=== PATIENT | male | born 1995 | race African-American/Black ===

== ENCOUNTER 2020-12-13 03:09 | Inpatient (IN) ==
[2020-12-13] MEDS ORDERED: SODIUM CHLORIDE 0.9% 1000ML 1,000 ML IV ONE ×2 (03:22)
[2020-12-13] MEDS ORDERED: KETOROLAC 30 MG/ML VIAL IV STA (03:22)
[2020-12-13] MEDS ORDERED: PROMETHAZINE 25 MG/51 ML BAG IV STA (03:22)
--- NOTE | 2020-12-13 03:26 | Emergency Department Note ---
Impression & Plan Sepsis, Myocarditis, Leukocytosis, Acidosis, lactic, Acute renal insufficiency ED Provider Note Name: MIKE [id number] MARCIO Age: 25 Sex: M Arrives Via: Ambulance Informant: Patient, EMS ED Provider: Delbert Lou MD Chief Complaint: Diffuse body aches Impression: Sepsis Myocarditis Leukocytosis Lactic Acidosis Acute Renal Insufficiency Medical Decision Makin yr old prisoner with history depression arrives with diffuse body aches, nausea, vomiting and not feeling well. Dehydrated with tachy and some crackles right lungs thus IV fluids ordered along with phenergan and toradol for symptoms. Patient feeling vastly improved just with this and pending labs. CXR unremarkable. Lab initially returning with elevated WBC and Dohle bodies. At this time sepsis work-up initiated and cultures, lactate, ordered, as well as COVID as likely admission. Trop shortly afterwards elevated. Patient still feeling much better denying chest pain, sob, and just feeling tired. EKG reveals diffuse T wave inversions and some ST depressions consistent with my ocardial issue. Without chest pain nor ST elevation, sats good, and no overt heart failure on CXR felt that no indication for emergency echo at this time, no anticoagulation without further work-up. Hospitalist involved at this point and decision to get CT PE along with A/P. Lactate returned elevated and in setting of some tachy felt 30ml/kg IV fluids reasonable which he was ordered. Issue wit h COVID testing at lab, which resulted as negative. CT PE negative though does show small pericardial effusion. CT a/p consistent with enterocolitis no overt surgical findings. Prior Medical Record and Triage/Nursing Notes reviewed by Me Additional history obtained from [facility] records Differentials:Infection, dehydration, metabolic abnormality, hypo/hype rglycemia, electrolyte disturbance, anemia, hypoxia, cardiac sources, intracerebral event, toxicologic, neurologic, as well as other pathologies. Vital Signs: reviewed and remarkable for Tachy Interventions: saline lock, Toradol 30mg IV, Phenergan 25mg IV, nss bolus 2 L + 500mL IV, Zosyn IV, Vanco IV Labs:Reviewed and remarkable for elevated wbc, elevated lactate, elevated trop, amongst others Imaging:X ray results are stated below per my interpretation: Chest: 1 view: No infiltrate, no effusion, normal cardiac border. EKG:Per My Interpretation: Indication Body Aches: NSR 90 bpm, qtc 433. There are diffuse t wave inversions anteriorly as well as ST depression inferior. No Ectopy. No previous for comparison. Cardiac/Tele Monitoring: Cardiac Monitoring: An Order was placed for continuous cardiac monitoring. The monitor shows a rate of 100 with a normal sinus rhythm. Consults:Dr Woo DELANEY Hospitalist Plan: Disposition:Hospitalization. Condition: Fair History of Present Illness:25 yr old male prisoner arrives for evaluation of "covid" symptoms. Patient with 3 days of symptoms. Notes cough, shortness of breath, fatigue, fevers, chills, nausea, vomiting, diarrhea, abdominal cramping, back pain amongst other symptoms. Notes worsening this evening. Given Tylenol [employer] with improvement of fever. Exertion makes worse, rest makes better. No syncope, chest pain, leg swelling, bruising nor other symptoms. No recent antibiotics. Was tested 3 days ago for covid without results yet. Denies chronic disease history. Multiple sick contacts. ROS: See above HPI for pertinent positives & negatives. A total of 10 systems reviewed and were otherwise negative. Past Medical History:Depression Past Surgical History:None Family History:DMII Social History:Prisoner. Recently quit smoking, no etoh, no drugs. Home Medications:Remeron, Paxil Allergies:Trazodone Vitals:Blood Pressure: 100/77, Pulse 108, RR 20, T 37.1C, O2 98% on RA Physical Exam: GENERAL: Patient is tired appearing and in mild distress. EYES: No scleral icterus, unremarkable pupils. ENT: Mucous membranes moist, no nasal congestion. NECK: No masses appreciated, nomeningismus, trachea is midline. RESPIRATORY: Crackles right lower lungs otherwise no dyspnea. Clear to auscultation and equal bilaterally. No wheeze, no rhonchi. CARDIOVASCULAR: Regular rate and rhythm.No murmurs, rubs, gallops appreciated. GASTROINTESTINAL: Abdomen soft, non-tender, no peritonitis.Bowel sounds positive.No masses appreciated. BACK: No midline tenderness, no CVA tenderness EXTREMITIES: Normal motion all extremities, no cyanosis, no edema. NEUROLOGIC: Alert and oriented, no acute motor or sensory deficits, no focal weakness, cranial nerves grossly intact. SKIN: No rash, no jaundice, no diaphoresis. PSYCH: Appropriate GCS: 15 ED Course: Times/Reassessments: Patient with vast improvement in symptoms just with initial fluids and toradol/phenergan. Aware abnormal labs and OK with hospitalization. Breathing comfortably throughout. Mild increased HR though not overtly septic by exam. Hospitalist in to evaluate. Critical Care: I have personally spent 45 minutes of critical care time in the direct management of this patient. Myocarditis with sepsis requiring medical resus. This was a life/limb threatening event. This 45 minutes is in excess of all separately billable procedures. Delbert Lou MD Past Med/Surg History Social History Smoking Status: Current every day smoker Tobacco Type: Cigarettes Feels Safe at Home: Yes Allergies Allergies Allergy/AdvReac Type Severity Reaction Status Date / Time schmitt Allergy Unknown Verified 12/13/20 03:55 trazodone Allergy Unknown Verified 12/13/20 03:55 Home Meds Home Medications Medication Instructions Recorded Confirmed mirtazapine 45 mg PO HS 12/13/20 12/13/20 paroxetine HCl 10 mg PO HS 12/13/20 12/13/20 Results & Data (ED) Vital Signs Vital Signs - 24 hr 12/13/20 03:48 12/13/20 04:08 12/13/20 05:16 Temperature 37.1 C Temperature Source Oral Pulse Rate 108 H Pulse Rate [Bilateral Apical] 108 H 120 H Respiratory Rate 20 20 20 Blood Pressure 100/77 Blood Pressure [Right Arm] 119/71 118/70 Blood Pressure Mean 84 Blood Pressure Mean [Right Arm] 87 86 Pulse Oximetry 98 99 96 Oxygen Delivery Method Room Air Room Air Room Air Sepsis Recent Fever Within 48 Hours Yes Sepsis New/Unexplained Change in Mental Status N/A Sepsis Action Taken by Nursing No Action Required 12/13/20 05:42 12/13/20 05:49 Temperature Temperature Source Pulse Rate Pulse Rate [Bilateral Apical] 116 H 110 H Respiratory Rate 20 20 Blood Pressure Blood Pressure [Right Arm] 103/65 Blood Pressure Mean Blood Pressure Mean [Right Arm] 77 Pulse Oximetry 96 99 Oxygen Delivery Method Room Air Room Air Sepsis Recent Fever Within 48 Hours Sepsis New/Unexplained Change in Mental Status Sepsis Action Taken by Nursing Laboratory Data Result diagrams: 12/13/20 03:32 12/13/20 03:32 Lab Results 12/13/20 12/13/20 12/13/20 Range/Units 03:32 03:32 03:32 WBC 26.44 H (4.8-10.8) K/uL RBC 4.98 (4.7-6.1) M/uL Hgb 14.4 (14.0-18.0) g/dL Hct 39.0 L (42-52) % MCV 78.3 L (80-100) fL MCH 28.9 (25-34) pg MCHC 36.9 H (32-36) g/dL RDW Std Deviation 38.0 (36.4-46.3) fL RDW Coeff of Chavez 13.3 (11.5-14.5) % Plt Count 241 (130-400) K/uL MPV 12.6 H (7.4-10.4) fL Immature Gran % (Auto) 0.9 % Neut % (Auto) 89.7 % Lymph % (Auto) 6.4 % [place] % (Auto) 2.7 % Eos % (Auto) 0.2 % Baso % (Auto) 0.1 % Neut # (Auto) 23.74 H (1.4-6.5) K/uL Lymph # (Auto) 1.68 (1.2-3.4) K/uL [place] # (Auto) 0.72 H (0.11-0.59) K/uL Eos # (Auto) 0.04 (0-0.5) K/uL Baso # (Auto) 0.02 (0-0.2) K/uL Immature Gran # (Auto) 0.24 H (0.00-0.02) K/uL Toxic Vacuolation Occasional Dohle Bodies 1+ ESR 74 H (0-14) mm/hr Sodium 132 L (136-145) mmol/L Potassium 3.4 L (3.5-5.1) mmol/L Chloride 96 L (98-107) mmol/L Carbon Dioxide 23 (21-32) mmol/L Anion Gap 13.0 H (3-11) BUN 32 H (7-18) mg/dl Creatinine 1.53 H (0.6-1.4) mg/dl Est Cr Clr Drug Dosing 74.3 ml/min Est GFR ( Amer) 71.2 Est GFR (Non-Af Amer) 61.4 BUN/Creatinine Ratio 20.6 H (10-20) Glucose 138 H (70-99) mg/dl Lactate (0.4-2.0) mmol/L Calcium 9.1 (8.5-10.1) mg/dl Magnesium 2.4 (1.8-2.4) mg/dl Total Bilirubin 1.3 H (0.2-1) mg/dl Direct Bilirubin 0.6 H (0-0.2) mg/dl AST 46 H (15-37) U/L ALT 76 (12-78) U/L Alkaline Phosphatase 107 (45-117) U/L Troponin I 4.960 H* (0-0.045) ng/ml C-Reactive Protein 40.30 H (0-0.29) mg/dl Total Protein 8.4 H (6.4-8.2) gm/dl Albumin 2.7 L (3.4-5.0) gm/dl Lipase 61 L (73-393) U/L Procalcitonin (0-0.5) ng/ml COVID-19 Eval Order SARS-CoV-2 (PCR) (Negative) Influenza Type A (PCR) (Neg) Influenza Type B (PCR) (Neg) RSV (RT-PCR) (Neg) Blood Type Antibody Screen 12/13/20 12/13/20 12/13/20 Range/Units 03:32 03:38 04:05 WBC (4.8-10.8) K/uL RBC (4.7-6.1) M/uL Hgb (14.0-18.0) g/dL Hct (42-52) % MCV (80-100) fL MCH (25-34) pg MCHC (32-36) g/dL RDW Std Deviation (36.4-46.3) fL RDW Coeff of Chavez (11.5-14.5) % Plt Count (130-400) K/uL MPV (7.4-10.4) fL Immature Gran % (Auto) % Neut % (Auto) % Lymph % (Auto) % [place] % (Auto) % Eos % (Auto) % Baso % (Auto) % Neut # (Auto) (1.4-6.5) K/uL Lymph # (Auto) (1.2-3.4) K/uL [place] # (Auto) (0.11-0.59) K/uL Eos # (Auto) (0-0.5) K/uL Baso # (Auto) (0-0.2) K/uL Immature Gran # (Auto) (0.00-0.02) K/uL Toxic Vacuolation Dohle Bodies ESR (0-14) mm/hr Sodium (136-145) mmol/L Potassium (3.5-5.1) mmol/L Chloride (98-107) mmol/L Carbon Dioxide (21-32) mmol/L Anion Gap (3-11) BUN (7-18) mg/dl Creatinine (0.6-1.4) mg/dl Est Cr Clr Drug Dosing ml/min Est GFR ( Amer) Est GFR (Non-Af Amer) BUN/Creatinine Ratio (10-20) Glucose (70-99) mg/dl Lactate (0.4-2.0) mmol/L Calcium (8.5-10.1) mg/dl Magnesium (1.8-2.4) mg/dl Total Bilirubin (0.2-1) mg/dl Direct Bilirubin (0-0.2) mg/dl AST (15-37) U/L ALT (12-78) U/L Alkaline Phosphatase (45-117) U/L Troponin I (0-0.045) ng/ml C-Reactive Protein Cancelled (0-0.29) mg/dl Total Protein (6.4-8.2) gm/dl Albumin (3.4-5.0) gm/dl Lipase (73-393) U/L Procalcitonin 9.06 H (0-0.5) ng/ml COVID-19 Eval Order CovFluRsv at [facility] SARS-CoV-2 (PCR) (Negative) Influenza Type A (PCR) (Neg) Influenza Type B (PCR) (Neg) RSV (RT-PCR) (Neg) Blood Type Antibody Screen 12/13/20 12/13/20 12/13/20 Range/Units 04:05 04:39 04:39 WBC (4.8-10.8) K/uL RBC (4.7-6.1) M/uL Hgb (14.0-18.0) g/dL Hct (42-52) % MCV (80-100) fL MCH (25-34) pg MCHC (32-36) g/dL RDW Std Deviation (36.4-46.3) fL RDW Coeff of Chavez (11.5-14.5) % Plt Count (130-400) K/uL MPV (7.4-10.4) fL Immature Gran % (Auto) % Neut % (Auto) % Lymph % (Auto) % [place] % (Auto) % Eos % (Auto) % Baso % (Auto) % Neut # (Auto) (1.4-6.5) K/uL Lymph # (Auto) (1.2-3.4) K/uL [place] # (Auto) (0.11-0.59) K/uL Eos # (Auto) (0-0.5) K/uL Baso # (Auto) (0-0.2) K/uL Immature Gran # (Auto) (0.00-0.02) K/uL Toxic Vacuolation Dohle Bodies ESR (0-14) mm/hr Sodium (136-145) mmol/L Potassium (3.5-5.1) mmol/L Chloride (98-107) mmol/L Carbon Dioxide (21-32) mmol/L Anion Gap (3-11) BUN (7-18) mg/dl Creatinine (0.6-1.4) mg/dl Est Cr Clr Drug Dosing ml/min Est GFR ( Amer) Est GFR (Non-Af Amer) BUN/Creatinine Ratio (10-20) Glucose (70-99) mg/dl Lactate 3.3 H* (0.4-2.0) mmol/L Calcium (8.5-10.1) mg/dl Magnesium (1.8-2.4) mg/dl Total Bilirubin (0.2-1) mg/dl Direct Bilirubin (0-0.2) mg/dl AST (15-37) U/L ALT (12-78) U/L Alkaline Phosphatase (45-117) U/L Troponin I (0-0.045) ng/ml C-Reactive Protein (0-0.29) mg/dl Total Protein (6.4-8.2) gm/dl Albumin (3.4-5.0) gm/dl Lipase (73-393) U/L Procalcitonin (0-0.5) ng/ml COVID-19 Eval Order SARS-CoV-2 (PCR) NEGATIVE (Negative) Influenza Type A (PCR) Negative (Neg) Influenza Type B (PCR) Negative (Neg) RSV (RT-PCR) Negative (Neg) Blood Type O Positive Antibody Screen NEGATIVE Administered Medications Vancomycin HCl 1,750 mg/ (Sodium Chloride) 535 mls @ 200 mls/hr IV NOW ONE Stop: 12/13/20 06:59 Last Admin: 12/13/20 06:03 Dose: 200 mls/hr Documented by: [id number] Discontinued Medications Sodium Chloride (Nss 1000ml) 1,000 mls @ 999 mls/hr IV .Q1H1M ONE Stop: 12/13/20 04:22 Last Infusion: 12/13/20 05:13 Dose: 0 mls/hr Documented by: [id number] Infusion: 12/13/20 05:13 Dose: 0 mls/hr Documented by: [id number] Admin: 12/13/20 04:00 Dose: 999 mls/hr Documented by: [id number] Sodium Chloride (Nss 1000ml) 1,000 mls @ 999 mls/hr IV .Q1H1M ONE Stop: 12/13/20 04:22 Last Infusion: 12/13/20 05:13 Dose: 0 mls/hr Documented by: [id number] Admin: 12/13/20 04:00 Dose: 999 mls/hr Documented by: [id number] Promethazine HCl (Phenergan) 25 mg in 51 mls @ 204 mls/hr IV NOW STA Stop: 12/13/20 03:36 Last Infusion: 12/13/20 04:15 Dose: 0 mls/hr Documented by: [id number] Admin: 12/13/20 04:00 Dose: 204 mls/hr Documented by: [id number] Piperacillin Sod/Tazobactam Sod (Zosyn) 4.5 gm in 120 mls @ 240 mls/hr IV NOW ONE Stop: 12/13/20 04:48 Last Infusion: 12/13/20 06:03 Dose: 0 mls/hr Documented by: [id number] Admin: 12/13/20 05:12 Dose: 240 mls/hr Documented by: [id number] Sodium Chloride (Nss 1000ml) 500 mls @ 999 mls/hr IV .Q31M ONE Stop: 12/13/20 06:03 Last Infusion: 12/13/20 06:16 Dose: 0 mls/hr Documented by: [id number] Admin: 12/13/20 05:41 Dose: 999 mls/hr Documented by: [id number] Ioversol (Optiray 320 125ml) 125 ml IV ONCE ONE Stop: 12/13/20 05:41 Last Admin: 12/13/20 05:40 Dose: 117 ml Documented by: [id number] Ketorolac Tromethamine (Ketorolac 30 Mg/Ml Vial) 30 mg IV NOW STA Stop: 12/13/20 03:23 Last Admin: 12/13/20 04:00 Dose: 30 mg Documented by: [id number] Discharge Plan Visit Data Chief Complaint: Diarrhea Stated Complaint: COVID PENDING/N/V/D ED Provider: Delbert Lou Discharge Problem: Sepsis, Myocarditis, Leukocytosis, Acidosis, lactic, Acute renal insufficiency Forms Stand Alone Forms: [employer] - Eye Tracking Prescriptions Prescriptions: No Action paroxetine HCl 10 mg Tablet 10 mg PO HS RF: 0 mirtazapine 45 mg Tablet 45 mg PO HS RF: 0 Discharge Problem: Sepsis Qualifiers: Sepsis type: sepsis due to unspecified organism Sepsis acute organ dysfunction status: with acute organ dysfunction Severe sepsis acute organ dysfunction type: unspecified Severe sepsis shock status: without septic shock Qualified Code(s): A41.9 - Sepsis, unspecified organism Myocarditis Qualifiers: Myocarditis type: infective Infective myocarditis organism: other organism Chronicity: acute Qualified Code(s): I41 - Myocarditis in diseases classified elsewhere Leukocytosis Qualifiers: Leukocytosis type: bandemia Qualified Code(s): D72.825 - Bandemia
[2020-12-13 03:47] LABS: Hemoglobin 14.4 g/dL (14.0-18.0); Mean Corpuscular Hemoglobin 28.9 pg (25-34); Mean Corpuscular Hgb Conc 36.9 g/dL (32-36); Mean Corpuscular Volume 78.3 fL (80-100); Mean Platelet Volume 12.6 fL (7.4-10.4); Platelet Count 241 K/uL (130-400); RDW Coefficient of Variation 13.3 % (11.5-14.5); Red Blood Count 4.98 M/uL (4.7-6.1); White Blood Count 26.44 K/uL (4.8-10.8)
[2020-12-13 04:03] LABS: Albumin Level 2.7 gm/dl (3.4-5.0); BUN Creatinine Ratio 20.6 (10-20); Bilirubin Direct 0.6 mg/dl (0-0.2); Calcium 9.1 mg/dl (8.5-10.1); Creatinine Clr Calc Pharmacy 74.3 ml/min; Est GFR (African American) 71.2; Est GFR (Non-African American) 61.4; Magnesium 2.4 mg/dl (1.8-2.4); Potassium 3.4 mmol/L (3.5-5.1)
[2020-12-13 04:15] LABS: Basophils # (auto) 0.02 K/uL (0-0.2); Basophils % (auto) 0.1 %; Dohle Bodies 1+; Eosinophils # (auto) 0.04 K/uL (0-0.5); Eosinophils % (auto) 0.2 %; Immature Granulocytes # (auto) 0.24 K/uL (0.00-0.02); Immature Granulocytes % (auto) 0.9 %; Lymphocytes # (auto) 1.68 K/uL (1.2-3.4); Lymphocytes % (auto) 6.4 %; Monocytes # (auto) 0.72 K/uL (0.11-0.59); Monocytes % (auto) 2.7 %; Neutrophils # (auto) 23.74 K/uL (1.4-6.5); Neutrophils % (auto) 89.7 %; Toxic Vacuolation Occasional
[2020-12-13 04:16] LABS: Bilirubin,Total 1.3 mg/dl (0.2-1); Total Protein 8.4 gm/dl (6.4-8.2); Troponin I 4.96 ng/ml (0-0.045)
[2020-12-13] MEDS ORDERED: PIPERACILLIN/TAZOBACTAM 4.5 GM/120 ML BAG IV ONE (04:19)
[2020-12-13] MEDS ORDERED: VANCOMYCIN HCL 1,750 MG in SODIUM CHLORIDE 0.9% 500 ML IV ONE (04:19)
[2020-12-13] MEDS ORDERED: PIPERACILL/TAZOBAC CONSULT ACTIVE PRN (04:19)
[2020-12-13] MEDS ORDERED: VANCOMYCIN CONSULT ACTIVE PRN (04:19)
[2020-12-13] MEDS ORDERED: SODIUM CHLORIDE 0.9% 1000ML 500 ML IV ONE (05:33)
[2020-12-13] MEDS ORDERED: OPTIRAY 320 125ml IV ONE (05:40)
[2020-12-13 05:45] LABS: Influenza A virus by PCR Negative (Neg); Influenza B virus by PCR Negative (Neg); RSV by PCR Negative (Neg); SARS CoV2 RNA(COVID-19) InHosp NEGATIVE (Negative)
[2020-12-13 05:48] LABS: C Reactive Protein 40.3 mg/dl (0-0.29)
--- NOTE | 2020-12-13 06:29 | History & Physical Report ---
Date of Service December 13, 2020 Assessment & Plan (1) Elevated troponin I level: Elevated troponin I level- The patient will be admitted to telemetry for serial cardiac enzymes, serial EKG's, cardiac rhythm monitoring and a 2-D echocardiogram with Dopplers. Patient does not have any specific chest symptoms as far as pain, shortness of breath or dyspnea on exertion. Differential includes but not limited to non-STEMI, myocarditis, pericarditis. Consult cardiology Present on Admission?: Yes (2) Enterocolitis: Enterocolitis/mesenteric adenitis/lactic acidosis- Primary symptoms of nausea vomiting, without diarrhea NPO except ice chips and essential medications. Zofran 4 mg IV every 6 hours as needed Famotidine 20 mg IV every 12 hours He did receive vancomycin IV and Zosyn IV from the ED. Hold on any additional antibiotics for now. NSS at 100 mils per hour. Follow serial CBC with differential, Renal panel, magnesium levels Present on Admission?: Yes (3) Mesenteric adenitis: See above Present on Admission?: Yes (4) Acute kidney injury: Creatinine 1.53 upon admission, with no baseline for comparison. NSS@100 mils per hour. Follow laboratory serially in a.m. Present on Admission?: Yes History of Present Illness Chief Complaint: Patient presents to the emergency department with the acute onset of generalized body aches, nausea, vomiting and fatigue. Primary Care Provider: KARIN Krishnamurthy The patient is a 25-year-old prisoner of [employer], with a past medical history including depression, who presents with the above symptoms. Work-up in the emergency department included the following abnormal laboratories: Sodium 132, potassium 3.4, creatinine 1.53, glucose 138, WBC 26.44, total bilirubin 1.3, direct bilirubin 0.6, troponin IV 0.960, albumin 2.7, lactate 3.3, procalcitonin 9.06, and COVID-19 testing was negative. EKG Showed ischemic changes in leads III, aVF, V3-V6. Chest x-ray showed no acute findings CT of abdomen and pelvis showed findings consistent with enterocolitis and mesenteric adenitis. CT angiography of the chest was negative for PE. Allergies Allergy/AdvReac Type Severity Reaction Status Date / Time schmitt Allergy Unknown Verified 12/13/20 03:55 trazodone Allergy Unknown Verified 12/13/20 03:55 Home Medications Medication Instructions Recorded Confirmed Type mirtazapine 45 mg PO HS 12/13/20 12/13/20 History paroxetine HCl 10 mg PO HS 12/13/20 12/13/20 History Past Med/Surg History Social History Smoking Status: Current every day smoker Tobacco Type: Cigarettes Feels Safe at Home: Yes Review of Systems Review of Systems: The patient denies chest pain, palpitations, shortness of breath, dyspnea on exertion, cough, lower extremity swelling, sore throat, fevers, chills, sweats, diarrhea, constipation, blood in urine or stool, dysuria, urinary frequency or urgency, lightheadedness, dizziness, headache, memory loss, loss of consciousness, rash, abnormal bruising or bleeding, imbalance, focal or generalized weakness, numbness or tingling in arms or legs, back or neck pain, or night sweats. The review of systems is otherwise negative other than for that already noted above, and at least 10 systems have been reviewed. Physical Exam Physical Exam: The patient is awake, alert and oriented 3, well developed and well nourished, normocephalic and atraumatic, lying in bed and in no acute distress. HEENT--PERRL, EOMI, mucous membranes and oropharynx dry. Neck--supple. No JVD. No bruits. Thyroid normal, trachea midline, no adenopathy. Heart--normal S1 and S2. No murmurs, rubs or gallops. Lungs--clear bilaterally, no respiratory distress, no accessory muscle use. Abdomen--normal bowel sounds and soft. Generalized mild tenderness. Nondistended Extremities--no cyanosis or clubbing. No edema. Dermatologic--normal skin turgor, normal color, no abnormal lymph nodes, no rash. Neurologic--cranial nerves II through XII grossly intact. Rheumatologic--normal range of motion. Psychiatric--normal affect. Results & Data Results & Data ([facility]) Vital Signs (Past 12 Hours) Vital Signs Temp Pulse Pulse Resp BP BP Pulse Ox 12/13/20 05:49 110 H 20 103/65 99 12/13/20 05:42 116 H 20 96 12/13/20 05:16 120 H 20 118/70 96 12/13/20 04:08 108 H 20 119/71 99 12/13/20 03:48 98.8 F 108 H 20 100/77 98 Laboratory Results Laboratory Results WBC 26.44 K/uL (4.8-10.8) H 12/13/20 03:32 RBC 4.98 M/uL (4.7-6.1) 12/13/20 03:32 Hgb 14.4 g/dL (14.0-18.0) 12/13/20 03:32 Hct 39.0 % (42-52) L 12/13/20 03:32 MCV 78.3 fL (80-100) L 12/13/20 03:32 MCH 28.9 pg (25-34) 12/13/20 03:32 MCHC 36.9 g/dL (32-36) H 12/13/20 03:32 RDW Std Deviation 38.0 fL (36.4-46.3) 12/13/20 03:32 RDW Coeff of Chavez 13.3 % (11.5-14.5) 12/13/20 03:32 Plt Count 241 K/uL (130-400) 12/13/20 03:32 MPV 12.6 fL (7.4-10.4) H 12/13/20 03:32 Immature Gran % (Auto) 0.9 % 12/13/20 03:32 Neut % (Auto) 89.7 % 12/13/20 03:32 Lymph % (Auto) 6.4 % 12/13/20 03:32 [place] % (Auto) 2.7 % 12/13/20 03:32 Eos % (Auto) 0.2 % 12/13/20 03:32 Baso % (Auto) 0.1 % 12/13/20 03:32 Neut # (Auto) 23.74 K/uL (1.4-6.5) H 12/13/20 03:32 Lymph # (Auto) 1.68 K/uL (1.2-3.4) 12/13/20 03:32 [place] # (Auto) 0.72 K/uL (0.11-0.59) H 12/13/20 03:32 Eos # (Auto) 0.04 K/uL (0-0.5) 12/13/20 03:32 Baso # (Auto) 0.02 K/uL (0-0.2) 12/13/20 03:32 Immature Gran # (Auto) 0.24 K/uL (0.00-0.02) H 12/13/20 03:32 Toxic Vacuolation Occasional 12/13/20 03:32 Dohle Bodies 1+ 12/13/20 03:32 ESR 74 mm/hr (0-14) H 12/13/20 03:32 Sodium 132 mmol/L (136-145) L 12/13/20 03:32 Potassium 3.4 mmol/L (3.5-5.1) L 12/13/20 03:32 Chloride 96 mmol/L (98-107) L 12/13/20 03:32 Carbon Dioxide 23 mmol/L (21-32) 12/13/20 03:32 Anion Gap 13.0 (3-11) H 12/13/20 03:32 BUN 32 mg/dl (7-18) H 12/13/20 03:32 Creatinine 1.53 mg/dl (0.6-1.4) H 12/13/20 03:32 Est Cr Clr Drug Dosing 74.3 ml/min 12/13/20 03:32 Est GFR ( Amer) 71.2 12/13/20 03:32 Est GFR (Non-Af Amer) 61.4 12/13/20 03:32 BUN/Creatinine Ratio 20.6 (10-20) H 12/13/20 03:32 Glucose 138 mg/dl (70-99) H 12/13/20 03:32 Lactate 3.3 mmol/L (0.4-2.0) H* 12/13/20 04:39 Calcium 9.1 mg/dl (8.5-10.1) 12/13/20 03:32 Magnesium 2.4 mg/dl (1.8-2.4) 12/13/20 03:32 Total Bilirubin 1.3 mg/dl (0.2-1) H 12/13/20 03:32 Direct Bilirubin 0.6 mg/dl (0-0.2) H 12/13/20 03:32 AST 46 U/L (15-37) H 12/13/20 03:32 ALT 76 U/L (12-78) 12/13/20 03:32 Alkaline Phosphatase 107 U/L (45-117) 12/13/20 03:32 Troponin I 4.960 ng/ml (0-0.045) H* 12/13/20 03:32 C-Reactive Protein 40.30 mg/dl (0-0.29) H 12/13/20 03:32 C-Reactive Protein Cancelled 12/13/20 03:32 Total Protein 8.4 gm/dl (6.4-8.2) H 12/13/20 03:32 Albumin 2.7 gm/dl (3.4-5.0) L 12/13/20 03:32 Lipase 61 U/L (73-393) L 12/13/20 03:32 Procalcitonin 9.06 ng/ml (0-0.5) H 12/13/20 03:38 COVID-19 Eval Order CovFluRsv at [facility] 12/13/20 04:05 SARS-CoV-2 (PCR) NEGATIVE (Negative) 12/13/20 04:05 Influenza Type A (PCR) Negative (Neg) 12/13/20 04:05 Influenza Type B (PCR) Negative (Neg) 12/13/20 04:05 RSV (RT-PCR) Negative (Neg) 12/13/20 04:05 Blood Type O Positive 12/13/20 04:39 Antibody Screen NEGATIVE 12/13/20 04:39 Diagnostic Findings [facility] Patient: MIKE BUCKLEY [id number] (Male) : 89 Status: ER Date: 12/13/20 05:38 Room #: History: ELEVATED TROP, R/O PE AND MYOCARDITIS Slices: [phone] Priors: Tech: Marc Mckeon @ [phone] Exams: CTA CHEST Contrast: IV Amt: 117 ML OPTIRAY 320 Accession Numbers: [id number] Preliminary Findings Only See Final Report For Complete Findings CTA CHEST: No evidence of PE. Cardiomegaly. Trace pericardial fluid. Mild nonspecific ground glass densities, possible atelectasis. Correlate clinically to exclude inflammatory/infectious process. Radiologist: Karen Marie M.D. Study ready at 05:39 and initial results transmitted at 05:57 *This report constitutes a preliminary interpretation only. Non-acute findings felt to be unrelated to the clinical presentation may not be discussed in this report. The study will be interpreted and a final report will be generated by the local Radiologist the following shift. To reach the hospital radiology department call [phone]. If a discrepancy is found between the preliminary and final interpretations of this study, please notify us via our Client Portal at [email or web address].You can also fax this report with a description of the discrepancy, or include the final report, to our daytime fax number [phone].If faxing, please indicate the severity of discrepancy using one of the following categories: [ ] 1 - Agree/Informational [ ] 2 - Unlikely to Affect Management [ ] 3 - Possible Eventual Change of Management [ ] 4 - Probable Immediate Change of Management For all other patient related information, please fax us at [phone]. [id number] [facility] Patient: MIKE BUCKLEY [id number] (Male) : [birth year] Status: ER Date: 12/13/20 05:42 Room #: History: SEPSIS, UNKNOWN ETIOLOGY Slices: [phone] Priors: Tech: Marc Mckoen @ [phone] Exams: CT ABDOMEN & PELVIS With Contrast Contrast: IV Amt: 117 ML OPTIRAY 320 Accession Numbers: [id number] Preliminary Findings Only See Final Report For Complete Findings CT ABDOMEN & PELVIS With Contrast: Areas of small and large bowel wall thickening raising possibility of enterocolitis. Nonspecific mesenteric stranding with enlarged lymph nodes, can be seen with mesenteric adenitis/panniculitis or other etiologies. Cholelithiasis. Small fat-containing umbilical and inguinal hernias. Unremarkable appendix. Radiologist: Karen Marie M.D. Study ready at 05:46 and initial results transmitted at 06:03 *This report constitutes a preliminary interpretation only. Non-acute findings felt to be unrelated to the clinical presentation may not be discussed in this report. The study will be interpreted and a final report will be generated by the local Radiologist the following shift. To reach the hospital radiology department call [phone]. If a discrepancy is found between the preliminary and final interpretations of this study, please notify us via our Client Portal at [email or web address] Exams.You can also fax this report with a description of the discrepancy, or include the final report, to our daytime fax number [phone].If faxing, please indicate the severity of discrepancy using one of the following categories: [ ] 1 - Agree/Informational [ ] 2 - Unlikely to Affect Management [ ] 3 - Possible Eventual Change of Management [ ] 4 - Probable Immediate Change of Management For all other patient related information, please fax us at [phone]. [id number] Code Status & VTE Plan Code Status Full code VTE Prophylaxis Plan VTE Prophylaxis will be ordered: Yes PG Care Time/CCT Total # of Minutes Spent Total Time Spent with Patient: Total time spent is greater than 50% in coordination of care (as documented) at patient's floor/unit and/or counseling patient: Coding Level of Care Code 89967 Initial Inpt Care Lvl 3 Diagnoses Elevated troponin I level R77.8 Enterocolitis K52.9 Mesenteric adenitis I88.0 Acute kidney injury N17.9
--- NOTE | 2020-12-13 06:41 | XRay Report ---
XR chest 1V portable HISTORY: 25 years-old Male cough, shortness of breath, possible covid acute cough with shortness of breath COMPARISON: CTA chest of same day TECHNIQUE: Portable AP view of the chest FINDINGS: Cardiomediastinal and hilar silhouettes are within normal limits. No pneumothorax, pleural effusion, airspace consolidation or overt pulmonary edema. Bones of the chest appear normal. IMPRESSION: No acute process. ACT 112: Negative or not required by law. The above report was generated using voice recognition software. It may contain grammatical, syntax o r spelling errors. Electronically signed by: Valeriano Hammond M.D. 12/13/2020 6:40 AM
[2020-12-13 07:07] LABS: Appearance Urine Clear (Clear); Bacteria Urine Automated Negative (Negative); Bilirubin Urine Negative (Negative); Blood Urine Trace (Negative); Color Urine Yellow; Epithelial Cell Urine Auto >30 /lpf (0-5); Glucose Urine UA Negative (Negative); Ketones Urine 1+ (Negative); Leukocyte Esterase Urine Negative (Negative); Nitrite Urine Negative (Negative); Protein Urine 1+ (Negative); RBC Urine Automated 0-4 /hpf (0-4); Specific Gravity Urine > 1.045 (1.000-1.030); Urobilinogen Urine Negative (Negative)
[2020-12-13] MEDS ORDERED: SODIUM CHLORIDE 0.9% 1000ML 1,000 ML IV SCH (07:40)
[2020-12-13] MEDS ORDERED: NITROGLYCERIN SL 0.4 MG/TAB TAB SL PRN (07:40)
[2020-12-13] MEDS ORDERED: ONDANSETRON INJ 2 MG/ML 2 ML VIAL IV PRN (07:40)
--- NOTE | 2020-12-13 07:46 | CT Scan Report ---
CT angio chest PE protocol HISTORY: 25 years-old Male with PE rule out, elevated Trop, possible myocarditis. Acute chest pain with shortness of breath. Clinical concern for myocarditis. TECHNIQUE: Multiple CTA images of the chest were obtained after the intravenous administration of 117 ml Optiray 320. Coronal and sagittal MIPS were obtained from the axial data set and were submitted for review. All measurements were obtained according to NASCET criteria. A dose lowering technique w as utilized adhering to the principles of ALARA. COMPARISON: CT abdomen and pelvis of same day FINDINGS: CTA: The heart appears mildly enlarged. Trace physiologic amount of pericardial fluid. No thoracic aortic aneurysm or dissection. Patency of the imaged great vessels. The pulmonary arterial tree is opacified to the level of the proximal subsegmental branches and demonstrates no filling defects to suggest th romboembolic disease. CT CHEST: Unremarkable thyroid. Residual thymic tissue of the anterior mediastinum. Prominent bilateral axillar y chain lymph nodes measure up to 9 mm. No pathologically enlarged mediastinal lymph nodes. No pneumothorax or pleural effusion. No overt pulmonary edema or lobar airspace consolidation. Mild g roundglass opacities are noted within the left greater than right lung bases. Central airways are pat ent. Mild nonspecific distal esophageal wall thickening. Cholelithiasis. Unremarkable soft tissues. No acu te fracture. IMPRESSION: 1. No pulmonary emboli. 2. Mild left greater than right bibasilar groundglass densities suggest probable atelectasis. A mild pneumonitis is considered less likely. 3. Mildly prominent bilateral axillary chain lymph nodes are likely reactive. 4. Cholelithiasis. ACT 112: Negative or not required by law. The above report was generated using voice recognition software. It may contain grammatical, syntax o r spelling errors. Electronically signed by: Valeriano Hammond M.D. 12/13/2020 7:44 AM
--- NOTE | 2020-12-13 08:10 | CT Scan Report ---
ABDOMEN AND PELVIS CT WITH IV CONTRAST CT DOSE: 819.14 mGy.cm HISTORY: sepsis, unknown etiology TECHNIQUE: Multiaxial CT images of the abdomen and pelvis were performed following the use of intrave nous contrast. A dose lowering technique was utilized adhering to the principles of ALARA. COMPARISON STUDY: None. FINDINGS: A few bibasilar linear densities which favor atelectasis. No pneumoperitoneum. No pneumatos is. No fractures within the visualized osseous structures. The liver, spleen, adrenal glands, pancrea s, and kidneys are within normal limits. No ureteral stones. No hydronephrosis. The bladder is unrema rkable. No retroperitoneal lymphadenopathy. The main portal vein is patent. Cholelithiasis. No gallbl adder wall thickening. Normal caliber abdominal aorta. There are a few enlarged central mesenteric ly mph nodes. Dominant mesenteric lymph node on image 253 measures 1.9 x 1.3 cm. Normal appendix. There are questionable areas of scattered small and large bowel wall thickening. This raises the possibilit y of a nonspecific enterocolitis and could be due to an infectious or inflammatory process. However, this could also be due to underdistention of the bowel. IMPRESSION: 1. There are questionable areas of scattered small and large bowel wall thickening. This raises the p ossibility of a nonspecific enterocolitis and could be due to an infectious or inflammatory process. However, this could also be due to underdistention of the bowel. 2. Nonspecific central mesenteric lymphadenopathy. This could be due to a mesenteric adenitis/pannicu litis or reactive to the questionable bowel thickening. Follow-up recommended to ensure resolution. 3. Normal appendix. ACT 112: Positive. There are findings on this exam that require communication between the performing entity and the patient following Patient Test Result Information Act ([place] Act 112) guidelines. Electronically signed by: Dedrick Prasad M.D. 12/13/2020 8:09 AM
[2020-12-13] MEDS: FAMOTIDINE 20 MG in SYRINGE 3 ML IV SCH ×2 (09:58→20:50)
[2020-12-13] MEDS ORDERED: CIPROFLOXACIN / D5W 400 MG/200 ML BAG IV SCH (11:00)
[2020-12-13] MEDS ORDERED: metroNIDAZOLE 500 MG/100 ML BAG IV SCH (12:00)
[2020-12-13] MEDS: PIPERACILLIN/TAZOBACTAM 3.375 GM in DEXTROSE 5% 100 ML IV SCH ×2 (12:02→18:41)
[2020-12-13 15:01] LABS: Hematocrit (blood only) 34.5 % (42-52); Hemoglobin 12.7 g/dL (14.0-18.0); Mean Corpuscular Hemoglobin 29.1 pg (25-34); Mean Corpuscular Hgb Conc 36.8 g/dL (32-36); Mean Corpuscular Volume 78.9 fL (80-100); Mean Platelet Volume 12.5 fL (7.4-10.4); Nucleated RBC # (auto) 0.04 K/uL (0-0); Nucleated RBC % (auto) 0.2 %; Platelet Count 254 K/uL (130-400); RDW Coefficient of Variation 13.5 % (11.5-14.5); RDW Standard Deviation 38.9 fL (36.4-46.3); Red Blood Count 4.37 M/uL (4.7-6.1); White Blood Count 23.95 K/uL (4.8-10.8)
[2020-12-13 15:22] LABS: Albumin Level 2.2 gm/dl (3.4-5.0); BUN Creatinine Ratio 18.7 (10-20); Calcium 8.6 mg/dl (8.5-10.1); Creatinine Clr Calc Pharmacy 83.1 ml/min; Est GFR (African American) 81.3; Est GFR (Non-African American) 70.2; Potassium 3.3 mmol/L (3.5-5.1)
[2020-12-13 15:25] LABS: Basophils # (auto) 0.02 K/uL (0-0.2); Basophils % (auto) 0.1 %; Echinocytes 1+; Eosinophils # (auto) 0.07 K/uL (0-0.5); Eosinophils % (auto) 0.3 %; Immature Granulocytes # (auto) 0.25 K/uL (0.00-0.02); Lymphocytes # (auto) 1.63 K/uL (1.2-3.4); Lymphocytes % (auto) 6.8 %; Monocytes # (auto) 0.56 K/uL (0.11-0.59); Monocytes % (auto) 2.3 %; Neutrophils # (auto) 21.42 K/uL (1.4-6.5); Neutrophils % (auto) 89.5 %; Toxic Vacuolation 1+
[2020-12-13] MEDS: ACETAMINOPHEN 325 MG TAB PO PRN (15:53)
--- NOTE | 2020-12-13 16:11 | XCELERA ---
[id number]
[2020-12-13 16:15] LABS: Albumin Globulin Ratio 0.5 (0.9-2); Bilirubin,Total 1.4 mg/dl (0.2-1); Globulin 4.6 gm/dl (2.5-4.0); Total Protein 6.8 gm/dl (6.4-8.2); Troponin I 8.84 ng/ml (0-0.045)
--- NOTE | 2020-12-13 16:30 | XRay Report ---
SINGLE VIEW CHEST CLINICAL HISTORY: Tachypnea. FINDINGS: 2 AP, portable, upright chest radiographs are compared to chest x-ray and chest CT performe d earlier the same day 12/13/2020. The examination is degraded by portable technique and apical lordot ic positioning. The cardiomediastinal silhouette is unremarkable. There are low lung volumes with mil d elevation of right hemidiaphragm. No airspace consolidation or large pleural effusion is seen. Ther e is no pneumothorax. The bony thorax is grossly intact. IMPRESSION: No active disease in the chest. ACT 112: Negative or not required by law. Electronically signed by: Vick Peterson M.D. 12/13/2020 4:29 PM
--- NOTE | 2020-12-13 16:31 | Cardiology Consultation ---
Date of Consultation December 13, 2020 Assessment & Plan (1) Acute myocarditis: (2) Cardiomyopathy: (3) Enterocolitis: (4) Acute kidney injury: (5) Mitral regurgitation: ASSESSMENT/PLAN: 1. Acute myocarditis: Overall presentation appears to be consistent with acute myocarditis. Had intermittent chest pain which may or may not be component of pericardial inflammation as symptoms were also occurring well vomiting and could be related to the vomiting itself. Reduced biventricular systolic function on echo. He does not appear hypervolemic despite fluid boluses. Monitor volume status carefully. If become significantly hypotensive, would consider inotropic support however not necessary at this time. Will consider initiating appropriate beta-doroteo and SIENNA-inhibitor therapy later this hospitalization once further stabilized she. 2. Cardiomyopathy: Likely due to myocarditis as above. Very unlikely to be ischemic in origin given few cardiac risk factors and young age. He did not present with acute coronary syndrome but rather symptoms consistent with infectious etiology such as gastroenteritis. Will reassess tomorrow and consider beta-doroteo therapy and at some point SIENNA-inhibitor therapy. Diagnosis was discussed with him. 3. Enterocolitis: As per primary service. 4. Acute kidney injury: Renal function has improved with fluid boluses. He was likely hypovolemic on presentation given diarrhea and vomiting. 5. Mitral regurgitation: Non severe. This will be re-evaluated at some point in the future. 6. Disposition: Cardiology will continue to follow along. Patient care discussed with Dr. Howe of the primary hospitalist service. Highly highly complex medical issues. Thank you for allowing me to participate in the care of your patient. Please call for any other questions or concerns. Sincerely, Artis Covington M.D. History of Present Illness Reason for Consultation: elevated troponin Requesting Physician: Dr. Berkowitz Attending Physician: Terrence Howe, History of Present Illness Mr. Sawyer is a pleasant 25-year-old gentleman with a history significant for depression and anxiety who resides at [facility]. He reports having COVID-19 infection confirmed in September of 2020 while incarcerated at [facility]. He has since recovered from that infection and has been running, 3 days per week without exertional symptoms such as chest pain or shortness of breath. In the last 5 days, he developed headache, myalgias, loss of appetite, shortness of breath, nausea, vomiting, fatigue, and uncontrollable diarrhea. He does not recall being near any other sick contact. He denies fevers or chills at his co rrectional facility but has been febrile here with T-max 38.4C this afternoon. He has had some substernal chest discomfort worse with vomiting and sometimes laying supine but denies any chest pain currently. While here, he underwent CT imaging of his abdomen and pelvis as well as CTA of the chest. CTA of the chest demonstrated mild nonspecific ground-glass densities, while the CT of the abdomen pelvis reported signs concerning for enterocolitis. While here, he has received at least 3 L of normal saline boluses and has been started on antibiotics by primary service. Troponin level was ordered on presentation, initially elevated at 4.96 and has trended upward to 8.84. Review of systems: As above. Review of systems otherwise negative/unremarkable. Family history: No known premature CAD or sudden cardiac . Social history: Has smoked tobacco since age of 13 up to a pack per day, but mostly E cigarette. No significant alcohol. No children. Originally from [place]. Incarcerated in 2014 for a life sentence. guard immigration was at the bedside. Allergies Allergy/AdvReac Type Severity Reaction Status Date / Time schmitt Allergy Unknown Verified 12/13/20 03:55 trazodone Allergy Unknown Verified 12/13/20 03:55 Home Medications Medication Instructions Recorded Confirmed Type mirtazapine 45 mg PO HS 12/13/20 12/13/20 History paroxetine HCl 10 mg PO HS 12/13/20 12/13/20 History Patient History Medical History (Updated 12/13/20 @ 16:26 by Yordan Covington MD) Anxiety and depression COVID-19 virus infection Social History Smoking Status: Current every day smoker Tobacco Type: Cigarettes Hx Alcohol Use: No Hx Substance Use: No Preferred Language: French Communication Ability: Effective Rn Imcu Required: No Beliefs That Will Affect Care: None Current Living Situation Comment: [facility] Feels Safe at Home: Yes Physical Exam Physical Exam: Gen.: No acute distress. Alert and oriented. HEENT: Anicteric sclera. Neck: No JVD. No bruits. Normal carotid upstrokes bilaterally. Cardiac: PMI was nondisplaced. No ventricular heave. Tachycardic but regular. Normal S1-S2. No murmurs, rubs, or gallops. Pulmonary: Clear to auscultation bilaterally without wheezes, rales, or rhonchi. Abdomen: Soft, nontender, nondistended, with normoactive bowel sounds. No bruits noted. Extremities: 2+ radial pulses bilaterally. 2+ posterior tibialis pulses bilaterally. No edema or cyanosis. No palpable cords. Psychiatric: Affect appears appropriate. Results & Data ([facility]) Vital Signs (Past 12 Hours) Vital Signs Temp Pulse Pulse Resp BP BP Pulse Ox 12/13/20 15:53 38.4 C H 105 H 32 H 94/61 L 98 12/13/20 08:00 101 H 12/13/20 07:50 103 H 27 H 100 12/13/20 07:41 100 H 23 105/55 L 100 12/13/20 07:40 99 H 30 H 99 12/13/20 07:36 101 H 29 H 105/55 L 100 12/13/20 07:35 37.7 C H 99 H 30 H 99 12/13/20 06:58 92 H 20 98/64 L 100 12/13/20 05:49 110 H 20 103/65 99 12/13/20 05:42 116 H 20 96 12/13/20 05:16 120 H 20 118/70 96 Intake & Output 12/11/20 12/12/20 12/13/20 12/14/20 06:59 06:59 06:59 06:59 Intake Total 2671 / 2671 750 / 750 Output Total 350 / 350 Balance 2671 / 2671 400 / 400 Weight 180 lb 12.465 oz 181 lb 3.52 oz Laboratory Results Laboratory Results - last 24 hr 12/13/20 12/13/20 12/13/20 03:32 03:32 03:32 WBC 26.44 H RBC 4.98 Hgb 14.4 Hct 39.0 L MCV 78.3 L MCH 28.9 MCHC 36.9 H RDW Std Deviation 38.0 RDW Coeff of Chavez 13.3 Plt Count 241 MPV 12.6 H Immature Gran % (Auto) 0.9 Neut % (Auto) 89.7 Lymph % (Auto) 6.4 [place] % (Auto) 2.7 Eos % (Auto) 0.2 Baso % (Auto) 0.1 Neut # (Auto) 23.74 H Lymph # (Auto) 1.68 [place] # (Auto) 0.72 H Eos # (Auto) 0.04 Baso # (Auto) 0.02 Immature Gran # (Auto) 0.24 H Absolute Nucleated RBC Nucleated RBC % (auto) Toxic Vacuolation Occasional Dohle Bodies 1+ Echinocytes ESR 74 H Sodium 132 L Potassium 3.4 L Chloride 96 L Carbon Dioxide 23 Anion Gap 13.0 H BUN 32 H Creatinine 1.53 H Est Cr Clr Drug Dosing 74.3 Est GFR ( Amer) 71.2 Est GFR (Non-Af Amer) 61.4 BUN/Creatinine Ratio 20.6 H Glucose 138 H Lactate Calcium 9.1 Magnesium 2.4 Total Bilirubin 1.3 H Direct Bilirubin 0.6 H AST 46 H ALT 76 Alkaline Phosphatase 107 Troponin I 4.960 H* C-Reactive Protein 40.30 H Total Protein 8.4 H Albumin 2.7 L Globulin Albumin/Globulin Ratio Lipase 61 L Procalcitonin Urine Color Urine Appearance Urine pH Ur Specific [place] Urine Protein Urine Glucose (UA) Urine Ketones Urine Blood Urine Nitrite Urine Bilirubin Urine Urobilinogen Ur Leukocyte Esterase Urine WBC (Auto) Urine RBC (Auto) U Hyaline Cast (Auto) U Epithel Cells (Auto) Urine Bacteria (Auto) COVID-19 Eval Order SARS-CoV-2 (PCR) Influenza Type A (PCR) Influenza Type B (PCR) RSV (RT-PCR) Blood Type Antibody Screen 12/13/20 12/13/20 12/13/20 03:32 03:38 04:05 WBC RBC Hgb Hct MCV MCH MCHC RDW Std Deviation RDW Coeff of Chavez Plt Count MPV Immature Gran % (Auto) Neut % (Auto) Lymph % (Auto) [place] % (Auto) Eos % (Auto) Baso % (Auto) Neut # (Auto) Lymph # (Auto) [place] # (Auto) Eos # (Auto) Baso # (Auto) Immature Gran # (Auto) Absolute Nucleated RBC Nucleated RBC % (auto) Toxic Vacuolation Dohle Bodies Echinocytes ESR Sodium Potassium Chloride Carbon Dioxide Anion Gap BUN Creatinine Est Cr Clr Drug Dosing Est GFR ( Amer) Est GFR (Non-Af Amer) BUN/Creatinine Ratio Glucose Lactate Calcium Magnesium Total Bilirubin Direct Bilirubin AST ALT Alkaline Phosphatase Troponin I C-Reactive Protein Cancelled Total Protein Albumin Globulin Albumin/Globulin Ratio Lipase Procalcitonin 9.06 H Urine Color Urine Appearance Urine pH Ur Specific [place] Urine Protein Urine Glucose (UA) Urine Ketones Urine Blood Urine Nitrite Urine Bilirubin Urine Urobilinogen Ur Leukocyte Esterase Urine WBC (Auto) Urine RBC (Auto) U Hyaline Cast (Auto) U Epithel Cells (Auto) Urine Bacteria (Auto) COVID-19 Eval Order CovFluRsv at [facility] SARS-CoV-2 (PCR) Influenza Type A (PCR) Influenza Type B (PCR) RSV (RT-PCR) Blood Type Antibody Screen 12/13/20 12/13/20 12/13/20 04:05 04:39 04:39 WBC RBC Hgb Hct MCV MCH MCHC RDW Std Deviation RDW Coeff of Chavez Plt Count MPV Immature Gran % (Auto) Neut % (Auto) Lymph % (Auto) [place] % (Auto) Eos % (Auto) Baso % (Auto) Neut # (Auto) Lymph # (Auto) [place] # (Auto) Eos # (Auto) Baso # (Auto) Immature Gran # (Auto) Absolute Nucleated RBC Nucleated RBC % (auto) Toxic Vacuolation Dohle Bodies Echinocytes ESR Sodium Potassium Chloride Carbon Dioxide Anion Gap BUN Creatinine Est Cr Clr Drug Dosing Est GFR ( Amer) Est GFR (Non-Af Amer) BUN/Creatinine Ratio Glucose Lactate 3.3 H* Calcium Magnesium Total Bilirubin Direct Bilirubin AST ALT Alkaline Phosphatase Troponin I C-Reactive Protein Total Protein Albumin Globulin Albumin/Globulin Ratio Lipase Procalcitonin Urine Color Urine Appearance Urine pH Ur Specific [place] Urine Protein Urine Glucose (UA) Urine Ketones Urine Blood Urine Nitrite Urine Bilirubin Urine Urobilinogen Ur Leukocyte Esterase Urine WBC (Auto) Urine RBC (Auto) U Hyaline Cast (Auto) U Epithel Cells (Auto) Urine Bacteria (Auto) COVID-19 Eval Order SARS-CoV-2 (PCR) NEGATIVE Influenza Type A (PCR) Negative Influenza Type B (PCR) Negative RSV (RT-PCR) Negative Blood Type O Positive Antibody Screen NEGATIVE 12/13/20 12/13/20 12/13/20 07:01 09:25 14:54 WBC 23.95 H RBC 4.37 L Hgb 12.7 L Hct 34.5 L MCV 78.9 L MCH 29.1 MCHC 36.8 H RDW Std Deviation 38.9 RDW Coeff of Chavez 13.5 Plt Count 254 MPV 12.5 H Immature Gran % (Auto) 1.0 Neut % (Auto) 89.5 Lymph % (Auto) 6.8 [place] % (Auto) 2.3 Eos % (Auto) 0.3 Baso % (Auto) 0.1 Neut # (Auto) 21.42 H Lymph # (Auto) 1.63 [place] # (Auto) 0.56 Eos # (Auto) 0.07 Baso # (Auto) 0.02 Immature Gran # (Auto) 0.25 H Absolute Nucleated RBC 0.04 H Nucleated RBC % (auto) 0.2 Toxic Vacuolation 1+ Dohle Bodies Echinocytes 1+ ESR Sodium Potassium Chloride Carbon Dioxide Anion Gap BUN Creatinine Est Cr Clr Drug Dosing Est GFR ( Amer) Est GFR (Non-Af Amer) BUN/Creatinine Ratio Glucose Lactate 1.6 Calcium Magnesium Total Bilirubin Direct Bilirubin AST ALT Alkaline Phosphatase Troponin I 5.100 H* C-Reactive Protein Total Protein Albumin Globulin Albumin/Globulin Ratio Lipase Procalcitonin Urine Color Urine Appearance Urine pH Ur Specific [place] Urine Protein Urine Glucose (UA) Urine Ketones Urine Blood Urine Nitrite Urine Bilirubin Urine Urobilinogen Ur Leukocyte Esterase Urine WBC (Auto) Urine RBC (Auto) U Hyaline Cast (Auto) U Epithel Cells (Auto) Urine Bacteria (Auto) COVID-19 Eval Order SARS-CoV-2 (PCR) Influenza Type A (PCR) Influenza Type B (PCR) RSV (RT-PCR) Blood Type Antibody Screen 12/13/20 12/13/20 12/13/20 14:54 14:54 Unknown WBC RBC Hgb Hct MCV MCH MCHC RDW Std Deviation RDW Coeff of Chavez Plt Count MPV Immature Gran % (Auto) Neut % (Auto) Lymph % (Auto) [place] % (Auto) Eos % (Auto) Baso % (Auto) Neut # (Auto) Lymph # (Auto) [place] # (Auto) Eos # (Auto) Baso # (Auto) Immature Gran # (Auto) Absolute Nucleated RBC Nucleated RBC % (auto) Toxic Vacuolation Dohle Bodies Echinocytes ESR Sodium 134 L Potassium 3.3 L Chloride 104 Carbon Dioxide 19 L Anion Gap 11.0 BUN 26 H Creatinine 1.37 Est Cr Clr Drug Dosing 83.1 Est GFR ( Amer) 81.3 Est GFR (Non-Af Amer) 70.2 BUN/Creatinine Ratio 18.7 Glucose 116 H Lactate 3.7 H* Calcium 8.6 Magnesium Total Bilirubin 1.4 H Direct Bilirubin AST 57 H ALT 61 Alkaline Phosphatase 90 Troponin I 8.840 H* C-Reactive Protein Total Protein 6.8 Albumin 2.2 L Globulin 4.6 H Albumin/Globulin Ratio 0.5 L Lipase Procalcitonin Urine Color Yellow Urine Appearance Clear Urine pH 6.0 Ur Specific [place] > 1.045 H Urine Protein 1+ H Urine Glucose (UA) Negative Urine Ketones 1+ H Urine Blood Trace H Urine Nitrite Negative Urine Bilirubin Negative Urine Urobilinogen Negative Ur Leukocyte Esterase Negative Urine WBC (Auto) 1-5 Urine RBC (Auto) 0-4 U Hyaline Cast (Auto) 1-5 U Epithel Cells (Auto) >30 H Urine Bacteria (Auto) Negative COVID-19 Eval Order SARS-CoV-2 (PCR) Influenza Type A (PCR) Influenza Type B (PCR) RSV (RT-PCR) Blood Type Antibody Screen Diagnostic Findings Telemetry personally reviewed: Sinus tachycardia. No arrhythmia. Echo 12/13/2020: Normal LV size with moderately reduced systolic function. EF 30-35%. Global hypokinesis. Mild LVH. Severely reduced RV systolic function. Mild to moderate MR. RVSP 21. CTA of the chest and CT abdomen/pelvis reports reviewed as documented in HPI. ECG personally reviewed: ECG 12/13/2020: Sinus rhythm with first-degree AV block. Anterior and inferior ST/T-wave abnormalities. Medications Administered Current Inpatient Medications Acetaminophen (Acetaminophen 325 Mg Tab) 650 mg PO Q4H PRN PRN Reason: Pain or Fever Stop: 01/12/21 07:39 Last Admin: 12/13/20 15:53 Dose: 650 mg Documented by: Famotidine 20 mg/ Syringe 5 mls @ 2.5 mls/min IV Q12H [facility] Stop: 01/12/21 08:59 Last Admin: 12/13/20 09:58 Dose: 2.5 mls/min Documented by: Piperacillin Sod/Tazobactam (Sod 3.375 gm/ Dextrose) 115 mls @ 28.75 mls/hr IV Q8H [facility]; Protocol Stop: 12/20/20 10:59 Last Infusion: 12/13/20 16:06 Dose: Infused Documented by: Potassium Chloride 40 meq/ (Sodium Chloride) 1,020 mls @ 100 mls/hr IV .[id number] [facility] Stop: 01/12/21 16:29 Influenza Virus Vaccine Quadrival (Influenza Virus Quad Vaccine 0.5 Ml Syr) 0.5 ml IM .ONCE ONE Stop: 12/14/20 08:01 Mirtazapine (Mirtazapine Soltab 15 Mg) 45 mg PO HS CAROLYN Stop: 01/12/21 20:59 Miscellaneous Information (Piperacill/Tazobac Consult Active) 1 ea N/A UD PRN PRN Reason: Consult Stop: 01/12/21 04:18 Nitroglycerin (Nitroglycerin Sl 0.4 Mg/Tab Tab) 0.4 mg SL UD PRN PRN Reason: Chest Pain Stop: 01/12/21 07:39 Ondansetron HCl (Ondansetron Inj 2 Mg/Ml 2 Ml Vial) 4 mg IV Q6H PRN PRN Reason: Nausea Stop: 01/12/21 07:39 Paroxetine HCl (Paroxetine Hcl 10 Mg Tab) 10 mg PO HS CAROLYN Stop: 01/12/21 20:59 PG Care Time/CCT Total # of Minutes Spent Total Time Spent with Patient: Total time spent is greater than 50% in coordination of care (as documented) at patient's floor/unit and/or counseling patient: Coding Level of Care Code 52671 Inpt Consult Level 5 Diagnoses Acute myocarditis I40.9 Cardiomyopathy I42.9 Enterocolitis K52.9 Acute kidney injury N17.9 Mitral regurgitation I34.0
--- NOTE | 2020-12-13 16:44 | History & Physical Bridge Note ---
Date of Service December 13, 2020 History & Physical Bridge Note I have examined the patient, reviewed the History & Physical and in the interval since the performance of the History & Physical I have noted the following changes of clinical significance: patient with tachycardia and fevers, he is tachypneic but on examination he is not in distress, talking in complete sentences repeated labs, WBC down slightly at 23k, Hb 12.7, plts 254 ESR very high at 74, CRP really high at 40, procalcitonin 9.0 K low at 3.3, Cr improved to 1.37 and BUN improved to 26, CO2 is 19 lactic acid up at 3.7 troponin rising to 8.8, no chest pain d/w Dr. Covington, echo has reduced EF, he still needs to read it officially if he becomes hypotensive then we could give Dobutamine or Milrinone no growth thus far on blood cultures, urine was clean no headache, no neck pain to suggest meningitis main symptoms were vomiting and diarrhea for [address] abdomen/pelvis with some thickening of small and large bowel, nothing else major except some lymphadenopathy Plan: continue Zosyn to cover suspected GI source repeat labs in the AM including ESR, CRP, procalcitonin continue NSS + 40mEq of K at 100cc/hr if hypotensive then start on Dobutamine consult [facility] infectious disease for input on cause of cardiomyopathy he had COVID in September, now negative as well as Flu and RSV, certainly it could be another viral etiology would not explain why procalcitonin is elevated follow up blood cultures
[2020-12-13] MEDS: POTASSIUM CHLORIDE 40 MEQ in SODIUM CHLORIDE 0.9% 1000ML 1,000 ML IV SCH (17:19)
[2020-12-13 20:25] LABS: Base Excess ABG -4.5 mEq/L (-9-1.8); HCO3 ABG 19 mmol/L (19-24); Oxygen Saturation ABG 95.7 % (90-95); PCO2 ABG 28 mmHg (35-46); PO2 ABG 78 mmHg (80-95); pH ABG 7.44 (7.35-7.45)
[2020-12-13 20:26] LABS: Allen Test Pos (Pos)
[2020-12-13] MEDS: PARoxetine HCL 10 MG TAB PO SCH (20:50)
[2020-12-13] MEDS: MIRTAZAPINE SOLTAB 15 MG PO SCH (20:51)
[2020-12-14] MEDS: CALCIUM CARBONATE 500 MG CHEWABLE TAB PO PRN ×2 (01:15→04:59)
[2020-12-14] MEDS: PIPERACILLIN/TAZOBACTAM 3.375 GM in DEXTROSE 5% 100 ML IV SCH ×2 (03:22→12:38)
[2020-12-14] MEDS: POTASSIUM CHLORIDE 40 MEQ in SODIUM CHLORIDE 0.9% 1000ML 1,000 ML IV SCH ×2 (03:23→16:52)
[2020-12-14 04:53] LABS: Basophils # (auto) 0.02 K/uL (0-0.2); Basophils % (auto) 0.1 %; Eosinophils # (auto) 0.16 K/uL (0-0.5); Eosinophils % (auto) 0.7 %; Hematocrit (blood only) 29.9 % (42-52); Hemoglobin 10.5 g/dL (14.0-18.0); Immature Granulocytes % (auto) 0.9 %; Lymphocytes % (auto) 9.8 %; Mean Corpuscular Hemoglobin 27.9 pg (25-34); Mean Corpuscular Hgb Conc 35.1 g/dL (32-36); Mean Corpuscular Volume 79.5 fL (80-100); Mean Platelet Volume 12.2 fL (7.4-10.4); Monocytes # (auto) 0.83 K/uL (0.11-0.59); Monocytes % (auto) 3.6 %; Neutrophils # (auto) 19.86 K/uL (1.4-6.5); Neutrophils % (auto) 84.9 %; Nucleated RBC # (auto) 0.02 K/uL (0-0); Nucleated RBC % (auto) 0.1 %; Platelet Count 229 K/uL (130-400); RDW Coefficient of Variation 13.7 % (11.5-14.5); RDW Standard Deviation 39.5 fL (36.4-46.3); Red Blood Count 3.76 M/uL (4.7-6.1); White Blood Count 23.37 K/uL (4.8-10.8)
[2020-12-14 05:12] LABS: Albumin Level 1.9 gm/dl (3.4-5.0); BUN Creatinine Ratio 17.3 (10-20); Calcium 7.8 mg/dl (8.5-10.1); Creatinine Clr Calc Pharmacy 87.6 ml/min; Est GFR (African American) 86.7; Est GFR (Non-African American) 74.8; Magnesium 2.5 mg/dl (1.8-2.4); Potassium 3.5 mmol/L (3.5-5.1)
[2020-12-14 05:27] LABS: Albumin Globulin Ratio 0.5 (0.9-2); Bilirubin,Total 1.6 mg/dl (0.2-1); C Reactive Protein 29.4 mg/dl (0-0.29); Globulin 4.2 gm/dl (2.5-4.0); Phosphorus 2.6 mg/dl (2.5-4.9); Total Protein 6.1 gm/dl (6.4-8.2); Troponin I 8.75 ng/ml (0-0.045)
--- NOTE | 2020-12-14 06:27 | Electrocardiogram Report ---
Test Reason : Blood Pressure : / mmHG Vent. Rate : 090 BPM Atrial Rate : 090 BPM P-R Int : 290 ms QRS Dur : 092 ms QT Int : 354 ms P-R-T Axes : 058 -04 -17 degrees QTc Int : 433 ms Sinus rhythm with sinus arrhythmia with 1st degree A-V block T wave abnormality, consider anterior ischemia Abnormal ECG No previous ECGs available Confirmed by Yordan Covington ([id number]) on 12/14/2020 6:27:08 AM Referred By: Yessy FRAZIER Confirmed By:Yordan Covington
[2020-12-14] MEDS: FAMOTIDINE 20 MG in SYRINGE 3 ML IV SCH ×2 (07:40→21:15)
[2020-12-14] MEDS ORDERED: INFLUENZA VIRUS QUAD VACCINE 0.5 ML SYR IM ONE (08:00)
[2020-12-14] MEDS ORDERED: INFLUENZA ADMINISTRATION CHARGE ONE (08:00)
[2020-12-14] MEDS ORDERED: VANCOMYCIN CONSULT ACTIVE PRN (09:48)
--- NOTE | 2020-12-14 09:49 | Hospitalist Progress Note ---
Date of Service December 14, 2020 Assessment & Plan (1) Sepsis: severe sepsis with VON which is now resolved maintaining his BP currently, no signs of shock except his lactic acid is 3.1 no encephalopathy, making urine low grade temperatures, his WBC is elevated at 23k with left shift, ESR is >90, CRP 29, procalcitonin 11 overall he feels better today, no GI symptoms CT abdomen/pelvis with some possible enteritis and lymphadenitis, no major findings on CT chest urine was clean blood cultures with no growth so far continue Zosyn, add Vanco for DATA TECHNICIAN coverage will get LP today due to neck pain and unclear source of infection he had COVID in September, certainly with acute cardiomyopathy a viral infection would be suspected but lab findings suggest bacterial infection with left shift and high procalcitonin consult infectious disease with Suly for further guidance, recommendations consult GI for their impression of GI symptoms and CT findings with ESR > 90 would keep vasculitis on differential, might consider rheumatology consult if nothing is found on infectious work up (2) Cardiomyopathy: EF is down at 30-35%, this is new finding he is maintaining BP in the 90's systolic, if he would get hypotensive would start dobutamine keep in ICU in case we would need to transition to ICU status Dr. Covington following, for now we can hold on starting beta doroteo and SIENNA due to acute illness, low BP (3) Acute myocarditis: troponin up to 8 this morning, no chest pain coupled with reduced EF of 30-35% would suspect acute viral infection he had COVID in September 2020, never had serious symptoms he was negative for RSV, influenza and COVID on admission consult ID for their input (4) Elevated troponin I level: due to myocarditis, up to 8 today no need to follow further, no suspicion for CAD (5) Enterocolitis: Enterocolitis/mesenteric adenitis/lactic acidosis- Primary symptoms of nausea vomiting and diarrhea for 5 days prior to admission symptoms largely resolved, tolerating liquids, had a semi formed stool this morning consult GI for their input, is this a primary GI issue? (6) Mesenteric adenitis: seen on CT (7) Acute kidney injury: Creatinine 1.53 upon admission, with no baseline for comparison. improved to 1.3 with aggressive IV fluids electrolytes stable, making urine (8) Hypoalbuminemia: dropped from 2.7 to 1.9 due to acute illness? there was only 1+ protein in urine so doubt nephrotic issues, especially with improvement in Cr give albumin today Admission and Anticipated Discharge Date Admission Date: December 13, 2020 Subjective patient doing okay, denies any abdominal pain or vomiting, drinking some ice water this morning had a semi formed BM this morning, no true diarrhea he admits to neck pain and headache, said he had that prior to admission, now a little worse no dyspnea, no cough, no chest pain, denies fever/chills/sweats he is alert and oriented, no concerns at all about encephalopathy discussed getting an LP, he is agreeable, will resume Vancomycin reviewed labs, WBC is 23k with > 80% PMN, Hb is down slightly, microcytic ESR is markedly elevated at 90, CRP is 29, procalcitonin is 11 troponin 8.7, albumin really low at 1.9, was 2.7 on admission, bili is 1.6, lactic acid 3.1 he is maintaining his BP reviewed echo report, EF is low at 30-35% and RV is dilated with poor systolic function Review of Systems Review of Systems: All systems reviewed & are unremarkable except as noted in Subjective Physical Exam Constitutional: well developed, well nourished, + ill appearing and comfortable; no acute distress Eyes: PERRL, conjunctivae normal, anicteric sclerae ENMT: external ear and nose normal, oropharynx normal Neck: normal visual inspection, trachea midline and + nuchal rigidity (mild) Respiratory: + tachypneic; no respiratory distress Auscultation: lungs clear to auscultation bilaterally Cardiovascular: RRR, no murmur, no edema Gastrointestinal (Abdomen): normal bowel sounds, soft, nontender, no hepatosplenomegaly Musculoskeletal: no cyanosis or clubbing, extremities motor strength 5/5 Skin: no rashes, warm and dry Neurologic: patellar DTR's 2+ bilat, sensation intact and PERRL, EOMI, accommodation nl, no face palsy, no dysarthria Psychiatric: A+Ox3, euthymic affect Lymphatic: no cervical or axillary lymphadenopathy Results & Data Results & Data ([facility]) Vital Signs (Past 12 Hours) Vital Signs Temp Pulse Pulse Resp BP Pulse Ox 12/14/20 03:27 37.7 C H 99 H 34 H 97/48 L 99 12/14/20 00:00 37.4 C 94 H 28 H 94/59 L 94 12/13/20 23:53 106 H Laboratory Results Laboratory Results - last 24 hr 12/13/20 12/13/20 12/13/20 09:25 14:54 14:54 WBC 23.95 H RBC 4.37 L Hgb 12.7 L Hct 34.5 L MCV 78.9 L MCH 29.1 MCHC 36.8 H RDW Std Deviation 38.9 RDW Coeff of Chavez 13.5 Plt Count 254 MPV 12.5 H Immature Gran % (Auto) 1.0 Neut % (Auto) 89.5 Lymph % (Auto) 6.8 [place] % (Auto) 2.3 Eos % (Auto) 0.3 Baso % (Auto) 0.1 Neut # (Auto) 21.42 H Lymph # (Auto) 1.63 [place] # (Auto) 0.56 Eos # (Auto) 0.07 Baso # (Auto) 0.02 Immature Gran # (Auto) 0.25 H Absolute Nucleated RBC 0.04 H Nucleated RBC % (auto) 0.2 Toxic Vacuolation 1+ Echinocytes 1+ ESR ABG pH ABG pCO2 ABG pO2 ABG HCO3 ABG O2 Saturation ABG Base Excess Tadeo Test Barometric Pressure Oxygen Given Sodium 134 L Potassium 3.3 L Chloride 104 Carbon Dioxide 19 L Anion Gap 11.0 BUN 26 H Creatinine 1.37 Est Cr Clr Drug Dosing 83.1 Est GFR ( Amer) 81.3 Est GFR (Non-Af Amer) 70.2 BUN/Creatinine Ratio 18.7 Glucose 116 H Lactate Calcium 8.6 Phosphorus Magnesium Total Bilirubin 1.4 H AST 57 H ALT 61 Alkaline Phosphatase 90 Troponin I 5.100 H* 8.840 H* C-Reactive Protein Total Protein 6.8 Albumin 2.2 L Globulin 4.6 H Albumin/Globulin Ratio 0.5 L Procalcitonin 12/13/20 12/13/20 12/14/20 14:54 20:14 04:39 WBC 23.37 H RBC 3.76 L Hgb 10.5 L Hct 29.9 L MCV 79.5 L MCH 27.9 MCHC 35.1 RDW Std Deviation 39.5 RDW Coeff of Chavez 13.7 Plt Count 229 MPV 12.2 H Immature Gran % (Auto) 0.9 Neut % (Auto) 84.9 Lymph % (Auto) 9.8 [place] % (Auto) 3.6 Eos % (Auto) 0.7 Baso % (Auto) 0.1 Neut # (Auto) 19.86 H Lymph # (Auto) 2.30 [place] # (Auto) 0.83 H Eos # (Auto) 0.16 Baso # (Auto) 0.02 Immature Gran # (Auto) 0.20 H Absolute Nucleated RBC 0.02 H Nucleated RBC % (auto) 0.1 Toxic Vacuolation Echinocytes ESR ABG pH 7.44 ABG pCO2 28 L ABG pO2 78 L ABG HCO3 19 ABG O2 Saturation 95.7 H ABG Base Excess -4.5 Tadeo Test Pos Barometric Pressure 736.0 Oxygen Given ROOM AIR Sodium Potassium Chloride Carbon Dioxide Anion Gap BUN Creatinine Est Cr Clr Drug Dosing Est GFR ( Amer) Est GFR (Non-Af Amer) BUN/Creatinine Ratio Glucose Lactate 3.7 H* Calcium Phosphorus Magnesium Total Bilirubin AST ALT Alkaline Phosphatase Troponin I C-Reactive Protein Total Protein Albumin Globulin Albumin/Globulin Ratio Procalcitonin 12/14/20 12/14/20 12/14/20 04:39 04:39 04:39 WBC RBC Hgb Hct MCV MCH MCHC RDW Std Deviation RDW Coeff of Chavez Plt Count MPV Immature Gran % (Auto) Neut % (Auto) Lymph % (Auto) [place] % (Auto) Eos % (Auto) Baso % (Auto) Neut # (Auto) Lymph # (Auto) [place] # (Auto) Eos # (Auto) Baso # (Auto) Immature Gran # (Auto) Absolute Nucleated RBC Nucleated RBC % (auto) Toxic Vacuolation Echinocytes ESR > 90 H ABG pH ABG pCO2 ABG pO2 ABG HCO3 ABG O2 Saturation ABG Base Excess Tadeo Test Barometric Pressure Oxygen Given Sodium 134 L Potassium 3.5 Chloride 106 Carbon Dioxide 21 Anion Gap 7.0 BUN 22 H Creatinine 1.30 Est Cr Clr Drug Dosing 87.6 Est GFR ( Amer) 86.7 Est GFR (Non-Af Amer) 74.8 BUN/Creatinine Ratio 17.3 Glucose 125 H Lactate 3.1 H* Calcium 7.8 L Phosphorus 2.6 Magnesium 2.5 H Total Bilirubin 1.6 H AST 94 H ALT 68 Alkaline Phosphatase 81 Troponin I 8.750 H* C-Reactive Protein 29.40 H Total Protein 6.1 L Albumin 1.9 L Globulin 4.2 H Albumin/Globulin Ratio 0.5 L Procalcitonin 12/14/20 04:39 WBC RBC Hgb Hct MCV MCH MCHC RDW Std Deviation RDW Coeff of Chavez Plt Count MPV Immature Gran % (Auto) Neut % (Auto) Lymph % (Auto) [place] % (Auto) Eos % (Auto) Baso % (Auto) Neut # (Auto) Lymph # (Auto) [place] # (Auto) Eos # (Auto) Baso # (Auto) Immature Gran # (Auto) Absolute Nucleated RBC Nucleated RBC % (auto) Toxic Vacuolation Echinocytes ESR ABG pH ABG pCO2 ABG pO2 ABG HCO3 ABG O2 Saturation ABG Base Excess Tadeo Test Barometric Pressure Oxygen Given Sodium Potassium Chloride Carbon Dioxide Anion Gap BUN Creatinine Est Cr Clr Drug Dosing Est GFR ( Amer) Est GFR (Non-Af Amer) BUN/Creatinine Ratio Glucose Lactate Calcium Phosphorus Magnesium Total Bilirubin AST ALT Alkaline Phosphatase Troponin I C-Reactive Protein Total Protein Albumin Globulin Albumin/Globulin Ratio Procalcitonin 11.05 H Medications Administered Current Inpatient Medications Acetaminophen (Acetaminophen 325 Mg Tab) 650 mg PO Q4H PRN PRN Reason: Pain or Fever Stop: 01/12/21 07:39 Last Admin: 12/13/20 15:53 Dose: 650 mg Documented by: Calcium Carbonate (Calcium Carbonate 500 Mg Chewable Tab) 500 mg PO Q4 PRN PRN Reason: Indigestion Stop: 01/13/21 00:45 Last Admin: 12/14/20 04:59 Dose: 500 mg Documented by: Famotidine 20 mg/ Syringe 5 mls @ 2.5 mls/min IV Q12H [facility] Stop: 01/12/21 08:59 Last Admin: 12/14/20 07:40 Dose: 2.5 mls/min Documented by: Piperacillin Sod/Tazobactam (Sod 3.375 gm/ Dextrose) 115 mls @ 28.75 mls/hr IV Q8H [facility]; Protocol Stop: 12/20/20 10:59 Last Infusion: 12/14/20 07:40 Dose: Infused Documented by: Potassium Chloride 40 meq/ (Sodium Chloride) 1,020 mls @ 100 mls/hr IV .[id number] [facility] Stop: 01/12/21 16:29 Last Admin: 12/14/20 03:23 Dose: 100 mls/hr Documented by: Mirtazapine (Mirtazapine Soltab 15 Mg) 45 mg PO HS CAROLYN Stop: 01/12/21 20:59 Last Admin: 12/13/20 20:51 Dose: 45 mg Documented by: Miscellaneous Information (Piperacill/Tazobac Consult Active) 1 ea N/A UD PRN PRN Reason: Consult Stop: 01/12/21 04:18 Nitroglycerin (Nitroglycerin Sl 0.4 Mg/Tab Tab) 0.4 mg SL UD PRN PRN Reason: Chest Pain Stop: 01/12/21 07:39 Ondansetron HCl (Ondansetron Inj 2 Mg/Ml 2 Ml Vial) 4 mg IV Q6H PRN PRN Reason: Nausea Stop: 01/12/21 07:39 Paroxetine HCl (Paroxetine Hcl 10 Mg Tab) 10 mg PO HS CAROLYN Stop: 01/12/21 20:59 Last Admin: 12/13/20 20:50 Dose: 10 mg Documented by: PG Care Time/CCT Total # of Minutes Spent Total Time Spent: 30 Total Time Spent with Patient: Total time spent is greater than 50% in coordination of care (as documented) at patient's floor/unit and/or counseling patient: Critical Care Time: Yes Total Critical Care Time: 30 This case had a high probability of a clinically significant, sudden, or life threatening deterioration of this patient's condition which required my full and direct attention, intervention and personal management. Coding Level of Care Code 08264 Subseq Hosp Care Lvl 3 Diagnoses Sepsis A41.9; R65.20 Sepsis acute organ dysfunction status: with acute organ dysfunction Sepsis type: sepsis due to unspecified organism Severe sepsis acute organ dysfunction type: unspecified Severe sepsis shock status: without septic shock Cardiomyopathy I42.9 Acute myocarditis I40.9 Elevated troponin I level R77.8 Enterocolitis K52.9 Mesenteric adenitis I88.0 Acute kidney injury N17.9 Hypoalbuminemia E88.09 Additional Codes Critical Care Time - Critical Care Time: Yes ([id number]) (1) Sepsis Sepsis acute organ dysfunction status: with acute organ dysfunction Sepsis type: sepsis due to unspecified organism Severe sepsis acute organ dysfunction type: unspecified Severe sepsis shock status: without septic shock Qualified Code(s): A41.9 - Sepsis, unspecified organism; R65.20 - Severe sepsis without septic shock
[2020-12-14] MEDS ORDERED: VANCOMYCIN HCL 2,000 MG in SODIUM CHLORIDE 0.9% 500 ML IV ONE (10:00)
--- NOTE | 2020-12-14 11:44 | Gastrointestinal Consultation ---
Date of Consultation December 14, 2020 Assessment & Plan (1) Abnormal CT of the abdomen: (2) Enterocolitis: DDx: likely self-limited infectious etiology viral vs bacterial given history of suspicious food ingestion prior to onset of symptoms, less likely IBD. Given current cardiac medical comorbidities, would recommend conservative GI management at this time as follows: 1. Stool studies for further evaluation. 2. Continue IV antibiotics as prescribed. 3. Continued supportive care per primary team. 4. Can consider outpatient GI work up if needed once acute cardiac issues have resolved. Thank you for allowing us to participate in the care of this patient. If you have any questions or concerns, please do not hesitate to contact us. Supervising Physician Co-Signing Physician Notes I personally evaluated the patient and agree with the findings as documented by BRANDI Barton Exam: abd: soft, nt, nd History of Present Illness Reason for Consultation: Abnormal CT imaging Requesting Physician: Dr. Howe Attending Physician: Terrence Howe, History of Present Illness Patient is a 25 y.o male with a history of COVID-19 diagnosed in September of 2020. He states that he did have a fever, body aches, nausea, vomiting, abdominal pain and loss of taste/smell at that time but symptoms did fully resolve and he was doing well until last week. He reports having a suspicious fo od consumption on Saturday or Saturday of last week describing taking a few bites of a pastrami sandwich that did not taste or smell "right". States he threw the sandwich out after a animal chiropractor confirmed that the sandwich did had an abnormal smell and seemed to be spoiled. Patient then describes several days of feeling ill with intermittent diarrhea, abdominal pain, body aches and weakness. Eventually, he requested a sick call and stated "I need to go to the hospital". On arrival, he was noted to be febrile, leukocytosis with a left shift, microcytic anemia and abnormal imaging suggestive of pericardial fluid, areas of small bowel and colon with wall thickening and mesenteric adenitis c/w nonspecific enterocolitis. He is also noted to have a profoundly elevated troponin and has since been seen by cardiology and diagnosed with acute WI. ID is being consulted as well. Patient states he did have some mild chest pain on arrival which has since resolved. Denies any current abdominal pain or diarrhea. Nausea only after administration of Zosyn. No bloody or black stools. No family history of GI malignancy or IBD. Allergies Allergy/AdvReac Type Severity Reaction Status Date / Time schmitt Allergy Unknown Verified 12/13/20 03:55 trazodone Allergy Unknown Verified 12/13/20 03:55 Home Medications Medication Instructions Recorded Confirmed Type mirtazapine 45 mg PO HS 12/13/20 12/13/20 History paroxetine HCl 10 mg PO HS 12/13/20 12/13/20 History Patient History Medical History Anxiety and depression COVID-19 virus infection Social History Smoking Status: Current every day smoker Tobacco Type: Cigarettes Hx Alcohol Use: No Hx Substance Use: No Preferred Language: Zambian Communication Ability: Effective Delivery Of Shopping News Required: No Beliefs That Will Affect Care: None Current Living Situation Comment: [facility] Feels Safe at Home: Yes Review of Systems Review of Systems: All systems reviewed & are unremarkable except as noted in HPI & below Physical Exam Constitutional: WD/WN, vitals as above well developed and well nourished Eyes: EOM intact bilaterally Neck: normal visual inspection Respiratory: normal respiratory effort, lungs clear to auscultation Cardiovascular: Rate/Rhythm: regular rate and regular rhythm Gastrointestinal (Abdomen): Inspection/Auscultation: + abdomen distended and normal bowel sounds Percussion/Palpation: abdomen soft; abdomen nontender Psychiatric: A+Ox3, euthymic affect Results & Data ([place]) Vital Signs (Past 12 Hours) Vital Signs Temp Pulse Pulse Resp BP BP Pulse Ox 12/14/20 09:30 96 H 51 H 12/14/20 09:00 93 H 46 H 12/14/20 08:30 93 H 33 H 12/14/20 08:03 97 H 41 H 12/14/20 07:48 97 H 45 H 95/61 L 12/14/20 07:30 94 H 44 H 99 12/14/20 07:00 99 H 38 H 98 12/14/20 06:45 98 H 39 H 98 12/14/20 03:27 37.7 C H 99 H 34 H 97/48 L 99 12/14/20 00:00 37.4 C 94 H 28 H 94/59 L 94 12/13/20 23:53 106 H Laboratory Results Abnormal lab results 12/13/20 12/13/20 12/13/20 Range/Units 14:54 14:54 14:54 WBC 23.95 H (4.8-10.8) K/uL RBC 4.37 L (4.7-6.1) M/uL Hgb 12.7 L (14.0-18.0) g/dL Hct 34.5 L (42-52) % MCV 78.9 L (80-100) fL MCHC 36.8 H (32-36) g/dL MPV 12.5 H (7.4-10.4) fL Neut # (Auto) 21.42 H (1.4-6.5) K/uL [place] # (Auto) (0.11-0.59) K/uL Immature Gran # (Auto) 0.25 H (0.00-0.02) K/uL Absolute Nucleated RBC 0.04 H (0-0) K/uL ESR (0-14) mm/hr ABG pCO2 (35-46) mmHg ABG pO2 (80-95) mmHg ABG O2 Saturation (90-95) % Sodium 134 L (136-145) mmol/L Potassium 3.3 L (3.5-5.1) mmol/L Carbon Dioxide 19 L (21-32) mmol/L BUN 26 H (7-18) mg/dl Glucose 116 H (70-99) mg/dl Lactate 3.7 H* (0.4-2.0) mmol/L Calcium (8.5-10.1) mg/dl Magnesium (1.8-2.4) mg/dl Total Bilirubin 1.4 H (0.2-1) mg/dl AST 57 H (15-37) U/L Troponin I 8.840 H* (0-0.045) ng/ml C-Reactive Protein (0-0.29) mg/dl Total Protein (6.4-8.2) gm/dl Albumin 2.2 L (3.4-5.0) gm/dl Globulin 4.6 H (2.5-4.0) gm/dl Albumin/Globulin Ratio 0.5 L (0.9-2) Procalcitonin (0-0.5) ng/ml 12/13/20 12/14/20 12/14/20 Range/Units 20:14 04:39 04:39 WBC 23.37 H (4.8-10.8) K/uL RBC 3.76 L (4.7-6.1) M/uL Hgb 10.5 L (14.0-18.0) g/dL Hct 29.9 L (42-52) % MCV 79.5 L (80-100) fL MCHC (32-36) g/dL MPV 12.2 H (7.4-10.4) fL Neut # (Auto) 19.86 H (1.4-6.5) K/uL [place] # (Auto) 0.83 H (0.11-0.59) K/uL Immature Gran # (Auto) 0.20 H (0.00-0.02) K/uL Absolute Nucleated RBC 0.02 H (0-0) K/uL ESR (0-14) mm/hr ABG pCO2 28 L (35-46) mmHg ABG pO2 78 L (80-95) mmHg ABG O2 Saturation 95.7 H (90-95) % Sodium 134 L (136-145) mmol/L Potassium (3.5-5.1) mmol/L Carbon Dioxide (21-32) mmol/L BUN 22 H (7-18) mg/dl Glucose 125 H (70-99) mg/dl Lactate (0.4-2.0) mmol/L Calcium 7.8 L (8.5-10.1) mg/dl Magnesium 2.5 H (1.8-2.4) mg/dl Total Bilirubin 1.6 H (0.2-1) mg/dl AST 94 H (15-37) U/L Troponin I 8.750 H* (0-0.045) ng/ml C-Reactive Protein 29.40 H (0-0.29) mg/dl Total Protein 6.1 L (6.4-8.2) gm/dl Albumin 1.9 L (3.4-5.0) gm/dl Globulin 4.2 H (2.5-4.0) gm/dl Albumin/Globulin Ratio 0.5 L (0.9-2) Procalcitonin (0-0.5) ng/ml 12/14/20 12/14/20 12/14/20 Range/Units 04:39 04:39 04:39 WBC (4.8-10.8) K/uL RBC (4.7-6.1) M/uL Hgb (14.0-18.0) g/dL Hct (42-52) % MCV (80-100) fL MCHC (32-36) g/dL MPV (7.4-10.4) fL Neut # (Auto) (1.4-6.5) K/uL Stevens # (Auto) (0.11-0.59) K/uL Immature Gran # (Auto) (0.00-0.02) K/uL Absolute Nucleated RBC (0-0) K/uL ESR > 90 H (0-14) mm/hr ABG pCO2 (35-46) mmHg ABG pO2 (80-95) mmHg ABG O2 Saturation (90-95) % Sodium (136-145) mmol/L Potassium (3.5-5.1) mmol/L Carbon Dioxide (21-32) mmol/L BUN (7-18) mg/dl Glucose (70-99) mg/dl Lactate 3.1 H* (0.4-2.0) mmol/L Calcium (8.5-10.1) mg/dl Magnesium (1.8-2.4) mg/dl Total Bilirubin (0.2-1) mg/dl AST (15-37) U/L Troponin I (0-0.045) ng/ml C-Reactive Protein (0-0.29) mg/dl Total Protein (6.4-8.2) gm/dl Albumin (3.4-5.0) gm/dl Globulin (2.5-4.0) gm/dl Albumin/Globulin Ratio (0.9-2) Procalcitonin 11.05 H (0-0.5) ng/ml PG Care Time/CCT Total # of Minutes Spent Total Time Spent with Patient: Total time spent is greater than 50% in coordination of care (as documented) at patient's floor/unit and/or counseling patient: Coding Level of Care Code 65085 Inpt Consult Level [address] of the abdomen R93.5 Enterocolitis K52.9
--- NOTE | 2020-12-14 11:59 | Fluoroscopy Report ---
FL lumbar puncture diagnostic CLINICAL HISTORY: Fever, sepsis, neck/head pain COMPARISON STUDY: None FLUOROSCOPY TIME: 17 seconds. NUMBER OF FLUOROSCOPIC IMAGES: 1 FINDINGS: A timeout was performed. The risks the procedure were explained the patient and informed consent was obtained. The patient was prepped and draped in sterile fashion. The skin was anesthetized 1% lidocaine. Under fluoroscopic guidance, a 20-gauge spinal needle was introduced into the thecal sac at the L3-4 level. 8 cc of clear CSF was removed via gravity drip, and into 4 tubes. The fluid was sent for la boratory analysis as specified by the referring clinician. There were no immediate complications IMPRESSION: 1. Successful fluoroscopically guided diagnostic lumbar puncture. 8 cc of clear CSF was removed and s ent for laboratory analysis ACT 112: Negative or not required by law. Electronically signed by: Epi Granda M.D. 12/14/2020 11:57 AM
[2020-12-14 12:03] LABS: Appearance CSF Clear; CSF Count Tube # 3; CSF Xanthrochromic No xanthochromia; Color CSF Colorless; Red Blood Cell CSF (A) 0 /uL (0-); Red Blood Cell CSF (B) 0 /uL (0-); White Blood Cell CSF (A) 3 /uL (0-5); White Blood Cell CSF (B) 3 /uL (0-5)
[2020-12-14 12:11] LABS: Total Protein CSF 31.1 mg/dl (15-45)
[2020-12-14 12:18] LABS: Lactate CSF 2.8 mmol/L (0.6-2.2)
--- NOTE | 2020-12-14 13:07 | Cardiology Progress Note ---
Date of Service December 14, 2020 Assessment & Plan (1) Acute myocarditis: (2) Cardiomyopathy: (3) Enterocolitis: (4) Acute kidney injury: (5) Mitral regurgitation: ASSESSMENT/PLAN: 1. Acute myocarditis: Overall presentation appears to be consistent with acute myocarditis. Overall, he feels somewhat improved compared to yesterday. Acute illness appears to be gastrointestinal. Inflammatory markers quite elevated. ID consultation pending. Will consider initiating appropriate beta-doroteo and SIENNA-inhibitor therapy later this hospitalization, but will hold off today. It may be likely that his blood pressure remains mildly reduced given his reduced LV systolic function. Despite fluid resuscitation, he does not appear to be hypervolemic. 2. Cardiomyopathy: Likely due to myocarditis as above. Very unlikely to be ischemic in origin given few cardiac risk factors and young age. He did not present with acute coronary syndrome but rather symptoms consistent with infectious etiology such as gastroenteritis. Beta-doroteo and SIENNA-inhibitor therapy considered, but will hold off today given hypotension. 3. Enterocolitis: As per primary service. 4. Acute kidney injury: Renal function has improved with fluid boluses. He was likely hypovolemic on presentation given diarrhea and vomiting. 5. Mitral regurgitation: Non severe. This will be re-evaluated at some point in the future. 6. Disposition: Cardiology will continue to follow along. Patient care discussed with Dr. Howe of the primary hospitalist service. Admission and Anticipated Discharge Date Admission Date: December 13, 2020 Subjective Overall, he feels better today. He denies shortness of breath, chest pain, syncope, near-syncope, palpitations. His nausea has improved. Abdominal pain has improved. He has been seen by GI who suspects gastro intestinal infection, viral versus bacterial. ID consultation is pending. Review of systems: As above. Physical Exam Physical Exam: Gen.: No acute distress. Alert and oriented. HEENT: Anicteric sclera. Neck: No JVD. Cardiac: PMI was nondisplaced. No ventricular heave. Regular in the 90s. Normal S1-S2. No murmurs, rubs, or gallops. Pulmonary: Clear to auscultation bilaterally without wheezes, rales, or rhonchi. Abdomen: Soft, nontender, nondistended, with normoactive bowel sounds. No bruits noted. Extremities: 2+ radial pulses bilaterally. 2+ posterior tibialis pulses bilaterally. No edema or cyanosis. Psychiatric: Affect appears appropriate. Results & Data ([facility]) Vital Signs (Past 12 Hours) Vital Signs Temp Pulse Pulse Resp BP BP Pulse Ox 12/14/20 12:45 94 H 44 H 12/14/20 12:43 92 H 44 H 98/57 L 12/14/20 12:30 86 39 H 12/14/20 12:15 91 H 39 H 12/14/20 12:05 97 H 40 H 12/14/20 10:45 93 H 46 H 12/14/20 10:30 96 H 23 12/14/20 10:15 92 H 46 H 12/14/20 10:00 94 H 47 H 12/14/20 09:45 97 H 21 12/14/20 09:30 96 H 51 H 12/14/20 09:00 93 H 46 H 12/14/20 08:30 93 H 33 H 12/14/20 08:03 97 H 41 H 12/14/20 07:48 97 H 45 H 95/61 L 12/14/20 07:30 94 H 44 H 99 12/14/20 07:00 99 H 38 H 98 12/14/20 06:45 98 H 39 H 98 12/14/20 03:27 37.7 C H 99 H 34 H 97/48 L 99 Intake & Output 12/12/20 12/13/20 12/14/20 12/15/20 06:59 06:59 06:59 06:59 Intake Total 2671 / 2671 3066.667 / 3066.667 1581.667 / 1581.667 Output Total 871 / 871 Balance 2671 / 2671 2195.667 / 2195.667 1581.667 / 1581.667 Weight 180 lb 12.465 oz 181 lb 3.52 oz Laboratory Results Laboratory Results - last 24 hr 12/13/20 12/13/20 12/13/20 14:54 14:54 14:54 WBC 23.95 H RBC 4.37 L Hgb 12.7 L Hct 34.5 L MCV 78.9 L MCH 29.1 MCHC 36.8 H RDW Std Deviation 38.9 RDW Coeff of Chavez 13.5 Plt Count 254 MPV 12.5 H Immature Gran % (Auto) 1.0 Neut % (Auto) 89.5 Lymph % (Auto) 6.8 [place] % (Auto) 2.3 Eos % (Auto) 0.3 Baso % (Auto) 0.1 Neut # (Auto) 21.42 H Lymph # (Auto) 1.63 [place] # (Auto) 0.56 Eos # (Auto) 0.07 Baso # (Auto) 0.02 Immature Gran # (Auto) 0.25 H Absolute Nucleated RBC 0.04 H Nucleated RBC % (auto) 0.2 Toxic Vacuolation 1+ Echinocytes 1+ ESR ABG pH ABG pCO2 ABG pO2 ABG HCO3 ABG O2 Saturation ABG Base Excess Tadeo Test Barometric Pressure Oxygen Given Sodium 134 L Potassium 3.3 L Chloride 104 Carbon Dioxide 19 L Anion Gap 11.0 BUN 26 H Creatinine 1.37 Est Cr Clr Drug Dosing 83.1 Est GFR ( Amer) 81.3 Est GFR (Non-Af Amer) 70.2 BUN/Creatinine Ratio 18.7 Glucose 116 H Lactate 3.7 H* Calcium 8.6 Phosphorus Magnesium Total Bilirubin 1.4 H AST 57 H ALT 61 Alkaline Phosphatase 90 Troponin I 8.840 H* C-Reactive Protein Total Protein 6.8 Albumin 2.2 L Globulin 4.6 H Albumin/Globulin Ratio 0.5 L Procalcitonin CSF Appearance CSF Color Xanthrochromic CSF WBC CSF RBC CSF Cell Count Tube # CSF Chemistry Tube # CSF Glucose CSF Lactate CSF Total Protein 12/13/20 12/14/20 12/14/20 20:14 04:39 04:39 WBC 23.37 H RBC 3.76 L Hgb 10.5 L Hct 29.9 L MCV 79.5 L MCH 27.9 MCHC 35.1 RDW Std Deviation 39.5 RDW Coeff of Chavez 13.7 Plt Count 229 MPV 12.2 H Immature Gran % (Auto) 0.9 Neut % (Auto) 84.9 Lymph % (Auto) 9.8 [place] % (Auto) 3.6 Eos % (Auto) 0.7 Baso % (Auto) 0.1 Neut # (Auto) 19.86 H Lymph # (Auto) 2.30 [place] # (Auto) 0.83 H Eos # (Auto) 0.16 Baso # (Auto) 0.02 Immature Gran # (Auto) 0.20 H Absolute Nucleated RBC 0.02 H Nucleated RBC % (auto) 0.1 Toxic Vacuolation Echinocytes ESR ABG pH 7.44 ABG pCO2 28 L ABG pO2 78 L ABG HCO3 19 ABG O2 Saturation 95.7 H ABG Base Excess -4.5 Tadeo Test Pos Barometric Pressure 736.0 Oxygen Given ROOM AIR Sodium 134 L Potassium 3.5 Chloride 106 Carbon Dioxide 21 Anion Gap 7.0 BUN 22 H Creatinine 1.30 Est Cr Clr Drug Dosing 87.6 Est GFR ( Amer) 86.7 Est GFR (Non-Af Amer) 74.8 BUN/Creatinine Ratio 17.3 Glucose 125 H Lactate Calcium 7.8 L Phosphorus 2.6 Magnesium 2.5 H Total Bilirubin 1.6 H AST 94 H ALT 68 Alkaline Phosphatase 81 Troponin I 8.750 H* C-Reactive Protein 29.40 H Total Protein 6.1 L Albumin 1.9 L Globulin 4.2 H Albumin/Globulin Ratio 0.5 L Procalcitonin CSF Appearance CSF Color Xanthrochromic CSF WBC CSF RBC CSF Cell Count Tube # CSF Chemistry Tube # CSF Glucose CSF Lactate CSF Total Protein 12/14/20 12/14/20 12/14/20 04:39 04:39 04:39 WBC RBC Hgb Hct MCV MCH MCHC RDW Std Deviation RDW Coeff of Chavez Plt Count MPV Immature Gran % (Auto) Neut % (Auto) Lymph % (Auto) [place] % (Auto) Eos % (Auto) Baso % (Auto) Neut # (Auto) Lymph # (Auto) [place] # (Auto) Eos # (Auto) Baso # (Auto) Immature Gran # (Auto) Absolute Nucleated RBC Nucleated RBC % (auto) Toxic Vacuolation Echinocytes ESR > 90 H ABG pH ABG pCO2 ABG pO2 ABG HCO3 ABG O2 Saturation ABG Base Excess Tadeo Test Barometric Pressure Oxygen Given Sodium Potassium Chloride Carbon Dioxide Anion Gap BUN Creatinine Est Cr Clr Drug Dosing Est GFR ( Amer) Est GFR (Non-Af Amer) BUN/Creatinine Ratio Glucose Lactate 3.1 H* Calcium Phosphorus Magnesium Total Bilirubin AST ALT Alkaline Phosphatase Troponin I C-Reactive Protein Total Protein Albumin Globulin Albumin/Globulin Ratio Procalcitonin 11.05 H CSF Appearance CSF Color Xanthrochromic CSF WBC CSF RBC CSF Cell Count Tube # CSF Chemistry Tube # CSF Glucose CSF Lactate CSF Total Protein 12/14/20 12/14/20 11:30 11:30 WBC RBC Hgb Hct MCV MCH MCHC RDW Std Deviation RDW Coeff of Chavez Plt Count MPV Immature Gran % (Auto) Neut % (Auto) Lymph % (Auto) [place] % (Auto) Eos % (Auto) Baso % (Auto) Neut # (Auto) Lymph # (Auto) [place] # (Auto) Eos # (Auto) Baso # (Auto) Immature Gran # (Auto) Absolute Nucleated RBC Nucleated RBC % (auto) Toxic Vacuolation Echinocytes ESR ABG pH ABG pCO2 ABG pO2 ABG HCO3 ABG O2 Saturation ABG Base Excess Tadeo Test Barometric Pressure Oxygen Given Sodium Potassium Chloride Carbon Dioxide Anion Gap BUN Creatinine Est Cr Clr Drug Dosing Est GFR ( Amer) Est GFR (Non-Af Amer) BUN/Creatinine Ratio Glucose Lactate Calcium Phosphorus Magnesium Total Bilirubin AST ALT Alkaline Phosphatase Troponin I C-Reactive Protein Total Protein Albumin Globulin Albumin/Globulin Ratio Procalcitonin CSF Appearance Clear CSF Color Colorless Xanthrochromic No xanthochromia CSF WBC 3 CSF RBC 0 CSF Cell Count Tube # 3 CSF Chemistry Tube # 1 CSF Glucose 70 CSF Lactate 2.8 H CSF Total Protein 31.1 Diagnostic Findings Telemetry personally reviewed: Sinus rhythm. No arrhythmia. ECG personally reviewed: ECG 12/14/2020: Sinus rhythm with first-degree AV block at 95 beats per minute. Inferior ST/T-wave abnormality. Anterior T-wave abnormality. Medications Administered Current Inpatient Medications Acetaminophen (Acetaminophen 325 Mg Tab) 650 mg PO Q4H PRN PRN Reason: Pain or Fever Stop: 01/12/21 07:39 Last Admin: 12/13/20 15:53 Dose: 650 mg Documented by: Calcium Carbonate (Calcium Carbonate 500 Mg Chewable Tab) 500 mg PO Q4 PRN PRN Reason: Indigestion Stop: 01/13/21 00:45 Last Admin: 12/14/20 04:59 Dose: 500 mg Documented by: Famotidine 20 mg/ Syringe 5 mls @ 2.5 mls/min IV Q12H CAROLYN Stop: 01/12/21 08:59 Last Admin: 12/14/20 07:40 Dose: 2.5 mls/min Documented by: Piperacillin Sod/Tazobactam (Sod 3.375 gm/ Dextrose) 115 mls @ 28.75 mls/hr IV Q8H CAROLYN; Protocol Stop: 12/20/20 10:59 Last Admin: 12/14/20 12:38 Dose: 28.8 mls/hr Documented by: Potassium Chloride 40 meq/ (Sodium Chloride) 1,020 mls @ 100 mls/hr IV .[id number] CAROLYN Stop: 01/12/21 16:29 Last Infusion: 12/14/20 12:39 Dose: 0 mls/hr Documented by: Mirtazapine (Mirtazapine Soltab 15 Mg) 45 mg PO HS CAROLYN Stop: 01/12/21 20:59 Last Admin: 12/13/20 20:51 Dose: 45 mg Documented by: Miscellaneous Information (Piperacill/Tazobac Consult Active) 1 ea N/A UD PRN PRN Reason: Consult Stop: 01/12/21 04:18 Miscellaneous Information (Vancomycin Consult Active) 1 ea N/A UD PRN PRN Reason: Consult Stop: 01/13/21 09:47 Nitroglycerin (Nitroglycerin Sl 0.4 Mg/Tab Tab) 0.4 mg SL UD PRN PRN Reason: Chest Pain Stop: 01/12/21 07:39 Ondansetron HCl (Ondansetron Inj 2 Mg/Ml 2 Ml Vial) 4 mg IV Q6H PRN PRN Reason: Nausea Stop: 01/12/21 07:39 Paroxetine HCl (Paroxetine Hcl 10 Mg Tab) 10 mg PO HS CAROLYN Stop: 01/12/21 20:59 Last Admin: 12/13/20 20:50 Dose: 10 mg Documented by: PG Care Time/CCT Total # of Minutes Spent Total Time Spent with Patient: Total time spent is greater than 50% in coordination of care (as documented) at patient's floor/unit and/or counseling patient: Coding Level of Care Code 91427 Subseq Hosp Care Lvl 3 Diagnoses Acute myocarditis I40.9 Cardiomyopathy I42.9 Enterocolitis K52.9 Acute kidney injury N17.9 Mitral regurgitation I34.0
--- NOTE | 2020-12-14 13:30 | Pharmacy Report ---
Pharmacy Abx Initial Consult - Date of Service December 14, 2020 - Pharmacy Dosing Scope Date of Consult: 12/14/20 Consultation requested by: Dr. Howe Pharmacy is consulted to initiate Vancomycin IV/PO dosing therapy, order appropriate labs and adjust drug dose/frequency. - Subjective The patient is a 25 year old M admitted on 12/13/20 06:15. - Objective Height: 5 ft 7 in Weight: 82.2 kg Vital Signs (Past 12hrs): Vital Signs Temp Pulse Pulse Resp BP BP Pulse Ox 12/14/20 12:45 94 H 44 H 12/14/20 12:43 92 H 44 H 98/57 L 12/14/20 12:30 86 39 H 12/14/20 12:15 91 H 39 H 12/14/20 12:05 97 H 40 H 12/14/20 10:45 93 H 46 H 12/14/20 10:30 96 H 23 12/14/20 10:15 92 H 46 H 12/14/20 10:00 94 H 47 H 12/14/20 09:45 97 H 21 12/14/20 09:30 96 H 51 H 12/14/20 09:00 93 H 46 H 12/14/20 08:30 93 H 33 H 12/14/20 08:03 97 H 41 H 12/14/20 07:48 97 H 45 H 95/61 L 12/14/20 07:30 94 H 44 H 99 12/14/20 07:00 99 H 38 H 98 12/14/20 06:45 98 H 39 H 98 12/14/20 03:27 37.7 C H 99 H 34 H 97/48 L 99 Lab Results (24hrs): Laboratory Tests (24 Hours) 12/14/20 12/14/20 12/14/20 04:39 04:39 04:39 WBC Neut # (Auto) ESR > 90 H Creatinine 1.30 Est Cr Clr Drug Dosing 87.6 C-Reactive Protein 29.40 H Procalcitonin 11.05 H 12/14/20 12/13/20 12/13/20 04:39 14:54 14:54 WBC 23.37 H 23.95 H Neut # (Auto) 19.86 H 21.42 H ESR Creatinine 1.37 Est Cr Clr Drug Dosing 83.1 C-Reactive Protein Procalcitonin Micro Results: 12/14/20 11:30 Cryptococcal Antigen Test - Final Cerebral Spinal Fluid 12/14/20 11:30 Gram Stain - Pending Cerebral Spinal Fluid CSF Culture - Pending 12/14/20 11:30 Fungal Culture - Pending Cerebral Spinal Fluid 12/14/20 11:30 Acid Fast Bacilli Smear - Pending Cerebral Spinal Fluid Acid Fast Bacilli Culture - Pending - Risk Factors for Resistance * Incarcerated - Assessment & Plan Assessment 25 year old M admitted on 12/13/20 for elevated troponin and enterocolitis. VON on admission. Plan Vancomycin for treatment of sepsis/possible meningitis. * Pt admitted with VON with Scr trending down 1.53-->1.37-->1.3 today. Unsure of baseline Scr. * Started on zosyn for enterocolitis. Changed to cefepime 2gm q8h today for [employer] coverage. * pt was COVID positive in September 2020. * Blood cultures pending. * CSF cultures pending. Vancomycin IV * Estimated PK Parameters: Vd 0.7 L/kg, Mario 0.076 hr-1, t1/2 9 hr * Loading dose: 2000 mg (24 mg/kg) * Maintenance dose: 1250 mg IV (15 mg/kg) every 12 hours * Goal trough level : 15 to 20 mcg/mL * Trough level ordered for 12/16/20 @0530. Pharmacy will continue to follow and will adjust dose/frequency as necessary. Thank you.
[2020-12-14] MEDS: CEFEPIME 2,000 MG in SYRINGE 0 ML IV SCH ×2 (13:35→21:15)
[2020-12-14] MEDS: VANCOMYCIN HCL 1,250 MG in SODIUM CHLORIDE 0.9% 250 ML IV SCH (16:52)
[2020-12-14] MEDS: MIRTAZAPINE SOLTAB 15 MG PO SCH ×2 (21:15→21:20)
[2020-12-14] MEDS: PARoxetine HCL 10 MG TAB PO SCH ×2 (21:15→21:20)
[2020-12-15] MEDS: POTASSIUM CHLORIDE 40 MEQ in SODIUM CHLORIDE 0.9% 1000ML 1,000 ML IV SCH ×2 (00:47→03:37)
[2020-12-15 04:56] LABS: Hematocrit (blood only) 27.6 % (42-52); Mean Corpuscular Hemoglobin 28.8 pg (25-34); Mean Corpuscular Hgb Conc 36.2 g/dL (32-36); Mean Corpuscular Volume 79.5 fL (80-100); Mean Platelet Volume 12.8 fL (7.4-10.4); Nucleated RBC # (auto) 0.06 K/uL (0-0); Nucleated RBC % (auto) 0.2 %; Platelet Count 232 K/uL (130-400); RDW Coefficient of Variation 14.1 % (11.5-14.5); RDW Standard Deviation 40.3 fL (36.4-46.3); Red Blood Count 3.47 M/uL (4.7-6.1); White Blood Count 26.08 K/uL (4.8-10.8)
[2020-12-15 05:07] LABS: BUN Creatinine Ratio 16.7 (10-20); Creatinine Clr Calc Pharmacy 45.7 ml/min; Est GFR (African American) 39.5; Est GFR (Non-African American) 34.1; Magnesium 2.2 mg/dl (1.8-2.4); Phosphorus 2.7 mg/dl (2.5-4.9); Potassium 4.1 mmol/L (3.5-5.1)
[2020-12-15 05:13] LABS: Basophils # (auto) 0.02 K/uL (0-0.2); Basophils % (auto) 0.1 %; Dohle Bodies 1+; Echinocytes 1+; Eosinophils # (auto) 0.14 K/uL (0-0.5); Eosinophils % (auto) 0.5 %; Immature Granulocytes # (auto) 0.37 K/uL (0.00-0.02); Immature Granulocytes % (auto) 1.4 %; Monocytes # (auto) 1.09 K/uL (0.11-0.59); Monocytes % (auto) 4.2 %; Neutrophils # (auto) 21.86 K/uL (1.4-6.5); Neutrophils % (auto) 83.8 %
[2020-12-15] MEDS: CEFEPIME 2,000 MG in SYRINGE 0 ML IV SCH (05:44)
[2020-12-15] MEDS: VANCOMYCIN HCL 1,250 MG in SODIUM CHLORIDE 0.9% 250 ML IV SCH (05:44)
--- NOTE | 2020-12-15 05:49 | Electrocardiogram Report ---
Test Reason : Blood Pressure : / mmHG Vent. Rate : 095 BPM Atrial Rate : 095 BPM P-R Int : 254 ms QRS Dur : 100 ms QT Int : 342 ms P-R-T Axes : 052 -14 -41 degrees QTc Int : 429 ms Sinus rhythm with 1st degree A-V block Abnormal ECG When compared with ECG of 13-DEC-2020 04:33, No significant change was found Confirmed by Yordan Covington ([id number]) on 12/15/2020 5:48:46 AM Referred By: Yessy FRAZIER Confirmed By:Yordan Covington
[2020-12-15] MEDS ORDERED: STAT IV Infusion **Titration per Protocol STA (07:24)
[2020-12-15 08:19] LABS: Base Excess VBG -8.9 mEq/L; HCO3 VBG 17 mmol/L; PCO2 VBG 34 mmHg (38-50); PO2 VBG 20 mmHg
[2020-12-15] MEDS: DOBUTamine / D5W 500mg/250mL Premixed Bag IV PRN (08:19)
[2020-12-15 08:20] LABS: Oxygen Saturation VBG < 60.0 %
[2020-12-15] MEDS: FAMOTIDINE 20 MG in SYRINGE 3 ML IV SCH ×2 (08:22→21:08)
--- NOTE | 2020-12-15 08:33 | XRay Report ---
SINGLE VIEW CHEST CLINICAL HISTORY: Tachypnea. Cardiomyopathy. FINDINGS: An AP, portable, upright chest radiograph is compared to chest x-ray and chest CT dated 11/25. The examination is degraded by portable technique and apical lordotic positioning. The heart is enlarged. The pulmonary vasculature is noncongested. Atelectasis is noted at the left lung base. T he lungs and pleural spaces are otherwise clear. No pneumothorax is seen. The bony thorax is grossly intact. IMPRESSION: Mild cardiac enlargement with no acute cardiopulmonary abnormality. ACT 112: Negative or not required by law. Electronically signed by: Vick Peterson M.D. 12/15/2020 8:32 AM
[2020-12-15] MEDS ORDERED: SODIUM BICARB 8.4% INJ 50 MEQ/50 ML SYR IV ONE (09:00)
--- NOTE | 2020-12-15 09:16 | Hospitalist Progress Note ---
Date of Service December 15, 2020 Assessment & Plan (1) Sepsis: severe sepsis with VON, Cr is up to 2.49 this morning no signs of shock, lactic acid is 2.3 today no encephalopathy, making urine low grade temperatures, his WBC is elevated at 26k with left shift overall he feels better today, has some nausea and one loose BM CT abdomen/pelvis with some possible enteritis and lymphadenitis, no major findings on CT chest urine was clean blood cultures with no growth so far continue Cefepime and Vanco for [employer] coverage and GI coverage LP performed 12/14, low WBC, protein 30's, no growth on cultures, fluid appeared very clean, doubt meningitis he had COVID in September, certainly with acute cardiomyopathy a viral infection would be suspected but lab findings suggest bacterial infection with left shift and high procalcitonin consult infectious disease with Suyl for further guidance, recommendations GI consult: checked C diff which was negative, recommend supportive care and antibiotics with ESR > 90 would keep vasculitis on differential, might consider rheumatology consult if nothing is found on infectious work up will check HIV today, he says he was checked 2 months ago and was negative, this was done in nursing home system (2) Acute kidney injury: Creatinine 1.53 upon admission, with no baseline for comparison. improved to 1.3 with aggressive IV fluids today Cr is up to 2.49, BUN up to 42 stop IV fluids as he is more than adequately hydrated start on Dobutamine 2.5mcg for better renal perfusion, BP immediately up to 137/[address] Smith for her recommendations order urinalysis, urine sodium, urine Cr repeat BMP at noon metabolic acidosis, non gapped, likely combination of lactic acidosis (mild) and diarrheal illness give sodium bicarb amp this morning he is demonstrating respiratory compensation, breathing 30-40, denies that he is in distress (3) Cardiomyopathy: EF is down at 30-35%, this is new finding he is maintaining BP in the 90's systolic and MAP > 65 keep in ICU in case we would need to transition to ICU status Dr. Covington following, for now we can hold on starting beta doroteo and SIENNA due to acute illness, low BP with his Cr rising to 2.49 and lower UO, feel this is due to poor contractility and poor renal perfusion started Dobutamine 2.5mcg, tolerating well, BP 137/79 keep him on 2.5mcg and monitor on tele (4) Acute myocarditis: troponin up to 8 on 12/14, no chest pain coupled with reduced EF of 30-35% would suspect acute viral infection he had COVID in September 2020, never had serious symptoms he was negative for RSV, influenza and COVID on admission consult ID for their input add dobutamine for improved contractility (5) Elevated troponin I level: due to myocarditis, up to 8 12/14 no need to follow further, no suspicion for CAD (6) Enterocolitis: Enterocolitis/mesenteric adenitis/lactic acidosis- Primary symptoms of nausea vomiting and diarrhea for 5 days prior to admission symptoms largely resolved, tolerating liquids, had a semi formed stool on 12/14, then loose stools again on 12/15 consult GI for their input checked C diff, NEGATIVE recommend supportive care (7) Mesenteric adenitis: seen on CT (8) Hypoalbuminemia: dropped from 2.7 to 1.9, now it is 2.0 due to acute illness? there was only 1+ protein in urine so doubt nephrotic issues, especially with improvement in Cr give albumin today Admission and Anticipated Discharge Date Admission Date: December 13, 2020 Subjective patient says he feels "a little better this morning" tolerating some liquids, no abdominal pain, + nausea but no vomiting, had a loose BM this morning no chest pain, no dyspnea, no cough, no fever/chills/sweats, he does feel weak in general reviewed labs, WBC still high at 26k, Hb down slightly at 10, platelets normal Cr jumped to 2.49 from 1.3, less urine output VBG pH 7.3 and CO2 34 CO2 16, K 4.1, corrected calcium 9.6, lactic acid 2.3 BP 90's systolic and MAP > 65 but with the worsening renal function, decided to start Dobutamine 2.5mcg/min immediately BP went up to 130's systolic, 70-80 diastolic, hopeful that increased contractility will help perfuse kidneys Review of Systems Review of Systems: All systems reviewed & are unremarkable except as noted in Subjective Gastrointestinal: + bloating, + nausea and + diarrhea/loose stools; no abdominal pain, no vomiting and no constipation Physical Exam Constitutional: well developed, well nourished, + ill appearing and comfortable; no acute distress Eyes: PERRL, conjunctivae normal, anicteric sclerae ENMT: external ear and nose normal, oropharynx normal Neck: normal visual inspection, trachea midline and + nuchal rigidity (mild) Respiratory: + tachypneic; no respiratory distress Auscultation: lungs clear to auscultation bilaterally Cardiovascular: RRR, no murmur, no edema Gastrointestinal (Abdomen): normal bowel sounds, soft, nontender, no hepatosplenomegaly Musculoskeletal: no cyanosis or clubbing, extremities motor strength 5/5 Skin: no rashes, warm and dry Neurologic: patellar DTR's 2+ bilat, sensation intact and PERRL, EOMI, accommodation nl, no face palsy, no dysarthria Psychiatric: A+Ox3, euthymic affect Lymphatic: no cervical or axillary lymphadenopathy Results & Data Results & Data ([facility]) Vital Signs (Past 12 Hours) Vital Signs Temp Pulse Pulse Resp BP Pulse Ox 12/15/20 07:46 37.5 C 87 16 106/56 L 99 12/15/20 03:44 37.3 C 85 35 H 98/68 L 94 12/15/20 00:00 37.8 C H 88 87 47 H 102/61 94 Laboratory Results Laboratory Results - last 24 hr 12/14/20 12/14/20 12/14/20 11:30 11:30 16:45 WBC RBC Hgb Hct MCV MCH MCHC RDW Std Deviation RDW Coeff of Chavez Plt Count MPV Immature Gran % (Auto) Neut % (Auto) Lymph % (Auto) Nobles % (Auto) Eos % (Auto) Baso % (Auto) Neut # (Auto) Lymph # (Auto) Nobles # (Auto) Eos # (Auto) Baso # (Auto) Immature Gran # (Auto) Absolute Nucleated RBC Nucleated RBC % (auto) Dohle Bodies Echinocytes VBG pH VBG pCO2 VBG pO2 VBG HCO3 VBG O2 Saturation VBG Base Excess Barometric Pressure Sodium Potassium Chloride Carbon Dioxide Anion Gap BUN Creatinine Est Cr Clr Drug Dosing Est GFR ( Amer) Est GFR (Non-Af Amer) BUN/Creatinine Ratio Glucose Lactate Calcium Phosphorus Magnesium Total Bilirubin Direct Bilirubin AST ALT Alkaline Phosphatase Troponin I Total Protein Albumin CSF Appearance Clear CSF Color Colorless Xanthrochromic No xanthochromia CSF WBC 3 CSF RBC 0 CSF Cell Count Tube # 3 CSF Chemistry Tube # 1 CSF Glucose 70 CSF Lactate 2.8 H CSF Total Protein 31.1 Stl C. diff Tox B Gene Negative Cdiff Gene 12/15/20 12/15/20 12/15/20 04:31 04:31 08:07 WBC 26.08 H RBC 3.47 L Hgb 10.0 L Hct 27.6 L MCV 79.5 L MCH 28.8 MCHC 36.2 H RDW Std Deviation 40.3 RDW Coeff of Chavez 14.1 Plt Count 232 MPV 12.8 H Immature Gran % (Auto) 1.4 Neut % (Auto) 83.8 Lymph % (Auto) 10.0 Nobles % (Auto) 4.2 Eos % (Auto) 0.5 Baso % (Auto) 0.1 Neut # (Auto) 21.86 H Lymph # (Auto) 2.60 Nobles # (Auto) 1.09 H Eos # (Auto) 0.14 Baso # (Auto) 0.02 Immature Gran # (Auto) 0.37 H Absolute Nucleated RBC 0.06 H Nucleated RBC % (auto) 0.2 Dohle Bodies 1+ Echinocytes 1+ VBG pH VBG pCO2 VBG pO2 VBG HCO3 VBG O2 Saturation VBG Base Excess Barometric Pressure Sodium 133 L Potassium 4.1 D Chloride 106 Carbon Dioxide 16 L Anion Gap 11.0 BUN 42 H D Creatinine 2.49 H D Est Cr Clr Drug Dosing 45.7 Est GFR ( Amer) 39.5 Est GFR (Non-Af Amer) 34.1 BUN/Creatinine Ratio 16.7 Glucose 105 H Lactate Calcium 8.0 L Phosphorus 2.7 Magnesium 2.2 Total Bilirubin Pending Direct Bilirubin Pending AST Pending ALT Pending Alkaline Phosphatase Pending Troponin I Pending Total Protein Pending Albumin 2.0 L Pending CSF Appearance CSF Color Xanthrochromic CSF WBC CSF RBC CSF Cell Count Tube # CSF Chemistry Tube # CSF Glucose CSF Lactate CSF Total Protein Stl C. diff Tox B Gene 12/15/20 12/15/20 08:07 08:07 WBC RBC Hgb Hct MCV MCH MCHC RDW Std Deviation RDW Coeff of Chavez Plt Count MPV Immature Gran % (Auto) Neut % (Auto) Lymph % (Auto) Nobles % (Auto) Eos % (Auto) Baso % (Auto) Neut # (Auto) Lymph # (Auto) Nobles # (Auto) Eos # (Auto) Baso # (Auto) Immature Gran # (Auto) Absolute Nucleated RBC Nucleated RBC % (auto) Dohle Bodies Echinocytes VBG pH 7.30 L VBG pCO2 34 L VBG pO2 20 VBG HCO3 17 VBG O2 Saturation < 60.0 VBG Base Excess -8.9 Barometric Pressure 726.0 Sodium Potassium Chloride Carbon Dioxide Anion Gap BUN Creatinine Est Cr Clr Drug Dosing Est GFR ( Amer) Est GFR (Non-Af Amer) BUN/Creatinine Ratio Glucose Lactate 2.3 H* Calcium Phosphorus Magnesium Total Bilirubin Direct Bilirubin AST ALT Alkaline Phosphatase Troponin I Total Protein Albumin CSF Appearance CSF Color Xanthrochromic CSF WBC CSF RBC CSF Cell Count Tube # CSF Chemistry Tube # CSF Glucose CSF Lactate CSF Total Protein Stl C. diff Tox B Gene Medications Administered Current Inpatient Medications Acetaminophen (Acetaminophen 325 Mg Tab) 650 mg PO Q4H PRN PRN Reason: Pain or Fever Stop: 01/12/21 07:39 Last Admin: 12/13/20 15:53 Dose: 650 mg Documented by: Calcium Carbonate (Calcium Carbonate 500 Mg Chewable Tab) 500 mg PO Q4 PRN PRN Reason: Indigestion Stop: 01/13/21 00:45 Last Admin: 12/14/20 04:59 Dose: 500 mg Documented by: Famotidine 20 mg/ Syringe 5 mls @ 2.5 mls/min IV Q12H [facility] Stop: 01/12/21 08:59 Last Admin: 12/15/20 08:22 Dose: 2.5 mls/min Documented by: Cefepime HCl 2,000 mg/ Syringe 20 mls @ 5 mls/min IV Q8H [facility] Stop: 12/24/20 13:59 Last Admin: 12/15/20 05:44 Dose: 5 mls/min Documented by: Vancomycin HCl 1,250 mg/ (Sodium Chloride) 275 mls @ 200 mls/hr IV Q12H [facility] Stop: 12/24/20 17:59 Last Infusion: 12/15/20 07:10 Dose: Infused Documented by: Dobutamine HCl/Dextrose (Dobutamine / D5w) 500 mg in 250 mls @ 6.165 mls/hr IV .Q24H PRN; Protocol PRN Reason: Titration Stop: 01/14/21 07:39 Last Admin: 12/15/20 08:19 Dose: 2.5 mcg/kg/min, 6.2 mls/hr Documented by: Mirtazapine (Mirtazapine Soltab 15 Mg) 45 mg PO HS [facility] Stop: 01/12/21 20:59 Last Admin: 12/14/20 21:20 Dose: Not Given Documented by: Miscellaneous Information (Vancomycin Consult Active) 1 ea N/A UD PRN PRN Reason: Consult Stop: 01/13/21 09:47 Nitroglycerin (Nitroglycerin Sl 0.4 Mg/Tab Tab) 0.4 mg SL UD PRN PRN Reason: Chest Pain Stop: 01/12/21 07:39 Ondansetron HCl (Ondansetron Inj 2 Mg/Ml 2 Ml Vial) 4 mg IV Q6H PRN PRN Reason: Nausea Stop: 01/12/21 07:39 Paroxetine HCl (Paroxetine Hcl 10 Mg Tab) 10 mg PO HS [facility] Stop: 01/12/21 20:59 Last Admin: 12/14/20 21:20 Dose: Not Given Documented by: PG Care Time/CCT Total # of Minutes Spent Total Time Spent: 36 Total Time Spent with Patient: Total time spent is greater than 50% in coordination of care (as documented) at patient's floor/unit and/or counseling patient: Critical Care Time: Yes Total Critical Care Time: 36 This case had a high probability of a clinically significant, sudden, or life threatening deterioration of this patient's condition which required my full and direct attention, intervention and personal management. Coding Level of Care Code 60647 Subseq Hosp Care Lvl 3 Diagnoses Sepsis A41.9; R65.20 Sepsis acute organ dysfunction status: with acute organ dysfunction Sepsis type: sepsis due to unspecified organism Severe sepsis acute organ dysfunction type: unspecified Severe sepsis shock status: without septic shock Acute kidney injury N17.9 Cardiomyopathy I42.9 Acute myocarditis I40.9 Elevated troponin I level R77.8 Enterocolitis K52.9 Mesenteric adenitis I88.0 Hypoalbuminemia E88.09 Additional Codes Critical Care Time - Critical Care Time: Yes ([id number]) (1) Sepsis Sepsis acute organ dysfunction status: with acute organ dysfunction Sepsis type: sepsis due to unspecified organism Severe sepsis acute organ dysfunction type: unspecified Severe sepsis shock status: without septic shock Qualified Code(s): A41.9 - Sepsis, unspecified organism; R65.20 - Severe sepsis without septic shock
[2020-12-15 09:34] LABS: Albumin Level 2.2 gm/dl (3.4-5.0); Bilirubin Direct 0.5 mg/dl (0-0.2); Bilirubin,Total 1.2 mg/dl (0.2-1); Total Protein 7.3 gm/dl (6.4-8.2); Troponin I 1.76 ng/ml (0-0.045)
--- NOTE | 2020-12-15 10:30 | Gastroenterology Progress Note ---
Date of Service December 15, 2020 Assessment & Plan (1) Abnormal CT of the abdomen: (2) Enterocolitis: DDx: likely self-limited infectious etiology viral vs bacterial given history of suspicious food ingestion prior to onset of symptoms, less likely IBD. Given current cardiac medical comorbidities, would recommend conservative GI management at this time as follows: 1. Await culture results. 2. Continue IV antibiotics as prescribed. 3. Stat KUB due to worsened abdominal distention and intractable hiccoughs. 4. If no SBO, will attempt a GI cocktail to see if symptoms improve. 5. Continue Famotidine 20 mg IV BID. 6. Further recommendations pending results of testing. Thank you for allowing us to participate in the care of this patient. If you have any questions or concerns, please do not hesitate to contact us. Admission and Anticipated Discharge Date Admission Date: December 13, 2020 Subjective Patient reports he is distressed with ongoing and intractable hiccoughs. No abdominal pain but he verbalizes that he is bloated. +nausea without vomiting. Loose stools passed this morning without melena or hematochezia. Afebrile this morning. He remains tachypneic and slightly hypertensive. CXR without any acute cardiopulmonary findings. C Diff neg as well no fecal leukocytes. CX pending. H&H stable. Review of Systems Constitutional: as per Subjective / HPI Genitourinary: + as per Subjective / HPI Physical Exam Constitutional: mild distress Respiratory: + tachypneic Auscultation: lungs clear to auscultation bilaterally Cardiovascular: Rate/Rhythm: regular rate and regular rhythm Gastrointestinal (Abdomen): Inspection/Auscultation: + abdomen distended and + hypoactive bowel sounds Percussion/Palpation: abdomen nontender Results & Data Results & Data ([facility]) Vital Signs (Past 12 Hours) Vital Signs Temp Pulse Pulse Resp BP BP Pulse Ox 12/15/20 09:00 89 48 H 12/15/20 08:58 94 H 39 H 137/79 12/15/20 08:45 88 47 H 12/15/20 08:30 46 H 12/15/20 08:15 49 H 12/15/20 08:05 86 37 H 12/15/20 07:46 37.5 C 87 16 106/56 L 99 12/15/20 07:31 86 44 H 12/15/20 07:30 86 49 H 106/58 L 12/15/20 07:15 85 41 H 12/15/20 07:00 87 44 H 12/15/20 06:45 85 27 H 12/15/20 03:44 37.3 C 85 35 H 98/68 L 94 12/15/20 00:00 37.8 C H 88 87 47 H 102/61 94 GI Lab Results Results GI Lab Results: RBC 3.47 M/uL (4.7-6.1) L 12/15/20 WBC 26.08 K/uL (4.8-10.8) H 12/15/20 Hgb 10.0 g/dL (14.0-18.0) L 12/15/20 Hct 27.6 % (42-52) L 12/15/20 Plt Count 232 K/uL (130-400) 12/15/20 Na 133 mmol/L (136-145) L 12/15/20 Potassium Level 4.1 mmol/L (3.5-5.1) 12/15/20 Cl 106 mmol/L (98-107) 12/15/20 Anion Gap 11.0 (3-11) 12/15/20 BUN 42 mg/dl (7-18) H 12/15/20 Creatinine 2.49 mg/dl (0.6-1.4) H 12/15/20 BUN/Creatinine Ratio 16.7 (10-20) 12/15/20 Glu 105 mg/dl (70-99) H 12/15/20 Ca 8.0 mg/dl (8.5-10.1) L 12/15/20 Phosphorus Level 2.7 mg/dl (2.5-4.9) 12/15/20 Total Bilirubin 1.2 mg/dl (0.2-1) H 12/15/20 Direct Bilirubin 0.5 mg/dl (0-0.2) H 12/15/20 AST 153 U/L (15-37) H 12/15/20 ALT 104 U/L (12-78) H 12/15/20 Alk Phos 100 U/L (45-117) 12/15/20 TP 7.3 gm/dl (6.4-8.2) 12/15/20 Albumin 2.2 gm/dl (3.4-5.0) L 12/15/20 Globulin 4.2 gm/dl (2.5-4.0) H 12/14/20 Albumin/Globulin Ratio 0.5 (0.9-2) L 12/14/20 CRP 29.40 mg/dl (0-0.29) H 12/14/20 PG Care Time/CCT Total # of Minutes Spent Total Time Spent with Patient: Total time spent is greater than 50% in coordination of care (as documented) at patient's floor/unit and/or counseling patient: Coding Level of Care Code 78736 Subseq Hosp Care Lvl [address] of the abdomen R93.5 Enterocolitis K52.9
--- NOTE | 2020-12-15 10:43 | XRay Report ---
XR KUB/Abdomen 1 view CLINICAL HISTORY: Worsening abdominal pain. Enteritis. COMPARISON STUDY: No previous studies for comparison. FINDINGS: There is gas within nondilated colon. There is gas within left mid abdominal small bowel lo ops which are the upper limits of normal in size. There are no transition zones to indicate bowel obs truction. IMPRESSION: Nonobstructive bowel gas pattern. ACT 112: Negative or not required by law. Electronically signed by: Epi Granda M.D. 12/15/2020 10:42 AM
--- NOTE | 2020-12-15 12:13 | Nephrology Consultation ---
Date of Consultation December 15, 2020 Assessment & Plan (1) Acute kidney injury: 25 y o m admitted to this sepsis of unknown etiology, myocarditis, after presented to the hospital with 3 days history of nausea, vomiting, diarrhea, fever, chills, cough and abdominal pain. Troponin was mildly elevated secondary to acute myocarditis with low ejection fraction. Developed VON with no prior baseline available. VON most likely hemodynamically mediated with nausea vomiting, poor p.o. intake. low EF as well as IV contrast exposure with 2 contrast study back to back. Urinalysis unremarkable, imaging was negative for postrenal obstruction. NAG metabolic acidosis with VON and diarrhea. --continue hemodynamics support, monitor urine output, volume status and electrolytes --with on going diarrhea and poor po intake, would start on IV fluid with close monitoring of intake and output, aim for net even to slightly positive balance --renal function may continue to worsen slowly but expect to see improvement in next few days. Will follow Thank you for allowing me to participate in your patient's care. It was a pleasure to see Bobby (2) Metabolic acidosis: (3) Hypoalbuminemia: (4) Acute myocarditis: History of Present Illness Reason for Consultation: Acute kidney injury. Attending Physician: Terrence Howe, DO History of Present Illness Bobby Sawyer is a 25-year-old gentleman with no known history of chronic kidney disease, admitted to the hospital with sepsis of unknown etiology, acute myocarditis and VON. Nephrology consult was requested for management of acute kidney injury. EMR records are reviewed in detail during patient's visit. Bobby presented with 3 days history of nausea, vomiting, diarrhea cough, fever, chills, fatigue and overall feeling poorly. He had COVID-19 pneumonia in September 2020 which she recovered. Did not have any chest pain. No NSAID use prior to hospital admission. On admission CT abdomen pelvis was done without contrast showing possible enterocolitis. CTA chest was negative for pulmonary emboli. On admission is febrile and hypotensive, troponin was mildly elevated. Echo showed acute drop in EF to around 30 to 35%. Repeat COVID test was negative. Lumbar puncture was unremarkable. Culture so far negative. No known history of chronic kidney disease, no baseline creatinine available. On admission creatinine was 1.5 with hide duration creatinine slightly improved to 1.3 the following day. However, this morning he was found to have a sharp rise in creatinine to 2.5 associated with metabolic acidosis. Urinalysis with trace proteinuria but no significant hematuria pyuria, imaging was negative for postrenal obstruction. Has been voiding normally. He is on vancomycin and Cefepime empirically for sepsis. His grandmother had end-stage renal disease, was on dialysis and eventually she received a kidney transplant and has been doing well, unknown etiology for end-stage renal disease. Active smoker until hospitalization. As EF was found to be low, dobutamine was started this morning. Was on IV fluid which was discontinued this morning as well. Overall started to feel slightly better this morning. Has been tachycardic but denied any shortness of breath or chest pain. Continues to have diarrhea. Allergies Allergy/AdvReac Type Severity Reaction Status Date / Time schmitt Allergy Unknown Verified 12/13/20 03:55 trazodone Allergy Unknown Verified 12/13/20 03:55 Home Medications Medication Instructions Recorded Confirmed Type mirtazapine 45 mg PO HS 12/13/20 12/13/20 History paroxetine HCl 10 mg PO HS 12/13/20 12/13/20 History Patient History Medical History Anxiety and depression COVID-19 virus infection Social History Smoking Status: Current every day smoker Tobacco Type: Cigarettes Hx Alcohol Use: No Hx Substance Use: No Preferred Language: Kyrgyz Communication Ability: Effective Manhole Builder Required: No Beliefs That Will Affect Care: None Current Living Situation Comment: Yessy Feels Safe at Home: Yes Review of Systems Review of Systems: All systems reviewed & are unremarkable except as noted in Subjective Physical Exam Constitutional: WD/WN, vitals as above + ill appearing; no acute distress Eyes: PERRL, conjunctivae normal, anicteric sclerae ENMT: external ear and nose normal, oropharynx normal Ears: no hearing impairment Neck: trachea midline Respiratory: normal respiratory effort, lungs clear to auscultation no cough Auscultation: no crackles, no rales and no wheezes Cardiovascular: RRR, no murmur, no edema Gastrointestinal (Abdomen): normal bowel sounds, soft, nontender, no h epatosplenomegaly Inspection/Auscultation: + abdomen distended and normal bowel sounds Percussion/Palpation: abdomen soft; abdomen nontender, no g uarding and abdomen not rigid Musculoskeletal: Extremities: extremities normal to inspection Gait: normal gait Skin: no rashes, warm and dry Neurologic: moves all extremities and awake; no focal motor deficits and not confused Psychiatric: A+Ox3, euthymic affect Results & Data ([facility]) Vital Signs (Past 12 Hours) Vital Signs Temp Pulse Pulse Resp BP BP Pulse Ox 12/15/20 11:41 37.3 C 18 L 18 118/68 93 12/15/20 09:00 89 48 H 12/15/20 08:58 94 H 39 H 137/79 12/15/20 08:45 88 47 H 12/15/20 08:30 46 H 12/15/20 08:15 49 H 12/15/20 08:05 86 37 H 12/15/20 07:46 37.5 C 87 16 106/56 L 99 12/15/20 07:31 86 44 H 12/15/20 07:30 86 49 H 106/58 L 12/15/20 07:15 85 41 H 12/15/20 07:00 87 44 H 12/15/20 06:45 85 27 H 12/15/20 03:44 37.3 C 85 35 H 98/68 L 94 PG Care Time/CCT Total # of Minutes Spent Total Time Spent with Patient: Total time spent is greater than 50% in coordination of care (as documented) at patient's floor/unit and/or counseling patient: Coding Level of Care Code 75289 Inpt Consult Level 5 Diagnoses Acute kidney injury N17.9 Metabolic acidosis E87.2 Hypoalbuminemia E88.09 Acute myocarditis I40.9
[2020-12-15 12:54] LABS: BUN Creatinine Ratio 16.7 (10-20); Calcium 8.3 mg/dl (8.5-10.1); Creatinine Clr Calc Pharmacy 42.2 ml/min; Est GFR (African American) 34.4; Est GFR (Non-African American) 29.7; Potassium 3.8 mmol/L (3.5-5.1)
--- NOTE | 2020-12-15 13:15 | Cardiology Progress Note ---
Date of Service December 15, 2020 Assessment & Plan (1) Acute myocarditis: (2) Cardiomyopathy: (3) Enterocolitis: (4) Acute kidney injury: (5) Mitral regurgitation: ASSESSMENT/PLAN: 1. Acute myocarditis: Overall presentation appears to be consistent with acute myocarditis. Fortunately, troponins have trended downward but continues to have issues with abdominal distention, nausea, vomiting, worsening transaminase levels, and worsening renal function with continued leukocytosis. Acute illness appears to be gastrointestinal. He is now on low-dose dobutamine as per primary service. He has perfusing pressures. Re-evaluate tomorrow. 2. Cardiomyopathy: Likely due to myocarditis as above. Very unlikely to be ischemic in origin given few cardiac risk factors and young age. He did not present with acute coronary syndrome but rather symptoms consistent with infectious etiology such as gastroenteritis. Beta-doroteo and SIENNA-inhibitor therapy in the future if possible, but now on inotropic support after worsening renal and hepatic function while a bit more hypotensive overnight transiently. Repeat limited echo to investigate LV systolic function. Hopefully there has been some recovery. ECG has improved. He does not appear to be significantly hypervolemic. 3. Enterocolitis: As per primary service. 4. Acute kidney injury: Renal function initially improved with fluid resuscitation. Nephrology now following. 5. Mitral regurgitation: Non severe. Can be re-evaluated in the future. 6. Disposition: Cardiology will continue to follow along. Patient care discussed with Dr. Howe of the primary hospitalist service. Admission and Anticipated Discharge Date Admission Date: December 13, 2020 Subjective He denies shortness of breath at rest but has been tachypneic today. He admits dyspnea while walking a short distance to use the commode. He denies chest pain or abdominal pain but feels bloated. He continues to have diarrhea. He also has nausea and had about of emesis earlier today. His renal function and transaminase levels worsened today. He was placed on low-dose dobutamine by Dr. Howe today. His blood pressure had been mildly hypotensive through most of this hospitalization but he did have an episode of more profound hypotension overnight with systolic blood pressure in the 80s, transiently. He had an ID consultation per nursing staff however the written consultation is not yet available. Nephrology was also consulted. Review of systems: As above. Physical Exam Physical Exam: Gen.: Tachypneic. Alert and oriented. HEENT: Anicteric sclera. Neck: No appreciable JVD. Cardiac: No ventricular heave. Regular in the 90s. Normal S1-S2. No murmurs, rubs, or gallops. Pulmonary: Clear to auscultation bilaterally without wheezes, rales, or rhonchi. Abdomen: Distended. Nontender with hypo active bowel sounds. No bruits noted. Extremities: 2+ radial pulses bilaterally. 2+ posterior tibialis pulses bilaterally. No edema or cyanosis. Psychiatric: Affect appears appropriate. Results & Data ([facility]) Vital Signs (Past 12 Hours) Vital Signs Temp Pulse Pulse Resp BP BP Pulse Ox 12/15/20 11:41 37.3 C 18 L 18 118/68 93 12/15/20 09:00 89 48 H 12/15/20 08:58 94 H 39 H 137/79 12/15/20 08:45 88 47 H 12/15/20 08:30 46 H 12/15/20 08:15 49 H 12/15/20 08:05 86 37 H 12/15/20 07:46 37.5 C 87 16 106/56 L 99 12/15/20 07:31 86 44 H 12/15/20 07:30 86 49 H 106/58 L 12/15/20 07:15 85 41 H 12/15/20 07:00 87 44 H 12/15/20 06:45 85 27 H 12/15/20 03:44 37.3 C 85 35 H 98/68 L 94 Laboratory Results Laboratory Results - last 24 hr 12/14/20 12/15/20 12/15/20 16:45 04:31 04:31 WBC 26.08 H RBC 3.47 L Hgb 10.0 L Hct 27.6 L MCV 79.5 L MCH 28.8 MCHC 36.2 H RDW Std Deviation 40.3 RDW Coeff of Chavez 14.1 Plt Count 232 MPV 12.8 H Immature Gran % (Auto) 1.4 Neut % (Auto) 83.8 Lymph % (Auto) 10.0 Cache % (Auto) 4.2 Eos % (Auto) 0.5 Baso % (Auto) 0.1 Neut # (Auto) 21.86 H Lymph # (Auto) 2.60 Cache # (Auto) 1.09 H Eos # (Auto) 0.14 Baso # (Auto) 0.02 Immature Gran # (Auto) 0.37 H Absolute Nucleated RBC 0.06 H Nucleated RBC % (auto) 0.2 Dohle Bodies 1+ Echinocytes 1+ VBG pH VBG pCO2 VBG pO2 VBG HCO3 VBG O2 Saturation VBG Base Excess Barometric Pressure Sodium 133 L Potassium 4.1 D Chloride 106 Carbon Dioxide 16 L Anion Gap 11.0 BUN 42 H D Creatinine 2.49 H D Est Cr Clr Drug Dosing 45.7 Est GFR ( Amer) 39.5 Est GFR (Non-Af Amer) 34.1 BUN/Creatinine Ratio 16.7 Glucose 105 H Lactate Calcium 8.0 L Phosphorus 2.7 Magnesium 2.2 Total Bilirubin Direct Bilirubin AST ALT Alkaline Phosphatase Troponin I Total Protein Albumin 2.0 L Stl C. diff Tox B Gene Negative Cdiff Gene HIV 1&2 Ab/P24 Ag 4thGn 12/15/20 12/15/20 12/15/20 08:07 08:07 08:07 WBC RBC Hgb Hct MCV MCH MCHC RDW Std Deviation RDW Coeff of Chavez Plt Count MPV Immature Gran % (Auto) Neut % (Auto) Lymph % (Auto) Cache % (Auto) Eos % (Auto) Baso % (Auto) Neut # (Auto) Lymph # (Auto) Cache # (Auto) Eos # (Auto) Baso # (Auto) Immature Gran # (Auto) Absolute Nucleated RBC Nucleated RBC % (auto) Dohle Bodies Echinocytes VBG pH 7.30 L VBG pCO2 34 L VBG pO2 20 VBG HCO3 17 VBG O2 Saturation < 60.0 VBG Base Excess -8.9 Barometric Pressure 726.0 Sodium Potassium Chloride Carbon Dioxide Anion Gap BUN Creatinine Est Cr Clr Drug Dosing Est GFR ( Amer) Est GFR (Non-Af Amer) BUN/Creatinine Ratio Glucose Lactate 2.3 H* Calcium Phosphorus Magnesium Total Bilirubin 1.2 H Direct Bilirubin 0.5 H AST 153 H ALT 104 H Alkaline Phosphatase 100 Troponin I 1.760 H* Total Protein 7.3 Albumin 2.2 L Stl C. diff Tox B Gene HIV 1&2 Ab/P24 Ag 4thGn 12/15/20 12/15/20 12:11 12:16 WBC RBC Hgb Hct MCV MCH MCHC RDW Std Deviation RDW Coeff of Chavez Plt Count MPV Immature Gran % (Auto) Neut % (Auto) Lymph % (Auto) Cache % (Auto) Eos % (Auto) Baso % (Auto) Neut # (Auto) Lymph # (Auto) Cache # (Auto) Eos # (Auto) Baso # (Auto) Immature Gran # (Auto) Absolute Nucleated RBC Nucleated RBC % (auto) Dohle Bodies Echinocytes VBG pH VBG pCO2 VBG pO2 VBG HCO3 VBG O2 Saturation VBG Base Excess Barometric Pressure Sodium 135 L Potassium 3.8 Chloride 106 Carbon Dioxide 19 L Anion Gap 10.0 BUN 47 H Creatinine 2.79 H D Est Cr Clr Drug Dosing 42.2 Est GFR ( Amer) 34.4 Est GFR (Non-Af Amer) 29.7 BUN/Creatinine Ratio 16.7 Glucose 108 H Lactate Calcium 8.3 L Phosphorus Magnesium Total Bilirubin Direct Bilirubin AST ALT Alkaline Phosphatase Troponin I Total Protein Albumin Stl C. diff Tox B Gene HIV 1&2 Ab/P24 Ag 4thGn Pending Diagnostic Findings Telemetry personally reviewed: No arrhythmia. Sinus rhythm. ECG personally reviewed: ECG 12/15/2020: Sinus rhythm with first-degree AV block. Inferior ST/T-wave abnormality. Anterior T-wave inversion has improved. Medications Administered Current Inpatient Medications Acetaminophen (Acetaminophen 325 Mg Tab) 650 mg PO Q4H PRN PRN Reason: Pain or Fever Stop: 01/12/21 07:39 Last Admin: 12/13/20 15:53 Dose: 650 mg Documented by: Calcium Carbonate (Calcium Carbonate 500 Mg Chewable Tab) 500 mg PO Q4 PRN PRN Reason: Indigestion Stop: 01/13/21 00:45 Last Admin: 12/14/20 04:59 Dose: 500 mg Documented by: Famotidine 20 mg/ Syringe 5 mls @ 2.5 mls/min IV Q12H CAROLYN Stop: 01/12/21 08:59 Last Admin: 12/15/20 08:22 Dose: 2.5 mls/min Documented by: Dobutamine HCl/Dextrose (Dobutamine / D5w) 500 mg in 250 mls @ 6.165 mls/hr IV .Q24H PRN; Protocol PRN Reason: Titration Stop: 01/14/21 07:39 Last Admin: 12/15/20 08:19 Dose: 2.5 mcg/kg/min, 6.2 mls/hr Documented by: Cefepime HCl 2,000 mg/ Syringe 20 mls @ 5 mls/min IV Q12H CAROLYN; Protocol Stop: 12/25/20 16:59 Mirtazapine (Mirtazapine Soltab 15 Mg) 45 mg PO HS CAROLYN Stop: 01/12/21 20:59 Last Admin: 12/14/20 21:20 Dose: Not Given Documented by: Miscellaneous Information (Vancomycin Consult Active) 1 ea N/A UD PRN PRN Reason: Consult Stop: 01/13/21 09:47 Nitroglycerin (Nitroglycerin Sl 0.4 Mg/Tab Tab) 0.4 mg SL UD PRN PRN Reason: Chest Pain Stop: 01/12/21 07:39 Ondansetron HCl (Ondansetron Inj 2 Mg/Ml 2 Ml Vial) 4 mg IV Q6H PRN PRN Reason: Nausea Stop: 01/12/21 07:39 Paroxetine HCl (Paroxetine Hcl 10 Mg Tab) 10 mg PO HS CAROLYN Stop: 01/12/21 20:59 Last Admin: 12/14/20 21:20 Dose: Not Given Documented by: PG Care Time/CCT Total # of Minutes Spent Total Time Spent with Patient: Total time spent is greater than 50% in coord ination of care (as documented) at patient's floor/unit and/or counseling patient: Coding Level of Care Code 20614 Subseq Hosp Care Lvl 3 Diagnoses Acute myocarditis I40.9 Cardiomyopathy I42.9 Enterocolitis K52.9 Acute kidney injury N17.9 Mitral regurgitation I34.0
--- NOTE | 2020-12-15 13:19 | CT Scan Report ---
CT SCAN OF THE ABDOMEN AND PELVIS WITHOUT IV CONTRAST CLINICAL HISTORY: Sepsis. Abdominal distention. Vomiting. COMPARISON STUDY: Abdominal CT dated 12/13/2020. TECHNIQUE: CT scan of the abdomen and pelvis is performed from the lung bases to the proximal femora. Images are reviewed in the axial, sagittal, and coronal planes. IV contrast was not administered for this examination. Note that the examination is suboptimal without oral and IV contrast. A dose lower ing technique was utilized adhering to the principles of ALARA. The Examination is significantly comp romised by motion artifact. CT DOSE: 870.44 mGy.cm FINDINGS: Lung bases: The heart is mildly enlarged noting a small pericardial effusion. There are right larger than left pleural effusions with bibasilar consolidation. Liver: The unenhanced liver is normal in size, contour, and attenuation. There is no intrahepatic gemma iary ductal dilatation. Gallbladder: There are calcified gallstones. The gallbladder is decompressed. The wall appears mildly thickened and edematous. Spleen: Normal in size and attenuation. Pancreas: The unenhanced pancreas is grossly unremarkable. Adrenal glands: Unremarkable. Kidneys: The unenhanced kidneys are normal in size and without hydronephrosis. There are no renal denis culi identified. There is no evidence of contour deforming renal mass lesion. There is nonspecific bi lateral perinephric stranding. Abdominal vasculature: The abdominal aorta is normal in course and caliber. Bowel: The small bowel and colon are normal in course and caliber. The appendix is normal as visuali zed. Peritoneum: There is a small volume of pelvic ascites. No intraperitoneal free air is seen. There is a fat-containing umbilical hernia. Lymphadenopathy: None. Pelvic viscera: The bladder, prostate, and seminal vesicles are normal as imaged. Skeletal structures: No lytic or blastic lesions are seen. IMPRESSION: 1. Significantly motion compromised examination. Examination is also suboptimal without oral and IV c ontrast. 2. Cardiomegaly and small pericardial effusion. 3. There are right larger than left pleural effusions with bibasilar consolidation. This likely repre sents atelectasis and clinical correlation will be required. The effusions are new from 12/13/2020. 4. There is a small volume of pelvic ascites which is new from 12/13/2020. 5. Cholelithiasis. The gallbladder wall appears mildly thickened and edematous, and this is likely re lated to volume status. If there is clinical concern for acute cholecystitis a right upper quadrant u ltrasound should be considered. 6. There is mild nonspecific bilateral perinephric stranding. ACT 112: Negative or not required by law. Electronically signed by: Vick Peterson M.D. 12/15/2020 1:18 PM
--- NOTE | 2020-12-15 13:55 | Pharmacy Report ---
Pharmacy Abx Dose Short Note - Date of Service December 15, 2020 - Assessment & Plan Assessment 25 year old M receiving vancomycin/cefepime for treatment of possible meningitis. Scr significantly increased today 1.3->2.49->2.79. Will discontinue scheduled dosing and dose by levels given changing renal function. Day # 3 of antimicrobial therapy. Plan Vancomycin * Last dose 1250mg @0600 this morning * Random level ordered for: 12/15/20 @ 1800 (12 hours after last dose) Cefepime * Dose changed to 2g IV q12 for CrCl ~45.7 mL/min Pharmacy will continue to follow and will adjust dose/frequency as necessary. Thank you.
--- NOTE | 2020-12-15 14:48 | Ultrasound Report ---
ABDOMINAL ULTRASOUND, RIGHT UPPER QUADRANT HISTORY: Sepsis. Vomiting. evaluate gall bladder, CBD. COMPARISON: Abdomen and pelvis CT 12/15/2019. FINDINGS: Pancreas: The pancreatic head and tail are obscured by overlying bowel gas. The remaining portions of the pancreas are within normal limits. Liver: Unremarkable. Gallbladder: Diffuse gallbladder wall thickening/edema measuring up to 7 mm. Trace pericholecystic fl uid. There is a 5 mm gallstone at the neck of the gallbladder. This could be impacted. However, there is a negative sonographic Bennett sign. CBD: 5 mm. Right kidney: No hydronephrosis. Miscellaneous: Small right pleural effusion. IMPRESSION: Redemonstration of the diffuse gallbladder wall thickening, trace pericholecystic fluid, and a 5 mm g allstone at the neck of the gallbladder. This could represent an impacted gallstone. Findings could r epresent a developing acute cholecystitis or could be secondary to the patient's diffuse edematous st ate. Of note, there is a negative sonographic Bennett sign. If clinical concern for acute cholecystiti s then consider nuclear medicine HIDA scan. ACT 112: Negative or not required by law. Electronically signed by: Dedrick Prasad M.D. 12/15/2020 2:47 PM
[2020-12-15] MEDS ORDERED: chlorproMAZINE HCL 25 MG/ML AMP IM ONE (16:16)
[2020-12-15] MEDS ORDERED: CEFEPIME 2,000 MG in SYRINGE 0 ML IV SCH (17:00)
--- NOTE | 2020-12-15 17:12 | Surgery Consultation ---
Date of Consultation December 15, 2020 Assessment & Plan (1) Cholelithiasis: 25-year-old male with multiple current issues including possible sepsis, myocarditis, acute renal injury, bloating with vomiting, and cholelithiasis with possible cholecystitis. Given the findings on his CT scan 2 days ago I do not feel that this likely represents an acute cholecystitis, but rather reflects his volume overload and inflammatory response. We will obtain a HIDA scan to evaluate for acute cholecystitis as well as an MRCP given his elevated bilirubin and transaminitis. I believe the findings are secondary to the overall illness he is experiencing and do not reflect an acute cholecystitis as the cause. Given his current status, if he were to have an acute cholecystitis, we would treat with antibiotics and wait till he stabilizes. If we felt it was more urgent, we may transfer him for for cholecystostomy tube. I discussed this with Dr. Howe, we will continue to follow patient until his evaluation is complete. No surgical intervention at this time HIDA and MRCP Continue antibiotics, n.p.o. Surgery will follow, call with questions or concerns (2) Sepsis: (3) Mesenteric adenitis: (4) Acute myocarditis: (5) Acute kidney injury: (6) Metabolic acidosis: History of Present Illness Attending Physician: Terrence Howe, DO History of Present Illness 25-year-old incarcerated -[place] male admitted for what appeared to be an enterocolitis with myocarditis, surgery consulted for possible cholecystitis. The patient is otherwise healthy and believes he ate a bad meal the other day. He started getting bloated and having repeated episodes of vomiting along with some hiccups. He also had some loose stools. He felt weak and dizzy was brought to the emergency department. Initial CT scan on the revealed question of enteric colitis with some mesenteric inflammation. His troponins were elevated at the time and he was admitted for observation. His symptoms continue to worsen. Throughout this is he has denied any significant abdominal pain except after vomiting. His troponins peaked 24 hours ago around 8 but are now downtrending. Cardiology is following. They do not feel this is currently ischemic in nature. He also has acute kidney injury and nephrology is following, current creatinine is 2.6. He had a repeat CT scan performed earlier today that showed bilateral pleural effusions along with anasarca. He also was noted to have a thickened gallbladder wall with some pericholecystic fluid, though this may have been secondary to his fluid status. An ultrasound was performed and showed a 5 mm gallstone in the gallbladder with thickened gallbladder wall up to 6 mm and some pericholecystic fluid. Again this was somewhat nonspecific. The patient denies any postprandial right upper quadrant pain in the past. He denies any prior abdominal surgeries, or any significant medical problems in the past. Allergies Allergy/AdvReac Type Severity Reaction Status Date / Time schmitt Allergy Unknown Verified 12/13/20 03:55 trazodone Allergy Unknown Verified 12/13/20 03:55 Home Medications Medication Instructions Recorded Confirmed Type mirtazapine 45 mg PO HS 12/13/20 12/13/20 History paroxetine HCl 10 mg PO HS 12/13/20 12/13/20 History Patient History Medical History (Updated 12/15/20 @ 17:09 by Rajeev Tejeda DO, FACS) Anxiety and depression Cholelithiasis COVID-19 virus infection Metabolic acidosis Social History Smoking Status: Current every day smoker Tobacco Type: Cigarettes Hx Alcohol Use: No Hx Substance Use: No Preferred Language: Cuban Communication Ability: Effective Ship Manager Required: No Beliefs That Will Affect Care: None Current Living Situation Comment: [facility]y Feels Safe at Home: Yes Review of Systems Review of Systems: All systems reviewed & are unremarkable except as noted in HPI & below Physical Exam Constitutional: WD/WN, vitals as above + acute distress Eyes: PERRL, conjunctivae normal, anicteric sclerae ENMT: external ear and nose normal, oropharynx normal Neck: trachea midline, no thyromegaly Respiratory: normal respiratory effort, lungs clear to auscultation Cardiovascular: RRR, no murmur, no edema Gastrointestinal (Abdomen): Inspection/Auscultation: + abdomen distended and + abdominal edema Percussion/Palpation: abdomen soft and + hernia (Reducible umbilical hernia); abdomen nontender, no guarding and abdomen not rigid Musculoskeletal: no cyanosis or clubbing, extremities motor strength 5/5 Skin: no rashes, warm and dry Neurologic: PERRL, EOMI, accommodation nl, no face palsy, no dysarthria Psychiatric: A+Ox3, euthymic affect Lymphatic: no cervical or axillary lymphadenopathy Results & Data ([facility]) Vital Signs (Past 12 Hours) Vital Signs Temp Pulse Pulse Resp BP BP Pulse Ox 12/15/20 15:20 101 H 40 H 12/15/20 15:10 100 H 43 H 12/15/20 15:00 101 H 54 H 12/15/20 14:50 100 H 31 H 12/15/20 14:40 102 H 51 H 12/15/20 14:30 107 H 57 H 12/15/20 14:20 100 H 43 H 12/15/20 14:10 100 H 32 H 12/15/20 14:00 104 H 28 H 12/15/20 13:50 98 H 41 H 12/15/20 13:40 99 H 32 H 12/15/20 13:30 97 H 38 H 12/15/20 13:20 101 H 30 H 99 12/15/20 13:13 105 H 41 H 96 12/15/20 12:50 102 H 46 H 12/15/20 12:44 100 H 54 H 124/79 12/15/20 12:40 100 H 50 H 12/15/20 12:30 99 H 55 H 12/15/20 12:20 100 H 47 H 12/15/20 12:17 97 H 51 H 121/85 12/15/20 12:10 96 H 55 H 12/15/20 12:00 103 H 36 H 12/15/20 11:50 97 H 54 H 12/15/20 11:41 37.3 C 18 L 18 118/68 93 12/15/20 11:40 97 H 52 H 12/15/20 11:30 96 H 40 H 12/15/20 11:20 100 H 42 H 12/15/20 11:15 100 H 36 H 118/68 12/15/20 11:10 103 H 36 H 12/15/20 11:00 104 H 34 H 12/15/20 10:50 99 H 39 H 12/15/20 10:40 96 H 47 H 12/15/20 10:30 99 H 55 H 12/15/20 10:20 97 H 39 H 12/15/20 10:10 98 H 34 H 12/15/20 10:00 97 H 51 H 12/15/20 09:50 92 H 47 H 12/15/20 09:40 93 H 51 H 12/15/20 09:30 96 H 54 H 12/15/20 09:20 93 H 44 H 12/15/20 09:10 92 H 54 H 12/15/20 09:00 89 48 H 12/15/20 08:58 94 H 39 H 137/79 12/15/20 08:45 88 47 H 12/15/20 08:30 46 H 12/15/20 08:15 49 H 12/15/20 08:05 86 37 H 12/15/20 07:46 37.5 C 87 16 106/56 L 99 12/15/20 07:31 86 44 H 12/15/20 07:30 86 49 H 106/58 L 12/15/20 07:15 85 41 H 12/15/20 07:00 87 44 H 12/15/20 06:45 [address] SCAN OF THE ABDOMEN AND PELVIS WITHOUT IV CONTRAST CLINICAL HISTORY: Sepsis. Abdominal distention. Vomiting. COMPARISON STUDY: Abdominal CT dated 12/13/2020. TECHNIQUE: CT scan of the abdomen and pelvis is performed from the lung bases to the proximal femora. Images are reviewed in the axial, sagittal, and coronal planes. IV contrast was not administered for this examination. Note that the examination is suboptimal without oral and IV contrast. A dose lowering technique was utilized adhering to the principles of ALARA. The Examination is significantly compromised by motion artifact. CT DOSE: 870.44 mGy.cm FINDINGS: Lung bases: The heart is mildly enlarged noting a small pericardial effusion. There are right larger than left pleural effusions with bibasilar consolidation. Liver: The unenhanced liver is normal in size, contour, and attenuation. There is no intrahepatic biliary ductal dilatation. Gallbladder: There are calcified gallstones. The gallbladder is decompressed. The wall appears mildly thickened and edematous. Spleen: Normal in size and attenuation. Pancreas: The unenhanced pancreas is grossly unremarkable. Adrenal glands: Unremarkable. Kidneys: The unenhanced kidneys are normal in size and without hydronephrosis. There are no renal calculi identified. There is no evidence of contour deforming renal mass lesion. There is nonspecific bilateral perinephric stranding. Abdominal vasculature: The abdominal aorta is normal in course and caliber. Bowel: The small bowel and colon are normal in course and caliber. The appendix is normal as visualized. Peritoneum: There is a small volume of pelvic ascites. No intraperitoneal free air is seen. There is a fat-containing umbilical hernia. Lymphadenopathy: None. Pelvic viscera: The bladder, prostate, and seminal vesicles are normal as imaged. Skeletal structures: No lytic or blastic lesions are seen. IMPRESSION: 1. Significantly motion compromised examination. Examination is also suboptimal without oral and IV contrast. 2. Cardiomegaly and small pericardial effusion. 3. There are right larger than left pleural effusions with bibasilar consolidation. This likely represents atelectasis and clinical correlation will be required. The effusions are new from 12/13/2020. 4. There is a small volume of pelvic ascites which is new from 12/13/2020. 5. Cholelithiasis. The gallbladder wall appears mildly thickened and edematous, and this is likely related to volume status. If there is clinical concern for acute cholecystitis a right upper quadrant ultrasound should be considered. 6. There is mild nonspecific bilateral perinephric stranding. ABDOMINAL ULTRASOUND, RIGHT UPPER QUADRANT HISTORY: Sepsis. Vomiting. evaluate gall bladder, CBD. COMPARISON: Abdomen and pelvis CT 12/15/2019. FINDINGS: Pancreas: The pancreatic head and tail are obscured by overlying bowel gas. The remaining portions of the pancreas are within normal limits. Liver: Unremarkable. Gallbladder: Diffuse gallbladder wall thickening/edema measuring up to 7 mm. Trace pericholecystic fluid. There is a 5 mm gallstone at the neck of the gallbladder. This could be impacted. However, there is a negative sonographic Bennett sign. CBD: 5 mm. Right kidney: No hydronephrosis. Miscellaneous: Small right pleural effusion. IMPRESSION: Redemonstration of the diffuse gallbladder wall thickening, trace pericholecystic fluid, and a 5 mm gallstone at the neck of the gallbladder. This could represent an impacted gallstone. Findings could represent a developing acute cholecystitis or could be secondary to the patient's diffuse edematous state. Of note, there is a negative sonographic Bennett sign. If clinical concern for acute cholecystitis then consider nuclear medicine HIDA scan. PG Care Time/CCT Total # of Minutes Spent Total Time Spent with Patient: Total time spent is greater than 50% in coordination of care (as documented) at patient's floor/unit and/or counseling patient: Coding Level of Care Code 29170 Office/OBS Consult Lvl 5 Diagnoses Cholelithiasis K80.20 Sepsis A41.9; R65.20 Sepsis acute organ dysfunction status: with acute organ dysfunction Sepsis type: sepsis due to unspecified organism Severe sepsis acute organ dysfunction type: unspecified Severe sepsis shock status: without septic shock Mesenteric adenitis I88.0 Acute myocarditis I40.9 Acute kidney injury N17.9 Metabolic acidosis E87.2 (1) Sepsis Sepsis acute organ dysfunction status: with acute organ dysfunction Sepsis type: sepsis due to unspecified organism Severe sepsis acute organ dysfunction type: unspecified Severe sepsis shock status: without septic shock Qualified Code(s): A41.9 - Sepsis, unspecified organism; R65.20 - Severe sepsis without septic shock
[2020-12-15] MEDS ORDERED: MoRPHine SULFATE 2 MG/ML CARP IV PRN (18:28)
--- NOTE | 2020-12-15 19:45 | Nuclear Medicine Report ---
NM hepatobiliary CLINICAL HISTORY: 25 years-old Male with possible cholecystitis. Acute right upper quadrant abdomina l pain TECHNIQUE: Sequential anterior abdominal images were obtained through 60 minutes following the intra venous administration of 5.4 mCi of technetium-99m Choletec. COMPARISON: CT abdomen and pelvis 12/15/2020 FINDINGS: There is prompt, uniform accumulation of the tracer by the liver. There is normal filling of the int rahepatic ducts, common bile duct and normal excretion of the tracer into the duodenum. The gallblad azra fills normally. Moderate enterogastric reflux. IMPRESSION: 1. No scintigraphic evidence for acute cholecystitis or common bile duct obstruction. 2. Enterogastric reflux. ACT 112: Negative or not required by law. The above report was generated using voice recognition software. It may contain grammatical, syntax o r spelling errors. Electronically signed by: Valeriano Hammond M.D. 12/15/2020 7:43 PM
--- NOTE | 2020-12-15 21:06 | Magnetic Resonance Report ---
MR MRCP HISTORY: 25 years-old Male Sepsis, evaluate for cholangitis sepsis with nausea and vomiting COMPARISON: CT abdomen and pelvis of same day TECHNIQUE: MRCP was obtained without the use of IV contrast. FINDINGS: Sewing Machine Attachment Tester localizer images demonstrate no gross abnormality. Motion degraded exam. Cardiomegaly with smal l pericardial effusion. Small pleural effusions are also noted. Moderate generalized body wall edema. Trace abdominal pelvic ascites. Unremarkable spleen, pancreas and adrenal glands. No pancreatic duct al dilation identified. Kidneys also appear unremarkable. Liver is within normal limits. Mildly contr acted gallbladder with cholelithiasis and gallbladder wall thickening. Pericholecystic edema/trace pe richolecystic fluid. The MRCP images are markedly limited secondary to the aforementioned artifact. N o biliary ductal dilation or filling defects identified to suggest choledocholithiasis. IMPRESSION: 1. Limited exam secondary to motion artifact. The MRCP images are markedly degraded. 2. Cholelithiasis with gallbladder wall thickening redemonstrated, likely secondary to fluid overload . 3. No biliary ductal dilation or choledocholithiasis identified. 4. Cardiomegaly with trace pericardial effusion, small pleural effusions, trace abdominal pelvic asci wojciech and anasarca. ACT 112: Negative or not required by law. The above report was generated using voice recognition software. It may contain grammatical, syntax o r spelling errors. Electronically signed by: Valeriano Hammond M.D. 12/15/2020 9:05 PM
[2020-12-15] MEDS: MIRTAZAPINE SOLTAB 15 MG PO SCH (21:08)
[2020-12-15] MEDS: PARoxetine HCL 10 MG TAB PO SCH (21:08)
[2020-12-16] MEDS: ACETAMINOPHEN 325 MG TAB PO PRN ×2 (01:49→10:26)
[2020-12-16 04:54] LABS: Hematocrit (blood only) 26.8 % (42-52); Hemoglobin 9.5 g/dL (14.0-18.0); Mean Corpuscular Hemoglobin 28.2 pg (25-34); Mean Corpuscular Hgb Conc 35.4 g/dL (32-36); Mean Corpuscular Volume 79.5 fL (80-100); Mean Platelet Volume 11.9 fL (7.4-10.4); Nucleated RBC # (auto) 0.08 K/uL (0-0); Nucleated RBC % (auto) 0.3 %; Platelet Count 250 K/uL (130-400); RDW Coefficient of Variation 14.2 % (11.5-14.5); RDW Standard Deviation 40.9 fL (36.4-46.3); Red Blood Count 3.37 M/uL (4.7-6.1); White Blood Count 29.92 K/uL (4.8-10.8)
[2020-12-16 05:14] LABS: Albumin Level 1.9 gm/dl (3.4-5.0); BUN Creatinine Ratio 15.4 (10-20); Creatinine Clr Calc Pharmacy 39.5 ml/min; Est GFR (African American) 32.1; Est GFR (Non-African American) 27.7; INR 1.3 (0.9-1.1); Magnesium 2.6 mg/dl (1.8-2.4); Partial Thromboplastin Time 27.6 Seconds (21.0-31.0); Potassium 3.6 mmol/L (3.5-5.1); Prothrombin Time 13.4 Seconds (9.0-12.0)
[2020-12-16] MEDS ORDERED: VANCOMYCIN TROUGH ONE (05:30)
[2020-12-16 05:33] LABS: Bilirubin,Total 0.9 mg/dl (0.2-1); C Reactive Protein 23.3 mg/dl (0-0.29); Total Protein 6.5 gm/dl (6.4-8.2)
[2020-12-16 05:55] LABS: Basophils # (auto) 0.03 K/uL (0-0.2); Basophils % (auto) 0.1 %; Eosinophils # (auto) 0.28 K/uL (0-0.5); Eosinophils % (auto) 0.9 %; Immature Granulocytes # (auto) 1.03 K/uL (0.00-0.02); Immature Granulocytes % (auto) 3.4 %; Lymphocytes # (auto) 2.21 K/uL (1.2-3.4); Lymphocytes % (auto) 7.4 %; Monocytes # (auto) 0.98 K/uL (0.11-0.59); Monocytes % (auto) 3.3 %; Neutrophils # (auto) 25.39 K/uL (1.4-6.5); Neutrophils % (auto) 84.9 %; RBC Morphology Unremarkable
--- NOTE | 2020-12-16 06:04 | Electrocardiogram Report ---
Test Reason : Blood Pressure : / mmHG Vent. Rate : 086 BPM Atrial Rate : 086 BPM P-R Int : 262 ms QRS Dur : 102 ms QT Int : 378 ms P-R-T Axes : 072 -02 -37 degrees QTc Int : 452 ms Sinus rhythm with 1st degree A-V block Abnormal ECG When compared with ECG of 14-DEC-2020 08:56, T wave inversion less evident in Anterior leads Confirmed by Yordan Covington ([id number]) on 12/16/2020 6:04:09 AM Referred By: Yessy FRAZIER Confirmed By:Yordan Covington
[2020-12-16] MEDS: AMPICILLIN/SULBACTAM SOD 3,000 MG in 0.9 % SODIUM CHLORIDE 100 ML IV SCH ×3 (06:17→18:45)
[2020-12-16] MEDS ORDERED: STAT IV STA (07:26)
[2020-12-16] MEDS ORDERED: SODIUM BICARBONATE 8.4% 75 MEQ in SODIUM CHLORIDE 0.45 % 1,000 ML IV SCH (07:45)
[2020-12-16] MEDS: POTASSIUM CHLORIDE / WTR 10 MEQ/100 ML PLCT IV SCH ×2 (08:13→09:45)
[2020-12-16] MEDS: ALBUMIN 25% 12.5 GM/50 ML VIAL IV SCH ×2 (08:13→08:41)
[2020-12-16] MEDS: FAMOTIDINE 20 MG in SYRINGE 3 ML IV SCH ×2 (08:14→21:10)
--- NOTE | 2020-12-16 08:54 | Hospitalist Progress Note ---
Date of Service December 16, 2020 Assessment & Plan (1) Sepsis: severe sepsis with VON, Cr is up to 2.96 this morning no signs of shock, lactic acid is down to 1.1 today no encephalopathy, making a lot of urine with initiation of Dobutamine yesterday low grade temperatures but no fever, his WBC is elevated at 29k with left shift overall he feels better and looks more comfortable, breathing slower IMAGING CT abdomen/pelvis with some possible enteritis and lymphadenitis, no major findings on CT chest multiple chest x-ray's without pneumonia or pulmonary edema repeat CT abd/pelvis with pleural effusions, ascites, possible distended gall bladder, likely third spacing fluid with low albumin GB US: distended gall bladder, pericystic fluid, 5mm gall stone at neck of GB MRCP: no cholangitis, no ductal obstruction HIDA scan: no evidence of acute cholecystitis urine was clean blood cultures with no growth at 3 days CSF cultures with no growth stool cultures with no growth, specifically no Campylobacter, Salmonella, E coli, Shigella LP performed 12/14, low WBC, protein 30's, no growth on cultures, fluid appeared very clean, doubt meningitis HIV negative he had COVID in September, certainly with acute cardiomyopathy a viral infection would be suspected but lab findings suggest bacterial infection with left shift and high procalcitonin at 40 on admission consult infectious diseaseAndre suspect source of infection is contaminated sandwich he ate a few days prior to onset of diarrhea and vomiting need to cover anaerobes and Listeria changed antibiotics to Unasyn IV, complete 7 days, today is only day 2, had been on Cefepime/Vanco prior again, he looks better today, hopefully will turn the corner in a few days (2) Acute kidney injury: Creatinine 1.53 upon admission, with no baseline for comparison. improved to 1.3 for two days with aggressive IV fluids Cr started to rise on 12/15, up to 2.4 then 2.7 and this morning it is 2.9 12/15: started on Dobutamine 2.5mcg for better renal perfusion, BP immediately up to 110-130 systolic he is making a lot more urine ever since Dobutamine started, try to maintain even fluid balance metabolic acidosis, non gapped, likely combination of lactic acidosis (mild) and diarrheal illness he is demonstrating respiratory compensation, breathing 20-30 per minute HCO3 is 19, K is a little low, Mag and phos normal will give sodium bicarb 75mEq 1/2 NSS at 80cc/hr, KCl 20meq IV total repeat BMP this afternoon (3) Cardiomyopathy: EF is down at 30-35%, this is new finding he was maintaining BP in the 90's systolic and MAP > 65 Dr. Covington following, for now we can hold on starting beta doroteo and SIENNA due to acute illness, low BP with his Cr rising to 2.49 on 12/15 and lower UO, feel this is due to poor contractility and poor renal perfusion started Dobutamine 2.5mcg, tolerating well, SBP up to 110-130 continue on 2.5mcg and monitor on tele (4) Acute myocarditis: troponin up to 8 on 12/14, no chest pain coupled with reduced EF of 30-35% would suspect acute myocarditis he had COVID in September 2020, never had serious symptoms he was negative for RSV, influenza and COVID on admission consult ID for their input add dobutamine for improved contractility, responding really well (5) Elevated troponin I level: due to myocarditis peaked at 8, down to 1.7 on 12/15 (6) Enterocolitis: Enterocolitis/mesenteric adenitis/lactic acidosis- Primary symptoms of nausea vomiting and diarrhea for 5 days prior to admission due to eating contaminated, spoiled sandwich, Pastrami treat with Unasyn to cover anaerobes and Listeria, appreciate ID consultation still having some loose stools, no vomiting, abdomen is distended from fluid sequestration checked C diff, NEGATIVE stool cultures are also negative (7) Mesenteric adenitis: seen on CT (8) Hypoalbuminemia: dropped from 2.7 to 1.9 due to acute illness? there was only 1+ protein in urine so doubt nephrotic issues, especially with improvement in Cr give 25gm albumin this morning not eating very well, monitor albumin daily (9) Metabolic acidosis: non gapped acidosis, likely from GI losses with diarrhea for several days LA is now normal at 1.1 give sodium bicarb 75mEq in 1/2 NSS at 80cc/hr repeat BMP later today secondary respiratory compensation, he can tolerate this as he is 25 and healthy otherwise (10) Anemia: Hb slowly dropping, down to 9.5 heme occult stool today, could have subtle bleeding from enteritis? ask for peripheral smear to look for MAHA in setting of sepsis, noted that platelets are normal monitor daily, no need for transfusion no known history of sickle cell disease Admission and Anticipated Discharge Date Admission Date: December 13, 2020 Subjective patient appears more comfortable today, breathing easier he c/o abdomen feeling tense but otherwise no complaints, he had a loose stool this morning, no vomiting, no abdominal pain hiccups resolved with thorazine reviewed imaging, MRCP negative for cholangitis, obstructing gall stone in CBD HIDA negative for cholecystitis discussed with him that blood, CSF, stool cultures all negative no fever today, BP 120's on the dobutamine, still making a lot of urine K is low, albumin 1.9, HCO3 19, Cr 2.96 WBC up to 29k, Hb down to 9.5 from 10, ESR still > 90, procalcitonin down to 6, CRP down to 23 from 40 HIV negative AST 233 and ALT 135 appreciate ID consult, most likely cause of illness is sandwich, cover for anaerobes and Listeria, continue Unasyn will follow up with specialists today Review of Systems Review of Systems: All systems reviewed & are unremarkable except as noted in Subjective Constitutional: + fatigue and + weakness; no fever, no chills and no sweats Respiratory: no cough and no dyspnea Cardiovascular: no chest pain and no edema Gastrointestinal: + bloating and + diarrhea/loose stools; no abdominal pain, no nausea, no vomiting, no constipation, no blood in stools and no melena Physical Exam Constitutional: well developed, well nourished, + ill appearing and comfortable; no acute distress Eyes: PERRL, conjunctivae normal, anicteric sclerae ENMT: external ear and nose normal, oropharynx normal Neck: trachea midline, no thyromegaly Respiratory: + tachypneic; no respiratory distress Auscultation: lungs clear to auscultation bilaterally Cardiovascular: RRR, no murmur, no edema Gastrointestinal (Abdomen): Inspection/Auscultation: + abdomen distended, normal bowel sounds and + abdominal edema Percussion/Palpation: normal to percussion and + abdomen firm; abdomen nontender, no guarding and abdomen not rigid Musculoskeletal: no cyanosis or clubbing, extremities motor strength 5/5 Skin: no rashes, warm and dry Neurologic: patellar DTR's 2+ bilat, sensation intact and PERRL, EOMI, accommodation nl, no face palsy, no dysarthria Psychiatric: A+Ox3, euthymic affect Lymphatic: no cervical or axillary lymphadenopathy Results & Data Results & Data ([facility]) Vital Signs (Past 12 Hours) Vital Signs Temp Pulse Pulse Resp BP Pulse Ox 12/16/20 05:12 84 30 H 118/78 12/16/20 04:00 37.6 C H 93 H 22 96 12/16/20 03:12 96 H 31 H 113/73 12/16/20 01:12 93 H 36 H 111/70 12/16/20 00:09 38 C H 95 H 24 98 12/16/20 00:00 96 H 12/15/20 23:12 99 H 40 H 107/67 12/15/20 21:12 105 H 30 H 114/73 96 12/15/20 20:54 107 H 45 H 110/59 L Laboratory Results Laboratory Results - last 24 hr 12/15/20 12/15/20 12/15/20 08:07 08:07 12:11 WBC RBC Hgb Hct MCV MCH MCHC RDW Std Deviation RDW Coeff of Chavez Plt Count MPV Immature Gran % (Auto) Neut % (Auto) Lymph % (Auto) [place] % (Auto) Eos % (Auto) Baso % (Auto) Neut # (Auto) Lymph # (Auto) [place] # (Auto) Eos # (Auto) Baso # (Auto) Immature Gran # (Auto) Absolute Nucleated RBC Nucleated RBC % (auto) RBC Morphology Peripher Smr Path Cons ESR PT INR APTT PTT Ratio Sodium Potassium Chloride Carbon Dioxide Anion Gap BUN Creatinine Est Cr Clr Drug Dosing Est GFR ( Amer) Est GFR (Non-Af Amer) BUN/Creatinine Ratio Glucose Lactate 2.3 H* Calcium Phosphorus Magnesium Total Bilirubin 1.2 H Direct Bilirubin 0.5 H AST 153 H ALT 104 H Alkaline Phosphatase 100 Troponin I 1.760 H* C-Reactive Protein Total Protein 7.3 Albumin 2.2 L Procalcitonin Specimen Hemolysis Random Vancomycin HIV 1&2 Ab/P24 Ag 4thGn Neg 12/15/20 12/15/20 12/16/20 12:16 17:52 04:47 WBC RBC Hgb Hct MCV MCH MCHC RDW Std Deviation RDW Coeff of Chavez Plt Count MPV Immature Gran % (Auto) Neut % (Auto) Lymph % (Auto) [place] % (Auto) Eos % (Auto) Baso % (Auto) Neut # (Auto) Lymph # (Auto) [place] # (Auto) Eos # (Auto) Baso # (Auto) Immature Gran # (Auto) Absolute Nucleated RBC Nucleated RBC % (auto) RBC Morphology Peripher Smr Path Cons ESR > 90 H PT INR APTT PTT Ratio Sodium 135 L Potassium 3.8 Chloride 106 Carbon Dioxide 19 L Anion Gap 10.0 BUN 47 H Creatinine 2.79 H D Est Cr Clr Drug Dosing 42.2 Est GFR ( Amer) 34.4 Est GFR (Non-Af Amer) 29.7 BUN/Creatinine Ratio 16.7 Glucose 108 H Lactate Calcium 8.3 L Phosphorus Magnesium Total Bilirubin Direct Bilirubin AST ALT Alkaline Phosphatase Troponin I C-Reactive Protein Total Protein Albumin Procalcitonin Specimen Hemolysis Random Vancomycin 32.2 HIV 1&2 Ab/P24 Ag 4thGn 12/16/20 12/16/20 12/16/20 04:47 04:47 04:47 WBC RBC Hgb Hct MCV MCH MCHC RDW Std Deviation RDW Coeff of Chavez Plt Count MPV Immature Gran % (Auto) Neut % (Auto) Lymph % (Auto) [place] % (Auto) Eos % (Auto) Baso % (Auto) Neut # (Auto) Lymph # (Auto) [place] # (Auto) Eos # (Auto) Baso # (Auto) Immature Gran # (Auto) Absolute Nucleated RBC Nucleated RBC % (auto) RBC Morphology Peripher Smr Path Cons ESR PT 13.4 H INR 1.3 H APTT 27.6 PTT Ratio 1.0 Sodium 136 Potassium 3.6 Chloride 110 H Carbon Dioxide 19 L Anion Gap 7.0 BUN 46 H Creatinine 2.96 H Est Cr Clr Drug Dosing 39.5 Est GFR ( Amer) 32.1 Est GFR (Non-Af Amer) 27.7 BUN/Creatinine Ratio 15.4 Glucose 113 H Lactate 1.1 Calcium 8.0 L Phosphorus 3.0 Magnesium 2.6 H Total Bilirubin 0.9 Direct Bilirubin AST 233 H ALT 135 H Alkaline Phosphatase 87 Troponin I C-Reactive Protein 23.30 H Total Protein 6.5 Albumin 1.9 L Procalcitonin Specimen Hemolysis Random Vancomycin HIV 1&2 Ab/P24 Ag 4thGn 12/16/20 12/16/20 12/16/20 04:47 04:47 04:47 WBC 29.92 H RBC 3.37 L Hgb 9.5 L Hct 26.8 L MCV 79.5 L MCH 28.2 MCHC 35.4 RDW Std Deviation 40.9 RDW Coeff of Chavez 14.2 Plt Count 250 MPV 11.9 H Immature Gran % (Auto) 3.4 Neut % (Auto) 84.9 Lymph % (Auto) 7.4 [place] % (Auto) 3.3 Eos % (Auto) 0.9 Baso % (Auto) 0.1 Neut # (Auto) 25.39 H Lymph # (Auto) 2.21 [place] # (Auto) 0.98 H Eos # (Auto) 0.28 Baso # (Auto) 0.03 Immature Gran # (Auto) 1.03 H Absolute Nucleated RBC 0.08 H Nucleated RBC % (auto) 0.3 RBC Morphology Unremarkable Peripher Smr Path Cons Pending Cancelled ESR PT INR APTT PTT Ratio Sodium Potassium Chloride Carbon Dioxide Anion Gap BUN Creatinine Est Cr Clr Drug Dosing Est GFR ( Amer) Est GFR (Non-Af Amer) BUN/Creatinine Ratio Glucose Lactate Calcium Phosphorus Magnesium Total Bilirubin Direct Bilirubin AST ALT Alkaline Phosphatase Troponin I C-Reactive Protein Total Protein Albumin Procalcitonin 6.62 H Specimen Hemolysis Random Vancomycin HIV 1&2 Ab/P24 Ag 4thGn 12/16/20 06:07 WBC RBC Hgb Hct MCV MCH MCHC RDW Std Deviation RDW Coeff of Chavez Plt Count MPV Immature Gran % (Auto) Neut % (Auto) Lymph % (Auto) [place] % (Auto) Eos % (Auto) Baso % (Auto) Neut # (Auto) Lymph # (Auto) [place] # (Auto) Eos # (Auto) Baso # (Auto) Immature Gran # (Auto) Absolute Nucleated RBC Nucleated RBC % (auto) RBC Morphology Peripher Smr Path Cons ESR PT INR APTT PTT Ratio Sodium Potassium Chloride Carbon Dioxide Anion Gap BUN Creatinine Est Cr Clr Drug Dosing Est GFR ( Amer) Est GFR (Non-Af Amer) BUN/Creatinine Ratio Glucose Lactate Calcium Phosphorus Magnesium Total Bilirubin Direct Bilirubin 0.4 H AST ALT Alkaline Phosphatase Troponin I C-Reactive Protein Total Protein Albumin Procalcitonin Specimen Hemolysis Random Vancomycin HIV 1&2 Ab/P24 Ag 4thGn Microbiology 12/14/20 11:30 Cerebral Spinal Fluid Gram Stain - Final 12/14/20 11:30 Cerebral Spinal Fluid CSF Culture - Final No growth 12/14/20 16:45 Stool Escherichia coli Shiga Toxins Test - Preliminary 12/14/20 16:45 Stool Stool Culture - Preliminary No Salmonella isolated to date, No Shigella isolated to date, No Campylobacter jejuni isolated to date. 12/14/20 11:30 Cerebral Spinal Fluid Acid Fast Bacilli Smear - Final 12/14/20 16:45 Stool WBC Smear - Final 12/13/20 05:08 Blood Aerobic Blood Culture - Preliminary No growth in Aerobic bottle after 48 hours. 12/13/20 05:08 Blood Anaerobic Blood Culture - Preliminary No growth in Anaerobic bottle after 48 hours. 12/13/20 04:39 Blood Aerobic Blood Culture - Preliminary No growth in Aerobic bottle after 48 hours. 12/13/20 04:39 Blood Anaerobic Blood Culture - Preliminary No growth in Anaerobic bottle after 48 hours. 12/14/20 11:30 Cerebral Spinal Fluid Cryptococcal Antigen Test - Final PG Care Time/CCT Total # of Minutes Spent Total Time Spent: 38 Total Time Spent with Patient: Total time spent is greater than 50% in coordination of care (as documented) at patient's floor/unit and/or counseling patient: Prolonged Care Time Prolonged Care Time: No Critical Care Time: Yes Total Critical Care Time: 38 This case had a high probability of a clinically significant, sudden, or life threatening deterioration of this patient's condition which required my full and direct attention, intervention and personal management. Coding Level of Care Code 73870 Subseq Hosp Care Lvl 3 Diagnoses Sepsis A41.9; R65.20 Sepsis acute organ dysfunction status: with acute organ dysfunction Sepsis type: sepsis due to unspecified organism Severe sepsis acute organ dysfunction type: unspecified Severe sepsis shock status: without septic shock Acute kidney injury N17.9 Cardiomyopathy I42.9 Acute myocarditis I40.9 Elevated troponin I level R77.8 Enterocolitis K52.9 Mesenteric adenitis I88.0 Hypoalbuminemia E88.09 Metabolic acidosis E87.2 Anemia D64.9 Additional Codes Critical Care Time - Critical Care Time: Yes ([id number]) (1) Sepsis Sepsis acute organ dysfunction status: with acute organ dysfunction Sepsis type: sepsis due to unspecified organism Severe sepsis acute organ dysfunction type: unspecified Severe sepsis shock status: without septic shock Qualified Code(s): A41.9 - Sepsis, unspecified organism; R65.20 - Severe sepsis without septic shock
--- NOTE | 2020-12-16 10:35 | Nephrology Progress Note ---
Date of Service December 16, 2020 Assessment & Plan (1) Acute kidney injury: 25 y o m admitted to this sepsis of unknown etiology, myocarditis, after presented to the hospital with 3 days history of nausea, vomiting, diarrhea, fever, chills, cough and abdominal pain. Troponin was mildly elevated secondary to acute myocarditis with low ejection fraction. Developed VON with no prior baseline available. Also found to have cholelithiasis with no sign of acute cholecystitis. VON most likely hemodynamically mediated with nausea vomiting, poor p.o. intake. low EF as well as IV contrast exposure with 2 contrast study back to back. Urinalysis unremarkable, imaging was negative for postrenal obstruction. NAG metabolic acidosis with VON and diarrhea. Has been on vancomycin, received total 4 doses, vanc trough level yesterday was 32, last dose of vanc was on the morning of 12/15/2020 Renal function continues to slowly worsen. Has been diuresing with net negative 2 L overall 6L positive since admission --DC IV fluid, close monitoring of intake and output --continue hemodynamics support, monitor urine output, volume status and electrolytes --renal function may continue to worsen slowly but expect to see improvement in next few days. Will follow (2) Metabolic acidosis: (3) Hypoalbuminemia: (4) Acute myocarditis: Admission and Anticipated Discharge Date Admission Date: December 13, 2020 Subjective Mr. Sawyer was seen and examined in ICU. He has been having slight difficulty breathing this morning. Denies chest pain. Has been voiding normally with net negative more than 2 L last 24 hours although overall his almost 6 L positive. Renal function continues to worsen, creatinine up to 3, electrolyte relatively acceptable. Blood pressure acceptable. Review of Systems Review of Systems: All systems reviewed & are unremarkable except as noted in Subjective Physical Exam Constitutional: WD/WN, vitals as above + ill appearing; no acute distress Eyes: + anicteric sclerae Neck: trachea midline Respiratory: normal respiratory effort; no respiratory distress Auscultation: + crackles Cardiovascular: RRR, no murmur, no edema Gastrointestinal (Abdomen): Inspection/Auscultation: + abdomen distended and normal bowel sounds Percussion/Palpation: abdomen soft; abdomen nontender, no guarding and abdomen not rigid Skin: no rashes, warm and dry Neurologic: moves all extremities and awake; no focal motor deficits and not confused Psychiatric: A+Ox3, euthymic affect Results & Data ([facility]) Vital Signs (Past 12 Hours) Vital Signs Temp Pulse Pulse Resp BP BP Pulse Ox 12/16/20 10:10 37 C 88 18 119/77 97 12/16/20 05:12 84 30 H 118/78 12/16/20 04:00 37.6 C H 93 H 22 96 12/16/20 03:12 96 H 31 H 113/73 12/16/20 01:12 93 H 36 H 111/70 12/16/20 00:09 38 C H 95 H 24 98 12/16/20 00:00 96 H 12/15/20 23:12 99 H 40 H 107/67 PG Care Time/CCT Total # of Minutes Spent Total Time Spent with Patient: Total time spent is greater than 50% in coordination of care (as documented) at patient's floor/unit and/or counseling patient: Coding Level of Care Code 91150 Subseq Hosp Care Lvl 3 Diagnoses Acute kidney injury N17.9 Metabolic acidosis E87.2 Hypoalbuminemia E88.09 Acute myocarditis I40.9
--- NOTE | 2020-12-16 10:51 | Gastroenterology Progress Note ---
Date of Service December 16, 2020 Assessment & Plan (1) Abnormal CT of the abdomen: (2) Enterocolitis: DDx: likely self-limited infectious etiology viral vs bacterial given history of suspicious food ingestion prior to onset of symptoms, less likely IBD. Given current cardiac medical comorbidities, would recommend conservative GI management at this time as follows: 1. Start Pantoprazole 40 mg daily. 2. Antibiotic management per ID. 3. Continue Famotidine 20 mg IV BID. 4. Rest per cardiology and primary team. Will sign off at this time. May contact GI food and nutrition professor if needed for any emergencies. Admission and Anticipated Discharge Date Admission Date: December 13, 2020 Subjective Patient has had resolution of hiccoughs. He reports ongoing bloating. MCRP and HIDA yesterday. No convincing evidence of acute cholecystitis. Seen by general surgery and gall bladder findings felt reflective of fluid overload. Patient reports a loose stool this morning which was not bloody, black or mucoid. Imaging with gastric reflux noted. Review of Systems Review of Systems: All systems reviewed & are unremarkable except as noted in HPI & below Physical Exam Constitutional: WD/WN, vitals as above well developed and well nourished Respiratory: normal respiratory effort, lungs clear to auscultation Cardiovascular: Rate/Rhythm: regular rate and regular rhythm Gastrointestinal (Abdomen): Inspection/Auscultation: + abdomen distended and normal bowel sounds Percussion/Palpation: abdomen soft and + hernia; abdomen nontender Psychiatric: A+Ox3, euthymic affect Results & Data Results & Data ([facility]) Vital Signs (Past 12 Hours) Vital Signs Temp Pulse Pulse Resp BP BP Pulse Ox 12/16/20 10:10 37 C 88 18 119/77 97 12/16/20 05:12 84 30 H 118/78 12/16/20 04:00 37.6 C H 93 H 22 96 12/16/20 03:12 96 H 31 H 113/73 12/16/20 01:12 93 H 36 H 111/70 12/16/20 00:09 38 C H 95 H 24 98 12/16/20 00:00 96 H 12/15/20 23:12 99 H 40 H 107/67 Laboratory Results Abnormal lab results 12/15/20 12/16/20 12/16/20 Range/Units 12:16 04:47 04:47 WBC (4.8-10.8) K/uL RBC (4.7-6.1) M/uL Hgb (14.0-18.0) g/dL Hct (42-52) % MCV (80-100) fL MPV (7.4-10.4) fL Neut # (Auto) (1.4-6.5) K/uL [place] # (Auto) (0.11-0.59) K/uL Immature Gran # (Auto) (0.00-0.02) K/uL Absolute Nucleated RBC (0-0) K/uL ESR > 90 H (0-14) mm/hr PT 13.4 H (9.0-12.0) Seconds INR 1.3 H (0.9-1.1) Sodium 135 L (136-145) mmol/L Chloride (98-107) mmol/L Carbon Dioxide 19 L (21-32) mmol/L BUN 47 H (7-18) mg/dl Creatinine 2.79 H D (0.6-1.4) mg/dl Glucose 108 H (70-99) mg/dl Calcium 8.3 L (8.5-10.1) mg/dl Magnesium (1.8-2.4) mg/dl Direct Bilirubin (0-0.2) mg/dl AST (15-37) U/L ALT (12-78) U/L C-Reactive Protein (0-0.29) mg/dl Albumin (3.4-5.0) gm/dl Procalcitonin (0-0.5) ng/ml 12/16/20 12/16/20 12/16/20 Range/Units 04:47 04:47 04:47 WBC 29.92 H (4.8-10.8) K/uL RBC 3.37 L (4.7-6.1) M/uL Hgb 9.5 L (14.0-18.0) g/dL Hct 26.8 L (42-52) % MCV 79.5 L (80-100) fL MPV 11.9 H (7.4-10.4) fL Neut # (Auto) 25.39 H (1.4-6.5) K/uL [place] # (Auto) 0.98 H (0.11-0.59) K/uL Immature Gran # (Auto) 1.03 H (0.00-0.02) K/uL Absolute Nucleated RBC 0.08 H (0-0) K/uL ESR (0-14) mm/hr PT (9.0-12.0) Seconds INR (0.9-1.1) Sodium (136-145) mmol/L Chloride 110 H (98-107) mmol/L Carbon Dioxide 19 L (21-32) mmol/L BUN 46 H (7-18) mg/dl Creatinine 2.96 H (0.6-1.4) mg/dl Glucose 113 H (70-99) mg/dl Calcium 8.0 L (8.5-10.1) mg/dl Magnesium 2.6 H (1.8-2.4) mg/dl Direct Bilirubin (0-0.2) mg/dl AST 233 H (15-37) U/L ALT 135 H (12-78) U/L C-Reactive Protein 23.30 H (0-0.29) mg/dl Albumin 1.9 L (3.4-5.0) gm/dl Procalcitonin 6.62 H (0-0.5) ng/ml 12/16/20 Range/Units 06:07 WBC (4.8-10.8) K/uL RBC (4.7-6.1) M/uL Hgb (14.0-18.0) g/dL Hct (42-52) % MCV (80-100) fL MPV (7.4-10.4) fL Neut # (Auto) (1.4-6.5) K/uL [place] # (Auto) (0.11-0.59) K/uL Immature Gran # (Auto) (0.00-0.02) K/uL Absolute Nucleated RBC (0-0) K/uL ESR (0-14) mm/hr PT (9.0-12.0) Seconds INR (0.9-1.1) Sodium (136-145) mmol/L Chloride (98-107) mmol/L Carbon Dioxide (21-32) mmol/L BUN (7-18) mg/dl Creatinine (0.6-1.4) mg/dl Glucose (70-99) mg/dl Calcium (8.5-10.1) mg/dl Magnesium (1.8-2.4) mg/dl Direct Bilirubin 0.4 H (0-0.2) mg/dl AST (15-37) U/L ALT (12-78) U/L C-Reactive Protein (0-0.29) mg/dl Albumin (3.4-5.0) gm/dl Procalcitonin (0-0.5) ng/ml PG Care Time/CCT Total # of Minutes Spent Total Time Spent with Patient: Total time spent is greater than 50% in coordination of care (as documented) at patient's floor/unit and/or counseling patient: Coding Level of Care Code 83919 Subseq Hosp Care Lvl [address] of the abdomen R93.5 Enterocolitis K52.9
--- NOTE | 2020-12-16 11:11 | Surgery Progress Note ---
Date of Service December 16, 2020 Assessment & Plan (1) Cholelithiasis: 25-year-old male with vomiting with myocarditis, transaminitis, acute renal injury and cholelithiasis. HIDA scan and MRCP reviewed, no cholecystitis and no choledocholithiasis. No evidence that his gallbladder is the source of his symptoms. Likely related to food related toxin. No surgical issues at this time. Surgery will sign off, Dr. Sorto covering over the weekend, call with questions or concerns. Admission and Anticipated Discharge Date Admission Date: December 13, 2020 Subjective 25-year-old male admitted with severe nausea and vomiting with myocarditis, acute renal injury, transaminitis. His HIDA scan was negative for acute cholecystitis and his MRCP was negative for choledocholithiasis. He states he feels slightly better today but the nausea comes in waves. Physical Exam Constitutional: WD/WN, vitals as above no acute distress Gastrointestinal (Abdomen): normal bowel sounds, soft, nontender, no hepatosplenomegaly Results & Data ([facility]) Vital Signs (Past 12 Hours) Vital Signs Temp Pulse Pulse Resp BP BP Pulse Ox 12/16/20 10:10 37 C 88 18 119/77 97 12/16/20 05:12 84 30 H 118/78 12/16/20 04:00 37.6 C H 93 H 22 96 12/16/20 03:12 96 H 31 H 113/73 12/16/20 01:12 93 H 36 H 111/70 12/16/20 00:09 38 C H 95 H 24 98 12/16/20 00:00 96 H 12/15/20 23:12 99 H 40 H 107/67 PG Care Time/CCT Total # of Minutes Spent Total Time Spent with Patient: Total time spent is greater than 50% in coordination of care (as documented) at patient's floor/unit and/or counseling patient: Coding Level of Care Code 27597 Inpt Consult Level 2 Diagnoses Cholelithiasis K80.20
[2020-12-16] MEDS: PANTOprazole 40 MG TAB PO SCH (12:30)
--- NOTE | 2020-12-16 12:30 | XCELERA ---
[id number]
--- NOTE | 2020-12-16 15:12 | Cardiology Progress Note ---
Date of Service December 16, 2020 Assessment & Plan (1) Acute myocarditis: (2) Cardiomyopathy: (3) Enterocolitis: (4) Acute kidney injury: (5) Mitral regurgitation: ASSESSMENT/PLAN: 1. Acute myocarditis: Overall presentation appears to be consistent with acute myocarditis. Fortunately, troponins have trended downward but continues to have issues with abdominal distention, nausea, vomiting, worsening transaminase levels, and worsening renal function with continued leukocytosis. Acute illness appears to be gastrointestinal. He is now on low-dose dobutamine as per primary service. He has perfusing pressures. Consider discontinuing dobutamine. 2. Cardiomyopathy: Likely due to myocarditis as above. Very unlikely to be ischemic in origin given few cardiac risk factors and young age. He did not present with acute coronary syndrome but rather symptoms consistent with inf ectious etiology such as gastroenteritis. He does not appear to be intravascularly hypervolemic. No SIENNA-inhibitor at this time given worsening renal function. No beta-doroteo at this time as he has on inotropics support. Consider discontinuing dobutamine. 3. Enterocolitis: As per primary service. Has been evaluated by surgery and GI. Transaminase levels worsening. 4. Acute kidney injury: Renal function initially improved with fluid resuscitation. Renal function has since worsened. Nephrology now following. 5. Mitral regurgitation: Non severe. 6. Disposition: I will be away from the hospital for the next few days. Dr. Torres will be covering and received sign-out. Call with questions or concerns. Patient care discussed with Dr. Howe of the primary hospitalist service. Admission and Anticipated Discharge Date Admission Date: December 13, 2020 Subjective He denies shortness of breath, chest pain, syncope, near-syncope, palpitations. He has intermittent nausea but denies vomiting today. Nursing staff reported rigors earlier. He is thirsty and asked for a glass of water which was obtained for him. Review of systems: As above. Physical Exam Physical Exam: Gen.: Less Tachypneic today. Alert. HEENT: Anicteric sclera. Neck: No appreciable JVD. Cardiac: No ventricular heave. Regular. Normal rate. Normal S1-S2. No murmurs, rubs, or gallops. Pulmonary: Clear to auscultation bilaterally without wheezes, rales, or rhonchi. Abdomen: Mildly distended, but improved from yesterday. Nontender with hypo active bowel sounds. No bruits noted. Extremities: 2+ radial pulses bilaterally. 2+ posterior tibialis pulses bilaterally. No edema or cyanosis. Psychiatric: Affect appears appropriate. Results & Data ([facility]) Vital Signs (Past 12 Hours) Vital Signs Temp Pulse Pulse Resp BP BP Pulse Ox 12/16/20 11:54 37 C 87 18 118/80 99 12/16/20 10:10 37 C 88 18 119/77 97 12/16/20 05:12 84 30 H 118/78 12/16/20 04:00 37.6 C H 93 H 22 96 12/16/20 03:12 96 H 31 H 113/73 Intake & Output 12/14/20 12/15/20 12/16/20 12/17/20 06:59 06:59 06:59 06:59 Intake Total 3066.667 / 3066.667 3283.547 / 3283.547 1972 / 1972 1108.000 / 1108.000 Output Total 871 / 871 551 / 551 3851 / 3851 975 / 975 Balance 2195.667 / 2195.667 2732.547 / 2732.547 -1878 / -1878 133.000 / 133.000 Weight 181 lb 3.52 oz 194 lb 10.691 oz 192 lb 0.362 oz 192 lb 0.362 oz Laboratory Results Laboratory Results - last 24 hr 12/15/20 12/16/20 12/16/20 17:52 04:47 04:47 WBC RBC Hgb Hct MCV MCH MCHC RDW Std Deviation RDW Coeff of Chavez Plt Count MPV Immature Gran % (Auto) Neut % (Auto) Lymph % (Auto) [place] % (Auto) Eos % (Auto) Baso % (Auto) Neut # (Auto) Lymph # (Auto) [place] # (Auto) Eos # (Auto) Baso # (Auto) Immature Gran # (Auto) Absolute Nucleated RBC Nucleated RBC % (auto) RBC Morphology Peripher Smr Path Cons ESR > 90 H PT 13.4 H INR 1.3 H APTT 27.6 PTT Ratio 1.0 Sodium Potassium Chloride Carbon Dioxide Anion Gap BUN Creatinine Est Cr Clr Drug Dosing Est GFR ( Amer) Est GFR (Non-Af Amer) BUN/Creatinine Ratio Glucose Lactate Calcium Phosphorus Magnesium Total Bilirubin Direct Bilirubin AST ALT Alkaline Phosphatase C-Reactive Protein Total Protein Albumin Procalcitonin Specimen Hemolysis Random Vancomycin 32.2 12/16/20 12/16/20 12/16/20 04:47 04:47 04:47 WBC RBC Hgb Hct MCV MCH MCHC RDW Std Deviation RDW Coeff of Chavez Plt Count MPV Immature Gran % (Auto) Neut % (Auto) Lymph % (Auto) [place] % (Auto) Eos % (Auto) Baso % (Auto) Neut # (Auto) Lymph # (Auto) [place] # (Auto) Eos # (Auto) Baso # (Auto) Immature Gran # (Auto) Absolute Nucleated RBC Nucleated RBC % (auto) RBC Morphology Peripher Smr Path Cons ESR PT INR APTT PTT Ratio Sodium 136 Potassium 3.6 Chloride 110 H Carbon Dioxide 19 L Anion Gap 7.0 BUN 46 H Creatinine 2.96 H Est Cr Clr Drug Dosing 39.5 Est GFR ( Amer) 32.1 Est GFR (Non-Af Amer) 27.7 BUN/Creatinine Ratio 15.4 Glucose 113 H Lactate 1.1 Calcium 8.0 L Phosphorus 3.0 Magnesium 2.6 H Total Bilirubin 0.9 Direct Bilirubin AST 233 H ALT 135 H Alkaline Phosphatase 87 C-Reactive Protein 23.30 H Total Protein 6.5 Albumin 1.9 L Procalcitonin 6.62 H Specimen Hemolysis Random Vancomycin 12/16/20 12/16/20 12/16/20 04:47 04:47 06:07 WBC 29.92 H RBC 3.37 L Hgb 9.5 L Hct 26.8 L MCV 79.5 L MCH 28.2 MCHC 35.4 RDW Std Deviation 40.9 RDW Coeff of Chavez 14.2 Plt Count 250 MPV 11.9 H Immature Gran % (Auto) 3.4 Neut % (Auto) 84.9 Lymph % (Auto) 7.4 [place] % (Auto) 3.3 Eos % (Auto) 0.9 Baso % (Auto) 0.1 Neut # (Auto) 25.39 H Lymph # (Auto) 2.21 [place] # (Auto) 0.98 H Eos # (Auto) 0.28 Baso # (Auto) 0.03 Immature Gran # (Auto) 1.03 H Absolute Nucleated RBC 0.08 H Nucleated RBC % (auto) 0.3 RBC Morphology Unremarkable Peripher Smr Path Cons Cancelled ESR PT INR APTT PTT Ratio Sodium Potassium Chloride Carbon Dioxide Anion Gap BUN Creatinine Est Cr Clr Drug Dosing Est GFR ( Amer) Est GFR (Non-Af Amer) BUN/Creatinine Ratio Glucose Lactate Calcium Phosphorus Magnesium Total Bilirubin Direct Bilirubin 0.4 H AST ALT Alkaline Phosphatase C-Reactive Protein Total Protein Albumin Procalcitonin Specimen Hemolysis Random Vancomycin Diagnostic Findings Telemetry personally reviewed: Sinus rhythm. Echo 12/16/2020: Normal LV size with mildly to moderately reduced systolic function. EF 40-45%. Global hypokinesis. Mild LVH. Dilated RV with reduced systolic function. Mild MR. Normal RVSP. Pleural effusion. Medications Administered Current Inpatient Medications Acetaminophen (Acetaminophen 325 Mg Tab) 650 mg PO Q4H PRN PRN Reason: Pain or Fever Stop: 01/12/21 07:39 Last Admin: 12/16/20 10:26 Dose: 650 mg Documented by: Calcium Carbonate (Calcium Carbonate 500 Mg Chewable Tab) 500 mg PO Q4 PRN PRN Reason: Indigestion Stop: 01/13/21 00:45 Last Admin: 12/14/20 04:59 Dose: 500 mg Documented by: Famotidine 20 mg/ Syringe 5 mls @ 2.5 mls/min IV Q12H CAROLYN Stop: 01/12/21 08:59 Last Admin: 12/16/20 08:14 Dose: 2.5 mls/min Documented by: Dobutamine HCl/Dextrose (Dobutamine / D5w) 500 mg in 250 mls @ 6.165 mls/hr IV .Q24H PRN; Protocol PRN Reason: Titration Stop: 01/14/21 07:39 Last Admin: 12/15/20 08:19 Dose: 2.5 mcg/kg/min, 6.2 mls/hr Documented by: Ampicillin Sodium/Sulbactam Sodium 3,000 mg/ Sodium Chloride 108 mls @ 200 mls/hr IV Q6H CAROLYN; Protocol Stop: 12/26/20 05:59 Last Infusion: 12/16/20 13:29 Dose: Infused Documented by: Mirtazapine (Mirtazapine Soltab 15 Mg) 45 mg PO HS CAROLYN Stop: 01/12/21 20:59 Last Admin: 12/15/20 21:08 Dose: Not Given Documented by: Morphine Sulfate (Morphine Sulfate 2 Mg/Ml Carp) 2 mg IV ONE PRN PRN Reason: Hida scan Stop: 12/29/20 18:27 Nitroglycerin (Nitroglycerin Sl 0.4 Mg/Tab Tab) 0.4 mg SL UD PRN PRN Reason: Chest Pain Stop: 01/12/21 07:39 Ondansetron HCl (Ondansetron Inj 2 Mg/Ml 2 Ml Vial) 4 mg IV Q6H PRN PRN Reason: Nausea Stop: 01/12/21 07:39 Pantoprazole Sodium (Pantoprazole 40 Mg Tab) [facility]: 01/15/21 10:59 Last Admin: 12/16/20 12:30 Dose: 40 mg Documented by: Paroxetine HCl (Paroxetine Hcl 10 Mg Tab) 10 mg PO HS [facility] Stop: 01/12/21 20:59 Last Admin: 12/15/20 21:08 Dose: Not Given Documented by: PG Care Time/CCT Total # of Minutes Spent Total Time Spent with Patient: Total time spent is greater than 50% in coordination of care (as documented) at patient's floor/unit and/or counseling patient: Coding Level of Care Code 52497 Subseq Hosp Care Lvl 3 Diagnoses Acute myocarditis I40.9 Cardiomyopathy I42.9 Enterocolitis K52.9 Acute kidney injury N17.9 Mitral regurgitation I34.0
[2020-12-16 15:44] LABS: BUN Creatinine Ratio 14.5 (10-20); Creatinine Clr Calc Pharmacy 40.6 ml/min; Est GFR (African American) 33.1; Est GFR (Non-African American) 28.6; Potassium 4.6 mmol/L (3.5-5.1)
[2020-12-16] MEDS: DOBUTamine / D5W 500mg/250mL Premixed Bag IV PRN (16:40)
[2020-12-16] MEDS: PARoxetine HCL 10 MG TAB PO SCH ×2 (20:53→21:14)
[2020-12-16] MEDS: MIRTAZAPINE SOLTAB 15 MG PO SCH ×2 (20:53→21:14)
[2020-12-17] MEDS: AMPICILLIN/SULBACTAM SOD 3,000 MG in 0.9 % SODIUM CHLORIDE 100 ML IV SCH ×5 (00:33→23:57)
[2020-12-17 06:39] LABS: Hematocrit (blood only) 27.7 % (42-52); Hemoglobin 9.9 g/dL (14.0-18.0); Mean Corpuscular Hemoglobin 28.4 pg (25-34); Mean Corpuscular Hgb Conc 35.7 g/dL (32-36); Mean Corpuscular Volume 79.6 fL (80-100); Mean Platelet Volume 11.7 fL (7.4-10.4); Nucleated RBC # (auto) 0.04 K/uL (0-0); Nucleated RBC % (auto) 0.1 %; Platelet Count 305 K/uL (130-400); RDW Coefficient of Variation 14.5 % (11.5-14.5); RDW Standard Deviation 41.2 fL (36.4-46.3); Red Blood Count 3.48 M/uL (4.7-6.1); White Blood Count 27.75 K/uL (4.8-10.8)
[2020-12-17 07:13] LABS: Basophils # (auto) 0.03 K/uL (0-0.2); Basophils % (auto) 0.1 %; Eosinophils # (auto) 0.41 K/uL (0-0.5); Eosinophils % (auto) 1.5 %; Immature Granulocytes # (auto) 0.82 K/uL (0.00-0.02); Lymphocytes # (auto) 1.84 K/uL (1.2-3.4); Lymphocytes % (auto) 6.6 %; Monocytes # (auto) 1.15 K/uL (0.11-0.59); Monocytes % (auto) 4.1 %; Neutrophils % (auto) 84.7 %
[2020-12-17 08:02] LABS: Albumin Globulin Ratio 0.5 (0.9-2); Albumin Level 2.1 gm/dl (3.4-5.0); BUN Creatinine Ratio 13.5 (10-20); C Reactive Protein 18.6 mg/dl (0-0.29); Calcium 8.4 mg/dl (8.5-10.1); Creatinine Clr Calc Pharmacy 38.4 ml/min; Est GFR (African American) 32.4; Globulin 4.6 gm/dl (2.5-4.0); Magnesium 2.3 mg/dl (1.8-2.4); Phosphorus 3.5 mg/dl (2.5-4.9); Potassium 3.2 mmol/L (3.5-5.1); Total Protein 6.7 gm/dl (6.4-8.2)
[2020-12-17] MEDS: PANTOprazole 40 MG TAB PO SCH (08:51)
[2020-12-17] MEDS: FAMOTIDINE 20 MG in SYRINGE 3 ML IV SCH ×2 (08:52→20:12)
--- NOTE | 2020-12-17 10:36 | Cardiology Progress Note ---
Date of Service December 17, 2020 Assessment & Plan Admission and Anticipated Discharge Date Admission Date: December 13, 2020 Subjective Assessment & Plan (1) Acute myocarditis: (2) Cardiomyopathy:Mild to moderate while on dobutamine (3) Enterocolitis: (4) Acute kidney injury: (5) Mitral regurgitation: ASSESSMENT/PLAN: 1. Acute myocarditis: He was significantly negative with increased perfusion Over the last 24 hours. Clinically does not sound like he is in heart failure. He has been drinking lots of liquids and his urine output has been very adequate. His dobutamine was stopped this morning. If there is a concern for decreased forward flow and a decrease in his urine output low-dose dobutamine can be restarted. 2. Cardiomyopathy: There are no arrhythmias noted on his telemetry. At this point there is no room for SIENNA inhibitor's given his acute kidney injury. If there is room depending on his blood pressure and urine output we can start beta-blockers tomorrow. 3. Enterocolitis: As per primary service. Has been evaluated by surgery and GI. Transaminase levels worsening. White count remains elevated along with his sed rate and CRP 4. Acute kidney injury: Renal function initially improved with fluid resuscitation. Renal function has since worsened. Nephrology now following. 5. Mitral regurgitation: Mild Subjective He denies shortness of breath, chest pain, syncope, near-syncope, palpitations. He denied any rigors fevers or chills. He still has some mild abdominal discomfort and describes some scapular discomfort.He denies any central chest tightness or chest pressure he did not appear short of breath talking in sentences. He denied shortness of breath. He denies any palpitations or fluttering. He has no lower extremity edema. He is sleepy but alert HEENT: Anicteric sclera. Neck: No appreciable JVD. Cardiac: Regular. Normal rate. Normal S1-S2. No murmurs, rubs, or gallops. Pulmonary: Clear to auscultation bilaterally without wheezes, rales, or rhonchi. Abdomen: Mildly distended, but improved from yesterday. Nontender with hypo active bowel sounds. No bruits noted. Extremities: No edema or cyanosis. Psychiatric: Affect appears appropriate. Results & Data ([facility]) Vital Signs (Past 12 Hours) Vital Signs Temp Pulse Pulse Resp BP Pulse Ox 12/17/20 08:00 83 12/17/20 07:29 37.2 C 87 18 122/75 98 12/17/20 03:34 36.9 C 88 18 116/71 98 12/17/20 00:00 96 H 12/16/20 23:46 37.7 C H 98 H 20 115/73 97
[2020-12-17] MEDS ORDERED: POTASSIUM CHLORIDE CRTAB 20 MEQ TABCR PO STA (12:24)
--- NOTE | 2020-12-17 12:24 | Hospitalist Progress Note ---
Date of Service December 17, 2020 Assessment & Plan (1) Sepsis: severe sepsis with VON, Cr remains elevated at 2.9 but making a lot of urine no signs of shock, lactic acid is down to 1.1 on 12/16 no encephalopathy, making a lot of urine with initiation of Dobutamine on 12/15 no fever, his WBC is down a little at 27k overall he feels better and looks more comfortable, breathing slower tolerating full liquid diet procalcitonin and CRP going down two days in a row IMAGING CT abdomen/pelvis with some possible enteritis and lymphadenitis, no major findings on CT chest multiple chest x-ray's without pneumonia or pulmonary edema repeat CT abd/pelvis with pleural effusions, ascites, possible distended gall bladder, likely third spacing fluid with low albumin GB US: distended gall bladder, pericystic fluid, 5mm gall stone at neck of GB MRCP: no cholangitis, no ductal obstruction HIDA scan: no evidence of acute cholecystitis urine was clean blood cultures with no growth at 4 days CSF cultures with no growth stool cultures with no growth, specifically no Campylobacter, Salmonella, E coli, Shigella LP performed 12/14, low WBC, protein 30's, no growth on cultures, fluid appeared very clean, doubt meningitis HIV negative he had COVID in September, certainly with acute cardiomyopathy a viral infection would be suspected but lab findings suggest bacterial infection with left shift and high procalcitonin at 40 on admission consult infectious diseaseAndre suspect source of infection is contaminated sandwich he ate a few days prior to onset of diarrhea and vomiting need to cover anaerobes and Listeria changed antibiotics to Unasyn IV, complete 7 days, today is day 3, had been on Cefepime/Vanco prior (2) Acute kidney injury: Creatinine 1.53 upon admission, with no baseline for comparison. improved to 1.3 for two days with aggressive IV fluids Cr started to rise on 12/15, up to 2.4 then 2.7 Cr 2.9 again today but making a lot of urine, no need for diuretics 12/15: started on Dobutamine 2.5mcg for better renal perfusion, BP immediately up to 110-130 systolic he is making a lot more urine ever since Dobutamine started, try to maintain even fluid balance stop Dobutamine today, still making a lot of urine metabolic acidosis, non gapped, likely combination of lactic acidosis (mild) and diarrheal illness he is demonstrating respiratory compensation, breathing a lot less today HCO3 is 20, K is a little low, Mag and phos normal replace potassium today (3) Cardiomyopathy: EF is down at 30-35%, this is new finding he was maintaining BP in the 90's systolic and MAP > 65 Dr. Covington following, for now we can hold on starting beta doroteo and SIENNA due to acute illness, low BP Dobutamine 2.5mcg drip started 12/15, tolerated really well, improved BP, lowered HR and increased UO repeat echo on 12/16 with EF 40-45% but he was on Dobutamine at that time d/w Dr. Covington, will stop Dobutamine today, see how he does might repeat echo this week after being off the Dobutamine (4) Acute myocarditis: troponin up to 8 on 12/14, no chest pain coupled with reduced EF of 30-35% would suspect acute myocarditis he had COVID in September 2020, never had serious symptoms he was negative for RSV, influenza and COVID on admission consult ID for their input add dobutamine for improved contractility, responding really well now off the Dobutamine (5) Elevated troponin I level: due to myocarditis peaked at 8, down to 1.7 on 12/15 (6) Enterocolitis: Enterocolitis/mesenteric adenitis/lactic acidosis- Primary symptoms of nausea vomiting and diarrhea for 5 days prior to admission due to eating contaminated, spoiled sandwich, Pastrami treat with Unasyn to cover anaerobes and Listeria, appreciate ID consultation still having some loose stools, no vomiting, abdomen is less distended checked C diff, NEGATIVE stool cultures are also negative advanced to full liquid diet, he is tolerating well will try low residue diet tomorrow (7) Mesenteric adenitis: seen on CT (8) Hypoalbuminemia: dropped from 2.7 to 1.9 due to acute illness? there was only 1+ protein in urine so doubt nephrotic issues, especially with improvement in Cr gave 25gm of albumin on 12/16 albumin 2.1 today, improved PO intake, no further albumin infusion needed, encourage oral nutrition (9) Metabolic acidosis: non gapped acidosis, likely from GI losses with diarrhea for several days LA is now normal at 1.1 HCO3 up to 20 today secondary respiratory compensation, he can tolerate this as he is 25 and healthy otherwise (10) Anemia: Hb slowly dropping, down to 9.5 on 12/16 but up to 9.9 today ask for peripheral smear to look for MAHA in setting of sepsis -- no evidence of MAHA monitor daily, no need for transfusion no known history of sickle cell disease Admission and Anticipated Discharge Date Admission Date: December 13, 2020 Subjective patient feeling better today, less abdominal pain, no nausea, had a small BM this morning tolerating full liquid diet, wants to stay on liquids today, might try food tomorrow no fever, vitals stable, stopped Dobutamine this morning, HR in 70-80's, BP stable reviewed labs, WBC 27k, Hb 9.9, plts 305 K 3.2, CO2 20, Cr 2.9, AST 164, ALT 160 CRP and procalcitonin both going down breathing well, no cough, no chest pain this is the best he has felt in several days Review of Systems Review of Systems: All systems reviewed & are unremarkable except as noted in Subjective Physical Exam Constitutional: well developed, well nourished and comfortable; no acute distress Neck: trachea midline, no thyromegaly normal visual inspection, trachea midline and + nuchal rigidity (mild) Respiratory: normal respiratory effort, lungs clear to auscultation Cardiovascular: RRR, no murmur, no edema Gastrointestinal (Abdomen): Inspection/Auscultation: + abdomen distended and normal bowel sounds Percussion/Palpation: normal to percussion; abdomen nontender, no guarding and abdomen not rigid Musculoskeletal: no cyanosis or clubbing, extremities motor strength 5/5 Skin: no rashes, warm and dry Neurologic: patellar DTR's 2+ bilat, sensation intact and PERRL, EOMI, accommodation nl, no face palsy, no dysarthria Psychiatric: A+Ox3, euthymic affect Lymphatic: no cervical or axillary lymphadenopathy Results & Data Results & Data ([facility]) Vital Signs (Past 12 Hours) Vital Signs Temp Pulse Pulse Resp BP Pulse Ox 12/17/20 08:00 83 12/17/20 07:29 37.2 C 87 18 122/75 98 12/17/20 03:34 36.9 C 88 18 116/71 98 Laboratory Results Laboratory Results - last 24 hr 12/16/20 12/17/20 12/17/20 15:00 06:18 06:18 WBC 27.75 H RBC 3.48 L Hgb 9.9 L Hct 27.7 L MCV 79.6 L MCH 28.4 MCHC 35.7 RDW Std Deviation 41.2 RDW Coeff of Chavez 14.5 Plt Count 305 MPV 11.7 H Immature Gran % (Auto) 3.0 Neut % (Auto) 84.7 Lymph % (Auto) 6.6 [place] % (Auto) 4.1 Eos % (Auto) 1.5 Baso % (Auto) 0.1 Neut # (Auto) 23.50 H Lymph # (Auto) 1.84 [place] # (Auto) 1.15 H Eos # (Auto) 0.41 Baso # (Auto) 0.03 Immature Gran # (Auto) 0.82 H Absolute Nucleated RBC 0.04 H Nucleated RBC % (auto) 0.1 Sodium 139 138 Potassium 4.6 D 3.2 L D Chloride 112 H 109 H Carbon Dioxide 17 L 20 L Anion Gap 10.0 9.0 BUN 42 H 40 H Creatinine 2.88 H 2.93 H Est Cr Clr Drug Dosing 40.6 38.4 Est GFR ( Amer) 33.1 32.4 Est GFR (Non-Af Amer) 28.6 28.0 BUN/Creatinine Ratio 14.5 13.5 Glucose 89 96 Calcium 8.0 L 8.4 L Phosphorus 3.5 Magnesium 2.3 Total Bilirubin 1.0 AST 164 H ALT 160 H Alkaline Phosphatase 92 C-Reactive Protein 18.60 H Total Protein 6.7 Albumin 2.1 L Globulin 4.6 H Albumin/Globulin Ratio 0.5 L Procalcitonin Specimen Hemolysis 12/17/20 06:18 WBC RBC Hgb Hct MCV MCH MCHC RDW Std Deviation RDW Coeff of Chavez Plt Count MPV Immature Gran % (Auto) Neut % (Auto) Lymph % (Auto) [place] % (Auto) Eos % (Auto) Baso % (Auto) Neut # (Auto) Lymph # (Auto) [place] # (Auto) Eos # (Auto) Baso # (Auto) Immature Gran # (Auto) Absolute Nucleated RBC Nucleated RBC % (auto) Sodium Potassium Chloride Carbon Dioxide Anion Gap BUN Creatinine Est Cr Clr Drug Dosing Est GFR ( Amer) Est GFR (Non-Af Amer) BUN/Creatinine Ratio Glucose Calcium Phosphorus Magnesium Total Bilirubin AST ALT Alkaline Phosphatase C-Reactive Protein Total Protein Albumin Globulin Albumin/Globulin Ratio Procalcitonin 4.00 H Specimen Hemolysis Medications Administered Current Inpatient Medications Acetaminophen (Acetaminophen 325 Mg Tab) 650 mg PO Q4H PRN PRN Reason: Pain or Fever Stop: 01/12/21 07:39 Last Admin: 12/16/20 10:26 Dose: 650 mg Documented by: Calcium Carbonate (Calcium Carbonate 500 Mg Chewable Tab) 500 mg PO Q4 PRN PRN Reason: Indigestion Stop: 01/13/21 00:45 Last Admin: 12/14/20 04:59 Dose: 500 mg Documented by: Famotidine 20 mg/ Syringe 5 mls @ 2.5 mls/min IV Q12H CAROLYN Stop: 01/12/21 08:59 Last Admin: 12/17/20 08:52 Dose: 2.5 mls/min Documented by: Ampicillin Sodium/Sulbactam Sodium 3,000 mg/ Sodium Chloride 108 mls @ 200 mls/hr IV Q6H CAROLYN; Protocol Stop: 12/26/20 05:59 Last Infusion: 12/17/20 05:56 Dose: Infused Documented by: Mirtazapine (Mirtazapine Soltab 15 Mg) 45 mg PO HS [facility] Stop: 01/12/21 20:59 Last Admin: 12/16/20 21:14 Dose: Not Given Documented by: Morphine Sulfate (Morphine Sulfate 2 Mg/Ml Carp) 2 mg IV ONE PRN PRN Reason: Hida scan Stop: 12/29/20 18:27 Nitroglycerin (Nitroglycerin Sl 0.4 Mg/Tab Tab) 0.4 mg SL UD PRN PRN Reason: Chest Pain Stop: 01/12/21 07:39 Ondansetron HCl (Ondansetron Inj 2 Mg/Ml 2 Ml Vial) 4 mg IV Q6H PRN PRN Reason: Nausea Stop: 01/12/21 07:39 Pantoprazole Sodium (Pantoprazole 40 Mg Tab) 40 mg PO QAM [facility] Stop: 01/15/21 10:59 Last Admin: 12/17/20 08:51 Dose: 40 mg Documented by: Paroxetine HCl (Paroxetine Hcl 10 Mg Tab) 10 mg PO HS CAROLYN Stop: 01/12/21 20:59 Last Admin: 12/16/20 21:14 Dose: Not Given Documented by: PG Care Time/CCT Total # of Minutes Spent Total Time Spent with Patient: Total time spent is greater than 50% in coordination of care (as documented) at patient's floor/unit and/or counseling patient: Coding Level of Care Code 82879 Subseq Hosp Care Lvl 3 Diagnoses Sepsis A41.9; R65.20 Sepsis acute organ dysfunction status: with acute organ dysfunction Sepsis type: sepsis due to unspecified organism Severe sepsis acute organ dysfunction type: unspecified Severe sepsis shock status: without septic shock Acute kidney injury N17.9 Cardiomyopathy I42.9 Acute myocarditis I40.9 Elevated troponin I level R77.8 Enterocolitis K52.9 Mesenteric adenitis I88.0 Hypoalbuminemia E88.09 Metabolic acidosis E87.2 Anemia D64.9 (1) Sepsis Sepsis acute organ dysfunction status: with acute organ dysfunction Sepsis type: sepsis due to unspecified organism Severe sepsis acute organ dysfunction type: unspecified Severe sepsis shock status: without septic shock Qualified Code(s): A41.9 - Sepsis, unspecified organism; R65.20 - Severe sepsis without septic shock
--- NOTE | 2020-12-17 12:43 | Nephrology Progress Note ---
Date of Service December 17, 2020 Assessment & Plan (1) Acute kidney injury: -- Non-oliguric. -- Negative fluid balance related to auto diuresis. -- Volume status acceptable. -- VON clinically consistent with ATN (hemodynamic, vanco, iodinated contrast exposure) -- Urine microscopy acellular. -- Renal US did not demonstrate obstruction. -- Electrolytes acceptable. KCl 40 mEq to be provided for hypokalemia. -- Oral HCO3 replacement for metabolic acidosis in renal insufficiency and diarrhea (NaHCO3 650 TID). -- Document strict I/O's. -- Repeat metabolic profile in the AM. -- No current indication for [employer]. (2) Metabolic acidosis: -- NaHCO3 650 TID. (3) Hypoalbuminemia: -- Encourage nutrition. (4) Acute myocarditis: -- Cardiology following. Admission and Anticipated Discharge Date Admission Date: December 13, 2020 Subjective No acute events overnight. No fevers or chills. Denies shortness of breath. Denies chest pain. Dobutamine to be stopped. GI symptoms improving. Tolerating clears. Voiding urine without issue. Review of Systems Review of Systems: All systems reviewed & are unremarkable except as noted in HPI & below Physical Exam Constitutional: well developed; no acute distress Eyes: no scleral abnormality and no corneal abnormality ENMT: Mouth: no oral mucosal abnormality and oral mucous membranes not dry Neck: normal visual inspection and trachea midline Respiratory: normal respiratory effort Auscultation: lungs clear to auscultation bilaterally Cardiovascular: Rate/Rhythm: regular rate Heart Sounds: normal S1 and normal S2 Extremities: no edema Musculoskeletal: Extremities: no cyanosis and no clubbing Skin: normal turgor; no lesions Neurologic: Motor/Sensory: no tremor and no asterixis Psychiatric: Orientation: alert and oriented x 3 Results & Data ([facility]) Vital Signs (Past 12 Hours) Vital Signs Temp Pulse Pulse Pulse Resp BP Pulse Ox 12/17/20 12:00 36.8 C 85 20 105/72 99 12/17/20 08:00 83 12/17/20 07:29 37.2 C 87 18 122/75 98 12/17/20 03:34 36.9 C 88 18 116/71 98 Laboratory Results Laboratory Results - last 24 hr 12/16/20 12/17/20 12/17/20 15:00 06:18 06:18 WBC 27.75 H RBC 3.48 L Hgb 9.9 L Hct 27.7 L MCV 79.6 L MCH 28.4 MCHC 35.7 RDW Std Deviation 41.2 RDW Coeff of Chavez 14.5 Plt Count 305 MPV 11.7 H Immature Gran % (Auto) 3.0 Neut % (Auto) 84.7 Lymph % (Auto) 6.6 [place] % (Auto) 4.1 Eos % (Auto) 1.5 Baso % (Auto) 0.1 Neut # (Auto) 23.50 H Lymph # (Auto) 1.84 [place] # (Auto) 1.15 H Eos # (Auto) 0.41 Baso # (Auto) 0.03 Immature Gran # (Auto) 0.82 H Absolute Nucleated RBC 0.04 H Nucleated RBC % (auto) 0.1 Sodium 139 138 Potassium 4.6 D 3.2 L D Chloride 112 H 109 H Carbon Dioxide 17 L 20 L Anion Gap 10.0 9.0 BUN 42 H 40 H Creatinine 2.88 H 2.93 H Est Cr Clr Drug Dosing 40.6 38.4 Est GFR ( Amer) 33.1 32.4 Est GFR (Non-Af Amer) 28.6 28.0 BUN/Creatinine Ratio 14.5 13.5 Glucose 89 96 Calcium 8.0 L 8.4 L Phosphorus 3.5 Magnesium 2.3 Total Bilirubin 1.0 AST 164 H ALT 160 H Alkaline Phosphatase 92 C-Reactive Protein 18.60 H Total Protein 6.7 Albumin 2.1 L Globulin 4.6 H Albumin/Globulin Ratio 0.5 L Procalcitonin Specimen Hemolysis 12/17/20 06:18 WBC RBC Hgb Hct MCV MCH MCHC RDW Std Deviation RDW Coeff of Chavez Plt Count MPV Immature Gran % (Auto) Neut % (Auto) Lymph % (Auto) [place] % (Auto) Eos % (Auto) Baso % (Auto) Neut # (Auto) Lymph # (Auto) [place] # (Auto) Eos # (Auto) Baso # (Auto) Immature Gran # (Auto) Absolute Nucleated RBC Nucleated RBC % (auto) Sodium Potassium Chloride Carbon Dioxide Anion Gap BUN Creatinine Est Cr Clr Drug Dosing Est GFR ( Amer) Est GFR (Non-Af Amer) BUN/Creatinine Ratio Glucose Calcium Phosphorus Magnesium Total Bilirubin AST ALT Alkaline Phosphatase C-Reactive Protein Total Protein Albumin Globulin Albumin/Globulin Ratio Procalcitonin 4.00 H Specimen Hemolysis PG Care Time/CCT Total # of Minutes Spent Total Time Spent with Patient: Total time spent is greater than 50% in coordination of care (as documented) at patient's floor/unit and/or counseling patient: Coding Level of Care Code 49827 Subseq Hosp Care Lvl 3 Diagnoses Acute kidney injury N17.9 Metabolic acidosis E87.2 Hypoalbuminemia E88.09 Acute myocarditis I40.9
[2020-12-17] MEDS ORDERED: SODIUM BICARBONATE 650 MG TAB PO SCH (14:00)
[2020-12-17] MEDS: SODIUM BICARBONATE 650 MG TAB PO SCH ×2 (14:26→21:17)
[2020-12-17] MEDS: MIRTAZAPINE SOLTAB 15 MG PO SCH (21:17)
[2020-12-17] MEDS: PARoxetine HCL 10 MG TAB PO SCH (21:18)
[2020-12-17] MEDS: ACETAMINOPHEN 325 MG TAB PO PRN (23:58)
[2020-12-18] MEDS: AMPICILLIN/SULBACTAM SOD 3,000 MG in 0.9 % SODIUM CHLORIDE 100 ML IV SCH ×3 (06:09→17:14)
[2020-12-18 07:10] LABS: Basophils # (auto) 0.06 K/uL (0-0.2); Basophils % (auto) 0.3 %; Eosinophils # (auto) 0.46 K/uL (0-0.5); Eosinophils % (auto) 2.1 %; Hematocrit (blood only) 29.7 % (42-52); Hemoglobin 10.4 g/dL (14.0-18.0); Immature Granulocytes # (auto) 0.66 K/uL (0.00-0.02); Lymphocytes # (auto) 2.35 K/uL (1.2-3.4); Lymphocytes % (auto) 10.6 %; Mean Corpuscular Hemoglobin 28.4 pg (25-34); Mean Corpuscular Volume 81.1 fL (80-100); Mean Platelet Volume 11.9 fL (7.4-10.4); Monocytes # (auto) 1.06 K/uL (0.11-0.59); Monocytes % (auto) 4.8 %; Neutrophils # (auto) 17.63 K/uL (1.4-6.5); Neutrophils % (auto) 79.2 %; Platelet Count 348 K/uL (130-400); RDW Coefficient of Variation 14.9 % (11.5-14.5); RDW Standard Deviation 42.9 fL (36.4-46.3); Red Blood Count 3.66 M/uL (4.7-6.1); White Blood Count 22.22 K/uL (4.8-10.8)
[2020-12-18 07:51] LABS: BUN Creatinine Ratio 12.2 (10-20); Calcium 8.7 mg/dl (8.5-10.1); Creatinine Clr Calc Pharmacy 39.1 ml/min; Est GFR (African American) 32.6; Est GFR (Non-African American) 28.1; Magnesium 2.4 mg/dl (1.8-2.4); Potassium 3.7 mmol/L (3.5-5.1)
[2020-12-18 07:53] LABS: Albumin Globulin Ratio 0.4 (0.9-2); Bilirubin,Total 0.8 mg/dl (0.2-1); Globulin 4.7 gm/dl (2.5-4.0); Phosphorus 4.3 mg/dl (2.5-4.9); Total Protein 6.7 gm/dl (6.4-8.2)
[2020-12-18] MEDS: FAMOTIDINE 20 MG in SYRINGE 3 ML IV SCH ×2 (08:45→20:45)
[2020-12-18] MEDS: PANTOprazole 40 MG TAB PO SCH (08:46)
[2020-12-18] MEDS: SODIUM BICARBONATE 650 MG TAB PO SCH ×2 (08:46→20:46)
--- NOTE | 2020-12-18 10:46 | Nephrology Progress Note ---
Date of Service December 18, 2020 Assessment & Plan (1) Acute kidney injury: -- Remains in a negative fluid balance related to auto diuresis. -- Volume status acceptable. -- Encourage oral fluid intake. -- VON clinically consistent with ATN (hemodynamic, vanco, iodinated contrast exposure). -- Creatinine stable consistent with early stages of renal recovery. -- Urine microscopy acellular. -- Renal US did not demonstrate obstruction. -- Electrolytes acceptable. -- Oral HCO3 replacement for metabolic acidosis in renal insufficiency switched from TID to BID today. -- Document strict I/O's. -- Repeat metabolic profile in the AM. -- No current indication for [employer]ATOR. (2) Metabolic acidosis: -- NaHCO3 650 BID. (3) Hypoalbuminemia: -- Encourage nutrition. (4) Acute myocarditis: -- Cardiology following. Admission and Anticipated Discharge Date Admission Date: December 13, 2020 Subjective No acute events overnight. Bobby feels well. He denies any complaints this AM. Appetite good. Breathing comfortably. Review of Systems Review of Systems: All systems reviewed & are unremarkable except as noted in HPI & below Physical Exam Constitutional: well developed; no acute distress Eyes: no scleral abnormality and no corneal abnormality ENMT: Mouth: no oral mucosal abnormality and oral mucous membranes not dry Neck: normal visual inspection and trachea midline Respiratory: normal respiratory effort Auscultation: lungs clear to auscultation bilaterally Cardiovascular: Rate/Rhythm: regular rate Heart Sounds: normal S1 and normal S2 Extremities: no edema Musculoskeletal: Extremities: no cyanosis and no clubbing Skin: normal turgor; no lesions Neurologic: Motor/Sensory: no tremor and no asterixis Psychiatric: Orientation: alert and oriented x 3 Results & Data ([facility]) Vital Signs (Past 12 Hours) Vital Signs Temp Pulse Pulse Resp BP Pulse Ox 12/18/20 08:00 73 12/18/20 07:18 36.9 C 73 20 123/80 99 12/18/20 04:23 36.8 C 75 20 120/69 98 12/18/20 00:00 83 12/17/20 23:41 37.6 C H 87 20 118/71 98 Laboratory Results Laboratory Results - last 24 hr 12/18/20 12/18/20 06:18 06:18 WBC 22.22 H RBC 3.66 L Hgb 10.4 L Hct 29.7 L MCV 81.1 MCH 28.4 MCHC 35.0 RDW Std Deviation 42.9 RDW Coeff of Chavez 14.9 H Plt Count 348 MPV 11.9 H Immature Gran % (Auto) 3.0 Neut % (Auto) 79.2 Lymph % (Auto) 10.6 [place] % (Auto) 4.8 Eos % (Auto) 2.1 Baso % (Auto) 0.3 Neut # (Auto) 17.63 H Lymph # (Auto) 2.35 [place] # (Auto) 1.06 H Eos # (Auto) 0.46 Baso # (Auto) 0.06 Immature Gran # (Auto) 0.66 H Sodium 143 Potassium 3.7 D Chloride 109 H Carbon Dioxide 21 Anion Gap 12.0 H BUN 36 H Creatinine 2.92 H Est Cr Clr Drug Dosing 39.1 Est GFR ( Amer) 32.6 Est GFR (Non-Af Amer) 28.1 BUN/Creatinine Ratio 12.2 Glucose 87 Calcium 8.7 Phosphorus 4.3 Magnesium 2.4 Total Bilirubin 0.8 AST 126 H ALT 174 H Alkaline Phosphatase 89 Total Protein 6.7 Albumin 2.0 L Globulin 4.7 H Albumin/Globulin Ratio 0.4 L PG Care Time/CCT Total # of Minutes Spent Total Time Spent with Patient: Total time spent is greater than 50% in coordination of care (as documented) at patient's floor/unit and/or counseling patient: Coding Level of Care Code 94393 Subseq Hosp Care Lvl 3 Diagnoses Acute kidney injury N17.9 Metabolic acidosis E87.2 Hypoalbuminemia E88.09 Acute myocarditis I40.9
--- NOTE | 2020-12-18 11:13 | Hospitalist Progress Note ---
Date of Service December 18, 2020 Assessment & Plan (1) Sepsis: severe sepsis with VON, Cr remains elevated at 2.9 but making a lot of urine no signs of shock, lactic acid is down to 1.1 on 12/16 no encephalopathy, making a lot of urine with initiation of Dobutamine on 12/15 no fever, his WBC is down to 22k overall he feels better and looks a lot more comfortable, breathing slower tolerating low fiber diet, ate eggs this morning IMAGING CT abdomen/pelvis with some possible enteritis and lymphadenitis, no major findings on CT chest multiple chest x-ray's without pneumonia or pulmonary edema repeat CT abd/pelvis with pleural effusions, ascites, possible distended gall bladder, likely third spacing fluid with low albumin GB US: distended gall bladder, pericystic fluid, 5mm gall stone at neck of GB MRCP: no cholangitis, no ductal obstruction HIDA scan: no evidence of acute cholecystitis urine was clean blood cultures with no growth at 5 days CSF cultures with no growth stool cultures with no growth, specifically no Campylobacter, Salmonella, E coli, Shigella LP performed 12/14, low WBC, protein 30's, no growth on cultures, fluid appeared very clean, doubt meningitis HIV negative he had COVID in September, certainly with acute cardiomyopathy a viral infection would be suspected but lab findings suggest bacterial infection with left shift and high procalcitonin at 40 on admission consult infectious diseaseAndre suspect source of infection is contaminated sandwich he ate a few days prior to onset of diarrhea and vomiting need to cover anaerobes and Listeria changed antibiotics to Unasyn IV, complete 7 days, today is day 4, had been on Cefepime/Vanco prior responding great to Unasyn therapy, WBC down, no fever, eating well, no GI symptoms except occasional loose stool I would keep patient here until he has completed the full 7 days, so keep him through Saturday and then discharge back to [facility] on (2) Acute kidney injury: Creatinine 1.53 upon admission, with no baseline for comparison. improved to 1.3 for two days with aggressive IV fluids Cr started to rise on 12/15, up to 2.4 then 2.7 Cr 2.9 three days in a row today but making a lot of urine, no need for diuretics 12/15: started on Dobutamine 2.5mcg for better renal perfusion, BP immediately up to 110-130 systolic he made a lot more urine ever since Dobutamine started, try to maintain even fluid balance stopped Dobutamine 12/17, still making a lot of urine metabolic acidosis, non gapped, likely combination of lactic acidosis (mild) and diarrheal illness he is demonstrating respiratory compensation, breathing a lot less today HCO3 is 21, sodium bicarb 650mg BID K is 3.7 today, no need for oral replacement nephrology consult: likely ATN from hypoperfusion, Vancomycin, two IV contrast studies on admission reached plateau phase with Cr steady at 2.9 and making a lot of urine expect Cr to slowly improve over next few days (3) Cardiomyopathy: EF was down at 30-35% on admission, this is new finding he was maintaining BP in the 90's systolic and MAP > 65 Dobutamine 2.5mcg drip started 12/15, tolerated really well, improved BP, lowered HR and increased UO repeat echo on 12/16 with EF 40-45% but he was on Dobutamine at that time Dobutamine stopped 12/17, his BP has been 120 systolic off of it, suspect heart is recovering from acute insult defer to cardiology on timing of repeat echocardiogram and initiation of cardiomyopathy medications (4) Acute myocarditis: troponin up to 8 on 12/14, no chest pain coupled with reduced EF of 30-35% would suspect acute myocarditis he had COVID in September 2020, never had serious symptoms he was negative for RSV, influenza and COVID on admission consult ID for their input add dobutamine for improved contractility, responding really well now off the Dobutamine (5) Elevated troponin I level: due to myocarditis peaked at 8, down to 1.7 on 12/15 (6) Enterocolitis: Enterocolitis/mesenteric adenitis/lactic acidosis- Primary symptoms of nausea vomiting and diarrhea for 5 days prior to admission due to eating contaminated, spoiled sandwich, Pastrami treat with Unasyn to cover anaerobes and Listeria, appreciate ID consultation complete 7 days, today is day 4 one loose stool today, no vomiting, abdomen is less distended tolerating low fiber diet checked C diff, NEGATIVE stool cultures are also negative (7) Mesenteric adenitis: seen on CT (8) Hypoalbuminemia: dropped from 2.7 to 1.9 due to acute illness? there was only 1+ protein in urine so doubt nephrotic issues, especially with improvement in Cr gave 25gm of albumin on 12/16 albumin coming up, improved PO intake, no further albumin infusion needed, encourage oral nutrition (9) Metabolic acidosis: non gapped acidosis, likely from GI losses with diarrhea for several days HCO3 up to 21 today secondary respiratory compensation at the beginning of admission continue sodium bicarb BID per nephrology (10) Anemia: Hb slowly dropping, down to 9.5 on 12/16 but up to 10 today ask for peripheral smear to look for MAHA in setting of sepsis -- no evidence of MAHA monitor daily, no need for transfusion no known history of sickle cell disease likely from acute infection which is improving Admission and Anticipated Discharge Date Admission Date: December 13, 2020 Subjective patient is feeling a lot better, eating some food this morning, no nausea, no abdominal pain he had one loose stool this morning no fever/chills, BP is improved at 123 systolic off of Dobutamine for 24 hours now defer to cardiology about repeating echo reviewed labs, WBC down to 22k, Hb up to 10, Cr is still 2.9 but electrolytes stable, HCO3 up to 21 he denies chest pain, dyspnea, cough, diaphoresis he continues to make a lot of urine, auto-diuresing d/w nephrology, appreciate her input Review of Systems Review of Systems: All systems reviewed & are unremarkable except as noted in Subjective Physical Exam Constitutional: well developed, well nourished and comfortable; no acute distress Neck: trachea midline, no thyromegaly Respiratory: normal respiratory effort, lungs clear to auscultation Cardiovascular: RRR, no murmur, no edema Gastrointestinal (Abdomen): Inspection/Auscultation: + abdomen distended and normal bowel sounds Percussion/Palpation: normal to percussion; abdomen nontender, no guarding and abdomen not rigid Musculoskeletal: no cyanosis or clubbing, extremities motor strength 5/5 Skin: no rashes, warm and dry Neurologic: patellar DTR's 2+ bilat, sensation intact and PERRL, EOMI, accommodation nl, no face palsy, no dysarthria Psychiatric: A+Ox3, euthymic affect Lymphatic: no cervical or axillary lymphadenopathy Results & Data Results & Data ([facility]) Vital Signs (Past 12 Hours) Vital Signs Temp Pulse Pulse Resp BP Pulse Ox 12/18/20 08:00 73 12/18/20 07:18 36.9 C 73 20 123/80 99 12/18/20 04:23 36.8 C 75 20 120/69 98 12/18/20 00:00 83 12/17/20 23:41 37.6 C H 87 20 118/71 98 Laboratory Results Laboratory Results - last 24 hr 12/18/20 12/18/20 06:18 06:18 WBC 22.22 H RBC 3.66 L Hgb 10.4 L Hct 29.7 L MCV 81.1 MCH 28.4 MCHC 35.0 RDW Std Deviation 42.9 RDW Coeff of Chavez 14.9 H Plt Count 348 MPV 11.9 H Immature Gran % (Auto) 3.0 Neut % (Auto) 79.2 Lymph % (Auto) 10.6 [place] % (Auto) 4.8 Eos % (Auto) 2.1 Baso % (Auto) 0.3 Neut # (Auto) 17.63 H Lymph # (Auto) 2.35 [place] # (Auto) 1.06 H Eos # (Auto) 0.46 Baso # (Auto) 0.06 Immature Gran # (Auto) 0.66 H Sodium 143 Potassium 3.7 D Chloride 109 H Carbon Dioxide 21 Anion Gap 12.0 H BUN 36 H Creatinine 2.92 H Est Cr Clr Drug Dosing 39.1 Est GFR ( Amer) 32.6 Est GFR (Non-Af Amer) 28.1 BUN/Creatinine Ratio 12.2 Glucose 87 Calcium 8.7 Phosphorus 4.3 Magnesium 2.4 Total Bilirubin 0.8 AST 126 H ALT 174 H Alkaline Phosphatase 89 Total Protein 6.7 Albumin 2.0 L Globulin 4.7 H Albumin/Globulin Ratio 0.4 L Medications Administered Current Inpatient Medications Acetaminophen (Acetaminophen 325 Mg Tab) 650 mg PO Q4H PRN PRN Reason: Pain or Fever Stop: 01/12/21 07:39 Last Admin: 12/17/20 23:58 Dose: 650 mg Documented by: Calcium Carbonate (Calcium Carbonate 500 Mg Chewable Tab) 500 mg PO Q4 PRN PRN Reason: Indigestion Stop: 01/13/21 00:45 Last Admin: 12/14/20 04:59 Dose: 500 mg Documented by: Famotidine 20 mg/ Syringe 5 mls @ 2.5 mls/min IV Q12H CAROLYN Stop: 01/12/21 08:59 Last Admin: 12/18/20 08:45 Dose: 2.5 mls/min Documented by: Ampicillin Sodium/Sulbactam Sodium 3,000 mg/ Sodium Chloride 108 mls @ 200 mls/hr IV Q6H [facility]; Protocol Stop: 12/26/20 05:59 Last Infusion: 12/18/20 07:05 Dose: Infused Documented by: Mirtazapine (Mirtazapine Soltab 15 Mg) 45 mg PO HS [facility] Stop: 01/12/21 20:59 Last Admin: 12/17/20 21:17 Dose: 45 mg Documented by: Morphine Sulfate (Morphine Sulfate 2 Mg/Ml Carp) 2 mg IV ONE PRN PRN Reason: Hida scan Stop: 12/29/20 18:27 Nitroglycerin (Nitroglycerin Sl 0.4 Mg/Tab Tab) 0.4 mg SL UD PRN PRN Reason: Chest Pain Stop: 01/12/21 07:39 Ondansetron HCl (Ondansetron Inj 2 Mg/Ml 2 Ml Vial) 4 mg IV Q6H PRN PRN Reason: Nausea Stop: 01/12/21 07:39 Last Admin: 12/17/20 20:05 Dose: 4 mg Documented by: Pantoprazole Sodium (Pantoprazole 40 Mg Tab) 40 mg PO QAM [facility] Stop: 01/15/21 10:59 Last Admin: 12/18/20 08:46 Dose: 40 mg Documented by: Paroxetine HCl (Paroxetine Hcl 10 Mg Tab) 10 mg PO HS [facility] Stop: 01/12/21 20:59 Last Admin: 12/17/20 21:18 Dose: 10 mg Documented by: Sodium Bicarbonate (Sodium Bicarbonate 650 Mg Tab) 650 mg PO BID [facility] Stop: 01/17/21 20:59 PG Care Time/CCT Total # of Minutes Spent Total Time Spent with Patient: Total time spent is greater than 50% in coordina tion of care (as documented) at patient's floor/unit and/or counseling patient: Coding Level of Care Code 67038 Subseq Hosp Care Lvl 3 Diagnoses Sepsis A41.9; R65.20 Sepsis acute organ dysfunction status: with acute organ dysfunction Sepsis type: sepsis due to unspecified organism Severe sepsis acute organ dysfunction type: unspecified Severe sepsis shock status: without septic shock Acute kidney injury N17.9 Cardiomyopathy I42.9 Acute myocarditis I40.9 Elevated troponin I level R77.8 Enterocolitis K52.9 Mesenteric adenitis I88.0 Hypoalbuminemia E88.09 Metabolic acidosis E87.2 Anemia D64.9 (1) Sepsis Sepsis acute organ dysfunction status: with acute organ dysfunction Sepsis type: sepsis due to unspecified organism Severe sepsis acute organ dysfunction type: unspecified Severe sepsis shock status: without septic shock Qualified Code(s): A41.9 - Sepsis, unspecified organism; R65.20 - Severe sepsis without septic shock
--- NOTE | 2020-12-18 13:04 | Cardiology Progress Note ---
Date of Service December 18, 2020 Assessment & Plan Admission and Anticipated Discharge Date Admission Date: December 13, 2020 Subjective (1) Acute myocarditis: (2) Cardiomyopathy:Mild to moderate while on dobutamine (3) Enterocolitis: (4) Acute kidney injury: (5) Mitral regurgitation: ASSESSMENT/PLAN: 1. Acute myocarditis: His carotid upstroke now feels normal. His blood pressure is also increased without any medication suggesting his LV function has improved. In addition he has markedly improved renal output likely in the post diuresis phase of ATN. If his blood pressure stable tomorrow and his creatinine starts to improve one could consider low-dose beta-blockers. 2. Cardiomyopathy: There are no arrhythmias noted on his telemetry. At this point there is no room for SIENNA inhibitor's given his acute kidney injury. If there is room depending on his blood pressure and urine output we can start beta-blockers tomorrow. 3. Enterocolitis: Improving. White count remains elevated along with his sed rate and CRP 4. Acute kidney injury: Renal function initially improved with fluid resuscitation. Renal function has stabilized with very good urine output likely in the post diuresis phase of ATN. Nephrology now following. 5. Mitral regurgitation: Mild Subjective He denies shortness of breath, chest pain, syncope, near-syncope, palpitations. He denied any rigors fevers or chills. He denies any central chest tightness or chest pressure he did not appear short of breath talking in sentences. He denied shortness of breath. He denies any palpitations or fluttering. He has no lower extremity edema. He is alert HEENT: Anicteric sclera. Neck: Carotid upstrokes felt normal Cardiac: Regular. Normal rate. Normal S1-S2. No murmurs, rubs, or gallops. Pulmonary: Clear to auscultation bilaterally without wheezes, rales, or rhonchi. Abdomen: Soft nontender nondistended positive bowel sounds Extremities: No edema or cyanosis. Psychiatric: Affect appears appropriate. Results & Data ([facility]) Vital Signs (Past 12 Hours) Vital Signs Temp Pulse Pulse Resp BP Pulse Ox 12/18/20 11:44 37.0 C 75 20 128/80 99 12/18/20 08:00 73 12/18/20 07:18 36.9 C 73 20 123/80 99 12/18/20 04:23 36.8 C 75 20 120/69 98
[2020-12-18] MEDS: PARoxetine HCL 10 MG TAB PO SCH (20:46)
[2020-12-18] MEDS: MIRTAZAPINE SOLTAB 15 MG PO SCH (20:47)
[2020-12-19] MEDS: AMPICILLIN/SULBACTAM SOD 3,000 MG in 0.9 % SODIUM CHLORIDE 100 ML IV SCH ×4 (00:02→17:44)
--- NOTE | 2020-12-19 07:54 | Hospitalist Progress Note ---
Date of Service December 19, 2020 Assessment & Plan (1) Sepsis: severe sepsis with VON, Cr remains elevated at 2.9 but making a lot of urine no signs of shock, lactic acid is down to 1.1 on 12/16 no encephalopathy, making a lot of urine with initiation of Dobutamine on 12/15 no fever, his WBC is down to 22k overall he feels better and looks a lot more comfortable, breathing slower tolerating low fiber diet, ate eggs this morning IMAGING CT abdomen/pelvis with some possible enteritis and lymphadenitis, no major findings on CT chest multiple chest x-ray's without pneumonia or pulmonary edema repeat CT abd/pelvis with pleural effusions, ascites, possible distended gall bladder, likely third spacing fluid with low albumin GB US: distended gall bladder, pericystic fluid, 5mm gall stone at neck of GB MRCP: no cholangitis, no ductal obstruction HIDA scan: no evidence of acute cholecystitis urine was clean blood cultures with no growth at 5 days CSF cultures with no growth stool cultures with no growth, specifically no Campylobacter, Salmonella, E coli, Shigella LP performed 12/14, low WBC, protein 30's, no growth on cultures, fluid appeared very clean, doubt meningitis HIV negative he had COVID in September, certainly with acute cardiomyopathy a viral infection would be suspected but lab findings suggest bacterial infection with left shift and high procalcitonin at 40 on admission consulted infectious disease, Andre * suspect source of infection is contaminated sandwich he ate a few days prior to onset of diarrhea and vomiting * need to cover anaerobes and Listeria * changed antibiotics to Unasyn IV, complete 7 days, today is day 5, had been on Cefepime/Vanco prior * responding great to Unasyn therapy, WBC down, no fever, eating well, no GI symptoms except occasional loose stool I would keep patient here until he has completed the full 7 days, so keep him through Saturday and then discharge back to [facility] on *Will add iron studies, as MCV <80 on admission and not previously done -- monitor. Replacement if needed based on labs (2) Acute kidney injury: Creatinine 1.53 upon admission, with no baseline for comparison. improved to 1.3 for two days with aggressive IV fluids Cr started to rise on 12/15, up to 2.4 then 2.7 Cr 2.9 three days in a row today but making a lot of urine, no need for diuretics 12/15: started on Dobutamine 2.5mcg for better renal perfusion, BP immediately up to 110-130 systolic he made a lot more urine ever since Dobutamine started, try to maintain even fluid balance stopped Dobutamine 12/17, still making a lot of urine metabolic acidosis, non gapped, likely combination of lactic acidosis (mild) and diarrheal illness he is demonstrating respiratory compensation, breathing a lot less today HCO3 is 21, sodium bicarb 650mg BID K is 3.7 today, no need for oral replacement nephrology consult: likely ATN from hypoperfusion, Vancomycin, two IV contrast studies on admission reached plateau phase with Cr steady at 2.9 and making a lot of urine Cr improved to 2.79 -- expect Cr to slowly improve over next few days (3) Cardiomyopathy: EF was down at 30-35% on admission, this is new finding he was maintaining BP in the 90's systolic and MAP > 65 Dobutamine 2.5mcg drip started 12/15, tolerated really well, improved BP, lowered HR and increased UO repeat echo on 12/16 with EF 40-45% but he was on Dobutamine at that time Dobutamine stopped 12/17, his BP has been 120 systolic off of it, suspect heart is recovering from acute insult Initiated metoprolol succinated 25mg daily now that BP 130/79 and able to tolerate * defer to cardiology on timing of repeat echocardiogram (4) Acute myocarditis: troponin up to 8 on 12/14, no chest pain coupled with reduced EF of 30-35% would suspect acute myocarditis he had COVID in September 2020, never had serious symptoms he was negative for RSV, influenza and COVID on admission consulted ID for their input add dobutamine for improved contractility, responding really well now off the Dobutamine (5) Elevated troponin I level: due to myocarditis peaked at 8, down to 1.7 on 12/15 (6) Enterocolitis: Enterocolitis/mesenteric adenitis/lactic acidosis- Primary symptoms of nausea vomiting and diarrhea for 5 days prior to admission due to eating contaminated, spoiled sandwich, Pastrami treat with Unasyn to cover anaerobes and Listeria, appreciate ID consultation complete 7 days, today is day 5 one loose stool today, no vomiting, abdomen is less distended tolerating low fiber diet checked C diff, NEGATIVE stool cultures are also negative (7) Mesenteric adenitis: seen on CT (8) Hypoalbuminemia: dropped from 2.7 to 1.9 due to acute illness? there was only 1+ protein in urine so doubt nephrotic issues, especially with improvement in Cr gave 25gm of albumin on 12/16 albumin coming up, improved PO intake, no further albumin infusion needed, encourage oral nutrition (9) Metabolic acidosis: non gapped acidosis, likely from GI losses with diarrhea for several days HCO3 up to 21 today secondary respiratory compensation at the beginning of admission continue sodium bicarb BID per nephrology (10) Anemia: Hb slowly dropping, down to 9.5 on 12/16 but up to 10 today ask for peripheral smear to look for MAHA in setting of sepsis -- no evidence of MAHA monitor daily, no need for transfusion no known history of sickle cell disease h/h 10.3/30.3 (hgb was 9.5 on 12/16) MCV was <80 on admission and iron studies not completed --> added to AM blood. likely from acute infection which is improving but suspect some degree of iron def. anemia DVT Prophylaxis Will utilize Heparin SQ given kidney function (not previously on DVT proph) Dispo: to remain inpatient until abx completed on Saturday Likely d/c on Admission and Anticipated Discharge Date Admission Date: December 13, 2020 Supervising Physician Co-Signing Physician Notes PA Supervision Note: I did not personally see or examine the patient today, but I verified all bailey points of MEL Emanuel's assessment and plan with the following exceptions/additions: None Subjective Patient evaluated this morning. Tired but feeling better. Pain controlled but still has some lower back pain. No radiation. CK not added to AM labs but will add to see if some component of rhabdo given elevated LFTs and myocarditis. Had COVID back in September and had some respiratory symptoms and shortness of breath but never required supplemental oxygen. Denies fever, chills, chest pain, shortness of breath, abdominal pain, nausea or vomiting. Continues to eat/drink without difficulty. Plans on remaining inpatient until abx are completed. Has not been seen by cardiology but will start metoprolol to help strengthen the heart and await input regarding when to repeat ECHO. Will avoid SIENNA/ARB given elevated Cr still, but is now finally improving. Review of Systems Review of Systems: All systems reviewed & are unremarkable except as noted in HPI & below Physical Exam Constitutional: well developed, well nourished and comfortable; no acute distress Eyes: + anicteric sclerae and PERRL ENMT: mmm Neck: trachea midline, no thyromegaly Respiratory: normal respiratory effort, lungs clear to auscultation Cardiovascular: RRR, no murmur, no edema Gastrointestinal (Abdomen): Inspection/Auscultation: + abdomen distended and normal bowel sounds Percussion/Palpation: normal to percussion; abdomen nontender, no guarding and abdomen not rigid Musculoskeletal: no cyanosis or clubbing, extremities motor strength 5/5 Skin: no rashes, warm and dry Neurologic: patellar DTR's 2+ bilat, sensation intact and PERRL, EOMI, accommodation nl, no face palsy, no dysarthria Psychiatric: A+Ox3, euthymic affect Lymphatic: no cervical or axillary lymphadenopathy Results & Data Results & Data ([facility]) Vital Signs (Past 12 Hours) Vital Signs Temp Pulse Pulse Resp BP Pulse Ox 12/19/20 07:39 36.6 C 67 20 130/79 96 12/19/20 04:18 36.9 C 78 16 122/69 96 12/19/20 00:10 37.3 C 75 14 124/75 96 12/19/20 00:00 82 Laboratory Results 12/19/20 12/19/20 Range/Units 07:02 07:02 WBC 17.79 H (4.8-10.8) K/uL RBC 3.69 L (4.7-6.1) M/uL Hgb 10.3 L (14.0-18.0) g/dL Hct 30.3 L (42-52) % MCV 82.1 (80-100) fL MCH 27.9 (25-34) pg MCHC 34.0 (32-36) g/dL RDW Std Deviation 44.9 (36.4-46.3) fL RDW Coeff of Chavez 15.6 H (11.5-14.5) % Plt Count 410 H (130-400) K/uL MPV 11.7 H (7.4-10.4) fL Immature Gran % (Auto) 1.7 % Neut % (Auto) 79.5 % Lymph % (Auto) 10.8 % [place] % (Auto) 5.9 % Eos % (Auto) 1.9 % Baso % (Auto) 0.2 % Neut # (Auto) 14.14 H (1.4-6.5) K/uL Lymph # (Auto) 1.92 (1.2-3.4) K/uL [place] # (Auto) 1.05 H (0.11-0.59) K/uL Eos # (Auto) 0.33 (0-0.5) K/uL Baso # (Auto) 0.04 (0-0.2) K/uL Immature Gran # (Auto) 0.31 H (0.00-0.02) K/uL Polychromasia 1+ Target Cells 1+ Sodium 142 (136-145) mmol/L Potassium 3.5 (3.5-5.1) mmol/L Chloride 111 H (98-107) mmol/L Carbon Dioxide 21 (21-32) mmol/L Anion Gap 10.0 (3-11) BUN 36 H (7-18) mg/dl Creatinine 2.79 H (0.6-1.4) mg/dl Est Cr Clr Drug Dosing 40.6 ml/min Est GFR ( Amer) 34.4 Est GFR (Non-Af Amer) 29.7 BUN/Creatinine Ratio 12.9 (10-20) Glucose 115 H (70-99) mg/dl Calcium 8.2 L (8.5-10.1) mg/dl Phosphorus 4.2 (2.5-4.9) mg/dl Magnesium 2.0 (1.8-2.4) mg/dl Total Bilirubin 0.7 (0.2-1) mg/dl AST 78 H (15-37) U/L ALT 149 H (12-78) U/L Alkaline Phosphatase 83 (45-117) U/L Total Protein 6.6 (6.4-8.2) gm/dl Albumin 2.0 L (3.4-5.0) gm/dl Globulin 4.6 H (2.5-4.0) gm/dl Albumin/Globulin Ratio 0.4 L (0.9-2) PG Care Time/CCT Total # of Minutes Spent Total Time Spent with Patient: Total time spent is greater than 50% in coordination of care (as documented) at patient's floor/unit and/or counseling patient: Coding Level of Care Code 56900 Subseq Hosp Care Lvl 3 Diagnoses Sepsis A41.9; R65.20 Sepsis acute organ dysfunction status: with acute organ dysfunction Sepsis type: sepsis due to unspecified organism Severe sepsis acute organ dysfunction type: unspecified Severe sepsis shock status: without septic shock Acute kidney injury N17.9 Cardiomyopathy I42.9 Acute myocarditis I40.9 Elevated troponin I level R77.8 Enterocolitis K52.9 Mesenteric adenitis I88.0 Hypoalbuminemia E88.09 Metabolic acidosis E87.2 Anemia D64.9 (1) Sepsis Sepsis acute organ dysfunction status: with acute organ dysfunction Sepsis type: sepsis due to unspecified organism Severe sepsis acute organ dysfunction type: unspecified Severe sepsis shock status: without septic shock Qualified Code(s): A41.9 - Sepsis, unspecified organism; R65.20 - Severe sepsis without septic shock
[2020-12-19 07:55] LABS: Hematocrit (blood only) 30.3 % (42-52); Hemoglobin 10.3 g/dL (14.0-18.0); Mean Corpuscular Hemoglobin 27.9 pg (25-34); Mean Corpuscular Volume 82.1 fL (80-100); Mean Platelet Volume 11.7 fL (7.4-10.4); Platelet Count 410 K/uL (130-400); RDW Coefficient of Variation 15.6 % (11.5-14.5); RDW Standard Deviation 44.9 fL (36.4-46.3); Red Blood Count 3.69 M/uL (4.7-6.1); White Blood Count 17.79 K/uL (4.8-10.8)
[2020-12-19] MEDS: SODIUM BICARBONATE 650 MG TAB PO SCH (08:17)
[2020-12-19] MEDS: PANTOprazole 40 MG TAB PO SCH (08:17)
[2020-12-19] MEDS: FAMOTIDINE 20 MG in SYRINGE 3 ML IV SCH ×2 (08:20→20:16)
[2020-12-19 08:41] LABS: Basophils # (auto) 0.04 K/uL (0-0.2); Basophils % (auto) 0.2 %; Eosinophils # (auto) 0.33 K/uL (0-0.5); Eosinophils % (auto) 1.9 %; Immature Granulocytes # (auto) 0.31 K/uL (0.00-0.02); Immature Granulocytes % (auto) 1.7 %; Lymphocytes # (auto) 1.92 K/uL (1.2-3.4); Lymphocytes % (auto) 10.8 %; Monocytes # (auto) 1.05 K/uL (0.11-0.59); Monocytes % (auto) 5.9 %; Neutrophils # (auto) 14.14 K/uL (1.4-6.5); Neutrophils % (auto) 79.5 %; Polychromasia 1+; Target Cells 1+
[2020-12-19 08:46] LABS: BUN Creatinine Ratio 12.9 (10-20); Calcium 8.2 mg/dl (8.5-10.1); Creatinine Clr Calc Pharmacy 40.6 ml/min; Est GFR (African American) 34.4; Est GFR (Non-African American) 29.7; Potassium 3.5 mmol/L (3.5-5.1)
[2020-12-19 08:49] LABS: Albumin Globulin Ratio 0.4 (0.9-2); Bilirubin,Total 0.7 mg/dl (0.2-1); Globulin 4.6 gm/dl (2.5-4.0); Phosphorus 4.2 mg/dl (2.5-4.9); Total Protein 6.6 gm/dl (6.4-8.2)
--- NOTE | 2020-12-19 10:19 | Nephrology Progress Note ---
Date of Service December 19, 2020 Assessment & Plan (1) Acute kidney injury: -- Remains in a negative fluid balance related to auto diuresis. -- Volume status acceptable. -- Encourage oral fluid intake. -- VON clinically consistent with ATN (hemodynamic, vanco, iodinated contrast exposure). -- Creatinine stable consistent with early stages of renal recovery. -- Electrolytes acceptable. -- Oral HCO3 will be stopped today. -- Document strict I/O's. -- Repeat metabolic profile in the AM. (2) Metabolic acidosis: -- Will stop oral replacement today. (3) Hypoalbuminemia: -- Taking nutritional supplements. (4) Acute myocarditis: -- Cardiology following. Admission and Anticipated Discharge Date Admission Date: December 13, 2020 Subjective No acute events overnight. Bobby reports some lower back pain this AM. His back feels tight from lying in bed. Symptoms better when out of bed to the bathroom. He hasn't experienced any similar symptoms in the past. No radicular symptoms. No injury/trauma. He denies any urinary symptoms. Review of Systems Review of Systems: All systems reviewed & are unremarkable except as noted in HPI & below Physical Exam Constitutional: well developed; no acute distress Eyes: no scleral abnormality and no corneal abnormality ENMT: Mouth: no oral mucosal abnormality and oral mucous membranes not dry Neck: normal visual inspection and trachea midline Respiratory: normal respiratory effort Auscultation: lungs clear to auscultation bilaterally Cardiovascular: Rate/Rhythm: regular rate Heart Sounds: normal S1 and normal S2 Extremities: no edema Musculoskeletal: Extremities: no cyanosis and no clubbing Skin: normal turgor; no lesions Neurologic: Motor/Sensory: no tremor and no asterixis Psychiatric: Orientation: alert and oriented x 3 Results & Data ([facility]) Vital Signs (Past 12 Hours) Vital Signs Temp Pulse Pulse Resp BP Pulse Ox 12/19/20 08:00 76 12/19/20 07:39 36.6 C 67 20 130/79 96 12/19/20 04:18 36.9 C 78 16 122/69 96 12/19/20 00:10 37.3 C 75 14 124/75 96 12/19/20 00:00 82 Laboratory Results Laboratory Results - last 24 hr 12/19/20 12/19/20 07:02 07:02 WBC 17.79 H RBC 3.69 L Hgb 10.3 L Hct 30.3 L MCV 82.1 MCH 27.9 MCHC 34.0 RDW Std Deviation 44.9 RDW Coeff of Chavez 15.6 H Plt Count 410 H MPV 11.7 H Immature Gran % (Auto) 1.7 Neut % (Auto) 79.5 Lymph % (Auto) 10.8 [place] % (Auto) 5.9 Eos % (Auto) 1.9 Baso % (Auto) 0.2 Neut # (Auto) 14.14 H Lymph # (Auto) 1.92 [place] # (Auto) 1.05 H Eos # (Auto) 0.33 Baso # (Auto) 0.04 Immature Gran # (Auto) 0.31 H Polychromasia 1+ Target Cells 1+ Sodium 142 Potassium 3.5 Chloride 111 H Carbon Dioxide 21 Anion Gap 10.0 BUN 36 H Creatinine 2.79 H Est Cr Clr Drug Dosing 40.6 Est GFR ( Amer) 34.4 Est GFR (Non-Af Amer) 29.7 BUN/Creatinine Ratio 12.9 Glucose 115 H Calcium 8.2 L Phosphorus 4.2 Magnesium 2.0 Total Bilirubin 0.7 AST 78 H ALT 149 H Alkaline Phosphatase 83 Total Protein 6.6 Albumin 2.0 L Globulin 4.6 H Albumin/Globulin Ratio 0.4 L PG Care Time/CCT Total # of Minutes Spent Total Time Spent with Patient: Total time spent is greater than 50% in coordination of care (as documented) at patient's floor/unit and/or counseling patient: Coding Level of Care Code 03407 Subseq Hosp Care Lvl 3 Diagnoses Acute kidney injury N17.9 Metabolic acidosis E87.2 Hypoalbuminemia E88.09 Acute myocarditis I40.9
[2020-12-19] MEDS: METOPROLOL SUCC 25MG EXT REL TAB PO SCH (11:15)
[2020-12-19 12:02] LABS: Ferritin 1327.3 ng/ml (8-388)
--- NOTE | 2020-12-19 13:43 | Cardiology Progress Note ---
Date of Service December 19, 2020 Assessment & Plan (1) Acute myocarditis: (2) Cardiomyopathy: (3) Enterocolitis: (4) Acute kidney injury: (5) Mitral regurgitation: ASSESSMENT/PLAN: 1. Acute myocarditis: Overall presentation appears to be consistent with acute myocarditis. Clinically improved. No evidence of decompensation. Echocardiogram obtained last week suggested some improvement in overall heart function. No fevers. 2. Cardiomyopathy: Likely due to myocarditis as above. He seems well compensated currently. Renal function improving. I think would be reasonable to start him on beta-blockade currently. I will start him on metoprolol tartrate which can be transitioned to succinate at the time of discharge. Ideally he would be on Gio inhibition as well, but given his renal dysfunction this can be deferred currently. 3. Enterocolitis: As per primary service. Has been evaluated by surgery and GI. Transaminase levels improving. 4. Acute kidney injury: Renal function improving 5. Mitral regurgitation: Mild Admission and Anticipated Discharge Date Admission Date: December 13, 2020 Subjective This afternoon the patient claims to be feeling well. He did not report any significant breathing difficulty. He had no symptoms of chest discomfort. He has been up to the commode and back on his own without symptoms of dizziness or weakness. No sense of palpitation. Review of Systems Review of Systems: Per HPI Physical Exam Physical Exam: The patient is alert and oriented. Mood and affect appeared normal. He answered all questions appropriately. HEENT: Pupils are equal and reactive to light and accommodation. Extraocular movements are intact. The sclerae are anicteric. Neuro: Cranial nerves intact Neck: Patient's neck is supple. He has palpable carotid pulses bilaterally without bruits on auscultation. There is no evidence of jugular venous distention. The thyroid is not enlarged. Lungs: Clear to auscultation bilaterally. He has good air movement without use of accessory muscles. No rales wheezes or rhonchi. Cardiac: Heart demonstrates a regular rate and rhythm. Normal S1 and S2. No murmurs on examination. Pulses: The patient has palpable radial pulses bilaterally that are equal in intensity Extremities: There was no evidence of hypoperfusion. There is no cyanosis or clubbing. There is no edema. Skin: I did not appreciate any rashes on examination today. Results & Data ([facility]) Vital Signs (Past 12 Hours) Vital Signs Temp Pulse Pulse Resp BP Pulse Ox 12/19/20 11:51 36.6 C 73 20 131/78 97 12/19/20 08:00 76 12/19/20 07:39 36.6 C 67 20 130/79 96 12/19/20 04:18 36.9 C 78 16 122/69 96 Laboratory Results Abnormal Lab Results 12/19/20 12/19/20 12/19/20 07:02 07:02 11:26 WBC 17.79 H RBC 3.69 L Hgb 10.3 L Hct 30.3 L MCV 82.1 MCH 27.9 MCHC 34.0 RDW Std Deviation 44.9 RDW Coeff of Chavez 15.6 H Plt Count 410 H MPV 11.7 H Immature Gran % (Auto) 1.7 Neut % (Auto) 79.5 Lymph % (Auto) 10.8 [place] % (Auto) 5.9 Eos % (Auto) 1.9 Baso % (Auto) 0.2 Neut # (Auto) 14.14 H Lymph # (Auto) 1.92 [place] # (Auto) 1.05 H Eos # (Auto) 0.33 Baso # (Auto) 0.04 Immature Gran # (Auto) 0.31 H Polychromasia 1+ Target Cells 1+ Sodium 142 Potassium 3.5 Chloride 111 H Carbon Dioxide 21 Anion Gap 10.0 BUN 36 H Creatinine 2.79 H Est Cr Clr Drug Dosing 40.6 Est GFR ( Amer) 34.4 Est GFR (Non-Af Amer) 29.7 BUN/Creatinine Ratio 12.9 Glucose 115 H Calcium 8.2 L Phosphorus 4.2 Magnesium 2.0 Iron 28 L TIBC 178 L Transferrin 144 L Transferrin % Sat 14 L Ferritin 1327.3 H Total Bilirubin 0.7 AST 78 H ALT 149 H Alkaline Phosphatase 83 Total Creatine Kinase 91 Total Protein 6.6 Albumin 2.0 L Globulin 4.6 H Albumin/Globulin Ratio 0.4 L PG Care Time/CCT Total # of Minutes Spent Total Time Spent with Patient: Total time spent is greater than 50% in coordination of care (as documented) at patient's floor/unit and/or counseling patient: Coding Level of Care Code 99028 Subseq Hosp Care Lvl 2 Diagnoses Acute myocarditis I40.9 Cardiomyopathy I42.9 Enterocolitis K52.9 Acute kidney injury N17.9 Mitral regurgitation I34.0
[2020-12-19] MEDS: HEPARIN SOD 5,000 UNIT/0.5 ML VIAL SQ SCH ×2 (15:23→20:16)
[2020-12-19] MEDS: FERROUS SULFATE 325 MG TAB PO SCH (15:24)
[2020-12-19] MEDS: POLYETHYLENE (MIRALAX) 17 GM PACK PO SCH (15:24)
[2020-12-19 16:09] LABS: Lyme Ab IgG w/WB Rflx Negative (Negative); Lyme Ab IgM w/WB Rflx Negative (Negative)
[2020-12-19] MEDS: PARoxetine HCL 10 MG TAB PO SCH (20:16)
[2020-12-19] MEDS: MIRTAZAPINE SOLTAB 15 MG PO SCH (20:16)
[2020-12-20] MEDS: AMPICILLIN/SULBACTAM SOD 3,000 MG in 0.9 % SODIUM CHLORIDE 100 ML IV SCH ×5 (06:12→21:43)
[2020-12-20] MEDS: HEPARIN SOD 5,000 UNIT/0.5 ML VIAL SQ SCH ×3 (06:12→21:43)
[2020-12-20 07:29] LABS: Basophils # (auto) 0.07 K/uL (0-0.2); Basophils % (auto) 0.5 %; Eosinophils # (auto) 0.29 K/uL (0-0.5); Eosinophils % (auto) 1.9 %; Hematocrit (blood only) 31.2 % (42-52); Hemoglobin 10.6 g/dL (14.0-18.0); Immature Granulocytes # (auto) 0.17 K/uL (0.00-0.02); Immature Granulocytes % (auto) 1.1 %; Lymphocytes # (auto) 2.22 K/uL (1.2-3.4); Lymphocytes % (auto) 14.3 %; Mean Corpuscular Hemoglobin 28.1 pg (25-34); Mean Corpuscular Volume 82.8 fL (80-100); Mean Platelet Volume 11.7 fL (7.4-10.4); Monocytes # (auto) 1.06 K/uL (0.11-0.59); Monocytes % (auto) 6.8 %; Neutrophils # (auto) 11.74 K/uL (1.4-6.5); Neutrophils % (auto) 75.4 %; Platelet Count 440 K/uL (130-400); RDW Coefficient of Variation 15.8 % (11.5-14.5); RDW Standard Deviation 46.3 fL (36.4-46.3); Red Blood Count 3.77 M/uL (4.7-6.1); White Blood Count 15.55 K/uL (4.8-10.8)
[2020-12-20 07:54] LABS: Albumin Level 2.2 gm/dl (3.4-5.0); BUN Creatinine Ratio 13.1 (10-20); C Reactive Protein 6.94 mg/dl (0-0.29); Calcium 8.9 mg/dl (8.5-10.1); Creatinine Clr Calc Pharmacy 44.7 ml/min; Est GFR (African American) 37.8; Est GFR (Non-African American) 32.7; Magnesium 1.9 mg/dl (1.8-2.4); Potassium 3.6 mmol/L (3.5-5.1)
[2020-12-20 07:57] LABS: Albumin Globulin Ratio 0.5 (0.9-2); Bilirubin,Total 0.6 mg/dl (0.2-1); Globulin 4.6 gm/dl (2.5-4.0); Total Protein 6.8 gm/dl (6.4-8.2)
--- NOTE | 2020-12-20 08:24 | Hospitalist Progress Note ---
Date of Service December 20, 2020 Assessment & Plan (1) Sepsis: * severe sepsis with VON after eating contaminated Pastrami sandwich prior to admission and ?resultant sepsis myocarditis * COVID 19 in Novemeber -- states he had some shortness of breath with it, but did not require supplemental O2 -- ?viral infection suspected for acute cardiomyopathy but could also be from sepsis d/t lab findings/L shift/elevated procal on admission IMAGING CT abdomen/pelvis with some possible enteritis and lymphadenitis, no major findings on CT chest multiple chest x-ray's without pneumonia or pulmonary edema repeat CT abd/pelvis with pleural effusions, ascites, possible distended gall bladder, likely third spacing fluid with low albumin GB US: distended gall bladder, pericystic fluid, 5mm gall stone at neck of GB MRCP: no cholangitis, no ductal obstruction HIDA scan: no evidence of acute cholecystitis * Initially on Vanco/Cefepime * No signs of shock -- lactic down to 1.1 on 12/16 * Not encephalopathic * Placed on Dobutamine on 12/15 for renal perfusion --> subsequently discontinued and auto diuresis occurring. Output 4.3L today * Cr elevated to 2.9 and trending down -> currently 2.58 * WBC continues to trend down, currently 15.5k from peak 29.9k on 12/16 * BCx NO GROWTH after 5 days * Urine culture without growth * Stool cultures with no growth, specifically no Campylobacter, Salmonella, E coli, Shigella * LP on 12/14 with low WBC, protein 30s, no growth on cultures and fluid appeared clean -- doubt meningitis * HIV negative [facility] ID consulted * suspect source of infection is contaminated sandwich he ate a few days prior to onset of diarrhea and vomiting --> need to cover anaerobes and Listeria * changed antibiotics to Unasyn IV, complete 7 days, today is day 6 * responding great to Unasyn therapy, WBC down, no fever, eating well, no GI symptoms except occasional loose stool * ESR 89 (from 90), CRP 6.9 (from 18), Procal 0.98 (from 4). LFTs elevated slightly on exam today -- continue to monitor daily labs I would keep patient here until he has completed the full 7 days, so keep him through Saturday and then discharge back to [facility] on (repeat ECHO prior) (2) Cardiomyopathy: * EF was down at 30-35% on admission, this is new finding. ? sepsis induced * he was maintaining BP in the 90's systolic and MAP > 65 * Dobutamine 2.5mcg drip started 12/15, tolerated really well, improved BP, lowered HR and increased UO * repeat echo on 12/16 with EF 40-45% but he was on Dobutamine at that time * Dobutamine stopped 12/17, his BP has been 120 systolic off of it, suspect heart is recovering from acute insult Initiated metoprolol succinated 25mg daily on 12/19 with BP 130/79 and able to tolerate --> BP stable 127/73 and has remained sinus rhythm in the 60s on monitor * defer to cardiology on timing of repeat echocardiogram -- plans for repeat prior to possible d/c (3) Acute kidney injury: * Creatinine 1.53 upon admission, with no baseline for comparison. * improved to 1.3 for two days with aggressive IV fluids * Cr started to rise on 12/15, up to 2.4 then 2.7 * Cr 2.9 three days in a row today but making a lot of urine, no need for diuretics * 12/15: started on Dobutamine 2.5mcg for better renal perfusion, BP immediately up to 110-130 systolic * he made a lot more urine ever since Dobutamine started, try to maintain even fluid balance * stopped Dobutamine 12/17, still making a lot of urine * metabolic acidosis, non gapped, likely combination of lactic acidosis (mild) and diarrheal illness * he is demonstrating respiratory compensation, breathing a lot less today * HCO3 is 21, sodium bicarb 650mg BID -> discontinued * K is 3.6 today, no need for oral replacement * nephrology consult: * likely ATN from hypoperfusion, Vancomycin, two IV contrast studies on admission * reached plateau phase with Cr steady at 2.9 and making a lot of urine and continues to trend down, but is still elevated at 2.58 * Continue oral intake * BMP in AM (4) Acute myocarditis: * troponin up to 8 on 12/14, no chest pain * coupled with reduced EF of 30-35% would suspect acute myocarditis * he had COVID in September 2020, never had serious symptoms * he was negative for RSV, influenza and COVID on admission * consulted ID for their input * add dobutamine for improved contractility, responding really well * now off the Dobutamine for several days (5) Elevated troponin I level: * due to myocarditis * peaked at 8, down to 1.7 on 12/15 (6) Enterocolitis: * Enterocolitis/mesenteric adenitis/lactic acidosis- * Primary symptoms of nausea vomiting and diarrhea for 5 days prior to admission due to eating contaminated, spoiled sandwich, Pastrami * Unasyn as above (on day 6) * No BM for several days -- ordered miralax/colace. Encouraged ambulation (has not been up walking) * Tolerating low fiber diet * Cdiff negative, stool cultures negative (7) Mesenteric adenitis: * seen on CT (8) Hypoalbuminemia: * dropped from 2.7 to 1.9 * due to acute illness? there was only 1+ protein in urine so doubt nephrotic issues, especially with improvement in Cr * gave 25gm of albumin on 12/16 * albumin coming up (2.2), improved PO intake, no further albumin infusion needed, encourage oral nutrition (9) Metabolic acidosis: * non gapped acidosis, likely from GI losses with diarrhea for several days -- secondary respiratory compensation at the beginning of admission * Resolved, HCO3 up to 22 today. sodium bicarb discontinued 12/19 * Nephrology on consult -- appreciate assistance (10) Anxiety and depression: * Continue home mirtazapine 45mg HS, Paroxetine 10mg HS (11) Anemia: * Hb slowly dropping, down to 9.5 on 12/16 but up to 10.6 today * ask for peripheral smear to look for MAHA in setting of sepsis -- no evidence of MAHA * no known history of sickle cell disease, thalassemia * MCV <80 on admission --> iron/transferrin sat % low, TIBC wnl. ferritin elevated (likely reactive) -- combination iron def/chronic disease? Placed on daily iron supplementation DVT Prophylaxis Will utilize Heparin SQ given kidney function (placed on 12/19 as not previously on DVT proph) Dispo: to remain inpatient until abx completed on Saturday but likely d/c at earliest Admission and Anticipated Discharge Date Admission Date: December 13, 2020 Supervising Physician Co-Signing Physician Notes MEL Supervision Note: I did not personally see or examine the patient today, but I verified all bailey points of MEL Emanuel's assessment and plan with the following exceptions/additions: None Subjective Patient evaluated this morning. Feeling well. Denies pain. Abdomen distended. Passing gas but no BM. Tolerated diet without issue. Making copius urine. Has not been up walking -- requested that he do that at some point today to help get bowels moving and will add additional agents to help get bowels moving. Denies fever, chills, chest pain, shortness of breath, headache, nausea, vomiting, abdominal pain, dysuria. Requesting popsicles -- states he had [place] ice last night that tasted freezer burnt and would something if they got more. I called kitchen and let nursing staff know they will be bringing up a box to provide some to patient. Kidney function improving. Will repeat ECHO prior to d/c, at the earliest. Will continue to monitor labs, but WBC trending down, afebrile. Review of Systems Review of Systems: All systems reviewed & are unremarkable except as noted in HPI & below Physical Exam Constitutional: well developed, well nourished and comfortable; no acute distress Eyes: + anicteric sclerae and PERRL ENMT: external ear and nose normal, oropharynx normal Ears: no hearing impairment Mouth: no oral mucosal abnormality and oral mucous membranes not dry Neck: normal visual inspection and trachea midline Respiratory: normal respiratory effort and able to speak in complete sentences; no respiratory distress and no cough Auscultation: lungs clear to auscultation bilaterally and + crackles (bibasilar); no rales and no wheezes Cardiovascular: Rate/Rhythm: regular rate and regular rhythm Heart Sounds: normal S1, normal S2 and + gallop Extremities: no edema Gastrointestinal (Abdomen): Inspection/Auscultation: + abdomen distended and + hypoactive bowel sounds Percussion/Palpation: abdomen soft, + hernia, normal to percussion and + abdomen firm; abdomen nontender, no guarding and abdomen not rigid Musculoskeletal: Extremities: extremities normal to inspection; no cyanosis and no clubbing Skin: normal turgor; no lesions Neurologic: PERRL, EOMI, accommodation nl, no face palsy, no dysarthria moves all extremities, awake and + confused Psychiatric: Orientation: alert and oriented x 3 Lymphatic: no cervical or axillary lymphadenopathy Results & Data Results & Data ([place]) Vital Signs (Past 12 Hours) Vital Signs Temp Pulse Resp BP Pulse Ox 12/20/20 07:15 37 C 62 18 126/75 96 12/20/20 05:04 37 C 68 16 126/75 98 12/19/20 23:05 37.1 C 73 16 128/75 Laboratory Results 12/20/20 12/20/20 12/20/20 Range/Units 07:01 07:01 07:01 WBC (4.8-10.8) K/uL RBC (4.7-6.1) M/uL Hgb (14.0-18.0) g/dL Hct (42-52) % MCV (80-100) fL MCH (25-34) pg MCHC (32-36) g/dL RDW Std Deviation (36.4-46.3) fL RDW Coeff of Chavez (11.5-14.5) % Plt Count (130-400) K/uL MPV (7.4-10.4) fL Immature Gran % (Auto) % Neut % (Auto) % Lymph % (Auto) % [place] % (Auto) % Eos % (Auto) % Baso % (Auto) % Neut # (Auto) (1.4-6.5) K/uL Lymph # (Auto) (1.2-3.4) K/uL [place] # (Auto) (0.11-0.59) K/uL Eos # (Auto) (0-0.5) K/uL Baso # (Auto) (0-0.2) K/uL Immature Gran # (Auto) (0.00-0.02) K/uL Polychromasia Target Cells ESR 89 H (0-14) mm/hr Sodium 142 (136-145) mmol/L Potassium 3.6 (3.5-5.1) mmol/L Chloride 112 H (98-107) mmol/L Carbon Dioxide 22 (21-32) mmol/L Anion Gap 8.0 (3-11) BUN 34 H (7-18) mg/dl Creatinine 2.58 H (0.6-1.4) mg/dl Est Cr Clr Drug Dosing 44.7 ml/min Est GFR ( Amer) 37.8 Est GFR (Non-Af Amer) 32.7 BUN/Creatinine Ratio 13.1 (10-20) Glucose 89 (70-99) mg/dl Calcium 8.9 (8.5-10.1) mg/dl Phosphorus (2.5-4.9) mg/dl Magnesium 1.9 (1.8-2.4) mg/dl Iron (35-175) mcg/dl TIBC (250-450) mcg/dl Transferrin (200-360) mg/dl Transferrin % Sat (20-50) % Ferritin (8-388) ng/ml Total Bilirubin 0.6 (0.2-1) mg/dl AST 143 H (15-37) U/L ALT 198 H (12-78) U/L Alkaline Phosphatase 96 (45-117) U/L Total Creatine Kinase (39-308) U/L C-Reactive Protein 6.94 H (0-0.29) mg/dl Total Protein 6.8 (6.4-8.2) gm/dl Albumin 2.2 L (3.4-5.0) gm/dl Globulin 4.6 H (2.5-4.0) gm/dl Albumin/Globulin Ratio 0.5 L (0.9-2) Procalcitonin 0.98 H (0-0.5) ng/ml Lyme Disease IgG Ab (Negative) Lyme Disease IgM Ab (Negative) 12/20/20 12/19/20 12/19/20 Range/Units 07:01 11:26 07:02 WBC 15.55 H (4.8-10.8) K/uL RBC 3.77 L (4.7-6.1) M/uL Hgb 10.6 L (14.0-18.0) g/dL Hct 31.2 L (42-52) % MCV 82.8 (80-100) fL MCH 28.1 (25-34) pg MCHC 34.0 (32-36) g/dL RDW Std Deviation 46.3 (36.4-46.3) fL RDW Coeff of Chavez 15.8 H (11.5-14.5) % Plt Count 440 H (130-400) K/uL MPV 11.7 H (7.4-10.4) fL Immature Gran % (Auto) 1.1 % Neut % (Auto) 75.4 % Lymph % (Auto) 14.3 % [place] % (Auto) 6.8 % Eos % (Auto) 1.9 % Baso % (Auto) 0.5 % Neut # (Auto) 11.74 H (1.4-6.5) K/uL Lymph # (Auto) 2.22 (1.2-3.4) K/uL [place] # (Auto) 1.06 H (0.11-0.59) K/uL Eos # (Auto) 0.29 (0-0.5) K/uL Baso # (Auto) 0.07 (0-0.2) K/uL Immature Gran # (Auto) 0.17 H (0.00-0.02) K/uL Polychromasia Target Cells ESR (0-14) mm/hr Sodium 142 (136-145) mmol/L Potassium 3.5 (3.5-5.1) mmol/L Chloride 111 H (98-107) mmol/L Carbon Dioxide 21 (21-32) mmol/L Anion Gap 10.0 (3-11) BUN 36 H (7-18) mg/dl Creatinine 2.79 H (0.6-1.4) mg/dl Est Cr Clr Drug Dosing 40.6 ml/min Est GFR ( Amer) 34.4 Est GFR (Non-Af Amer) 29.7 BUN/Creatinine Ratio 12.9 (10-20) Glucose 115 H (70-99) mg/dl Calcium 8.2 L (8.5-10.1) mg/dl Phosphorus 4.2 (2.5-4.9) mg/dl Magnesium 2.0 (1.8-2.4) mg/dl Iron 28 L (35-175) mcg/dl TIBC 178 L (250-450) mcg/dl Transferrin 144 L (200-360) mg/dl Transferrin % Sat 14 L (20-50) % Ferritin 1327.3 H (8-388) ng/ml Total Bilirubin 0.7 (0.2-1) mg/dl AST 78 H (15-37) U/L ALT 149 H (12-78) U/L Alkaline Phosphatase 83 (45-117) U/L Total Creatine Kinase 91 (39-308) U/L C-Reactive Protein (0-0.29) mg/dl Total Protein 6.6 (6.4-8.2) gm/dl Albumin 2.0 L (3.4-5.0) gm/dl Globulin 4.6 H (2.5-4.0) gm/dl Albumin/Globulin Ratio 0.4 L (0.9-2) Procalcitonin (0-0.5) ng/ml Lyme Disease IgG Ab (Negative) Lyme Disease IgM Ab (Negative) 12/19/20 12/18/20 Range/Units 07:02 06:25 WBC (4.8-10.8) K/uL RBC (4.7-6.1) M/uL Hgb (14.0-18.0) g/dL Hct (42-52) % MCV (80-100) fL MCH (25-34) pg MCHC (32-36) g/dL RDW Std Deviation (36.4-46.3) fL RDW Coeff of Chavez (11.5-14.5) % Plt Count (130-400) K/uL MPV (7.4-10.4) fL Immature Gran % (Auto) 1.7 % Neut % (Auto) 79.5 % Lymph % (Auto) 10.8 % [place] % (Auto) 5.9 % Eos % (Auto) 1.9 % Baso % (Auto) 0.2 % Neut # (Auto) 14.14 H (1.4-6.5) K/uL Lymph # (Auto) 1.92 (1.2-3.4) K/uL [place] # (Auto) 1.05 H (0.11-0.59) K/uL Eos # (Auto) 0.33 (0-0.5) K/uL Baso # (Auto) 0.04 (0-0.2) K/uL Immature Gran # (Auto) 0.31 H (0.00-0.02) K/uL Polychromasia 1+ Target Cells 1+ ESR (0-14) mm/hr Sodium (136-145) mmol/L Potassium (3.5-5.1) mmol/L Chloride (98-107) mmol/L Carbon Dioxide (21-32) mmol/L Anion Gap (3-11) BUN (7-18) mg/dl Creatinine (0.6-1.4) mg/dl Est Cr Clr Drug Dosing ml/min Est GFR ( Amer) Est GFR (Non-Af Amer) BUN/Creatinine Ratio (10-20) Glucose (70-99) mg/dl Calcium (8.5-10.1) mg/dl Phosphorus (2.5-4.9) mg/dl Magnesium (1.8-2.4) mg/dl Iron (35-175) mcg/dl TIBC (250-450) mcg/dl Transferrin (200-360) mg/dl Transferrin % Sat (20-50) % Ferritin (8-388) ng/ml Total Bilirubin (0.2-1) mg/dl AST (15-37) U/L ALT (12-78) U/L Alkaline Phosphatase (45-117) U/L Total Creatine Kinase (39-308) U/L C-Reactive Protein (0-0.29) mg/dl Total Protein (6.4-8.2) gm/dl Albumin (3.4-5.0) gm/dl Globulin (2.5-4.0) gm/dl Albumin/Globulin Ratio (0.9-2) Procalcitonin (0-0.5) ng/ml Lyme Disease IgG Ab Negative (Negative) Lyme Disease IgM Ab Negative (Negative) PG Care Time/CCT Total # of Minutes Spent Total Time Spent with Patient: Total time spent is greater than 50% in coordination of care (as documented) at patient's floor/unit and/or counseling patient: Coding Level of Care Code 27686 Subseq Hosp Care Lvl 3 Diagnoses Sepsis A41.9; R65.20 Sepsis acute organ dysfunction status: with acute organ dysfunction Sepsis type: sepsis due to unspecified organism Severe sepsis acute organ dysfunction type: unspecified Severe sepsis shock status: without septic shock Cardiomyopathy I42.9 Acute kidney injury N17.9 Acute myocarditis I40.9 Elevated troponin I level R77.8 Enterocolitis K52.9 Mesenteric adenitis I88.0 Hypoalbuminemia E88.09 Metabolic acidosis E87.2 Anxiety and depression F41.9; F32.9 Anemia D64.9 (1) Sepsis Sepsis acute organ dysfunction status: with acute organ dysfunction Sepsis type: sepsis due to unspecified organism Severe sepsis acute organ dysfunction type: unspecified Severe sepsis shock status: without septic shock Qualified Code(s): A41.9 - Sepsis, unspecified organism; R65.20 - Severe sepsis without septic shock
[2020-12-20] MEDS: POLYETHYLENE (MIRALAX) 17 GM PACK PO SCH (09:03)
[2020-12-20] MEDS: DOCUSATE SODIUM 100 MG CAP PO SCH ×2 (09:03→20:07)
[2020-12-20] MEDS: METOPROLOL SUCC 25MG EXT REL TAB PO SCH (09:04)
[2020-12-20] MEDS: PANTOprazole 40 MG TAB PO SCH (09:04)
[2020-12-20] MEDS: FERROUS SULFATE 325 MG TAB PO SCH (09:36)
[2020-12-20] MEDS: FAMOTIDINE 20 MG in SYRINGE 3 ML IV SCH ×2 (09:36→20:07)
--- NOTE | 2020-12-20 10:16 | Nephrology Progress Note ---
Date of Service December 20, 2020 Assessment & Plan (1) Acute kidney injury: -- Remains polyuric in a negative fluid balance related to auto diuresis. -- Volume status acceptable. -- Encourage oral fluid intake. -- Goal to maintain even fluid balance. -- Check orthostatic vitals. -- VON clinically consistent with ATN (hemodynamic, vanco, iodinated contrast exposure). -- Creatinine improving. -- Electrolytes acceptable. -- Document strict I/O's. -- Repeat metabolic profile in the AM. (2) Hypoalbuminemia: -- Taking nutritional supplements. (3) Acute myocarditis: -- Cardiology following. Admission and Anticipated Discharge Date Admission Date: December 13, 2020 Subjective No acute events overnight. Bobby feels well this AM. Review of Systems Review of Systems: All systems reviewed & are unremarkable except as noted in HPI & below Physical Exam Constitutional: well developed; no acute distress Eyes: no scleral abnormality and no corneal abnormality ENMT: Mouth: no oral mucosal abnormality and oral mucous membranes not dry Neck: normal visual inspection and trachea midline Respiratory: normal respiratory effort Auscultation: lungs clear to auscultation bilaterally Cardiovascular: Rate/Rhythm: regular rate Heart Sounds: normal S1 and normal S2 Extremities: no edema Musculoskeletal: Extremities: no cyanosis and no clubbing Skin: normal turgor; no lesions Neurologic: Motor/Sensory: no tremor and no asterixis Psychiatric: Orientation: alert and oriented x 3 Results & Data ([facility]) Vital Signs (Past 12 Hours) Vital Signs Temp Pulse Resp BP Pulse Ox 12/20/20 07:15 37 C 62 18 126/75 96 12/20/20 05:04 37 C 68 16 126/75 98 12/19/20 23:05 37.1 C 73 16 128/75 Laboratory Results Laboratory Results - last 24 hr 12/18/20 12/19/20 12/20/20 06:25 11:26 07:01 WBC 15.55 H RBC 3.77 L Hgb 10.6 L Hct 31.2 L MCV 82.8 MCH 28.1 MCHC 34.0 RDW Std Deviation 46.3 RDW Coeff of Chavez 15.8 H Plt Count 440 H MPV 11.7 H Immature Gran % (Auto) 1.1 Neut % (Auto) 75.4 Lymph % (Auto) 14.3 [place] % (Auto) 6.8 Eos % (Auto) 1.9 Baso % (Auto) 0.5 Neut # (Auto) 11.74 H Lymph # (Auto) 2.22 [place] # (Auto) 1.06 H Eos # (Auto) 0.29 Baso # (Auto) 0.07 Immature Gran # (Auto) 0.17 H ESR Sodium Potassium Chloride Carbon Dioxide Anion Gap BUN Creatinine Est Cr Clr Drug Dosing Est GFR ( Amer) Est GFR (Non-Af Amer) BUN/Creatinine Ratio Glucose Calcium Magnesium Iron 28 L TIBC 178 L Transferrin 144 L Transferrin % Sat 14 L Ferritin 1327.3 H Total Bilirubin AST ALT Alkaline Phosphatase Total Creatine Kinase 91 C-Reactive Protein Total Protein Albumin Globulin Albumin/Globulin Ratio Procalcitonin Lyme Disease IgG Ab Negative Lyme Disease IgM Ab Negative 12/20/20 12/20/20 12/20/20 07:01 07:01 07:01 WBC RBC Hgb Hct MCV MCH MCHC RDW Std Deviation RDW Coeff of Chavez Plt Count MPV Immature Gran % (Auto) Neut % (Auto) Lymph % (Auto) [place] % (Auto) Eos % (Auto) Baso % (Auto) Neut # (Auto) Lymph # (Auto) [place] # (Auto) Eos # (Auto) Baso # (Auto) Immature Gran # (Auto) ESR 89 H Sodium 142 Potassium 3.6 Chloride 112 H Carbon Dioxide 22 Anion Gap 8.0 BUN 34 H Creatinine 2.58 H Est Cr Clr Drug Dosing 44.7 Est GFR ( Amer) 37.8 Est GFR (Non-Af Amer) 32.7 BUN/Creatinine Ratio 13.1 Glucose 89 Calcium 8.9 Magnesium 1.9 Iron TIBC Transferrin Transferrin % Sat Ferritin Total Bilirubin 0.6 AST 143 H ALT 198 H Alkaline Phosphatase 96 Total Creatine Kinase C-Reactive Protein 6.94 H Total Protein 6.8 Albumin 2.2 L Globulin 4.6 H Albumin/Globulin Ratio 0.5 L Procalcitonin 0.98 H Lyme Disease IgG Ab Lyme Disease IgM Ab PG Care Time/CCT Total # of Minutes Spent Total Time Spent with Patient: Total time spent is greater than 50% in coordination of care (as documented) at patient's floor/unit and/or counseling patient: Coding Level of Care Code 87894 Subseq Hosp Care Lvl 3 Diagnoses Acute kidney injury N17.9 Hypoalbuminemia E88.09 Acute myocarditis I40.9
--- NOTE | 2020-12-20 11:18 | Cardiology Progress Note ---
Date of Service December 20, 2020 Assessment & Plan (1) Acute myocarditis: (2) Cardiomyopathy: (3) Enterocolitis: (4) Acute kidney injury: (5) Mitral regurgitation: ASSESSMENT/PLAN: 1. Acute myocarditis: Overall presentation appears to be consistent with acute myocarditis. No current cardiac symptoms. He still has evidence of an inflammatory process with elevated sedimentation rate and CRP. Transaminases increasing today. Leukocytosis and renal function improving. 2. Cardiomyopathy: Likely due to myocarditis as above. He seems well compensated currently. Started on metoprolol succinate yesterday. He seems to tolerate this well. I think we will continue this dose. These planning on being discharged , we could Re image him with limited echocardiography on morning. 3. Enterocolitis: As per primary service. Has been evaluated by surgery and GI. Transaminase levels slightly worse today. 4. Acute kidney injury: Renal function improving 5. Mitral regurgitation: Mild Admission and Anticipated Discharge Date Admission Date: December 13, 2020 Subjective This morning patient claims to be feeling well. He states he does have some transient dizziness when sitting up on the side of the bed. He attributes this to being in a prone position for most of the day. No dizziness once he is upwards. No presyncope. No sense of palpitations. No chest pain. No breathing difficulty. Review of Systems Review of Systems: Per HPI Physical Exam Physical Exam: The patient is alert and oriented. Mood and affect appeared normal. He answered all questions appropriately. HEENT: Pupils are equal and reactive to light and accommodation. Extraocular movements are intact. The sclerae are anicteric. Neuro: Cranial nerves intact Lungs: Clear to auscultation bilaterally. He has good air movement without use of accessory muscles. No rales wheezes or rhonchi. Cardiac: Heart demonstrates a regular rate and rhythm. Normal S1 and S2. No murmurs on examination. Pulses: The patient has palpable radial pulses bilaterally that are equal in intensity Extremities: There was no evidence of hypoperfusion. There is no cyanosis or clubbing. There is no edema. Skin: I did not appreciate any rashes on examination today. Results & Data ([facility]) Vital Signs (Past 12 Hours) Vital Signs Temp Pulse Resp BP Pulse Ox 12/20/20 07:15 37 C 62 18 126/75 96 12/20/20 05:04 37 C 68 16 126/75 98 Laboratory Results Abnormal Lab Results 12/18/20 12/19/20 12/20/20 06:25 11:26 07:01 WBC 15.55 H RBC 3.77 L Hgb 10.6 L Hct 31.2 L MCV 82.8 MCH 28.1 MCHC 34.0 RDW Std Deviation 46.3 RDW Coeff of Chavez 15.8 H Plt Count 440 H MPV 11.7 H Immature Gran % (Auto) 1.1 Neut % (Auto) 75.4 Lymph % (Auto) 14.3 [place] % (Auto) 6.8 Eos % (Auto) 1.9 Baso % (Auto) 0.5 Neut # (Auto) 11.74 H Lymph # (Auto) 2.22 [place] # (Auto) 1.06 H Eos # (Auto) 0.29 Baso # (Auto) 0.07 Immature Gran # (Auto) 0.17 H ESR Sodium Potassium Chloride Carbon Dioxide Anion Gap BUN Creatinine Est Cr Clr Drug Dosing Est GFR ( Amer) Est GFR (Non-Af Amer) BUN/Creatinine Ratio Glucose Calcium Magnesium Iron 28 L TIBC 178 L Transferrin 144 L Transferrin % Sat 14 L Ferritin 1327.3 H Total Bilirubin AST ALT Alkaline Phosphatase Total Creatine Kinase 91 C-Reactive Protein Total Protein Albumin Globulin Albumin/Globulin Ratio Procalcitonin Lyme Disease IgG Ab Negative Lyme Disease IgM Ab Negative 12/20/20 12/20/20 12/20/20 07:01 07:01 07:01 WBC RBC Hgb Hct MCV MCH MCHC RDW Std Deviation RDW Coeff of Chavez Plt Count MPV Immature Gran % (Auto) Neut % (Auto) Lymph % (Auto) [place] % (Auto) Eos % (Auto) Baso % (Auto) Neut # (Auto) Lymph # (Auto) [place] # (Auto) Eos # (Auto) Baso # (Auto) Immature Gran # (Auto) ESR 89 H Sodium 142 Potassium 3.6 Chloride 112 H Carbon Dioxide 22 Anion Gap 8.0 BUN 34 H Creatinine 2.58 H Est Cr Clr Drug Dosing 44.7 Est GFR ( Amer) 37.8 Est GFR (Non-Af Amer) 32.7 BUN/Creatinine Ratio 13.1 Glucose 89 Calcium 8.9 Magnesium 1.9 Iron TIBC Transferrin Transferrin % Sat Ferritin Total Bilirubin 0.6 AST 143 H ALT 198 H Alkaline Phosphatase 96 Total Creatine Kinase C-Reactive Protein 6.94 H Total Protein 6.8 Albumin 2.2 L Globulin 4.6 H Albumin/Globulin Ratio 0.5 L Procalcitonin 0.98 H Lyme Disease IgG Ab Lyme Disease IgM Ab PG Care Time/CCT Total # of Minutes Spent Total Time Spent with Patient: Total time spent is greater than 50% in coordination of care (as documented) at patient's floor/unit and/or counseling patient: Coding Level of Care Code 78464 Subseq Hosp Care Lvl 2 Diagnoses Acute myocarditis I40.9 Cardiomyopathy I42.9 Enterocolitis K52.9 Acute kidney injury N17.9 Mitral regurgitation I34.0
[2020-12-20] MEDS: PARoxetine HCL 10 MG TAB PO SCH (20:07)
[2020-12-20] MEDS: MIRTAZAPINE SOLTAB 15 MG PO SCH (20:07)
[2020-12-20] MEDS ORDERED: NORMOSOL-R 1,000 ML IV SCH (21:30)
[2020-12-21] MEDS: AMPICILLIN/SULBACTAM SOD 3,000 MG in 0.9 % SODIUM CHLORIDE 100 ML IV SCH ×4 (04:47→21:52)
[2020-12-21] MEDS: HEPARIN SOD 5,000 UNIT/0.5 ML VIAL SQ SCH ×3 (05:56→21:53)
[2020-12-21 06:30] LABS: Hematocrit (blood only) 29.1 % (42-52); Hemoglobin 9.7 g/dL (14.0-18.0); Mean Corpuscular Hemoglobin 27.8 pg (25-34); Mean Corpuscular Hgb Conc 33.3 g/dL (32-36); Mean Corpuscular Volume 83.4 fL (80-100); Mean Platelet Volume 11.3 fL (7.4-10.4); Platelet Count 456 K/uL (130-400); RDW Coefficient of Variation 15.8 % (11.5-14.5); RDW Standard Deviation 46.9 fL (36.4-46.3); Red Blood Count 3.49 M/uL (4.7-6.1); White Blood Count 14.36 K/uL (4.8-10.8)
[2020-12-21 06:57] LABS: Basophils # (auto) 0.08 K/uL (0-0.2); Basophils % (auto) 0.6 %; Eosinophils # (auto) 0.28 K/uL (0-0.5); Eosinophils % (auto) 1.9 %; Immature Granulocytes # (auto) 0.14 K/uL (0.00-0.02); Lymphocytes # (auto) 2.21 K/uL (1.2-3.4); Lymphocytes % (auto) 15.4 %; Monocytes # (auto) 1.18 K/uL (0.11-0.59); Monocytes % (auto) 8.2 %; Neutrophils # (auto) 10.47 K/uL (1.4-6.5); Neutrophils % (auto) 72.9 %
[2020-12-21 06:58] LABS: Albumin Level 2.1 gm/dl (3.4-5.0); BUN Creatinine Ratio 14.3 (10-20); Bilirubin Direct 0.2 mg/dl (0-0.2); Calcium 8.6 mg/dl (8.5-10.1); Creatinine Clr Calc Pharmacy 44.3 ml/min; Est GFR (African American) 42.6; Est GFR (Non-African American) 36.7; Potassium 3.6 mmol/L (3.5-5.1)
[2020-12-21 07:01] LABS: Bilirubin,Total 0.5 mg/dl (0.2-1); Total Protein 6.5 gm/dl (6.4-8.2)
--- NOTE | 2020-12-21 08:29 | Hospitalist Progress Note ---
Date of Service December 21, 2020 Assessment & Plan (1) Sepsis: * severe sepsis with VON after eating contaminated Pastrami sandwich prior to admission and ?resultant sepsis myocarditis * COVID 19 in Novemeber -- states he had some shortness of breath with it, but did not require supplemental O2 -- ?viral infection suspected for acute cardiomyopathy but could also be from sepsis d/t lab findings/L shift/elevated procal on admission IMAGING CT abdomen/pelvis with some possible enteritis and lymphadenitis, no major findings on CT chest multiple chest x-ray's without pneumonia or pulmonary edema repeat CT abd/pelvis with pleural effusions, ascites, possible distended gall bladder, likely third spacing fluid with low albumin GB US: distended gall bladder, pericystic fluid, 5mm gall stone at neck of GB MRCP: no cholangitis, no ductal obstruction HIDA scan: no evidence of acute cholecystitis * Initially on Vanco/Cefepime * No signs of shock -- lactic down to 1.1 on 12/16 * Not encephalopathic * Placed on Dobutamine on 12/15 for renal perfusion --> subsequently discontinued and auto diuresis occurring. Output 4.3L today * Cr elevated to 2.9 and trending down -> currently 2.34 * WBC continues to trend down, currently 14.3k from peak 29.9k on 12/16 * BCx NO GROWTH after 5 days * Urine culture without growth * Stool cultures with no growth, specifically no Campylobacter, Salmonella, E coli, Shigella * LP on 12/14 with low WBC, protein 30s, no growth on cultures and fluid appeared clean -- doubt meningitis * HIV negative [facility] ID consulted * suspect source of infection is contaminated sandwich he ate a few days prior to onset of diarrhea and vomiting --> need to cover anaerobes and Listeria * changed antibiotics to Unasyn IV, complete 7 days, today is day 7 * responding great to Unasyn therapy, WBC down, no fever, eating well * ESR 89 (from 90), CRP 6.9 (from 18), Procal 0.98 (from 4). * LFTs elevated slightly yesterday but improving -- continue to monitor daily labs 2L IVF -- 1liter normosol overnight and additional 1L today to help given + orthostatics Repeating ECHO tomorrow per cardiology (2) Cardiomyopathy: * EF was down at 30-35% on admission, this is new finding. ? sepsis induced * he was maintaining BP in the 90's systolic and MAP > 65 * Dobutamine 2.5mcg drip started 12/15, tolerated really well, improved BP, lowered HR and increased UO * repeat echo on 12/16 with EF 40-45% but he was on Dobutamine at that time * Dobutamine stopped 12/17, his BP has been 120 systolic off of it, suspect heart is recovering from acute insult Initiated metoprolol succinated 25mg daily on 12/19 with BP 130/79 and able to tolerate --> BP stable 127/73 and has remained sinus rhythm in the 60s on monitor * defer to cardiology on timing of repeat echocardiogram -- plans for repeat tomorrow (3) Acute kidney injury: * Creatinine 1.53 upon admission, with no baseline for comparison. * improved to 1.3 for two days with aggressive IV fluids * Cr started to rise on 12/15, up to 2.4 then 2.7 * Cr 2.9 three days in a row today but making a lot of urine, no need for diuretics * 12/15: started on Dobutamine 2.5mcg for better renal perfusion, BP immediately up to 110-130 systolic * he made a lot more urine ever since Dobutamine started, try to maintain even fluid balance * stopped Dobutamine 12/17, still making a lot of urine * metabolic acidosis, non gapped, likely combination of lactic acidosis (mild) and diarrheal illness * he is demonstrating respiratory compensation, breathing a lot less today * HCO3 is wnl so sodium bicarb 650mg BID -> discontinued 12/19 * K is 3.6 today, no need for oral replacement * nephrology consult: * likely ATN from hypoperfusion, Vancomycin, two IV contrast studies on admission * reached plateau phase with Cr steady at 2.9 and making a lot of urine and continues to trend down, but is still elevated at 2.34 * Continue oral intake * + Orthostatics -- got 1L normosol evening 12/20 and additional 1L today --> will repeat orthostatics * BMP in AM (4) Acute myocarditis: * troponin up to 8 on 12/14, no chest pain * coupled with reduced EF of 30-35% would suspect acute myocarditis * he had COVID in September 2020, never had serious symptoms * he was negative for RSV, influenza and COVID on admission * consulted ID for their input * add dobutamine for improved contractility, responding really well * now off the Dobutamine for several days (5) Elevated troponin I level: * due to myocarditis * peaked at 8, down to 1.7 on 12/15 (6) Enterocolitis: * Enterocolitis/mesenteric adenitis/lactic acidosis- * Primary symptoms of nausea vomiting and diarrhea for 5 days prior to admission due to eating contaminated, spoiled sandwich, Pastrami * Unasyn as above (on day 6) * No BM for several days -- ordered miralax/colace. Encouraged ambulation (has not been up walking) * Tolerating low fiber diet * Cdiff negative, stool cultures negative (7) Mesenteric adenitis: * seen on CT (8) Hypoalbuminemia: * dropped from 2.7 to 1.9 * due to acute illness? there was only 1+ protein in urine so doubt nephrotic issues, especially with improvement in Cr * gave 25gm of albumin on 12/16 * albumin coming up (2.2), improved PO intake, no further albumin infusion needed, encourage oral nutrition (9) Metabolic acidosis: * non gapped acidosis, likely from GI losses with diarrhea for several days -- secondary respiratory compensation at the beginning of admission * Resolved, HCO3 21 today. sodium bicarb discontinued 12/19 * Nephrology on consult -- appreciate assistance (10) Anxiety and depression: * Continue home mirtazapine 45mg HS, Paroxetine 10mg HS (11) Anemia: * Hb slowly dropping, down to 9.5 on 12/16 but up to 10.6 today * ask for peripheral smear to look for MAHA in setting of sepsis -- no evidence of MAHA * no known history of sickle cell disease, thalassemia * MCV <80 on admission --> iron/transferrin sat % low, TIBC wnl. ferritin elevated (likely reactive) -- combination iron def/chronic disease? * Placed on daily iron supplementation DVT Prophylaxis Will utilize Heparin SQ given kidney function (placed on 12/19 as not previously on DVT proph) Dispo: to remain inpatient until abx completed on Saturday but likely d/c day at earliest Admission and Anticipated Discharge Date Admission Date: December 13, 2020 Supervising Physician Co-Signing Physician Notes PA Supervision Note: I did not personally see or examine the patient today, but I verified all bailey points of MEL Emanuel's assessment and plan with the following exceptions/additions: None Subjective Patient evaluated this morning. Feeling well. Drinking plenty and making copious urine still. BM prior to dinner last night. Has not been up walking yet today but did last night. Plans for ambulation this evening. Would like popsicle. Denies fever, chills, chest pain, shortness of breath, abdominal pain, nausea, vomiting or dysuria. Discussed repeating ECHO tomorrow, 1L IVF today and will repeat orthostatic VS tonight. WBC trending down. Can consider possible d/c tomorrow since abx to be completed today but will re-evaluated int he morning. Tolerating low dose metoprolol and Cr improving but will hold off on SIENNA/ARB at this time. Questions/concerns addressed. Review of Systems Review of Systems: All systems reviewed & are unremarkable except as noted in HPI & below Physical Exam Constitutional: well developed, well nourished and comfortable; no acute distress Eyes: + anicteric sclerae and PERRL ENMT: external ear and nose normal, oropharynx normal Ears: no hearing impairment Mouth: no oral mucosal abnormality and oral mucous membranes not dry Neck: normal visual inspection and trachea midline Respiratory: normal respiratory effort and able to speak in complete sentences; no respiratory distress and no cough Auscultation: lungs clear to auscultation bilaterally; no crackles, no rales and no wheezes Cardiovascular: Rate/Rhythm: regular rate and regular rhythm Heart Sounds: normal S1 and normal S2 Extremities: no edema Gastrointestinal (Abdomen): Inspection/Auscultation: + abdomen distended (less) and normal bowel sounds Percussion/Palpation: abdomen soft, + hernia, normal to percussion and + abdomen firm; abdomen nontender, no guarding and abdomen not rigid Musculoskeletal: Extremities: extremities normal to inspection; no cyanosis and no clubbing Skin: normal turgor; no lesions Neurologic: PERRL, EOMI, accommodation nl, no face palsy, no dysarthria moves all extremities and awake; not confused Psychiatric: Orientation: alert and oriented x 3 Affect: + flat affect Lymphatic: no cervical or axillary lymphadenopathy Results & Data Results & Data ([facility]) Vital Signs (Past 12 Hours) Vital Signs Temp Pulse Resp BP BP Pulse Ox 12/21/20 08:08 36.4 C L 73 18 133/84 97 12/21/20 04:27 37.1 C 67 16 120/71 95 12/20/20 22:57 37.5 C 16 96 Laboratory Results 12/21/20 12/21/20 12/21/20 Range/Units 06:01 06:01 04:45 WBC 14.36 H (4.8-10.8) K/uL RBC 3.49 L (4.7-6.1) M/uL Hgb 9.7 L (14.0-18.0) g/dL Hct 29.1 L (42-52) % MCV 83.4 (80-100) fL MCH 27.8 (25-34) pg MCHC 33.3 (32-36) g/dL RDW Std Deviation 46.9 H (36.4-46.3) fL RDW Coeff of Chavez 15.8 H (11.5-14.5) % Plt Count 456 H (130-400) K/uL MPV 11.3 H (7.4-10.4) fL Immature Gran % (Auto) 1.0 % Neut % (Auto) 72.9 % Lymph % (Auto) 15.4 % [place] % (Auto) 8.2 % Eos % (Auto) 1.9 % Baso % (Auto) 0.6 % Neut # (Auto) 10.47 H (1.4-6.5) K/uL Lymph # (Auto) 2.21 (1.2-3.4) K/uL [place] # (Auto) 1.18 H (0.11-0.59) K/uL Eos # (Auto) 0.28 (0-0.5) K/uL Baso # (Auto) 0.08 (0-0.2) K/uL Immature Gran # (Auto) 0.14 H (0.00-0.02) K/uL Sodium 143 (136-145) mmol/L Potassium 3.6 (3.5-5.1) mmol/L Chloride 113 H (98-107) mmol/L Carbon Dioxide 21 (21-32) mmol/L Anion Gap 9.0 (3-11) BUN 34 H (7-18) mg/dl Creatinine 2.34 H (0.6-1.4) mg/dl Est Cr Clr Drug Dosing 44.3 ml/min Est GFR ( Amer) 42.6 Est GFR (Non-Af Amer) 36.7 BUN/Creatinine Ratio 14.3 (10-20) Glucose 91 (70-99) mg/dl Calcium 8.6 (8.5-10.1) mg/dl Total Bilirubin 0.5 (0.2-1) mg/dl Direct Bilirubin 0.2 (0-0.2) mg/dl AST 123 H (15-37) U/L ALT 206 H (12-78) U/L Alkaline Phosphatase 95 (45-117) U/L Total Protein 6.5 (6.4-8.2) gm/dl Albumin 2.1 L (3.4-5.0) gm/dl Urine Osmolality 256 L (500-800) mOsm/kg PG Care Time/CCT Total # of Minutes Spent Total Time Spent with Patient: Total time spent is greater than 50% in coordination of care (as documented) at patient's floor/unit and/or counseling patient: Coding Level of Care Code 96948 Subseq Hosp Care Lvl 2 Diagnoses Sepsis A41.9; R65.20 Sepsis acute organ dysfunction status: with acute organ dysfunction Sepsis type: sepsis due to unspecified organism Severe sepsis acute organ dysfunction type: unspecified Severe sepsis shock status: without septic shock Cardiomyopathy I42.9 Acute kidney injury N17.9 Acute myocarditis I40.9 Elevated troponin I level R77.8 Enterocolitis K52.9 Mesenteric adenitis I88.0 Hypoalbuminemia E88.09 Metabolic acidosis E87.2 Anxiety and depression F41.9; F32.9 Anemia D64.9 (1) Sepsis Sepsis acute organ dysfunction status: with acute organ dysfunction Sepsis type: sepsis due to unspecified organism Severe sepsis acute organ dysfunction type: unspecified Severe sepsis shock status: without septic shock Qualified Code(s): A41.9 - Sepsis, unspecified organism; R65.20 - Severe sepsis without septic shock
[2020-12-21] MEDS ORDERED: NORMOSOL-R 1,000 ML IV SCH (09:00)
[2020-12-21] MEDS: FERROUS SULFATE 325 MG TAB PO SCH (10:00)
[2020-12-21] MEDS: POLYETHYLENE (MIRALAX) 17 GM PACK PO SCH (10:00)
[2020-12-21] MEDS: PANTOprazole 40 MG TAB PO SCH (10:00)
[2020-12-21] MEDS: METOPROLOL SUCC 25MG EXT REL TAB PO SCH (10:00)
[2020-12-21] MEDS: DOCUSATE SODIUM 100 MG CAP PO SCH ×2 (10:01→21:52)
[2020-12-21] MEDS: FAMOTIDINE 20 MG in SYRINGE 3 ML IV SCH ×2 (10:05→21:52)
--- NOTE | 2020-12-21 12:52 | Nephrology Progress Note ---
Date of Service December 21, 2020 Assessment & Plan (1) Acute kidney injury: -- Remains polyuric in a negative fluid balance related to auto diuresis. -- Volume status acceptable. -- Encourage oral fluid intake. Additional 1 L of normosol to be provided over a few hours this AM. -- Goal to maintain even fluid balance. -- Check orthostatic vitals again post IVF infusion. -- VON clinically consistent with ATN (hemodynamic, vanco, iodinated contrast exposure). -- Creatinine improving. -- Electrolytes acceptable. -- Document strict I/O's. -- Repeat metabolic profile in the AM. (2) Hypoalbuminemia: -- Taking nutritional supplements. (3) Acute myocarditis: -- Cardiology following. Plan TTE and discharge potentially tomorrow. Admission and Anticipated Discharge Date Admission Date: December 13, 2020 Subjective No acute events overnight. Remains polyuric. Appetite is good. Tolerating PO fluids and states that he is thirsty but it is difficult to keep enough fluids readily available. No fevers or chills. 1L of normosol provided overnight. No lightheadedness, dizziness, or dyspnea. Review of Systems Review of Systems: All systems reviewed & are unremarkable except as noted in HPI & below Physical Exam Constitutional: well developed; no acute distress Eyes: no scleral abnormality and no corneal abnormality ENMT: Mouth: no oral mucosal abnormality and oral mucous membranes not dry Neck: normal visual inspection and trachea midline Respiratory: normal respiratory effort Auscultation: lungs clear to auscultation bilaterally Cardiovascular: Rate/Rhythm: regular rate Heart Sounds: normal S1 and normal S2 Extremities: no edema Musculoskeletal: Extremities: no cyanosis and no clubbing Skin: normal turgor; no lesions Neurologic: Motor/Sensory: no tremor and no asterixis Psychiatric: Orientation: alert and oriented x 3 Results & Data ([facility]) Vital Signs (Past 12 Hours) Vital Signs Temp Pulse Resp BP BP Pulse Ox 12/21/20 11:30 36.3 C L 68 20 134/77 98 12/21/20 08:08 36.4 C L 73 18 133/84 97 12/21/20 04:27 37.1 C 67 16 120/71 95 Laboratory Results Laboratory Results - last 24 hr 12/21/20 12/21/20 12/21/20 04:45 06:01 06:01 WBC 14.36 H RBC 3.49 L Hgb 9.7 L Hct 29.1 L MCV 83.4 MCH 27.8 MCHC 33.3 RDW Std Deviation 46.9 H RDW Coeff of Chavez 15.8 H Plt Count 456 H MPV 11.3 H Immature Gran % (Auto) 1.0 Neut % (Auto) 72.9 Lymph % (Auto) 15.4 [place] % (Auto) 8.2 Eos % (Auto) 1.9 Baso % (Auto) 0.6 Neut # (Auto) 10.47 H Lymph # (Auto) 2.21 [place] # (Auto) 1.18 H Eos # (Auto) 0.28 Baso # (Auto) 0.08 Immature Gran # (Auto) 0.14 H Sodium 143 Potassium 3.6 Chloride 113 H Carbon Dioxide 21 Anion Gap 9.0 BUN 34 H Creatinine 2.34 H Est Cr Clr Drug Dosing 44.3 Est GFR ( Amer) 42.6 Est GFR (Non-Af Amer) 36.7 BUN/Creatinine Ratio 14.3 Glucose 91 Calcium 8.6 Total Bilirubin 0.5 Direct Bilirubin 0.2 AST 123 H ALT 206 H Alkaline Phosphatase 95 Total Protein 6.5 Albumin 2.1 L Urine Osmolality 256 L PG Care Time/CCT Total # of Minutes Spent Total Time Spent with Patient: Total time spent is greater than 50% in coordination of care (as documented) at patient's floor/unit and/or counseling patient: Coding Level of Care Code 23689 Subseq Hosp Care Lvl 3 Diagnoses Acute kidney injury N17.9 Hypoalbuminemia E88.09 Acute myocarditis I40.9
--- NOTE | 2020-12-21 16:04 | Cardiology Progress Note ---
Date of Service December 21, 2020 Assessment & Plan (1) Acute myocarditis: (2) Cardiomyopathy: (3) Enterocolitis: (4) Acute kidney injury: (5) Mitral regurgitation: ASSESSMENT/PLAN: 1. Acute myocarditis: Overall presentation appears to be consistent with acute myocarditis. He appears to be improving overall. 2. Cardiomyopathy: Likely due to myocarditis as above. He seems well compensated currently. He has received 3 doses metoprolol succinate. His hemodynamics remain stable tomorrow we can increase his metoprolol succinate. I will also order a limited echocardiogram for the morning to see if we have any obvious improvement in LV function. 3. Enterocolitis: As per primary service. Has been evaluated by surgery and GI. 4. Acute kidney injury: Renal function improving 5. Mitral regurgitation: Mild Admission and Anticipated Discharge Date Admission Date: December 13, 2020 Subjective This patient continues to feel well. He did report some abdominal bloating and active valve sounds, but no overt pain. No breathing difficulty. Minimal dizziness except associated with standing up rapidly. He was able to ambulate in the hallways today. He states that his muscles felt somewhat sore but otherwise no problems. Review of Systems Review of Systems: Per HPI Physical Exam Physical Exam: The patient is alert and oriented. Mood and affect appeared normal. He answered all questions appropriately. HEENT: Pupils are equal and reactive to light and accommodation. Extraocular movements are intact. The sclerae are anicteric. Neuro: Cranial nerves intact Lungs: Clear to auscultation bilaterally. He has good air movement without use of accessory muscles. No rales wheezes or rhonchi. Cardiac: Heart demonstrates a regular rate and rhythm. Normal S1 and S2. Holosystolic murmur heard best at the left apex. Pulses: The patient has palpable radial pulses bilaterally that are equal in intensity Extremities: There was no evidence of hypoperfusion. There is no cyanosis or clubbing. There is no edema. Skin: I did not appreciate any rashes on examination today. Results & Data ([facility]) Vital Signs (Past 12 Hours) Vital Signs Temp Pulse Resp BP BP Pulse Ox 12/21/20 15:38 36.1 C L 99 H 20 131/81 99 12/21/20 11:30 36.3 C L 68 20 134/77 98 12/21/20 08:08 36.4 C L 73 18 133/84 97 12/21/20 04:27 37.1 C 67 16 120/71 95 Laboratory Results Abnormal Lab Results 12/21/20 12/21/20 12/21/20 04:45 06:01 06:01 WBC 14.36 H RBC 3.49 L Hgb 9.7 L Hct 29.1 L MCV 83.4 MCH 27.8 MCHC 33.3 RDW Std Deviation 46.9 H RDW Coeff of Chavez 15.8 H Plt Count 456 H MPV 11.3 H Immature Gran % (Auto) 1.0 Neut % (Auto) 72.9 Lymph % (Auto) 15.4 [place] % (Auto) 8.2 Eos % (Auto) 1.9 Baso % (Auto) 0.6 Neut # (Auto) 10.47 H Lymph # (Auto) 2.21 [place] # (Auto) 1.18 H Eos # (Auto) 0.28 Baso # (Auto) 0.08 Immature Gran # (Auto) 0.14 H Sodium 143 Potassium 3.6 Chloride 113 H Carbon Dioxide 21 Anion Gap 9.0 BUN 34 H Creatinine 2.34 H Est Cr Clr Drug Dosing 44.3 Est GFR ( Amer) 42.6 Est GFR (Non-Af Amer) 36.7 BUN/Creatinine Ratio 14.3 Glucose 91 Calcium 8.6 Total Bilirubin 0.5 Direct Bilirubin 0.2 AST 123 H ALT 206 H Alkaline Phosphatase 95 Total Protein 6.5 Albumin 2.1 L Urine Osmolality 256 L Stool Occult Bld Scrn 12/21/20 Unknown WBC RBC Hgb Hct MCV MCH MCHC RDW Std Deviation RDW Coeff of Chavez Plt Count MPV Immature Gran % (Auto) Neut % (Auto) Lymph % (Auto) [place] % (Auto) Eos % (Auto) Baso % (Auto) Neut # (Auto) Lymph # (Auto) [place] # (Auto) Eos # (Auto) Baso # (Auto) Immature Gran # (Auto) Sodium Potassium Chloride Carbon Dioxide Anion Gap BUN Creatinine Est Cr Clr Drug Dosing Est GFR ( Amer) Est GFR (Non-Af Amer) BUN/Creatinine Ratio Glucose Calcium Total Bilirubin Direct Bilirubin AST ALT Alkaline Phosphatase Total Protein Albumin Urine Osmolality Stool Occult Bld Scrn Negative PG Care Time/CCT Total # of Minutes Spent Total Time Spent with Patient: Total time spent is greater than 50% in coordination of care (as documented) at patient's floor/unit and/or counseling patient: Coding Level of Care Code 47516 Subseq Hosp Care Lvl 2 Diagnoses Acute myocarditis I40.9 Cardiomyopathy I42.9 Enterocolitis K52.9 Acute kidney injury N17.9 Mitral regurgitation I34.0
[2020-12-21] MEDS: MIRTAZAPINE SOLTAB 15 MG PO SCH (21:52)
[2020-12-21] MEDS: PARoxetine HCL 10 MG TAB PO SCH (21:52)
[2020-12-22] MEDS: HEPARIN SOD 5,000 UNIT/0.5 ML VIAL SQ SCH ×3 (06:10→20:33)
[2020-12-22 06:41] LABS: Basophils # (auto) 0.06 K/uL (0-0.2); Basophils % (auto) 0.4 %; Eosinophils # (auto) 0.19 K/uL (0-0.5); Eosinophils % (auto) 1.4 %; Hematocrit (blood only) 29.3 % (42-52); Hemoglobin 9.7 g/dL (14.0-18.0); Immature Granulocytes # (auto) 0.08 K/uL (0.00-0.02); Immature Granulocytes % (auto) 0.6 %; Lymphocytes % (auto) 15.6 %; Mean Corpuscular Hemoglobin 27.9 pg (25-34); Mean Corpuscular Hgb Conc 33.1 g/dL (32-36); Mean Corpuscular Volume 84.2 fL (80-100); Mean Platelet Volume 11.4 fL (7.4-10.4); Monocytes # (auto) 0.82 K/uL (0.11-0.59); Monocytes % (auto) 6.1 %; Neutrophils # (auto) 10.24 K/uL (1.4-6.5); Neutrophils % (auto) 75.9 %; Platelet Count 486 K/uL (130-400); RDW Standard Deviation 48.6 fL (36.4-46.3); Red Blood Count 3.48 M/uL (4.7-6.1); White Blood Count 13.49 K/uL (4.8-10.8)
[2020-12-22 07:07] LABS: Albumin Level 2.3 gm/dl (3.4-5.0); BUN Creatinine Ratio 14.3 (10-20); Calcium 8.5 mg/dl (8.5-10.1); Creatinine Clr Calc Pharmacy 53.2 ml/min; Est GFR (African American) 53.1; Est GFR (Non-African American) 45.8; Potassium 3.8 mmol/L (3.5-5.1)
[2020-12-22 07:10] LABS: Albumin Globulin Ratio 0.5 (0.9-2); Bilirubin,Total 0.4 mg/dl (0.2-1); Globulin 4.6 gm/dl (2.5-4.0); Total Protein 6.9 gm/dl (6.4-8.2)
--- NOTE | 2020-12-22 08:19 | XCELERA ---
[id number]
[2020-12-22] MEDS: DOCUSATE SODIUM 100 MG CAP PO SCH ×2 (09:09→20:47)
[2020-12-22] MEDS: POLYETHYLENE (MIRALAX) 17 GM PACK PO SCH (09:09)
[2020-12-22] MEDS: PANTOprazole 40 MG TAB PO SCH (09:09)
[2020-12-22] MEDS: AMOXICILLIN/CLAVULANATE 875 MG TAB PO SCH ×2 (09:09→17:16)
[2020-12-22] MEDS: METOPROLOL SUCC 25MG EXT REL TAB PO SCH (09:09)
[2020-12-22] MEDS: FERROUS SULFATE 325 MG TAB PO SCH (09:09)
[2020-12-22] MEDS: FAMOTIDINE 20 MG in SYRINGE 3 ML IV SCH ×2 (09:11→20:33)
--- NOTE | 2020-12-22 10:23 | Nephrology Progress Note ---
Date of Service December 22, 2020 Assessment & Plan (1) Acute kidney injury: -- Remains polyuric but overall noted recovery in kidney function. -- Encourage fluids. -- Volume status acceptable. -- Goal to maintain even fluid balance. -- VON clinically consistent with ATN (hemodynamic, vanco, iodinated contrast exposure). -- Electrolytes acceptable. -- Monitor kidney function at least Q weekly during recovery phase at this time. -- No additional recommendations at this time. Nephrology will sign-off. Please call with questions or concerns. -- Outpatient follow up can be arranged at discharge, as needed. (2) Hypoalbuminemia: -- Taking nutritional supplements. (3) Acute myocarditis: -- Clinically improving. Repeat echo pendign. Admission and Anticipated Discharge Date Admission Date: December 13, 2020 Subjective No acute events overnight. No complaints this morning. Review of Systems Review of Systems: All systems reviewed & are unremarkable except as noted in HPI & below Physical Exam Constitutional: well developed; no acute distress Eyes: no scleral abnormality and no corneal abnormality ENMT: Mouth: no oral mucosal abnormality and oral mucous membranes not dry Neck: normal visual inspection and trachea midline Respiratory: normal respiratory effort Auscultation: lungs clear to auscultation bilaterally Cardiovascular: Rate/Rhythm: regular rate Heart Sounds: normal S1 and normal S2 Extremities: no edema Musculoskeletal: Extremities: no cyanosis and no clubbing Skin: normal turgor; no lesions Neurologic: Motor/Sensory: no tremor and no asterixis Psychiatric: Orientation: alert and oriented x 3 Results & Data ([place]) Vital Signs (Past 12 Hours) Vital Signs Temp Pulse Pulse Resp BP BP Pulse Ox 12/22/20 08:35 36.6 C 64 20 139/80 99 12/22/20 05:57 36.9 C 68 16 130/71 98 12/22/20 00:00 71 12/21/20 23:49 37.2 C 72 16 117/66 97 Laboratory Results Laboratory Results - last 24 hr 12/21/20 12/22/20 12/22/20 Unknown 05:59 05:59 WBC 13.49 H RBC 3.48 L Hgb 9.7 L Hct 29.3 L MCV 84.2 MCH 27.9 MCHC 33.1 RDW Std Deviation 48.6 H RDW Coeff of Chavez 16.0 H Plt Count 486 H MPV 11.4 H Immature Gran % (Auto) 0.6 Neut % (Auto) 75.9 Lymph % (Auto) 15.6 [place] % (Auto) 6.1 Eos % (Auto) 1.4 Baso % (Auto) 0.4 Neut # (Auto) 10.24 H Lymph # (Auto) 2.10 [place] # (Auto) 0.82 H Eos # (Auto) 0.19 Baso # (Auto) 0.06 Immature Gran # (Auto) 0.08 H Sodium 144 Potassium 3.8 Chloride 114 H Carbon Dioxide 24 Anion Gap 6.0 BUN 28 H Creatinine 1.95 H D Est Cr Clr Drug Dosing 53.2 Est GFR ( Amer) 53.1 Est GFR (Non-Af Amer) 45.8 BUN/Creatinine Ratio 14.3 Glucose 91 Calcium 8.5 Total Bilirubin 0.4 AST 117 H ALT 223 H Alkaline Phosphatase 109 Total Protein 6.9 Albumin 2.3 L Globulin 4.6 H Albumin/Globulin Ratio 0.5 L Stool Occult Bld Scrn Negative PG Care Time/CCT Total # of Minutes Spent Total Time Spent with Patient: Total time spent is greater than 50% in coordination of care (as documented) at patient's floor/unit and/or counseling patient: Coding Level of Care Code 03407 Subseq Hosp Care Lvl 3 Diagnoses Acute kidney injury N17.9 Hypoalbuminemia E88.09 Acute myocarditis I40.9
--- NOTE | 2020-12-22 11:27 | Hospitalist Progress Note ---
Date of Service December 22, 2020 Assessment & Plan (1) Sepsis: * severe sepsis with VON after eating contaminated Pastrami sandwich prior to admission and ?resultant sepsis myocarditis * COVID 19 in Novemeber -- states he had some shortness of breath with it, but did not require supplemental O2 -- ?viral infection suspected for acute cardiomyopathy but could also be from sepsis d/t lab findings/L shift/elevated procal on admission IMAGING CT abdomen/pelvis with some possible enteritis and lymphadenitis, no major findings on CT chest multiple chest x-ray's without pneumonia or pulmonary edema repeat CT abd/pelvis with pleural effusions, ascites, possible distended gall bladder, likely third spacing fluid with low albumin GB US: distended gall bladder, pericystic fluid, 5mm gall stone at neck of GB MRCP: no cholangitis, no ductal obstruction HIDA scan: no evidence of acute cholecystitis * Initially on Vanco/Cefepime * No signs of shock -- lactic down to 1.1 on 12/16 * Not encephalopathic * Placed on Dobutamine on 12/15 for renal perfusion --> subsequently discontinued and auto diuresis occurring. Output 5.2L today * Cr elevated to 2.9 and trending down -> currently 1.95 * WBC continues to trend down, currently 13.4k from peak 29.9k on 12/16 * BCx NO GROWTH after 5 days * Urine culture without growth * Stool cultures with no growth, specifically no Campylobacter, Salmonella, E coli, Shigella * LP on 12/14 with low WBC, protein 30s, no growth on cultures and fluid appeared clean -- doubt meningitis * HIV negative [facility] ID consulted * suspect source of infection is contaminated sandwich he ate a few days prior to onset of diarrhea and vomiting --> need to cover anaerobes and Listeria * changed antibiotics to Unasyn IV, complete 7 days, completed 12/21 but will placed on Augmentin for additional 2-3 days * responding great to Unasyn therapy, WBC down, no fever, eating well * ESR 89 (from 90), CRP 6.9 (from 18), Procal 0.98 (from 4). 12/22 F/u ECHO today with LV systolic function normal --> per discussion with Cardiology, would continue metoprolol for at least one month and have follow up in outpatient clinic in 1-2 months. Cr continuing to improve --> 1.95 from peak 2.9. Output 5.2L today so far AST/ALT still elevated but stable currently. Denies abdominal pain and will continue to monitor on AM labs Unasyn completed for 7 days total on 12/21 and continuing on Augmentin for 2-3 additional days to ensure resolution Continue to monitor labs in AM (2) Cardiomyopathy: * EF was down at 30-35% on admission, this is new finding. ? sepsis induced * he was maintaining BP in the 90's systolic and MAP > 65 * Dobutamine 2.5mcg drip started 12/15, tolerated really well, improved BP, lowered HR and increased UO * repeat echo on 12/16 with EF 40-45% but he was on Dobutamine at that time * Dobutamine stopped 12/17, his BP has been 120 systolic off of it, suspect heart is recovering from acute insult Initiated metoprolol succinated 25mg daily on 12/19 Repeat ECHO today with normal LV systolic function (3) Acute kidney injury: * Creatinine 1.53 upon admission, with no baseline for comparison. * improved to 1.3 for two days with aggressive IV fluids * Cr started to rise on 12/15, up to 2.4 then 2.7 * Cr 2.9 three days in a row today but making a lot of urine, no need for diuretics * 12/15: started on Dobutamine 2.5mcg for better renal perfusion, BP immediately up to 110-130 systolic * he made a lot more urine ever since Dobutamine started, try to maintain even fluid balance * stopped Dobutamine 12/17, still making a lot of urine * metabolic acidosis, non gapped, likely combination of lactic acidosis (mild) and diarrheal illness * he is demonstrating respiratory compensation, breathing a lot less today * HCO3 is wnl so sodium bicarb 650mg BID -> discontinued 12/19 * K is 3.6 today, no need for oral replacement nephrology consult: * likely ATN from hypoperfusion, Vancomycin, two IV contrast studies on admission * reached plateau phase with Cr steady at 2.9 and making a lot of urine and continues to trend down, but is still elevated at 1.95 * Continue oral intake * + Orthostatics -- got 1L normosol evening 12/20 and additional 2L on 12/21 for positive orthostatics. Will repeat orthos tomorrow * BMP in AM (4) Acute myocarditis: * troponin up to 8 on 12/14, no chest pain * coupled with reduced EF of 30-35% would suspect acute myocarditis * he had COVID in September 2020, never had serious symptoms * he was negative for RSV, influenza and COVID on admission * consulted ID for their input * add dobutamine for improved contractility, responding really well * now off the Dobutamine for several days (5) Elevated troponin I level: * due to myocarditis * peaked at 8, down to 1.7 on 12/15 (6) Enterocolitis: * Enterocolitis/mesenteric adenitis/lactic acidosis- * Primary symptoms of nausea vomiting and diarrhea for 5 days prior to admission due to eating contaminated, spoiled sandwich, Pastrami * Unasyn as above (on day 6) * No BM for several days -- ordered miralax/colace. Encouraged ambulation (has not been up walking) * Tolerating low fiber diet * Cdiff negative, stool cultures negative (7) Mesenteric adenitis: * seen on CT (8) Hypoalbuminemia: * dropped from 2.7 to 1.9 * due to acute illness? there was only 1+ protein in urine so doubt nephrotic issues, especially with improvement in Cr * gave 25gm of albumin on 12/16 * albumin coming up (2.2), improved PO intake, no further albumin infusion needed, encourage oral nutrition (9) Metabolic acidosis: * non gapped acidosis, likely from GI losses with diarrhea for several days -- secondary respiratory compensation at the beginning of admission * Resolved, HCO3 21 today. sodium bicarb discontinued 12/19 * Nephrology on consult -- appreciate assistance (10) Anxiety and depression: * Continue home mirtazapine 45mg HS, Paroxetine 10mg HS (11) Anemia: * Hb slowly dropping, down to 9.5 on 12/16 but up to 10.6 today * ask for peripheral smear to look for MAHA in setting of sepsis -- no evidence of MAHA * no known history of sickle cell disease, thalassemia * MCV <80 on admission --> iron/transferrin sat % low, TIBC wnl. ferritin elevated (likely reactive) -- combination iron def/chronic disease? * fecal occult blood negative * Placed on daily iron supplementation and would continue at discharge and outpatient DVT Prophylaxis Will utilize Heparin SQ given kidney function (placed on 12/19 as not previously on DVT proph) Dispo: continued inpatient stay 1-2 more days likely d/c Saturday Admission and Anticipated Discharge Date Admission Date: December 13, 2020 Supervising Physician Co-Signing Physician Notes MEL Supervision Note: I did not personally see or examine the patient today, but I verified all bailey points of MEL Emanuel's assessment and plan with the following exceptions/additions: None Subjective Evaluated this morning. Feeling well. Bowel movement last night which was loose and he denies any darkened color or blood noted. Kidney function continues to improve. Endorses making copious urine. Eating/drinking without difficulty. Discussed ECHO with patient, which shows function returned to normal. Will continue metoprolol. Continue to monitor kidney function and continue antibiotics for next day or two and possible discharge back to senior care on Saturday likely. No fever, chills, chest pain, shortness of breath, abdominal pain, nausea, vomiting, dysuria. Review of Systems Review of Systems: All systems reviewed & are unremarkable except as noted in HPI & below Physical Exam Constitutional: well developed, well nourished and comfortable; no acute distress Eyes: + anicteric sclerae and PERRL ENMT: mmm Neck: normal visual inspection and trachea midline Respiratory: normal respiratory effort and able to speak in complete sentences; no respiratory distress and no cough Auscultation: lungs clear to auscultation bilaterally; no crackles, no rales and no wheezes Cardiovascular: Rate/Rhythm: regular rate and regular rhythm Heart Sounds: normal S1 and normal S2; no murmur Extremities: no edema Gastrointestinal (Abdomen): Inspection/Auscultation: normal bowel sounds; abdomen not distended Percussion/Palpation: abdomen soft, + hernia and normal to percussion; abdomen nontender, no guarding and abdomen not rigid Musculoskeletal: Extremities: extremities normal to inspection; no cyanosis and no clubbing Skin: normal turgor; no lesions Neurologic: PERRL, EOMI, accommodation nl, no face palsy, no dysarthria moves all extremities and awake; not confused Psychiatric: Orientation: alert and oriented x 3 Affect: + flat affect Lymphatic: no cervical or axillary lymphadenopathy Results & Data Results & Data ([facility]) Vital Signs (Past 12 Hours) Vital Signs Temp Pulse Pulse Resp BP BP Pulse Ox 12/22/20 08:35 36.6 C 64 20 139/80 99 12/22/20 05:57 36.9 C 68 16 130/71 98 12/22/20 00:00 71 12/21/20 23:49 37.2 C 72 16 117/66 97 Laboratory Results 12/22/20 12/22/20 12/21/20 Range/Units 05:59 05:59 Unknown WBC 13.49 H (4.8-10.8) K/uL RBC 3.48 L (4.7-6.1) M/uL Hgb 9.7 L (14.0-18.0) g/dL Hct 29.3 L (42-52) % MCV 84.2 (80-100) fL MCH 27.9 (25-34) pg MCHC 33.1 (32-36) g/dL RDW Std Deviation 48.6 H (36.4-46.3) fL RDW Coeff of Chavez 16.0 H (11.5-14.5) % Plt Count 486 H (130-400) K/uL MPV 11.4 H (7.4-10.4) fL Immature Gran % (Auto) 0.6 % Neut % (Auto) 75.9 % Lymph % (Auto) 15.6 % [place] % (Auto) 6.1 % Eos % (Auto) 1.4 % Baso % (Auto) 0.4 % Neut # (Auto) 10.24 H (1.4-6.5) K/uL Lymph # (Auto) 2.10 (1.2-3.4) K/uL [place] # (Auto) 0.82 H (0.11-0.59) K/uL Eos # (Auto) 0.19 (0-0.5) K/uL Baso # (Auto) 0.06 (0-0.2) K/uL Immature Gran # (Auto) 0.08 H (0.00-0.02) K/uL Sodium 144 (136-145) mmol/L Potassium 3.8 (3.5-5.1) mmol/L Chloride 114 H (98-107) mmol/L Carbon Dioxide 24 (21-32) mmol/L Anion Gap 6.0 (3-11) BUN 28 H (7-18) mg/dl Creatinine 1.95 H D (0.6-1.4) mg/dl Est Cr Clr Drug Dosing 53.2 ml/min Est GFR ( Amer) 53.1 Est GFR (Non-Af Amer) 45.8 BUN/Creatinine Ratio 14.3 (10-20) Glucose 91 (70-99) mg/dl Calcium 8.5 (8.5-10.1) mg/dl Total Bilirubin 0.4 (0.2-1) mg/dl AST 117 H (15-37) U/L ALT 223 H (12-78) U/L Alkaline Phosphatase 109 (45-117) U/L Total Protein 6.9 (6.4-8.2) gm/dl Albumin 2.3 L (3.4-5.0) gm/dl Globulin 4.6 H (2.5-4.0) gm/dl Albumin/Globulin Ratio 0.5 L (0.9-2) Stool Occult Bld Scrn Negative (Negative) Diagnostic Findings ECHO PG Care Time/CCT Total # of Minutes Spent Total Time Spent with Patient: Total time spent is greater than 50% in coordination of care (as documented) at patient's floor/unit and/or counseling patient: Coding Level of Care Code 87204 Subseq Hosp Care Lvl 3 Diagnoses Sepsis A41.9; R65.20 Sepsis acute organ dysfunction status: with acute organ dysfunction Sepsis type: sepsis due to unspecified organism Severe sepsis acute organ dysfunction type: unspecified Severe sepsis shock status: without septic shock Cardiomyopathy I42.9 Acute kidney injury N17.9 Acute myocarditis I40.9 Elevated troponin I level R77.8 Enterocolitis K52.9 Mesenteric adenitis I88.0 Hypoalbuminemia E88.09 Metabolic acidosis E87.2 Anxiety and depression F41.9; F32.9 Anemia D64.9 (1) Sepsis Sepsis acute organ dysfunction status: with acute organ dysfunction Sepsis type: sepsis due to unspecified organism Severe sepsis acute organ dysfunction type: unspecified Severe sepsis shock status: without septic shock Qualified Code(s): A41.9 - Sepsis, unspecified organism; R65.20 - Severe sepsis without septic shock
--- NOTE | 2020-12-22 14:55 | Cardiology Progress Note ---
Date of Service December 22, 2020 Assessment & Plan (1) Acute myocarditis: (2) Cardiomyopathy: (3) Enterocolitis: (4) Acute kidney injury: (5) Mitral regurgitation: ASSESSMENT/PLAN: 1. Acute myocarditis: Overall presentation appears to be consistent with acute myocarditis. 2. Cardiomyopathy: Likely due to myocarditis as above. His LV function has returned to normal. I would continue him on his current dose of beta blockade for 1 month. He should refrain from vigorous exercise for at least 3 months. He should be re-evaluated in our outpatient clinic in a period of 1-2 months. 3. Enterocolitis: As per primary service. Has been evaluated by surgery and GI. 4. Acute kidney injury: Renal function improving 5. Mitral regurgitation: Mild Admission and Anticipated Discharge Date Admission Date: December 13, 2020 Subjective This morning patient claimed he feeling well. He has not report any chest pain. Not reporting breathing difficulty. He has been minimally ambulatory this morning. Review of Systems Review of Systems: Per HPI Physical Exam Physical Exam: The patient is alert and oriented. Mood and affect appeared normal. He answered all questions appropriately. HEENT: Pupils are equal and reactive to light and accommodation. Extraocular movements are intact. The sclerae are anicteric. Neuro: Cranial nerves intact Lungs: Clear to auscultation bilaterally. He has good air movement without use of accessory muscles. No rales wheezes or rhonchi. Cardiac: Heart demonstrates a regular rate and rhythm. Normal S1 and S2. Holosystolic murmur heard best at the left apex. Pulses: The patient has palpable radial pulses bilaterally that are equal in intensity Extremities: There was no evidence of hypoperfusion. There is no cyanosis or clubbing. There is no edema. Skin: I did not appreciate any rashes on examination today. Results & Data ([facility]) Vital Signs (Past 12 Hours) Vital Signs Temp Pulse Pulse Resp BP BP Pulse Ox 12/22/20 12:17 36.3 C L 68 20 144/89 H 99 12/22/20 08:35 36.6 C 64 20 139/80 99 12/22/20 08:00 71 12/22/20 05:57 36.9 C 68 16 130/71 98 Laboratory Results Abnormal Lab Results 12/22/20 12/22/20 05:59 05:59 WBC 13.49 H RBC 3.48 L Hgb 9.7 L Hct 29.3 L MCV 84.2 MCH 27.9 MCHC 33.1 RDW Std Deviation 48.6 H RDW Coeff of Chavez 16.0 H Plt Count 486 H MPV 11.4 H Immature Gran % (Auto) 0.6 Neut % (Auto) 75.9 Lymph % (Auto) 15.6 [place] % (Auto) 6.1 Eos % (Auto) 1.4 Baso % (Auto) 0.4 Neut # (Auto) 10.24 H Lymph # (Auto) 2.10 [place] # (Auto) 0.82 H Eos # (Auto) 0.19 Baso # (Auto) 0.06 Immature Gran # (Auto) 0.08 H Sodium 144 Potassium 3.8 Chloride 114 H Carbon Dioxide 24 Anion Gap 6.0 BUN 28 H Creatinine 1.95 H D Est Cr Clr Drug Dosing 53.2 Est GFR ( Amer) 53.1 Est GFR (Non-Af Amer) 45.8 BUN/Creatinine Ratio 14.3 Glucose 91 Calcium 8.5 Total Bilirubin 0.4 AST 117 H ALT 223 H Alkaline Phosphatase 109 Total Protein 6.9 Albumin 2.3 L Globulin 4.6 H Albumin/Globulin Ratio 0.5 L Diagnostic Findings Echocardiogram performed today revealed preserved LV systolic function. PG Care Time/CCT Total # of Minutes Spent Total Time Spent with Patient: Total time spent is greater than 50% in coordination of care (as documented) at patient's floor/unit and/or counseling patient: Coding Level of Care Code 74440 Subseq Hosp Care Lvl 2 Diagnoses Acute myocarditis I40.9 Cardiomyopathy I42.9 Enterocolitis K52.9 Acute kidney injury N17.9 Mitral regurgitation I34.0
[2020-12-22] MEDS: PARoxetine HCL 10 MG TAB PO SCH (20:33)
[2020-12-22] MEDS: MIRTAZAPINE SOLTAB 15 MG PO SCH (20:33)
[2020-12-23 06:11] LABS: Basophils # (auto) 0.09 K/uL (0-0.2); Basophils % (auto) 0.8 %; Eosinophils # (auto) 0.17 K/uL (0-0.5); Eosinophils % (auto) 1.5 %; Hematocrit (blood only) 29.2 % (42-52); Hemoglobin 9.8 g/dL (14.0-18.0); Immature Granulocytes # (auto) 0.05 K/uL (0.00-0.02); Immature Granulocytes % (auto) 0.5 %; Lymphocytes # (auto) 2.31 K/uL (1.2-3.4); Mean Corpuscular Hemoglobin 28.2 pg (25-34); Mean Corpuscular Hgb Conc 33.6 g/dL (32-36); Mean Corpuscular Volume 83.9 fL (80-100); Mean Platelet Volume 11.5 fL (7.4-10.4); Monocytes # (auto) 0.76 K/uL (0.11-0.59); Monocytes % (auto) 6.9 %; Neutrophils # (auto) 7.62 K/uL (1.4-6.5); Neutrophils % (auto) 69.3 %; Platelet Count 517 K/uL (130-400); RDW Coefficient of Variation 16.1 % (11.5-14.5); RDW Standard Deviation 48.9 fL (36.4-46.3); Red Blood Count 3.48 M/uL (4.7-6.1)
[2020-12-23] MEDS: HEPARIN SOD 5,000 UNIT/0.5 ML VIAL SQ SCH ×3 (06:19→21:27)
[2020-12-23 06:46] LABS: Albumin Level 2.4 gm/dl (3.4-5.0); BUN Creatinine Ratio 15.2 (10-20); Bilirubin Direct 0.2 mg/dl (0-0.2); Calcium 8.9 mg/dl (8.5-10.1); Creatinine Clr Calc Pharmacy 58.1 ml/min; Est GFR (African American) 52.8; Est GFR (Non-African American) 45.5
[2020-12-23 06:48] LABS: Bilirubin,Total 0.6 mg/dl (0.2-1); C Reactive Protein 2.9 mg/dl (0-0.29); Total Protein 7.2 gm/dl (6.4-8.2)
--- NOTE | 2020-12-23 08:06 | Hospitalist Progress Note ---
Date of Service December 23, 2020 Assessment & Plan (1) Sepsis: * severe sepsis with VON after eating contaminated Pastrami sandwich prior to admission and ?resultant sepsis myocarditis * COVID 19 in [place] -- states he had some shortness of breath with it, but did not require supplemental O2 -- ?viral infection suspected for acute cardiomyopathy but could also be from sepsis d/t lab findings/L shift/elevated procal on admission IMAGING CT abdomen/pelvis with some possible enteritis and lymphadenitis, no major findings on CT chest multiple chest x-ray's without pneumonia or pulmonary edema repeat CT abd/pelvis with pleural effusions, ascites, possible distended gall bladder, likely third spacing fluid with low albumin GB US: distended gall bladder, pericystic fluid, 5mm gall stone at neck of GB MRCP: no cholangitis, no ductal obstruction HIDA scan: no evidence of acute cholecystitis * Initially on Vanco/Cefepime * No signs of shock -- lactic down to 1.1 on 12/16 * Not encephalopathic * Placed on Dobutamine on 12/15 for renal perfusion --> subsequently discontinued and auto diuresis occurring. Output 5.2L today * Cr elevated to 2.9 and trending down -> currently 1.95 * WBC continues to trend down, currently 13.4k from peak 29.9k on 12/16 * BCx NO GROWTH after 5 days * Urine culture without growth * Stool cultures with no growth, specifically no Campylobacter, Salmonella, E coli, Shigella * LP on 12/14 with low WBC, protein 30s, no growth on cultures and fluid appeared clean -- doubt meningitis * HIV negative [facility] ID consulted * suspect source of infection is contaminated sandwich he ate a few days prior to onset of diarrhea and vomiting --> need to cover anaerobes and Listeria * changed antibiotics to Unasyn IV, complete 7 days, completed 12/21 but will placed on Augmentin for additional 2-3 days * responding great to Unasyn therapy, WBC down, no fever, eating well * ESR 89 (from 90), CRP 6.9 (from 18), Procal 0.98 (from 4). 12/22 F/u ECHO today with LV systolic function normal --> per discussion with Cardiology, would continue metoprolol for at least one month and have follow up in outpatient clinic in 1-2 months. Cr continuing to improve --> 1.95 from peak 2.9. Output 5.2L today so far AST/ALT still elevated but stable currently. Denies abdominal pain and will continue to monitor on AM labs Unasyn completed for 7 days total on 12/21 and continued Augmentin 12/23 Continuing to improve. WBC almost wnl 11k. Will discontinue Augmentin and continue to monitor for next 24 hours off abx Afebrile Cr stable but not improved -- expect resolution over next 1-2 weeks and will need weekly chemistry panel at [facility] until returns to normal To continue metoprolol for 1 month Avoid heavy lifting and will need cardiac follow up Urine output 3200mL CRP 2.9, procal 0.27, ESR still >90 Labs in AM Likely discharge tomorrow (2) Cardiomyopathy: * EF was down at 30-35% on admission, this is new finding. ? sepsis induced * he was maintaining BP in the 90's systolic and MAP > 65 * Dobutamine 2.5mcg drip started 12/15, tolerated really well, improved BP, lowered HR and increased UO * repeat echo on 12/16 with EF 40-45% but he was on Dobutamine at that time * Dobutamine stopped 12/17, his BP has been 120 systolic off of it, suspect heart is recovering from acute insult Initiated metoprolol succinated 25mg daily on 12/19 Repeat ECHO with normal LV systolic function Continue metoprolol 12.5mg for 1 month at discharge and have f/u with cardiology (3) Acute kidney injury: * ATN from hypoperfusion, vancomycin, 2 iV contrast studies * Nephrology on consult * Cr peak 2.9 and improving, 1.96 * BMP on AM labs and will need weekly until resolution (4) Acute myocarditis: * troponin up to 8 on 12/14, no chest pain -- coupled with reduced EF of 30-35% would suspect acute myocarditis * he had COVID in September 2020, never had serious symptoms * he was negative for RSV, influenza and COVID on admission * consulted ID for their input * add dobutamine for improved contractility, responding really well * now off the Dobutamine for several days (5) Elevated troponin I level: * due to myocarditis * peaked at 8, down to 1.7 on 12/15 (6) Enterocolitis: * Enterocolitis/mesenteric adenitis/lactic acidosis- * Primary symptoms of nausea vomiting and diarrhea for 5 days prior to admission due to eating contaminated, spoiled sandwich, Pastrami * Unasyn as above (on day 6) * No BM for several days -- ordered miralax/colace. Encouraged ambulation (has not been up walking) * Tolerating low fiber diet * Cdiff negative, stool cultures negative (7) Mesenteric adenitis: * seen on CT (8) Hypoalbuminemia: * dropped from 2.7 to 1.9 * due to acute illness? there was only 1+ protein in urine so doubt nephrotic issues, especially with improvement in Cr * gave 25gm of albumin on 12/16 * albumin coming up (2.4), adequate PO intake, no further albumin infusion needed, encourage oral nutrition (9) Metabolic acidosis: * non gapped acidosis, likely from GI losses with diarrhea for several days -- secondary respiratory compensation at the beginning of admission * Resolved, HCO3 24 today. sodium bicarb discontinued 12/19 * Nephrology on consult -- appreciate assistance (10) Anxiety and depression: * Continue home mirtazapine 45mg HS, Paroxetine 10mg HS (11) Elevated LFTs: elevated, worsening could be drug reaction follow LFTs (12) Anemia: * Hb slowly dropping, down to 9.5 on 12/16 * ask for peripheral smear to look for MAHA in setting of sepsis -- no evidence of MAHA * no known history of sickle cell disease, thalassemia * MCV <80 on admission --> iron/transferrin sat % low, TIBC wnl. ferritin elevated (likely reactive) -- combination iron def/chronic disease? * fecal occult blood negative * Placed on daily iron supplementation and would continue at discharge and outpatient * hgb 9.8 but did receive 2L fluids over last 24 hours * CBC in AM DVT Prophylaxis Heparin SQ given kidney function (placed on 12/19 as not previously on DVT proph) Dispo: continued inpatient additional night and likely d/c 12/24 Admission and Anticipated Discharge Date Admission Date: December 13, 2020 Supervising Physician Co-Signing Physician Notes PA Supervision Note: I did not personally see or examine the patient today, but I verified all bailey points of MEL Emanuel's assessment and plan with the following exceptions/additions: None Subjective Patient evaluated this morning. Feeling well. Making good urine. Continues to eat/drink and move his bowels. No need for further bowel regimen. WBC trending down. Cr elevated but stable, discussed expect to decrease over next 1-2 weeks and will have repeat labs after discharge. Plans for d/c tomorrow. No fever, chills, chest pain, shortness of breath, abdominal pain, nausea, vomiting. Review of Systems Review of Systems: All systems reviewed & are unremarkable except as noted in HPI & below Physical Exam Constitutional: well developed, well nourished and comfortable; no acute distress Eyes: + anicteric sclerae and PERRL ENMT: external ear and nose normal, oropharynx normal Ears: no hearing impairment Mouth: no oral mucosal abnormality and oral mucous membranes not dry Neck: normal visual inspection and trachea midline Respiratory: normal respiratory effort and able to speak in complete sentences; no respiratory distress and no cough Auscultation: lungs clear to auscultation bilaterally; no crackles, no rales and no wheezes Cardiovascular: Rate/Rhythm: regular rate and regular rhythm Heart Sounds: normal S1 and normal S2; no murmur Extremities: no edema Gastrointestinal (Abdomen): Inspection/Auscultation: normal bowel sounds; abdomen not distended Percussion/Palpation: abdomen soft, + hernia and normal to percussion; abdomen nontender, no guarding and abdomen not rigid Musculoskeletal: Extremities: extremities normal to inspection; no cyanosis and no clubbing Skin: normal turgor; no lesions Neurologic: PERRL, EOMI, accommodation nl, no face palsy, no dysarthria moves all extremities and awake; not confused Psychiatric: Orientation: alert and oriented x 3 Lymphatic: no cervical or axillary lymphadenopathy Results & Data Results & Data ([facility]) Vital Signs (Past 12 Hours) Vital Signs Temp Pulse Pulse Resp BP BP Pulse Ox 12/23/20 04:26 36.9 C 64 16 124/75 97 12/23/20 00:00 87 12/22/20 23:40 37 C 67 16 135/74 97 Laboratory Results 12/23/20 12/23/20 12/23/20 Range/Units 05:44 05:44 05:44 WBC (4.8-10.8) K/uL RBC (4.7-6.1) M/uL Hgb (14.0-18.0) g/dL Hct (42-52) % MCV (80-100) fL MCH (25-34) pg MCHC (32-36) g/dL RDW Std Deviation (36.4-46.3) fL RDW Coeff of Chavez (11.5-14.5) % Plt Count (130-400) K/uL MPV (7.4-10.4) fL Immature Gran % (Auto) % Neut % (Auto) % Lymph % (Auto) % [facility] % (Auto) % Eos % (Auto) % Baso % (Auto) % Neut # (Auto) (1.4-6.5) K/uL Lymph # (Auto) (1.2-3.4) K/uL [facility] # (Auto) (0.11-0.59) K/uL Eos # (Auto) (0-0.5) K/uL Baso # (Auto) (0-0.2) K/uL Immature Gran # (Auto) (0.00-0.02) K/uL ESR > 90 H (0-14) mm/hr Sodium 142 (136-145) mmol/L Potassium 4.0 (3.5-5.1) mmol/L Chloride 112 H (98-107) mmol/L Carbon Dioxide 24 (21-32) mmol/L Anion Gap 6.0 (3-11) BUN 30 H (7-18) mg/dl Creatinine 1.96 H (0.6-1.4) mg/dl Est Cr Clr Drug Dosing 58.1 ml/min Est GFR ( Amer) 52.8 Est GFR (Non-Af Amer) 45.5 BUN/Creatinine Ratio 15.2 (10-20) Glucose 94 (70-99) mg/dl Calcium 8.9 (8.5-10.1) mg/dl Total Bilirubin 0.6 (0.2-1) mg/dl Direct Bilirubin 0.2 (0-0.2) mg/dl AST 86 H (15-37) U/L ALT 202 H (12-78) U/L Alkaline Phosphatase 108 (45-117) U/L C-Reactive Protein 2.90 H (0-0.29) mg/dl Total Protein 7.2 (6.4-8.2) gm/dl Albumin 2.4 L (3.4-5.0) gm/dl Procalcitonin 0.27 (0-0.5) ng/ml 12/23/20 Range/Units 05:44 WBC 11.00 H (4.8-10.8) K/uL RBC 3.48 L (4.7-6.1) M/uL Hgb 9.8 L (14.0-18.0) g/dL Hct 29.2 L (42-52) % MCV 83.9 (80-100) fL MCH 28.2 (25-34) pg MCHC 33.6 (32-36) g/dL RDW Std Deviation 48.9 H (36.4-46.3) fL RDW Coeff of Chavez 16.1 H (11.5-14.5) % Plt Count 517 H (130-400) K/uL MPV 11.5 H (7.4-10.4) fL Immature Gran % (Auto) 0.5 % Neut % (Auto) 69.3 % Lymph % (Auto) 21.0 % [facility] % (Auto) 6.9 % Eos % (Auto) 1.5 % Baso % (Auto) 0.8 % Neut # (Auto) 7.62 H (1.4-6.5) K/uL Lymph # (Auto) 2.31 (1.2-3.4) K/uL [facility] # (Auto) 0.76 H (0.11-0.59) K/uL Eos # (Auto) 0.17 (0-0.5) K/uL Baso # (Auto) 0.09 (0-0.2) K/uL Immature Gran # (Auto) 0.05 H (0.00-0.02) K/uL ESR (0-14) mm/hr Sodium (136-145) mmol/L Potassium (3.5-5.1) mmol/L Chloride (98-107) mmol/L Carbon Dioxide (21-32) mmol/L Anion Gap (3-11) BUN (7-18) mg/dl Creatinine (0.6-1.4) mg/dl Est Cr Clr Drug Dosing ml/min Est GFR ( Amer) Est GFR (Non-Af Amer) BUN/Creatinine Ratio (10-20) Glucose (70-99) mg/dl Calcium (8.5-10.1) mg/dl Total Bilirubin (0.2-1) mg/dl Direct Bilirubin (0-0.2) mg/dl AST (15-37) U/L ALT (12-78) U/L Alkaline Phosphatase (45-117) U/L C-Reactive Protein (0-0.29) mg/dl Total Protein (6.4-8.2) gm/dl Albumin (3.4-5.0) gm/dl Procalcitonin (0-0.5) ng/ml PG Care Time/CCT Total # of Minutes Spent Total Time Spent with Patient: Total time spent is greater than 50% in coordination of care (as documented) at patient's floor/unit and/or counseling patient: Coding Level of Care Code 12657 Subseq Hosp Care Lvl 2 Diagnoses Sepsis A41.9; R65.20 Sepsis acute organ dysfunction status: with acute organ dysfunction Sepsis type: sepsis due to unspecified organism Severe sepsis acute organ dysfunction type: unspecified Severe sepsis shock status: without septic shock Cardiomyopathy I42.9 Acute kidney injury N17.9 Acute myocarditis I40.9 Elevated troponin I level R77.8 Enterocolitis K52.9 Mesenteric adenitis I88.0 Hypoalbuminemia E88.09 Metabolic acidosis E87.2 Anxiety and depression F41.9; F32.9 Elevated LFTs R79.89 Anemia D64.9 (1) Sepsis Sepsis acute organ dysfunction status: with acute organ dysfunction Sepsis type: sepsis due to unspecified organism Severe sepsis acute organ dysfunction type: unspecified Severe sepsis shock status: without septic shock Qualified Code(s): A41.9 - Sepsis, unspecified organism; R65.20 - Severe sepsis without septic shock
[2020-12-23] MEDS: METOPROLOL SUCC 25MG EXT REL TAB PO SCH (08:09)
[2020-12-23] MEDS: PANTOprazole 40 MG TAB PO SCH (08:10)
[2020-12-23] MEDS: AMOXICILLIN/CLAVULANATE 875 MG TAB PO SCH (08:10)
[2020-12-23] MEDS: FERROUS SULFATE 325 MG TAB PO SCH (08:10)
[2020-12-23] MEDS: DOCUSATE SODIUM 100 MG CAP PO SCH (08:13)
[2020-12-23] MEDS: POLYETHYLENE (MIRALAX) 17 GM PACK PO SCH (08:13)
[2020-12-23] MEDS: FAMOTIDINE 20 MG in SYRINGE 3 ML IV SCH ×2 (08:13→21:27)
[2020-12-23] MEDS: MIRTAZAPINE SOLTAB 15 MG PO SCH (21:28)
[2020-12-23] MEDS: PARoxetine HCL 10 MG TAB PO SCH (21:28)
[2020-12-24] MEDS: HEPARIN SOD 5,000 UNIT/0.5 ML VIAL SQ SCH ×3 (05:51→20:54)
[2020-12-24 07:28] LABS: Basophils # (auto) 0.05 K/uL (0-0.2); Basophils % (auto) 0.4 %; Eosinophils # (auto) 0.15 K/uL (0-0.5); Eosinophils % (auto) 1.3 %; Hematocrit (blood only) 30.1 % (42-52); Hemoglobin 10.3 g/dL (14.0-18.0); Immature Granulocytes # (auto) 0.04 K/uL (0.00-0.02); Immature Granulocytes % (auto) 0.4 %; Lymphocytes # (auto) 2.48 K/uL (1.2-3.4); Lymphocytes % (auto) 22.2 %; Mean Corpuscular Hemoglobin 28.9 pg (25-34); Mean Corpuscular Hgb Conc 34.2 g/dL (32-36); Mean Corpuscular Volume 84.3 fL (80-100); Monocytes # (auto) 0.83 K/uL (0.11-0.59); Monocytes % (auto) 7.4 %; Neutrophils # (auto) 7.62 K/uL (1.4-6.5); Neutrophils % (auto) 68.3 %; Platelet Count 555 K/uL (130-400); RDW Coefficient of Variation 15.9 % (11.5-14.5); RDW Standard Deviation 49.2 fL (36.4-46.3); Red Blood Count 3.57 M/uL (4.7-6.1); White Blood Count 11.17 K/uL (4.8-10.8)
[2020-12-24] MEDS: METOPROLOL SUCC 25MG EXT REL TAB PO SCH (07:56)
[2020-12-24] MEDS: FERROUS SULFATE 325 MG TAB PO SCH (07:56)
[2020-12-24] MEDS: PANTOprazole 40 MG TAB PO SCH (07:56)
--- NOTE | 2020-12-24 07:59 | Hospitalist Progress Note ---
Date of Service December 24, 2020 Assessment & Plan (1) Sepsis: * severe sepsis with VON after eating contaminated Pastrami sandwich prior to admission and ?resultant sepsis myocarditis * COVID 19 in [place] -- states he had some shortness of breath with it, but did not require supplemental O2 -- ?viral infection suspected for acute cardiomyopathy but could also be from sepsis d/t lab findings/L shift/elevated procal on admission IMAGING CT abdomen/pelvis with some possible enteritis and lymphadenitis, no major findings on CT chest multiple chest x-ray's without pneumonia or pulmonary edema repeat CT abd/pelvis with pleural effusions, ascites, possible distended gall bladder, likely third spacing fluid with low albumin GB US: distended gall bladder, pericystic fluid, 5mm gall stone at neck of GB MRCP: no cholangitis, no ductal obstruction HIDA scan: no evidence of acute cholecystitis * Initially on Vanco/Cefepime * No signs of shock -- lactic down to 1.1 on 12/16 * Not encephalopathic * Placed on Dobutamine on 12/15 for renal perfusion --> subsequently discontinued and auto diuresis occurring. Output 5.2L today * Cr elevated to 2.9 and trending down -> currently 1.95 * WBC continues to trend down, currently 13.4k from peak 29.9k on 12/16 * BCx NO GROWTH after 5 days * Urine culture without growth * Stool cultures with no growth, specifically no Campylobacter, Salmonella, E coli, Shigella * LP on 12/14 with low WBC, protein 30s, no growth on cultures and fluid appeared clean -- doubt meningitis * HIV negative [facility] ID consulted * suspect source of infection is contaminated sandwich he ate a few days prior to onset of diarrhea and vomiting --> need to cover anaerobes and Listeria * changed antibiotics to Unasyn IV, complete 7 days, completed 12/21 but continued Augmentin until AM 12/23 * responding great to Unasyn therapy, WBC down, no fever, eating well * ESR 89 (from 90), CRP 6.9 (from 18), Procal 0.98 (from 4). 12/22 F/u ECHO today with LV systolic function normal --> per discussion with Cardiology, would continue metoprolol for at least one month and have follow up in outpatient clinic in 1-2 months. Cr continuing to improve --> 1.95 from peak 2.9. Output 5.2L today so far AST/ALT still elevated but stable currently. Denies abdominal pain and will continue to monitor on AM labs Unasyn completed for 7 days total on 12/21 and continued Augmentin 12/23 Continuing to improve. WBC almost wnl 11k. Will discontinue Augmentin and continue to monitor for next 24 hours off abx Afebrile Cr stable but not improved To continue metoprolol for 1 month Avoid heavy lifting and will need cardiac follow up Urine output 3200mL CRP 2.9, procal 0.27, ESR still >90 Labs in AM Likely discharge tomorrow 12/24 Patient doing well WBC about the same, 11.1k -- continue to monitor off abx. Afebrile Creatinine continues to improve --> 1.81. -- expect resolution over next 1-2 weeks and [facility] to normal LFTs remain elevated: AST 105, ALT 217, Alk Phos 119. Prior imaging of GB without acute sanchez, labs not in cholestatic pattern. HIV negative. Could be drug reaction --> will monitor on AM labs while only continuing his home medications/metoprolol and iron supplementation. Will repeat inflammatory markers in AM to ensure trending down Possible discharge tomorrow if WBC stable, Cr continues to improve, and LFTs improve (2) Cardiomyopathy: * EF was down at 30-35% on admission, this is new finding. ? sepsis induced * he was maintaining BP in the 90's systolic and MAP > 65 * Dobutamine 2.5mcg drip started 12/15, tolerated really well, improved BP, lowered HR and increased UO * repeat echo on 12/16 with EF 40-45% but he was on Dobutamine at that time * Dobutamine stopped 12/17, his BP has been 120 systolic off of it, suspect heart is recovering from acute insult Initiated metoprolol succinated 25mg daily on 12/19 Repeat ECHO with normal LV systolic function Continue metoprolol succinate 25mg for 1 month at discharge and have f/u with cardiology (3) Acute kidney injury: * ATN from hypoperfusion, vancomycin, 2 iV contrast studies * Nephrology on consult * Cr peak 2.9 and improving, 1.81 * BMP on AM labs and will need weekly until resolution (4) Acute myocarditis: * troponin up to 8 on 12/14, no chest pain -- coupled with reduced EF of 30-35% would suspect acute myocarditis * he had COVID in September 2020, never had serious symptoms * he was negative for RSV, influenza and COVID on admission * consulted ID for their input * add dobutamine for improved contractility, responding really well * now off the Dobutamine for several days (5) Elevated troponin I level: * due to myocarditis * peaked at 8, down to 1.7 on 12/15 (6) Enterocolitis: * Enterocolitis/mesenteric adenitis/lactic acidosis- * Primary symptoms of nausea vomiting and diarrhea for 5 days prior to admission due to eating contaminated, spoiled sandwich, Pastrami * Unasyn/Augmentin as above * No BM for several days -- ordered miralax/colace. Encouraged ambulation (has not been up walking) * Tolerating low fiber diet * Cdiff negative, stool cultures negative (7) Mesenteric adenitis: * seen on CT (8) Hypoalbuminemia: * dropped from 2.7 to 1.9 * due to acute illness? there was only 1+ protein in urine so doubt nephrotic issues, especially with improvement in Cr * gave 25gm of albumin on 12/16 * albumin coming up (2.6), adequate PO intake, no further albumin infusion needed, encourage oral nutrition (9) Metabolic acidosis: * non gapped acidosis, likely from GI losses with diarrhea for several days -- secondary respiratory compensation at the beginning of admission * Resolved, HCO3 24 today. sodium bicarb discontinued 12/19 * Nephrology on consult -- appreciate assistance (10) Anxiety and depression: * Continue home mirtazapine 45mg HS, Paroxetine 10mg HS (11) Elevated LFTs: * elevated, worsening * could be drug reaction * follow LFTs -- elevated again today * No n/v/abdominal pain. HIV negative. Will add hepatitis panel * Likely drug reaction given multiple abx/agents on while inpatient * Will repeat LFTs in AM (12) Anemia: * Hb slowly dropping, down to 9.5 on 12/16 * ask for peripheral smear to look for MAHA in setting of sepsis -- no evidence of MAHA * no known history of sickle cell disease, thalassemia * MCV <80 on admission --> iron/transferrin sat % low, TIBC wnl. ferritin elevated (likely reactive) -- combination iron def/chronic disease? * fecal occult blood negative * Placed on daily iron supplementation and would continue at discharge and outpatient * hgb improved to 10.3 * continue to monitor DVT Prophylaxis Heparin SQ given kidney function (placed on 12/19 as not previously on DVT proph) Dispo: monitor LFTs/WBC in AM, possible d/c saturday vs saturday will need weekly labs at discharge until kidney function back to normal Admission and Anticipated Discharge Date Admission Date: December 13, 2020 Supervising Physician Co-Signing Physician Notes MEL Supervision Note: I did not personally see or examine the patient today, but I verified all bailey points of MEL Emanuel's assessment and plan with the following exceptions/additions: None Subjective Patient evaluated this afternoon. Feeling well. No complaints at this time. Eating/drinking without difficulty. Encouraging increased oral intake. Continues to have bowel movements. No nausea/vomiting/abdominal pain. No chest pain, shortness of breath, fevers or chills. Discussed improvement of kidney function and will repeat labs weekly at discharge but will continue to monitor inpatient and repeat labs given elevated LFTs, which could be reactive/drug reduced from various agents he has been on while in the hospital. Provided sprite x2 prior to leaving. Review of Systems Review of Systems: All systems reviewed & are unremarkable except as noted in HPI & below Physical Exam Constitutional: well developed, well nourished and comfortable; no acute distress Eyes: + anicteric sclerae and PERRL ENMT: mmm Neck: normal visual inspection and trachea midline Respiratory: normal respiratory effort and able to speak in complete sentences; no respiratory distress and no cough Auscultation: lungs clear to auscultation bilaterally; no crackles, no rales and no wheezes Cardiovascular: Rate/Rhythm: regular rate and regular rhythm Heart Sounds: normal S1 and normal S2; no murmur Extremities: no edema Gastrointestinal (Abdomen): Inspection/Auscultation: normal bowel sounds; abdomen not distended Percussion/Palpation: abdomen soft, + hernia and normal to percussion; abdomen nontender, no guarding and abdomen not rigid Musculoskeletal: Extremities: extremities normal to inspection; no cyanosis and no clubbing Skin: normal turgor; no lesions Neurologic: PERRL, EOMI, accommodation nl, no face palsy, no dysarthria moves all extremities and awake; not confused Psychiatric: Orientation: alert and oriented x 3 Affect: euthymic affect Lymphatic: no cervical or axillary lymphadenopathy Results & Data Results & Data ([facility]) Vital Signs (Past 12 Hours) Vital Signs Temp Pulse Pulse Resp BP Pulse Ox 12/24/20 07:57 37 C 75 18 110/73 97 12/24/20 04:00 36.8 C 68 20 127/68 96 12/23/20 23:08 37.4 C 70 18 119/70 97 Laboratory Results 12/24/20 12/24/20 Range/Units 06:22 06:22 WBC 11.17 H (4.8-10.8) K/uL RBC 3.57 L (4.7-6.1) M/uL Hgb 10.3 L (14.0-18.0) g/dL Hct 30.1 L (42-52) % MCV 84.3 (80-100) fL MCH 28.9 (25-34) pg MCHC 34.2 (32-36) g/dL RDW Std Deviation 49.2 H (36.4-46.3) fL RDW Coeff of Chavez 15.9 H (11.5-14.5) % Plt Count 555 H (130-400) K/uL MPV 12.0 H (7.4-10.4) fL Immature Gran % (Auto) 0.4 % Neut % (Auto) 68.3 % Lymph % (Auto) 22.2 % [place] % (Auto) 7.4 % Eos % (Auto) 1.3 % Baso % (Auto) 0.4 % Neut # (Auto) 7.62 H (1.4-6.5) K/uL Lymph # (Auto) 2.48 (1.2-3.4) K/uL Miner # (Auto) 0.83 H (0.11-0.59) K/uL Eos # (Auto) 0.15 (0-0.5) K/uL Baso # (Auto) 0.05 (0-0.2) K/uL Immature Gran # (Auto) 0.04 H (0.00-0.02) K/uL Sodium 140 (136-145) mmol/L Potassium 4.3 (3.5-5.1) mmol/L Chloride 108 H (98-107) mmol/L Carbon Dioxide 24 (21-32) mmol/L Anion Gap 8.0 (3-11) BUN 31 H (7-18) mg/dl Creatinine 1.81 H (0.6-1.4) mg/dl Est Cr Clr Drug Dosing 57.3 ml/min Est GFR ( Amer) 58.1 Est GFR (Non-Af Amer) 50.1 BUN/Creatinine Ratio 16.9 (10-20) Glucose 84 (70-99) mg/dl Calcium 9.8 (8.5-10.1) mg/dl Total Bilirubin 0.5 (0.2-1) mg/dl AST 105 H (15-37) U/L ALT 217 H (12-78) U/L Alkaline Phosphatase 119 H (45-117) U/L Total Protein 7.7 (6.4-8.2) gm/dl Albumin 2.6 L (3.4-5.0) gm/dl Globulin 5.1 H (2.5-4.0) gm/dl Albumin/Globulin Ratio 0.5 L (0.9-2) PG Care Time/CCT Total # of Minutes Spent Total Time Spent with Patient: Total time spent is greater than 50% in coordination of care (as documented) at patient's floor/unit and/or counseling patient: Coding Level of Care Code 51813 Subseq Hosp Care Lvl 2 Diagnoses Sepsis A41.9; R65.20 Sepsis acute organ dysfunction status: with acute organ dysfunction Sepsis type: sepsis due to unspecified organism Severe sepsis acute organ dysfunction type: unspecified Severe sepsis shock status: without septic shock Cardiomyopathy I42.9 Acute kidney injury N17.9 Acute myocarditis I40.9 Elevated troponin I level R77.8 Enterocolitis K52.9 Mesenteric adenitis I88.0 Hypoalbuminemia E88.09 Metabolic acidosis E87.2 Anxiety and depression F41.9; F32.9 Elevated LFTs R79.89 Anemia D64.9 (1) Sepsis Sepsis acute organ dysfunction status: with acute organ dysfunction Sepsis type: sepsis due to unspecified organism Severe sepsis acute organ dysfunction type: unspecified Severe sepsis shock status: without septic shock Qualified Code(s): A41.9 - Sepsis, unspecified organism; R65.20 - Severe sepsis without septic shock
[2020-12-24 08:00] LABS: Albumin Level 2.6 gm/dl (3.4-5.0); BUN Creatinine Ratio 16.9 (10-20); Calcium 9.8 mg/dl (8.5-10.1); Creatinine Clr Calc Pharmacy 57.3 ml/min; Est GFR (African American) 58.1; Est GFR (Non-African American) 50.1; Potassium 4.3 mmol/L (3.5-5.1)
[2020-12-24] MEDS ORDERED: AMOXICILLIN/CLAVULANATE 875 MG TAB PO SCH (08:00)
[2020-12-24 08:02] LABS: Albumin Globulin Ratio 0.5 (0.9-2); Bilirubin,Total 0.5 mg/dl (0.2-1); Globulin 5.1 gm/dl (2.5-4.0); Total Protein 7.7 gm/dl (6.4-8.2)
[2020-12-24] MEDS ORDERED: METOPROLOL SUCC 25MG EXT REL TAB PO SCH (13:59)
[2020-12-24 15:10] LABS: Hepatitis B Surface Antigen Neg (Neg)
[2020-12-24 15:38] LABS: Hepatitis C IgG 13Yrs+Old_Rflx Neg (Neg)
[2020-12-24] MEDS: PARoxetine HCL 10 MG TAB PO SCH (20:54)
[2020-12-24] MEDS: MIRTAZAPINE SOLTAB 15 MG PO SCH (20:54)
[2020-12-25] MEDS: HEPARIN SOD 5,000 UNIT/0.5 ML VIAL SQ SCH ×3 (05:49→20:57)
[2020-12-25 06:07] LABS: Basophils # (auto) 0.08 K/uL (0-0.2); Basophils % (auto) 0.7 %; Eosinophils # (auto) 0.16 K/uL (0-0.5); Eosinophils % (auto) 1.4 %; Hematocrit (blood only) 32.8 % (42-52); Hemoglobin 10.8 g/dL (14.0-18.0); Immature Granulocytes # (auto) 0.04 K/uL (0.00-0.02); Immature Granulocytes % (auto) 0.4 %; Lymphocytes % (auto) 26.3 %; Mean Corpuscular Hemoglobin 28.2 pg (25-34); Mean Corpuscular Hgb Conc 32.9 g/dL (32-36); Mean Corpuscular Volume 85.6 fL (80-100); Mean Platelet Volume 11.3 fL (7.4-10.4); Monocytes # (auto) 0.63 K/uL (0.11-0.59); Monocytes % (auto) 5.5 %; Neutrophils # (auto) 7.51 K/uL (1.4-6.5); Neutrophils % (auto) 65.7 %; Platelet Count 510 K/uL (130-400); RDW Coefficient of Variation 15.6 % (11.5-14.5); Red Blood Count 3.83 M/uL (4.7-6.1); White Blood Count 11.42 K/uL (4.8-10.8)
[2020-12-25 06:44] LABS: Albumin Level 2.9 gm/dl (3.4-5.0); BUN Creatinine Ratio 18.8 (10-20); Calcium 9.6 mg/dl (8.5-10.1); Creatinine Clr Calc Pharmacy 63.6 ml/min; Est GFR (African American) 65.9; Est GFR (Non-African American) 56.9; Potassium 4.5 mmol/L (3.5-5.1)
[2020-12-25 06:47] LABS: Bilirubin Direct 0.2 mg/dl (0-0.2); Bilirubin,Total 0.4 mg/dl (0.2-1); C Reactive Protein 1.82 mg/dl (0-0.29); Total Protein 8.3 gm/dl (6.4-8.2)
[2020-12-25] MEDS: PANTOprazole 40 MG TAB PO SCH (08:02)
[2020-12-25] MEDS: METOPROLOL SUCC 25MG EXT REL TAB PO SCH (08:02)
[2020-12-25] MEDS: FERROUS SULFATE 325 MG TAB PO SCH (08:02)
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
[2020-12-25] MEDS ORDERED: DICLOFENAC SOD 1% GEL 100 GM TUBE EXT PRN (12:57)
[2020-12-25] MEDS: LIDOCAINE 5% 1 PATCH TD SCH (15:25)
[2020-12-25] MEDS: MIRTAZAPINE SOLTAB 15 MG PO SCH (20:56)
[2020-12-25] MEDS: PARoxetine HCL 10 MG TAB PO SCH (20:56)
[2020-12-26] MEDS: HEPARIN SOD 5,000 UNIT/0.5 ML VIAL SQ SCH (05:55)
[2020-12-26 06:41] LABS: Basophils # (auto) 0.06 K/uL (0-0.2); Basophils % (auto) 0.6 %; Hematocrit (blood only) 33.8 % (42-52); Hemoglobin 11.5 g/dL (14.0-18.0); Immature Granulocytes # (auto) 0.03 K/uL (0.00-0.02); Immature Granulocytes % (auto) 0.3 %; Lymphocytes # (auto) 2.82 K/uL (1.2-3.4); Lymphocytes % (auto) 28.9 %; Mean Corpuscular Hemoglobin 28.8 pg (25-34); Mean Corpuscular Volume 84.7 fL (80-100); Mean Platelet Volume 11.8 fL (7.4-10.4); Monocytes # (auto) 0.65 K/uL (0.11-0.59); Monocytes % (auto) 6.7 %; Neutrophils # (auto) 6.11 K/uL (1.4-6.5); Neutrophils % (auto) 62.5 %; Platelet Count 519 K/uL (130-400); RDW Coefficient of Variation 15.5 % (11.5-14.5); RDW Standard Deviation 47.7 fL (36.4-46.3); Red Blood Count 3.99 M/uL (4.7-6.1); White Blood Count 9.77 K/uL (4.8-10.8)
[2020-12-26 07:14] LABS: Albumin Level 3.1 gm/dl (3.4-5.0); BUN Creatinine Ratio 18.4 (10-20); C Reactive Protein 1.52 mg/dl (0-0.29); Calcium 10.2 mg/dl (8.5-10.1); Creatinine Clr Calc Pharmacy 60.3 ml/min; Est GFR (African American) 61.8; Est GFR (Non-African American) 53.3; Potassium 4.5 mmol/L (3.5-5.1)
[2020-12-26 07:17] LABS: Albumin Globulin Ratio 0.6 (0.9-2); Bilirubin,Total 0.6 mg/dl (0.2-1); Globulin 5.6 gm/dl (2.5-4.0); Total Protein 8.7 gm/dl (6.4-8.2)
[2020-12-26] MEDS: LIDOCAINE 5% 1 PATCH TD SCH (08:24)
[2020-12-26] MEDS: METOPROLOL SUCC 25MG EXT REL TAB PO SCH (08:26)
[2020-12-26] MEDS: PANTOprazole 40 MG TAB PO SCH (08:27)
[2020-12-26] MEDS: FERROUS SULFATE 325 MG TAB PO SCH (08:27)
--- NOTE | 2020-12-26 17:47 | Discharge Summary ---
Date of Service December 26, 2020 Admission HPI Per Admitting Provider The patient is a 25-year-old prisoner of [facility], with a past medical history including depression, who presents with the above symptoms. Work-up in the emergency department included the following abnormal laborato renita: Sodium 132, potassium 3.4, creatinine 1.53, glucose 138, WBC 26.44, total bilirubin 1.3, direct bilirubin 0.6, troponin IV 0.960, albumin 2.7, lactate 3.3, procalcitonin 9.06, and COVID-19 testing was negative. EKG Showed ischemic changes in leads III, aVF, V3-V6. Chest x-ray showed no acute findings CT of abdomen and pelvis showed findings consistent with enterocolitis and mesenteric adenitis. CT angiography of the chest was negative for PE. Principal Diagnosis Food poisoning (viral vs. bacterial) with myocarditis and kidney injury Discharge Exam Constitutional WD/WN, vitals as above Eyes EOM intact bilaterally; no conjunctival abnormality ENMT external ear and nose normal, oropharynx normal Neck trachea midline, no thyromegaly normal visual inspection Respiratory normal respiratory effort, lungs clear to auscultation no respiratory distress Cardiovascular RRR, no murmur, no edema Gastrointestinal (Abdomen) Inspection/Auscultation: abdomen normal to inspection; abdomen not distended Musculoskeletal no cyanosis or clubbing, extremities motor strength 5/5 Skin no rashes, warm and dry Neurologic moves all extremities and awake Psychiatric Orientation: alert, oriented to person and cooperative Discharge Data Allergies Allergy/AdvReac Type Severity Reaction Status Date / Time schmitt Allergy Unknown Verified 12/13/20 03:55 trazodone Allergy Unknown Verified 12/13/20 03:55 Consultations 12/13/20 04:25 ED Decision to Admit Stat 12/13/20 07:40 Consult Cardiology Routine Consult Case Management - Discharge Planning Routine 12/13/20 16:39 Consult Infectious Diseases Routine 12/14/20 08:19 Consult Gastroenterology Routine 12/15/20 07:26 Consult Nephrology Routine 12/15/20 15:53 Consult General Surgery Routine Ordered Studies 12/13/20 04:56 CT abd pelvis IV con only Urgent CT angio chest PE protocol Urgent 12/14/20 09:38 FL lumbar puncture diagnostic Routine 12/15/20 12:28 CT abd pelvis wo con Urgent 12/15/20 13:49 US abdomen limited Urgent 12/15/20 16:15 MR MRCP Urgent Hospital Course (1) Sepsis: * severe sepsis with VON after eating contaminated Pastrami sandwich prior to admission and ?resultant sepsis myocarditis * COVID 19 in September -- states he had some shortness of breath with it, but did not require supplemental O2 -- ?viral infection suspected for acute cardiomyopathy but could also be from sepsis d/t lab findings/L shift/elevated procal on admission IMAGING CT abdomen/pelvis with some possible enteritis and lymphadenitis, no major findings on CT chest multiple chest x-ray's without pneumonia or pulmonary edema repeat CT abd/pelvis with pleural effusions, ascites, possible distended gall bladder, likely third spacing fluid with low albumin GB US: distended gall bladder, pericystic fluid, 5mm gall stone at neck of GB MRCP: no cholangitis, no ductal obstruction HIDA scan: no evidence of acute cholecystitis * Initially on Vanco/Cefepime * No signs of shock -- lactic down to 1.1 on 12/16 * Not encephalopathic * Placed on Dobutamine on 12/15 for renal perfusion --> subsequently discontinued and auto diuresis occurring. Output 5.2L today * Cr elevated to 2.9 and trending down -> currently 1.95 * WBC continues to trend down, currently 13.4k from peak 29.9k on 12/16 * BCx NO GROWTH after 5 days * Urine culture without growth * Stool cultures with no growth, specifically no Campylobacter, Salmonella, E coli, Shigella * LP on 12/14 with low WBC, protein 30s, no growth on cultures and fluid appeared clean -- doubt meningitis * HIV negative [facility] ID consulted * suspect source of infection is contaminated sandwich he ate a few days prior to onset of diarrhea and vomiting --> need to cover anaerobes and Listeria * changed antibiotics to Unasyn IV, complete 7 days, completed 12/21 but continued Augmentin until AM 12/23 * responding great to Unasyn therapy, WBC down, no fever, eating well * ESR 89 (from 90), CRP 6.9 (from 18), Procal 0.98 (from 4). 12/22 F/u ECHO today with LV systolic function normal --> per discussion with Cardiology, would continue metoprolol for at least one month and have follow up in outpatient clinic in 1-2 months. Cr continuing to improve --> 1.95 from peak 2.9. Output 5.2L today so far AST/ALT still elevated but stable currently. Denies abdominal pain and will continue to monitor on AM labs Unasyn completed for 7 days total on 12/21 and continued Augmentin 12/23 Continuing to improve. WBC almost wnl 11k. Will discontinue Augmentin and continue to monitor for next 24 hours off abx Afebrile Cr stable but not improved To continue metoprolol for 1 month Avoid heavy lifting and will need cardiac follow up Urine output 3200mL CRP 2.9, procal 0.27, ESR still >90 Labs in AM Likely discharge tomorrow 12/24 Patient doing well WBC about the same, 11.1k -- continue to monitor off abx. Afebrile Creatinine continues to improve --> 1.81. -- expect resolution over next 1-2 weeks and will need weekly chemistry panel at [facility] until returns to normal LFTs remain elevated: AST 105, ALT 217, Alk Phos 119. Prior imaging of GB without acute sanchez, labs not in cholestatic pattern. HIV negative. Could be drug reaction --> will monitor on AM labs while only continuing his home medications/metoprolol and iron supplementation. Will repeat inflammatory markers in AM to ensure trending down Possible discharge tomorrow if WBC stable, Cr continues to improve, and LFTs improve 12/25 WBC elevated but stable Creatinine continues to improve, currently 1.63. Good output ESR still elevated >90, but CRP 1.82 (from 2.9) LFTs remain elevated -- AST 107 (105), ALT 239 (217), Alk Phos 131 (119) -- considering medication related, however had not previously obtained hepatitis panel as patient with bad pastrami, possible acute hepatitis. --> Hep A still pending Would keep inpatient until LFTs start to trend down. If reported increase in discomfort, consider repeat imaging of gallbladder Labs in AM (2) Cardiomyopathy: * EF was down at 30-35% on admission, this is new finding. ? sepsis induced * he was maintaining BP in the 90's systolic and MAP > 65 * Dobutamine 2.5mcg drip started 12/15, tolerated really well, improved BP, lowered HR and increased UO * repeat echo on 12/16 with EF 40-45% but he was on Dobutamine at that time * Dobutamine stopped 12/17, his BP has been 120 systolic off of it, suspect heart is recovering from acute insult Initiated metoprolol succinated 25mg daily on 12/19 Repeat ECHO with normal LV systolic function Started metoprolol succinate 25mg for 1 month at discharge and have f/u with cardiology -- decreased to 12.5mg daily given lower BPs -- still continue for 1 month total at discharge (3) Acute kidney injury: * ATN from hypoperfusion, vancomycin, 2 iV contrast studies * Nephrology on consult * Cr peak 2.9 and improving, 1.63 * BMP on AM labs and will need weekly until resolution (4) Acute myocarditis: * troponin up to 8 on 12/14, no chest pain -- coupled with reduced EF of 30-35% would suspect acute myocarditis * he had COVID in September 2020, never had serious symptoms * he was negative for RSV, influenza and COVID on admission * consulted ID for their input * add dobutamine for improved contractility, responding really well * now off the Dobutamine for several days (5) Elevated troponin I level: * due to myocarditis * peaked at 8, down to 1.7 on 12/15 (6) Enterocolitis: * Enterocolitis/mesenteric adenitis/lactic acidosis- * Primary symptoms of nausea vomiting and diarrhea for 5 days prior to admission due to eating contaminated, spoiled sandwich, Pastrami * Unasyn/Augmentin as above * No BM for several days -- ordered miralax/colace. Encouraged ambulation (has not been up walking) * Tolerating low fiber diet * Cdiff negative, stool cultures negative * Hepatitis panel pending (7) Mesenteric adenitis: * seen on CT (8) Hypoalbuminemia: * dropped from 2.7 to 1.9 * due to acute illness? there was only 1+ protein in urine so doubt nephrotic issues, especially with improvement in Cr * gave 25gm of albumin on 12/16 * albumin coming up (2.9), adequate PO intake, no further albumin infusion neede d, encourage oral nutrition (9) Metabolic acidosis: * non gapped acidosis, likely from GI losses with diarrhea for several days -- secondary respiratory compensation at the beginning of admission * Resolved, HCO3 26 today. sodium bicarb discontinued 12/19 * Nephrology on consult -- appreciate assistance (10) Anxiety and depression: * Continue home mirtazapine 45mg HS, Paroxetine 10mg HS (11) Elevated LFTs: * elevated, worsening * could be drug reaction * follow LFTs -- elevated again today * No n/v/abdominal pain. HIV negative. Will add hepatitis panel (Hep A still pending * Likely drug reaction given multiple abx/agents on while inpatient * Will repeat LFTs in AM * Continue inpatient until trending down (12) Anemia: * Hb slowly dropping, down to 9.5 on 12/16 * ask for peripheral smear to look for MAHA in setting of sepsis -- no evidence of MAHA * no known history of sickle cell disease, thalassemia * MCV <80 on admission --> iron/transferrin sat % low, TIBC wnl. ferritin elevated (likely reactive) -- combination iron def/chronic disease? * fecal occult blood negative * Placed on daily iron supplementation and would continue at discharge and outpatient * hgb improved to 10.8 * continue to monitor R Shoulder/Low back pain -- could be related to GB, however no pain reported. Non-tender on examination. Possible from being in bed for extended period of time. Has chronic issues with R shoulder Voltaren gel to shoulder, lidocaine patch to back Avoid Tylenol given elevated LFTs Monitor DVT Prophylaxis Heparin SQ given kidney function (placed on 12/19 as not previously on DVT proph) Dispo: monitor LFTs/WBC in AM Follow hepatitis panel D/c when LFTs trending down Total Time Total Time Spent Total Time Spent (In Minutes): 35 Discharge Plan Discharge Items [facility] Reason For Visit: ELEVATED TROPONIN Discharge Diagnosis: Presumed viral gastroenteritis with hepatitis and myocarditis Activity: Resume your previous activity Non-emergency contact: Primary Care Provider Call non-emergency contact if: your pain is not controlled Follow-up/Referrals: Luke Flores MD [Physician] - (Please see Dr. Flores in 1 month.) Yessy FRAZIER [Primary Care Provider] - Diet: Regular Addtl Attending Provider Instructions: Mr. Sawyer was admitted with nausea, vomiting, and diarrhea which he attributed to eating a bad pastrami sandwich. He was found to have an acute myocarditis and cardiomyopathy with an EF of 30-35%. However, it returned to normal by 12/22/2020 on a repeat echo. He was also kept for a hepatitis that was thought to be due to medication vs. viral. By discharge, this was returning to normal. For his heart, he should continue his beta-doroteo for 1 month, and avoid strenuous exercise for 3 months. He should be seen by cardiology in 1 month to ensure all resolution of his cardiac issues. His creatinine on discharge is 1.7. This appears to be close to his baseline as his lowest this admission was 1.3. His AST/ALT were 73 & 209 which are downtrending. His bilirubin is normal and his alk phos is 118. His CMP can be recheck in 1-2 weeks to ensure resolution of liver issues and monitor his kidney function. Pending Studies at Discharge: No Stand-Alone Forms: My [facility] Skilled Items Patient informed of condition?: No Discharge Level of Care: Other Communicable Disease: No Discharge Prognosis: Stable Lines: None Urinary Catheter: No Medications and DC Order Prescriptions: New metoprolol succinate 25 mg Tablet Extended Release 24 Hr 12.5 mg PO QAM Qty: 0 RF: 0 Continued paroxetine HCl 10 mg Tablet 10 mg PO HS RF: 0 mirtazapine 45 mg Tablet 45 mg PO HS RF: 0 Discharge Orders: Discharge Order (Routine); Ordered 12/26/20 Ordered By: Iain Wise Admission Data Admit Date/Time: 12/13/20 06:15 Attending Provider: Iain Wise Admit Provider: Lobo Berkowitz Primary Care Provider: Yessy FRAZIER Other Providers: Luke Flores ; Tito Shetty ; Jorge Bolanos ; Mahad Cortes I. ; Simone Wynn II ; Gina Merchant ; Bandar Juárez ; Moises Orourke ; Lucina Smith ; Rajeev Tejeda ; Iain Wise Other Interventions: Discharge Summary Assessment (RN) Last Done: 12/26/20 10:37 Coding Level of Care Code D/C Day Management >30 mins Diagnoses Sepsis A41.9; R65.20 Sepsis acute organ dysfunction status: with acute organ dysfunction Sepsis type: sepsis due to unspecified organism Severe sepsis acute organ dysfunction type: unspecified Severe sepsis shock status: without septic shock Cardiomyopathy I42.9 Acute kidney injury N17.9 Acute myocarditis I40.9 Elevated troponin I level R77.8 Enterocolitis K52.9 Mesenteric adenitis I88.0 Hypoalbuminemia E88.09 Metabolic acidosis E87.2 Anxiety and depression F41.9; F32.9 Elevated LFTs R79.89 Anemia D64.9
[2020-12-27 17:14] LABS: Hepatitis A Antibody IgM NON-REACTIVE (NON-REACTIVE); Hepatitis B Core Antibody IgM NON-REACTIVE (NON-REACTIVE)
== END 2020-12-26 12:20 | DRG 871 ==
LOC: ED 03:09 → SUATTDRO 06:15 → 1E 06:15 → 2S 12-16 10:09